=== PATIENT | male | born 1975 | race Caucasian/White ===

== ENCOUNTER 2020-08-23 11:41 | Emergency (ER) | payer OTHER, SELFPAY ==
--- NOTE | ~2020-08-23 | CT_ITS ---
EXAMINATION: CT abdomen pelvis wo con DATE: 08/23/2020 12:47 INDICATION: Lower abdominal pain TECHNIQUE: Computed tomography (CT) of the abdomen and pelvis was performed without intravenous contr ast. The dose-length product (DLP) was 2016.22 mGy-cm. Automated exposure control and iterative recon struction technique were employed. COMPARISON: None FINDINGS: The lung bases are clear. The heart size is normal. The liver, spleen, pancreas, gallbladde r, and adrenal glands are normal. The kidneys are unremarkable. No stones are identified in the kidne ys, ureters, or bladder. There is no hydronephrosis or hydroureter. No pathologically enlarged abdomi nal or pelvic lymph nodes are identified. There is no free intraperitoneal gas or evidence of bowel o bstruction. There is a left inguinal hernia containing fat. There is mild lumbar spondylosis. IMPRESSION: 1. No CT correlate for the patient's symptoms. Reviewed, dictated and finalized at location A.
--- NOTE | 2020-08-23 11:49 | ED.ABDPAIN ---
HPI - Abdominal Pain General Chief Complaint: Abdominal Pain Stated Complaint: possible hernia from work Source: patient and RN notes reviewed Mode of arrival: ambulatory Limitations: no limitations History of Present Illness HPI narrative: patient states he was lifting a 55 gal drum of fluid when he felt a strain in his left lower quadrant and groin. He says it has been getting progressively worse and when he did more activity the last couple of days the pain hurt worse. When he sits up and puts pressure down on his testicles it hurts on the left. MD elicited complaint: abdominal pain Pertinent past history: none Onset (ago): week(s) (5) Pain Consistency: intermittent Location: groin Severity: moderate Quality: aching and dull Radiation: other (Left testicle) Exacerbating factors: movement Relieving factors: nothing Associated symptoms: constipation Related Data Home Medications Medication Instructions Recorded Confirmed No Home Medications 02/21/19 08/23/20 Allergies Allergy/AdvReac Type Severity Reaction Status Date / Time No Known Allergies Allergy Verified 02/21/19 11:06 Review of Systems Review of Systems: All systems reviewed & are unremarkable except as noted in HPI and below Gastrointestinal: Gastrointestinal: Reports constipation PMFSH Past Medical History Medical History (Updated 08/23/20 @ 13:31 by Dex Shabazz MD) Morbid obesity Surgical History Surgical History (Updated 08/23/20 @ 12:33 by Dex Shabazz MD) H/O Achilles tendon repair H/O inguinal hernia repair History of tonsillectomy and adenoidectomy S/p bilateral myringotomy with tube placement Social History Social History Gender identity (if verbalized by the patient): Male Exam Const: General: healthy appearing and no acute distress Nutritional Appearance: well nourished and obese morbidly obese Orientation/consciousness: patient oriented x3 HENMT: Head: normal to inspection Ears: external ears normal Face and sinus: normal facial exam Mouth: Yes moist mucous membranes Eyes: Conjunctivae: conjunctivae normal Pupils: Equal, round and reactive pupils present EOM: EOMs intact bilaterally Neck: Neck: normal visual inspection Resp: Effort & Inspection: normal respiratory effort Auscultation: clear to auscultation bilaterally Cardio: Rate: regular rate Rhythm: regular rhythm GI: Inspection: Pannus present and obesity GI Palp: Yes Soft to palpation, Yes Tenderness to palpation present (GI) (Moderate LLQ), Yes Guarding due to palpation present (GI) (LLQ) and No Rebound tenderness present Auscultation: normal bowel sounds : Male General Exam: Yes normal external exam Scrotum: no inguinal hernias Testes: testicular lie normal, epididymal tenderness on the left and testicular tenderness on the left Back/Spine/Pelvis: Cervical Spine: cervical ROM normal Thoracic/Lumbar Spine: thoraco-lumbar ROM normal Skin: General skin exam: normal color Rashes: no rashes Neuro: General: patient oriented x3, moves all extremities and no focal motor deficits Speech: normal speech Gait exam (Neuro): Normal gait present Extrem: General: normal to inspection Psych: Appearance: grossly normal and well kempt Mental Status: mental status grossly normal Affect: normal affect Attitude: cooperative Thought content: Yes Normal thought content present Course Vital Signs Vital signs: Vital Signs Temperature 36.5 C 08/23/20 12:12 Pulse Rate 92 08/23/20 12:12 Respiratory Rate 18 08/23/20 12:12 Blood Pressure 159/99 H 08/23/20 12:12 Pulse Oximetry 96 08/23/20 12:12 Temperature 36.5 C 08/23/20 12:12 Pulse Rate 84 08/23/20 13:35 Respiratory Rate 16 08/23/20 13:35 Blood Pressure 130/80 08/23/20 13:35 Pulse Oximetry 96 08/23/20 12:12 MDM - Abdominal Pain Imaging Data Radiologist's impression: ITS Impressions Abdomen/Pelvis CT
[2020-08-23 12:12] VITALS: BP 159/99; PULSE 92; RESP 18; TEMP 36.5; O2SAT 96
[2020-08-23 13:35] VITALS: BP 130/80; PULSE 84; RESP 16
== END 2020-08-23 13:41 | disposition home or self-care (01) ==
PROVIDERS: Emergency Provider Emergency Medicine; PCP Family Medicine
DX: R10.32 Left lower quadrant pain (principal); E66.01 Morbid (severe) obesity due to excess calories
CPT/HCPCS: 74176; 99282; 99284

== ENCOUNTER 2022-12-22 08:01 | Outpatient (CLI) | payer OTHER, SELFPAY ==
[2022-12-22 08:15] LABS: Basophils Absolute Auto 0.05 K/mm3 (0.00-0.10); Basophils Percent Auto 0.7 % (0.0-1.0); Eosinophils Absolute Auto 0.18 K/mm3 (0.02-0.50); Eosinophils Percent Auto 2.5 % (1.0-6.0); Hematocrit 46.2 % (40.0-54.0); Hemoglobin 14.9 g/dL (14.0-18.0); Immature Granulocyte Absolute 0.02 K/mm3 (0.00-0.00); Immature Granulocyte Percent A 0.3 % (0.0-0.0); Lymphocytes Absolute Auto 1.63 K/mm3 (1.10-4.50); Lymphocytes Percent Auto 22.2 % (18.0-42.0); Mean Corpuscular HGB Conc 32.3 g/dL (32.0-36.0); Mean Corpuscular Hemoglobin 31.2 pg (27.0-31.0); Mean Corpuscular Volume 96.9 fL (78.0-102.0); Mean Platelet Volume 8.6 fl (8.7-11.0); Monocytes Absolute Auto 0.58 K/mm3 (0.10-0.90); Monocytes Percent Auto 7.9 % (2.0-11.0); Neutrophils Absolute Auto 4.9 K/mm3 (1.7-7.2); Neutrophils Percent Auto 66.4 % (50.0-70.0); Platelet Count Result 207 K/mm3 (150-420); Red Blood Count 4.77 M/mm3 (4.70-6.10); Red Cell Distribution Width 13.2 % (11.6-14.4); White Blood Count 7.3 K/mm3 (4.8-10.8)
[2022-12-22 08:43] LABS: Alanine Aminotransferase 47 U/L (16-63); Albumin Level 3.3 g/dL (3.4-5.0); Alkaline Phosphatase 62 U/L (46-116); Anion Gap 4 mmol/L (8-16); Aspartate Amino Transferase 26 U/L (15-37); Bilirubin,Total 0.5 mg/dL (0.00-1.00); Blood Urea Nitrogen 14 mg/dL (7-18); Calcium 8.8 mg/dL (8.5-10.1); Carbon Dioxide 34 mmol/L (21-32); Chloride 104 mmol/L (98-108); Cholesterol 162 mg/dL (0-200); Estimated Glomerular Filt Rate > 60; Glucose 187 mg/dL (70-99); HDL Direct 42 mg/dL (40-60); LDL Cholesterol Calculated 101 mg/dL (<130); Osmolality Calculated 299 mOsm/kg (285-295); Potassium 4.4 mmol/L (3.5-5.1); Sodium 142 mmol/L (136-145); Total Protein 6.4 g/dL (6.4-8.2); Triglycerides 93 mg/dL (0-150)
[2022-12-22 09:09] LABS: Thyroid Stimulating Hormone Reflex 3.18 u/IU/mL (0.36-3.74)
[2022-12-26 14:06] LABS: Testosterone Free 23.1 pg/mL (35.0-155.0); Testosterone Total 109 ng/dL (250-1100)
[2022-12-26 21:52] LABS: PSA, Free 0.03 ng/mL; PSA, Total 0.3 ng/mL (<=4.0)
== END 2022-12-22 08:02 | disposition home or self-care (01) ==
LOC: CHSLAB 08:02
PROVIDERS: PCP Family Medicine; Visit Provider Family Medicine
DX: Z00.00 Encounter for general adult medical examination without abnormal findings (principal); J45.20 Mild intermittent asthma, uncomplicated; E11.9 Type 2 diabetes mellitus without complications
CPT/HCPCS: 36415; 80053; 80061; 84153; 84154; 84402; 84403; 84443; 85025

== ENCOUNTER 2022-12-28 08:52 | Outpatient (CLI) | payer OTHER, SELFPAY ==
--- NOTE | 2023-01-12 14:30 | WPDPFTINT ---
PFT Procedure Performed PFT Procedure Performed Spirometry with Pre/Post Bronchodilator Flow Vol Loop PFT Interpretation DOS: 12/28/2022 REQUESTING: Shan Loera DO REASON FOR TESTING: mild intermittent asthma PULMONARY FUNCTION TESTS Results are reliable and reproducible. Spirometry: Pre-bronchodilator FEV1 is 2.40 L, 60% predicted, mildly decreased. The pre-bronchodilator FVC is 3.32 L, 66%, mildly reduced. The FEV1/FVC ratio is 72%. , FEV1 increases by 10%, 2.63 L, 66% predicted. After bronchodilator the FVC increases by 10%, 3.65 L, 72% predicted. The FEV1/FVC ratio remains 72%. The UAF63-63% is decreased at 35%, 1.53 L, increases by 21%, 1.86 L, 43% predicted. Lung volumes and DLCO not performed. Flow volume loop: The flow volume loop shows coving of the expiratory limb which improves after bronchodilator. The inspiratory limb shows a sawtooth pattern which is reproducible. A sawtooth pattern can be seen in several conditions including a minority of patients obstructive sleep apnea, snorers, airway tumors, airway stenosis, neuromuscular disorders with bulbar involvement, burn injury of the upper airway, and other conditions. IMPRESSION: This study shows mild obstructive ventilatory impairment which is marked in the small airways, more suggestive of asthma, with mild response to bronchodilator. The flow volume loop oscillations suggest possible obstructive sleep apnea. No prior studies to compare. Lis Hopson MD
== END 2022-12-28 08:53 | disposition home or self-care (01) ==
LOC: CHSCARD 08:54
PROVIDERS: PCP Family Medicine; Visit Provider Family Medicine
DX: J45.20 Mild intermittent asthma, uncomplicated (principal)
CPT/HCPCS: 94060

== ENCOUNTER 2023-01-15 20:10 | Emergency (ER) | payer OTHER, SELFPAY ==
--- NOTE | ~2023-01-15 | CT_ITS ---
EXAMINATION: CT abdomen pelvis w con DATE: 01/15/2023 21:42 INDICATION: LOWER ABDOMINAL PAIN TECHNIQUE: Computed tomography (CT) of the abdomen and pelvis was performed with 100 mL Omnipaque-350 intravenous contrast. Automated exposure control and iterative reconstruction technique were employe d. The dose-length product was 1912.79 mGy-cm. COMPARISON: 08/23/2020. FINDINGS: Exam limited by considerable beam hardening artifact. Lower thorax: Trace pericardial fluid. Liver: Hepatomegaly Biliary/Gallbladder: Gallbladder is normal. No bile duct dilation. Pancreas: No mass or duct dilation. Spleen: Normal. Adrenals:No mass. Kidneys: Bilateral cortical thinning. No suspicious mass, obstructing stone, or hydronephrosis. GI tract: No small or large bowel dilation. Appendix not confidently visualized. Diverticulosis witho ut diverticulitis. Mesentery/Peritoneum: No ascites, mass, or free air. Retroperitoneum: No mass. Pelvis: Pelvic organs are within normal limits. Soft Tissues: Moderate diffuse body wall edema. Uncomplicated appearing fat-containing left inguinal hernia. Bones: No acute osseous finding. IMPRESSION: Trace pericardial effusion. Moderate body wall edema. Reviewed, dictated and finalized at location K.
[2023-01-15 20:22] VITALS: BP 145/111; PULSE 104; RESP 20; TEMP 37.2; O2SAT 91
--- NOTE | 2023-01-15 20:30 | ED.GENADULT ---
HPI - General Adult General Chief complaint: Abdominal Pain Stated complaint: Stomach Pain History of Present Illness HPI narrative: 47-year-old male presenting with abdominal pain. Patient states he is recovering from an upper respiratory tract infection that has resulted in coughing spells. He states he had a coughing spell a few days ago and felt like he had something tear in his abdomen. He presents complaining of abdominal pain in all abdominal quadrants. Related Data Allergies Allergy/AdvReac Type Severity Reaction Status Date / Time Penicillins Allergy Mild unknown Verified 01/15/23 21:31 [facility] Past Medical History Medical History Morbid obesity Surgical History Surgical History H/O Achilles tendon repair H/O inguinal hernia repair History of tonsillectomy and adenoidectomy S/p bilateral myringotomy with tube placement Social History Social History (Updated 12/21/22 @ 08:42 by Mabel Corcoran) Smoking status: Never smoker Alcohol intake: never Substance use: never Gender identity (if verbalized by the patient): Male Exam Narrative: Tenderness to palpation in all abdominal quadrants. Negative Houser's. Negative McBurney's. No palpable masses. All other systems otherwise unremarkable. Course Vital Signs Vital signs: Vital Signs Temperature 37.2 C 01/15/23 20:22 Pulse Rate 104 H 01/15/23 20:22 Respiratory Rate 20 01/15/23 20:22 Blood Pressure 145/111 H 01/15/23 20:22 Pulse Oximetry 91 01/15/23 20:22 Oxygen Delivery Room Air 01/15/23 20:22 Temperature 37.2 C 01/15/23 20:22 Pulse Rate 104 H 01/15/23 20:22 Respiratory Rate 20 01/15/23 20:22 Blood Pressure 145/111 H 01/15/23 20:22 Pulse Oximetry 91 01/15/23 20:22 Oxygen Delivery Room Air 01/15/23 20:22 Medical Decision Making MDM Narrative Medical decision making narrative: My interpretation official read of imaging is with fat containing hernia in the left lower abdomen / pelvis. also with abdominal wall edema. I suspect the patient for ligamentous structures wall coughing which resulted in a known hernia enlarging. There does not appear to be any bowel in the hernia. Labs are reassuring. He appears well. He is nontoxic appearing. He has a previously scheduled appointment with his PCP tomorrow morning. He was encouraged to keep that and follow-up with him concerning today's workup. He was given strict return precautions and follow-up instructions. He is felt safe to proceed outpatient management. Vital Signs Vital Signs: Vital Signs Temperature 37.2 C 01/15/23 20:22 Pulse Rate 104 H 01/15/23 20:22 Respiratory Rate 20 01/15/23 20:22 Blood Pressure 145/111 H 01/15/23 20:22 Pulse Oximetry 91 01/15/23 20:22 Oxygen Delivery Room Air 01/15/23 20:22 Temperature 37.2 C 01/15/23 20:22 Pulse Rate 104 H 01/15/23 20:22 Respiratory Rate 20 01/15/23 20:22 Blood Pressure 145/111 H 01/15/23 20:22 Pulse Oximetry 91 01/15/23 20:22 Oxygen Delivery Room Air 01/15/23 20:22 Lab Data Lab results reviewed: Yes I reviewed the patient's lab results. Imaging Data Attestation: I personally reviewed and interpreted this imaging study as follows: Discharge Plan Discharge Clinical Impression: Abdominal pain Qualifiers: Abdominal location: generalized Qualified Code(s): R10.84 - Generalized abdominal pain Patient Disposition: Home, Self-Care Condition: Stable Instructions: Inguinal Hernia (ED) Additional Instructions: keep your previously scheduled appointment with your PCP tomorrow morning. Return to emergency department with any concerns Prescriptions: No Action albuterol sulfate 1.25 mg/3 mL solution for nebulization 1.25 mg inhalation Q4-6H PRN (Reason: bronchospasm) Qty: 90 0RF albuterol sulfate 90 mcg/actuation HFA aero
[2023-01-15 20:50] LABS: Basophils Absolute Auto 0.06 K/mm3 (0.00-0.10); Basophils Percent Auto 0.7 % (0.0-1.0); Eosinophils Absolute Auto 0.17 K/mm3 (0.02-0.50); Eosinophils Percent Auto 2.1 % (1.0-6.0); Hematocrit 42.6 % (40.0-54.0); Hemoglobin 13.3 g/dL (14.0-18.0); Immature Granulocyte Absolute 0.03 K/mm3 (0.00-0.00); Immature Granulocyte Percent A 0.4 % (0.0-0.0); Lymphocytes Percent Auto 19.9 % (18.0-42.0); Mean Corpuscular HGB Conc 31.2 g/dL (32.0-36.0); Mean Corpuscular Hemoglobin 30.6 pg (27.0-31.0); Mean Corpuscular Volume 98.2 fL (78.0-102.0); Mean Platelet Volume 8.8 fl (8.7-11.0); Monocytes Absolute Auto 0.69 K/mm3 (0.10-0.90); Monocytes Percent Auto 8.6 % (2.0-11.0); Neutrophils Absolute Auto 5.5 K/mm3 (1.7-7.2); Neutrophils Percent Auto 68.3 % (50.0-70.0); Platelet Count Result 209 K/mm3 (150-420); Red Blood Count 4.34 M/mm3 (4.70-6.10); Red Cell Distribution Width 13.5 % (11.6-14.4)
[2023-01-15 21:07] LABS: Alanine Aminotransferase 53 U/L (16-63); Albumin Level 3.1 g/dL (3.4-5.0); Alkaline Phosphatase 66 U/L (46-116); Anion Gap 4 mmol/L (8-16); Aspartate Amino Transferase 34 U/L (15-37); Bilirubin,Total 0.5 mg/dL (0.00-1.00); Blood Urea Nitrogen 15 mg/dL (7-18); Calcium 8.7 mg/dL (8.5-10.1); Carbon Dioxide 32 mmol/L (21-32); Chloride 105 mmol/L (98-108); Estimated CRCL calculation 126 ml/min; Estimated Glomerular Filt Rate > 60; Glucose 139 mg/dL (70-99); Lipase 28 U/L (16-77); Osmolality Calculated 294 mOsm/kg (285-295); Potassium 4.4 mmol/L (3.5-5.1); Sodium 141 mmol/L (136-145); Total Protein 6.5 g/dL (6.4-8.2)
[2023-01-15] MEDS: KETOROLAC 30 MG/ML VIAL (*BKC) IV PUSH (21:59)
[2023-01-15 22:50] VITALS: BP 139/105; PULSE 95; RESP 20; TEMP 36.9; O2SAT 93
== END 2023-01-15 22:53 | disposition home or self-care (01) ==
PROVIDERS: Emergency Provider Emergency Medicine; PCP Family Medicine
DX: R10.84 Generalized abdominal pain (principal); K46.9 Unspecified abdominal hernia without obstruction or gangrene
CPT/HCPCS: 36415; 74177; 80053; 83690; 85025; 96374; 99284; J1885; Q9967

== ENCOUNTER 2023-01-23 11:56 | Outpatient (CLI) | payer OTHER, SELFPAY ==
--- NOTE | ~2023-01-23 | XR_ITS ---
EXAMINATION: XR chest 2V DATE: 01/23/2023 12:15 INDICATION: Unspecified asthma with acute exacerbation. TECHNIQUE: Frontal and lateral views of the chest were obtained. COMPARISON: CT abdomen and pelvis 01/15/2023 FINDINGS: There is no pneumonia, pleural effusion, or pneumothorax. Cardiomegaly is noted. IMPRESSION: 1. Cardiomegaly. Reviewed, dictated and finalized at location E. IMPRESSION: 1. Cardiomegaly.
== END 2023-01-23 11:57 | disposition home or self-care (01) ==
LOC: CHSIMG 11:58
PROVIDERS: PCP Nurse Practitioner Family; Visit Provider Nurse Practitioner Family
DX: I31.39 Other pericardial effusion (noninflammatory) (principal); J45.901 Unspecified asthma with (acute) exacerbation; I51.7 Cardiomegaly
CPT/HCPCS: 71046

== ENCOUNTER 2023-02-08 08:51 | Outpatient (CLI) | payer OTHER, SELFPAY ==
--- NOTE | 2023-02-08 08:52 | ECG_ITS ---
Measurements Intervals [place] Rate: 116 P: [place]: 0 QRS: 107 QRSD: 122 T: 21 QT: 334 QTc: 466 Interpretive Statements ATRIAL FIBRILLATION WITH RAPID VENTRICULAR RESPONSE RIGHT AXIS DEVIATION [QRS AXIS > 100] MODERATE INTRAVENTRICULAR CONDUCTION DELAY [110+ ms QRS DURATION] ABNORMAL ECG NO PREVIOUS ECG AVAILABLE FOR COMPARISON Electronically Signed On 02-08-2023 17:07:24 CDT by Tu Marion M.D.
[2023-02-08 09:05] LABS: Hematocrit 46.1 % (40.0-54.0); Hemoglobin 14.5 g/dL (14.0-18.0); Mean Corpuscular HGB Conc 31.5 g/dL (32.0-36.0); Mean Corpuscular Hemoglobin 30.9 pg (27.0-31.0); Mean Corpuscular Volume 98.1 fL (78.0-102.0); Mean Platelet Volume 8.6 fl (8.7-11.0); Platelet Count Result 218 K/mm3 (150-420); Red Cell Distribution Width 13.7 % (11.6-14.4); White Blood Count 6.9 K/mm3 (4.8-10.8)
[2023-02-08 09:35] LABS: Alanine Aminotransferase 38 U/L (16-63); Albumin Level 3.3 g/dL (3.4-5.0); Alkaline Phosphatase 71 U/L (46-116); Anion Gap 5 mmol/L (8-16); Aspartate Amino Transferase 16 U/L (15-37); Bilirubin,Total 0.5 mg/dL (0.00-1.00); Blood Urea Nitrogen 11 mg/dL (7-18); Carbon Dioxide 36 mmol/L (21-32); Chloride 101 mmol/L (98-108); Estimated Glomerular Filt Rate > 60; Glucose 133 mg/dL (70-99); NT Pro B Type Natriuretic Pept 636 pg/mL (0-125); Osmolality Calculated 295 mOsm/kg (285-295); Potassium 4.3 mmol/L (3.5-5.1); Sodium 142 mmol/L (136-145); Total Protein 6.3 g/dL (6.4-8.2)
== END 2023-02-08 08:52 | disposition home or self-care (01) ==
LOC: CHSLAB 08:52
PROVIDERS: PCP Family Medicine; Visit Provider Nurse Practitioner Family
DX: R60.9 Edema, unspecified (principal); I49.9 Cardiac arrhythmia, unspecified; R06.02 Shortness of breath
CPT/HCPCS: 36415; 80053; 83880; 85027; 93005

== ENCOUNTER 2023-02-08 16:31 | Emergency (ER) | payer OTHER, SELFPAY ==
--- NOTE | ~2023-02-08 | XR_ITS ---
EXAMINATION: XR chest 2V DATE: 02/08/2023 17:30 INDICATION: Abnormal EKG. Oxygen requirement. TECHNIQUE: PA and lateral views of the chest were obtained. COMPARISON: Chest radiograph dated 01/23/2023 FINDINGS: Unchanged mild elevation of the left hemidiaphragm. No focal airspace opacities, pulmonary edema, ple ural effusion or pneumothorax. Mild cardiomegaly. Visualized bones and soft tissues are unremarkable. IMPRESSION: 1. Mild cardiomegaly. Reviewed, dictated and finalized at location A. IMPRESSION: 1. Mild cardiomegaly.
--- NOTE | ~2023-02-08 | CT_ITS ---
EXAMINATION: CTA chest PE protocol DATE: 02/08/2023 20:26 INDICATION: Shortness of breath, new onset atrial fibrillation TECHNIQUE: Computed tomography angiography (CTA) of the chest was performed with 100 mL Omnipaque-350 intravenous contrast timed to evaluate the pulmonary arteries. Coronal maximum intensity projection 3D-reconstructions were created by the technologist. The dose-length product (DLP) was 1210.93 mGy-cm . Automated exposure control and iterative reconstruction technique were employed. COMPARISON: None. FINDINGS: There is fair opacification of the pulmonary arteries. No pulmonary embolus is identified. There is mild dependent atelectasis. No pleural effusion or pneumothorax. A small pericardial effusio n is noted. There is calcified coronary artery atherosclerosis. No pathologically enlarged thoracic l ymph nodes are identified. The heart size is normal. There is mild thoracic spondylosis. IMPRESSION: 1. No pulmonary embolus identified. 2. Small pericardial effusion. Reviewed, dictated and finalized at location F.
--- NOTE | 2023-02-08 16:40 | ECG_ITS ---
Measurements Intervals [place] Rate: 126 P: [place]: 0 QRS: 109 QRSD: 113 T: -7 QT: 321 QTc: 466 Interpretive Statements ATRIAL FIBRILLATION WITH RAPID VENTRICULAR RESPONSE RIGHT AXIS DEVIATION [QRS AXIS > 100] MODERATE INTRAVENTRICULAR CONDUCTION DELAY [110+ ms QRS DURATION] NONSPECIFIC T-WAVE ABNORMALITY ABNORMAL ECG COMPARED TO ECG 02/08/2023 09:11:51 T-WAVE ABNORMALITY NOW PRESENT Electronically Signed On 02-08-2023 17:26:50 CDT by Tu Marion M.D.
[2023-02-08 16:50] VITALS: BP 160/98; PULSE 124; RESP 18; TEMP 37.1; O2SAT 90
[2023-02-08 16:57] VITALS: O2SAT 95
--- NOTE | 2023-02-08 17:19 | PC.NURSE ---
Pt taking off O2 at this time and states i don't need it
[2023-02-08 17:28] LABS: Basophils Percent Auto 0.5 % (0.2-1.2); Eosinophils Absolute Auto 0.2 K/mm3 (0-0.3); Eosinophils Percent Auto 2.2 % (0-4.4); Hematocrit 45.6 % (42.0-52.0); Immature Granulocyte Absolute 0.03 K/mm3 (0.00-0.031); Immature Granulocyte Percent A 0.4 % (0-0.5); Lymphocytes Absolute Auto 1.39 K/mm3 (0.9-3.2); Lymphocytes Percent Auto 18.4 % (18.3-44.2); Mean Corpuscular HGB Conc 30.7 g/dl (32-36); Mean Corpuscular Volume 97.9 fl (80-100); Mean Platelet Volume 8.7 fl (7.4-10.4); Monocytes Absolute Auto 0.7 K/mm3 (0.1-0.6); Monocytes Percent Auto 9.4 % (2.6-8.5); Neutrophils Absolute Auto 5.2 K/mm3 (1.3-6.7); Neutrophils Percent Auto 69.1 % (45.5-73.1); Platelet Count Result 215 k/mm3 (150-375); Red Blood Count 4.66 M/mm3 (4.6-6.20); Red Cell Distribution Width 14.1 % (11.5-14.5); White Blood Count 7.6 K/mm3 (4.5-10.0)
[2023-02-08 17:39] LABS: INR 1.1; Prothrombin Time 14.9 Seconds (11.1-14.7); Troponin I 0.013 ng/mL (0.000-0.034)
[2023-02-08] MEDS: ASPIRIN 81 MG CHEWABLE TABLET 324 MG PO (18:42)
--- NOTE | 2023-02-08 18:57 | ED.GENADULT ---
HPI - General Adult General Chief complaint: Recheck/Abnormal Lab/Rx Stated complaint: abnormal EKG this am at 0800 Time Seen by Provider: 02/08/23 18:30 Source: patient Mode of arrival: ambulatory Limitations: no limitations History of Present Illness HPI narrative: This is a 47-year-old male with PMH of asthma, HIWOT, who presents to the ED for evaluation of abnormal EKG taken at outpatient doctors office this morning. Patient was told that he may have A-fib. On his arrival to our department, triage noticed his oxygen was at the 88-90 range and placed him on 4 L. He states this oxygen requirement is brand-new for him. He reports over the last couple of weeks he has had episodes of shortness of breath with exertion. He states his doctor placed him on Lasix for chest congestion which is really helped with the dyspnea on exertion. Denies any chest pain, palpitations. Reports chronic leg swelling at baseline. Denies headache, LOC, numbness, weakness. Related Data Allergies Allergy/AdvReac Type Severity Reaction Status Date / Time Penicillins Allergy Mild unknown Verified 02/07/23 10:03 Review of Systems Review of Systems: All systems as dictated in [facility] Past Medical History Medical History Asthma Irregular heart rate Morbid obesity Tobacco use Surgical History Surgical History H/O Achilles tendon repair H/O inguinal hernia repair History of appendectomy History of tonsillectomy and adenoidectomy S/p bilateral myringotomy with tube placement Family History Family History Father Mother No problems noted. Sibling Blood clot in leg Diabetes mellitus Other Cancer Hypertension Social History Social History (Updated 02/07/23 @ 14:42 by ALEKSANDR Art) Smoking status: Former smoker Tobacco type: cigarettes Smokeless tobacco user: chewing tobacco Second hand tobacco smoke exposure: Yes Additional smoking assessment comments: Marijuana smoker Alcohol intake: current Alcohol use details: rarely Substance use: current Substance use type: marijuana Other substance usage details: smokes daily Last use: 01/26/2023 Lack of Transportation: No Lack of Food: Never True Current Housing: I Have Housing Concerned About Future Housing: No Difficulty Paying Gas/Electric Bills: No Difficulty Paying for Meds: No Currently Unemployed: No Education: Trade/Vocational Certificate Difficulty w/ Childcare or Family Care: No Living arrangements: with family Occupation/Education: occupation 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 HEAD: Normocephalic, atraumatic. EYES: PERRLA and EOMI. ENT: Nares clear, no rhinorrhea or epistaxis. Mucous membranes moist. Oropharynx without tonsillar hypertrophy exudate or other lesions. NECK: Supple. No adenopathy or masses. CHEST: No respiratory distress. Clear to auscultation. Breath sounds distant. 4 L nasal cannula saturating 95%. HEART: Irregularly irregular rhythm. Tachycardic in the 110s.. No murmur heard. Normal peripheral pulses. ABDOMEN: Soft, nontender, nondistended, normal active bowel sounds. MSK: Normal range of motion. Bilateral lower extremity edema noted. SKIN: Warm, dry, no rash. NEURO: Alert and oriented x3. No focal deficits. PSYCH: Normal mood and affect. Course Vital Signs Vital signs: Vital Signs Temperature 98.7 F 02/08/23 16:50 Pulse Rate 124 H 02/08/23 16:50 Respiratory Rate 18 02/08/23 16:50 Blood Pressure 160/98 H 02/08/23 16:50 Pulse Oximetry 90 02/08/23 16:50 Oxygen Delivery Room Air 02/08/23 16:50 Temperature 98.7 F 02/08/23 16:50 Pulse Rate 110 H 02/08/23 20:49 Respiratory Rate 15 02/08/23 20:49 Blood Pressure 138/72
[2023-02-08 19:50] VITALS: PULSE 116; RESP 15; O2SAT 93
[2023-02-08 20:35] LABS: Troponin I 0.013 ng/mL (0.000-0.034)
[2023-02-08 20:49] VITALS: BP 138/72; PULSE 110; RESP 15; O2SAT 99
--- NOTE | 2023-02-08 21:54 | PC.NURSE ---
Patient verbalizes his frustration to this RN about wanting to leave the hospital. Patient is informed that the provider will speak with him prior to leaving. Provider and charge out clerk notified. Patient is informed that the provider is tied up in another room and will be in as soon as possible. Patient then rips monitor, oxygen, and IV off and states he is leaving. Patient is informed that he should wait for the provider to explain risks of leaving the hospital. Patient persistent about leaving and walks out of the ER. tower truck driver and provider notified.
== END 2023-02-08 22:01 | disposition left against medical advice (07) ==
LOC: ANHED 19:15
PROVIDERS: Emergency Medicine; Emergency Provider Physician Assistant; PCP Family Medicine
DX: I48.91 Unspecified atrial fibrillation (principal); J45.909 Unspecified asthma, uncomplicated; G47.33 Obstructive sleep apnea (adult) (pediatric); E66.01 Morbid (severe) obesity due to excess calories; Z68.43 Body mass index [BMI] 50.0-59.9, adult; I45.9 Conduction disorder, unspecified; R94.31 Abnormal electrocardiogram [ECG] [EKG]; F17.220 Nicotine dependence, chewing tobacco, uncomplicated
CPT/HCPCS: 36415; 71046; 71275; 84484; 85025; 85610; 93005; 99284; A9270; Q9967

== ENCOUNTER 2023-02-09 13:08 | Inpatient (IN) | payer OTHER, SELFPAY ==
[2023-02-09] VITALS (33 sets, daily range): BP systolic 128–165; BP diastolic 81–118; PULSE 92–129; RESP 15–38; TEMP 36.5–36.8; O2SAT 88–100; BMI 55.9
--- NOTE | ~2023-02-09 | XR_ITS ---
XR chest 2V DATE: 02/09/2023 13:43 INDICATION: Shortness of breath TECHNIQUE: 2 views COMPARISON: 02/08/2023 2 view chest and CTA chest FINDINGS: Cardiomegaly. There is pulmonary vascular redistribution which may indicate mild pulmonary venous hypertension. There is mild peribronchial soft tissue thickening. No pulmonary infiltrate or consolidation, pleural effusion or pulmonary vascular congestion or pneumo thorax is detected. IMPRESSION: Cardiomegaly, pulmonary vascular congestion and mild peribronchial soft tissue thickening ; findings may indicate mild congestive change. Reviewed, dictated and finalized at location B. IMPRESSION: Cardiomegaly, pulmonary vascular congestion and mild peribronchial soft tissue thickening; findings may indicate mild congestive change.
--- NOTE | ~2023-02-09 | XR_ITS ---
XR chest 1V portable 02/10/2023 05:35 Indication: Low oxygen saturation Procedure: AP portable chest Comparison: 02/09/2023 Findings: Cardiomegaly. Mild interstitial edema. No significant effusion or pneumothorax. No acute os seous abnormality. Impression: 1: Mild interstitial edema. Reviewed, dictated and finalized at location A. Impression: 1: Mild interstitial edema.
--- NOTE | 2023-02-09 13:14 | ECG_ITS ---
Measurements Intervals [place] Rate: 125 P: [place]: 0 QRS: 111 QRSD: 113 T: -9 QT: 320 QTc: 462 Interpretive Statements ATRIAL FIBRILLATION WITH RAPID VENTRICULAR RESPONSE LOW QRS VOLTAGE RIGHTWARD AXIS ABNORMAL ECG COMPARED TO ECG 02/08/2023 16:58:24 NO SIGNIFICANT CHANGES Electronically Signed On 02-10-2023 8:44:58 CDT by Karl Rae M.D.
[2023-02-09 13:35] LABS: Basophils Absolute Auto 0.1 K/mm3 (0.0-0.1); Basophils Percent Auto 0.8 % (0.2-1.2); Eosinophils Absolute Auto 0.2 K/mm3 (0-0.3); Eosinophils Percent Auto 2.4 % (0-4.4); Hematocrit 45.7 % (42.0-52.0); Hemoglobin 14.3 g/dL (14.0-18.0); Immature Granulocyte Absolute 0.02 K/mm3 (0.00-0.031); Immature Granulocyte Percent A 0.3 % (0-0.5); Lymphocytes Absolute Auto 1.12 K/mm3 (0.9-3.2); Mean Corpuscular HGB Conc 31.3 g/dl (32-36); Mean Corpuscular Hemoglobin 30.6 pg (26-34); Mean Corpuscular Volume 97.6 fl (80-100); Mean Platelet Volume 8.6 fl (7.4-10.4); Monocytes Absolute Auto 0.6 K/mm3 (0.1-0.6); Monocytes Percent Auto 7.4 % (2.6-8.5); Neutrophils Absolute Auto 5.6 K/mm3 (1.3-6.7); Neutrophils Percent Auto 74.1 % (45.5-73.1); Platelet Count Result 212 k/mm3 (150-375); Red Blood Count 4.68 M/mm3 (4.6-6.20); White Blood Count 7.5 K/mm3 (4.5-10.0)
[2023-02-09 13:45] LABS: Alanine Aminotransferase 34 U/L (6-50); Alkaline Phosphatase 66 U/L (38-126); Anion Gap 3 mmol/L (8-16); Aspartate Amino Transferase 38 U/L (17-59); Bilirubin,Total 0.8 mg/dL (0.2-1.3); Blood Urea Nitrogen 13 mg/dL (9-20); Calcium 8.5 mg/dL (8.4-10.2); Carbon Dioxide 37 mmol/L (22-30); Chloride 95 mmol/L (98-107); Estimated CRCL calculation 167 ml/min; Estimated Glomerular Filt Rate > 60; Glucose 205 mg/dL (65-110); Lipase 87 U/L (23-300); Potassium 4.1 mmol/L (3.4-5.0); Sodium 135 mmol/L (137-145)
[2023-02-09 13:46] LABS: INR 1.1; Partial Thromboplastin Time 25.6 SECONDS (22.3-36.8); Prothrombin Time 14.8 Seconds (11.1-14.7)
[2023-02-09 13:56] LABS: Troponin I 0.015 ng/mL (0.000-0.034)
[2023-02-09] MEDS: ASPIRIN 81 MG CHEWABLE TABLET 324 MG PO (14:03)
--- NOTE | 2023-02-09 14:13 | ED.ARRPALP ---
HPI - Arrhythmia/Palpitations General Chief Complaint: Arrhythmia/Palpitations Stated Complaint: abnormal EKG Time Seen by Provider: 02/09/23 13:47 History of Present Illness HPI narrative: Patient is a 47-year-old male Here after leaving hospital yesterday for some shortness of breath and new onset AFib. Patient states that he has been struggling with shortness of breath for several months. He was started on 60 his primary care doctor when was initially started on 20 mg and slowly increased his dose to 80 mg this past week. Approximately 3 days ago he went to an outpatient GI appointment given some chronic abdominal pains. There they performed an EKG and found that he was in atrial fibrillation. He was initially sent to start in emergency department, discharged home and then his primary care doctor advised to come here for evaluation. This occurred yesterday. Patient denies any chest pain, lightheadedness and notes his chronic shortness of breath seems to be improving. When he came to the emergency department yesterday he did have to be placed on a couple liters of oxygen and was found to be in AFib with RVR. It was recommended at that time that he stay in the hospital for further testing however he needed to leave to take care his 13-year-old son as he is the primary caregiver and does not have a support system in the area. Denies cough, congestion, fever, chills. Related Data Allergies Allergy/AdvReac Type Severity Reaction Status Date / Time Penicillins Allergy Mild unknown Verified 02/07/23 10:03 Review of Systems Review of Systems: All systems reviewed & are unremarkable except as noted in HPI and below PMFSH Past Medical History Medical History Asthma Irregular heart rate Morbid obesity Tobacco use Surgical History Surgical History H/O Achilles tendon repair H/O inguinal hernia repair History of appendectomy History of tonsillectomy and adenoidectomy S/p bilateral myringotomy with tube placement Family History Family History Father Mother No problems noted. Sibling Blood clot in leg Diabetes mellitus Other Cancer Hypertension Social History Social History (Updated 02/07/23 @ 14:42 by ALEKSANDR Art) Smoking status: Former smoker Tobacco type: cigarettes Smokeless tobacco user: chewing tobacco Second hand tobacco smoke exposure: Yes Additional smoking assessment comments: Marijuana smoker Alcohol intake: never Alcohol use details: rarely Substance use: current Substance use type: marijuana Other substance usage details: smokes daily Last use: 01/26/2023 Lack of Transportation: No Lack of Food: Never True Current Housing: I Have Housing Concerned About Future Housing: Decline to Answer Difficulty Paying Gas/Electric Bills: Decline to Answer Difficulty Paying for Meds: Decline to Answer Currently Unemployed: Decline to Answer Education: Decline to Answer Difficulty w/ Childcare or Family Care: Decline to Answer Living arrangements: with family Occupation/Education: occupation 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 HEAD: Normocephalic, atraumatic. EYES: PERRLA and EOMI. ENT: Nares clear. Mucous membranes moist. NECK: Supple. CHEST: Clear to auscultation. No respiratory distress. HEART: Tachycardic, irregular. Normal peripheral pulses. ABDOMEN: Soft, distended, diffusely mildly tender, no rebound or guarding. EXTREMITIES: Normal range of motion. Bilateral lower extremity edema. SKIN: Warm, dry, no rash. NEURO: No focal deficits. Alert and oriented x3. PSYCH: Normal mood and affect. Course Course Emergency Cours
[2023-02-09] MEDS: METOPROLOL TARTRATE INJ 5 MG/5 ML VIAL IV PUSH (14:50)
[2023-02-09 15:03] LABS: NT Pro B Type Natriuretic Pept 888 pg/mL (19.9-100)
[2023-02-09 15:55] LABS: Troponin I 0.012 ng/mL (0.000-0.034)
[2023-02-09] MEDS: METOPROLOL SUCCINATE EXT REL 25 MG TABCR PO (16:13)
--- NOTE | 2023-02-09 16:19 | PC.NURSE ---
asked dr. tovar about iv and PO doses of metoprolol. requested that we administer PO medication and to monitor hr before administering IV med. IV med on stand by in case hr remains above 110 again. PO med administered and hr is currently 96bpm.
--- NOTE | 2023-02-09 18:52 | ADMGEN ---
This patient, Jonathan Quiles, was admitted to IMU Room 211-01. Patient/family oriented to hospital policies and general routines including ID bracelet, bed and alarms, visiting hours, pain management, procedures, bathroom and other care routines, personal items, smoking policy, room service/diet, and visiting hours. Information on how to activate the Rapid Response Team has been discussed. Patient/Family are encouraged to report perceived risks to care and to ask questions if they do not understand what they are told or what they should do.
[2023-02-09 19:24] LABS: Troponin I 0.012 ng/mL (0.000-0.034)
--- NOTE | 2023-02-09 19:52 | PM.IMHP ---
H&P: HPI History of Present Illness Date/Time: 02/09/23 19:52 Chief Complaint: Shortness of breath Narrative: THIS IS A 47-YEAR-OLD MALE WITH PAST MEDICAL HISTORY SIGNIFICANT FOR MORBID OBESITY, ASTHMA, HYPERTENSION, OBSTRUCTIVE SLEEP APNEA. PRESENTS TO THE EMERGENCY ROOM DUE TO INCREASED ABDOMINAL GIRTH, BILATERAL LOWER EXTREMITY EDEMA, SHORTNESS OF BREATH AT EXERTION, COUGH, CHEST CONGESTION. PATIENT HAS BEEN USING HIS INHALER MORE FREQUENTLY AT HOME. PATIENT WAS FOUND TO HAVE ATRIAL FIBRILLATION WITH RAPID VENTRICULAR RESPONSE IN THE EMERGENCY ROOM. PATIENT DENIES SHORTNESS OF BREATH BUT HAS HAD CHEST DISCOMFORT WITH FLUTTERING. NO SYNCOPE, NO NEAR SYNCOPE, NO DIZZINESS, NO LIGHTHEADEDNESS. PRELIMINARY WORKUP SHOWED A BNP OF 800 CHEST X-RAY WAS REPORTED : EXAMINATION: XR chest 2V DATE: 02/08/2023 17:30 INDICATION: Abnormal EKG. Oxygen requirement. TECHNIQUE: PA and lateral views of the chest were obtained. COMPARISON: Chest radiograph dated 01/23/2023 FINDINGS: Unchanged mild elevation of the left hemidiaphragm. No focal airspace opacities, pulmonary edema, pleural effusion or pneumothorax. Mild cardiomegaly. Visualized bones and soft tissues are unremarkable. IMPRESSION: 1. Mild cardiomegaly. EXAMINATION: CTA chest PE protocol DATE: 02/08/2023 20:26 INDICATION: Shortness of breath, new onset atrial fibrillation TECHNIQUE: Computed tomography angiography (CTA) of the chest was performed with 100 mL Omnipaque-350 intravenous contrast timed to evaluate the pulmonary arteries. Coronal maximum intensity projection 3D-reconstructions were created by the technologist. The dose-length product (DLP) was 1210.93 mGy-cm. Automated exposure control and iterative reconstruction technique were employed. COMPARISON: None. FINDINGS: There is fair opacification of the pulmonary arteries. No pulmonary embolus is identified. There is mild dependent atelectasis. No pleural effusion or pneumothorax. A small pericardial effusion is noted. There is calcified coronary artery atherosclerosis. No pathologically enlarged thoracic lymph nodes are identified. The heart size is normal. There is mild thoracic spondylosis. IMPRESSION: 1. No pulmonary embolus identified. 2. Small pericardial effusion. XR chest 2V DATE: 02/09/2023 13:43 INDICATION: Shortness of breath? TECHNIQUE: 2 views? COMPARISON: 02/08/2023 2 view chest and CTA chest? FINDINGS: Cardiomegaly. There is pulmonary vascular redistribution which may indicate mild pulmonary venous hypertension. There is mild peribronchial soft tissue thickening. No pulmonary infiltrate or consolidation, pleural effusion or pulmonary vascular congestion or pneumothorax is detected.? IMPRESSION: Cardiomegaly, pulmonary vascular congestion and mild peribronchial soft tissue thickening; findings may indicate mild congestive change.? Rate 125 OR 0 QRSd 113 QT 320 QTc 462 --[place]-- P QRS 111 T -9 ATRIAL FIBRILLATION WITH RAPID VENTRICULAR RESPONSE POSSIBLE RIGHT VENTRICULAR HYPERTROPHY [SOME/ALL OF: PROMINENT R IN V1, LATE TRANSITION, RAD, ZENAIDA, SSS] ABNORMAL QRS-T ANGLE [QRS-T AXIS DIFFERENCE > 60] COMPARED TO ECG 02/08/2023 16:58:24 NO SIGNIFICANT CHANGES PATIENT HAS BEEN ADMITTED FOR FURTHER EVALUATION MANAGEMENT AND TREATMENT Review of Systems Review of Systems: SHORTNESS OF BREATH, DRY COUGH, CHEST CONGESTION, INCREASED ABDOMINAL GIRTH. Constitutional: Constitutional: Denies chills, Denies fatigue, Denies fever(s), Denies malaise, Denies night sweats and Denies weakness Eyes: Eyes: Denies change in vision ENT: Denies dysphagia, Denies vertigo, Denies dizziness and Denies odynophagia Cardiovascular: Cardiovascular: Denies chest pain, Denies syncope, Reports pedal edema, Reports leg edema, Denies lightheadedness, Denies radiating jaw, neck or arm pain, Denies palpitations and Reports dyspnea Respiratory: Respiratory: Reports chest congestion, Reports cough and Reports dyspnea Ga
[2023-02-09] MEDS: APIXABAN 5 MG TABLET PO (20:52)
[2023-02-09] MEDS: methylPREDNISolone SOD SUCC 125 MG VIAL IV PUSH (20:52)
[2023-02-09] MEDS: FUROSEMIDE INJ 100 MG/10 ML VIAL 80 MG IV PUSH (21:12)
[2023-02-09] MEDS: IPRATROPIUM BR 0.02% INH SOLN 0.5 MG/2.5 ML VIAL INHALATION (23:45)
[2023-02-09] MEDS: ALBUTEROL SULFATE NEB 2.5 MG/3 ML INH INHALATION (23:45)
[2023-02-10] VITALS (18 sets, daily range): BP systolic 122–125; BP diastolic 79–97; PULSE 92–114; RESP 18–22; TEMP 36.1–36.6; O2SAT 90–96
[2023-02-10] MEDS: ALBUTEROL SULFATE NEB 2.5 MG/3 ML INH INHALATION ×3 (03:06→12:01)
[2023-02-10] MEDS: IPRATROPIUM BR 0.02% INH SOLN 0.5 MG/2.5 ML VIAL INHALATION ×3 (03:06→12:01)
[2023-02-10] MEDS: ACETAMINOPHEN 500 MG TABLET 1000 MG PO (05:27)
[2023-02-10] MEDS: methylPREDNISolone SOD SUCC 125 MG VIAL 60 MG IV PUSH ×2 (05:27→12:57)
--- NOTE | 2023-02-10 06:00 | ECHO_ITS ---
Patient Info Name: Jonathan Quiles Age: 47 years : 1975 Gender: Male Ht: 73 in Wt: 423 lbs BSA: 3.25 m2 HR: 106 bpm BP: 123 / 87 mmHg Heart Rhythm: Atrial Fibrillation Technical Quality: Fair Exam Date: 02/10/2023 10:00 AM Exam Location: [facility] Exam Room: 211 Patient Status: Inpatient Admit Date: 02/09/2023 Staff Ordering Physician: Veronica Villagomez MD Environmental Program Manager: Dena Cummins RDCS Attending Provider: Jaimee Sanchez DO Exam Type: CA echo dop color flow w con Study Info Indications - new onset afib chf Complete two-dimensional, color flow and Doppler transthoracic echocardiogram is performed with contrast to opacify the left ventricle and to improve the deliniation of the left ventricle endocardial borders. Contrast/Agitated Saline Contrast/Ag. Saline: Definity Amount: 2.00 ml Administered By: Dena Cummins [facility] Existing IV Access: Yes IV Access Condition: patent with no signs of infiltration Summary 1. Technically difficult exam because of obesity/definity contrast utilized. 2. Normal left ventricular size with systolic function that is in the low normal range. 3. At least moderate left atrial dilation. 4. Poorly visualized cardiac valves but no significant valvular dysfunction by Doppler. 5. No pericardial effusion. 6. Atrial fibrillation. Left Ventricle Left ventricular systolic function is normal, estimated at 55-60%. There is mild concentric increased left ventricular wall thickness. The left ventricular diastolic function is indeterminate. Right Ventricle Right ventricular chamber dimension is normal. Left Atria Left atrial chamber dimension is moderately enlarged. Right Atria Right atrial chamber dimension is not well visualized. Aortic Valve The aortic valve is trileaflet. There is mild aortic valve sclerosis. Pulmonic Valve The pulmonic valve is not well visualized. Mitral Valve The mitral valve has normal leaflets. Tricuspid Valve The tricuspid valve leaflets are not well visualized. Pericardium/Pleural The pericardium appears normal. Aorta The aortic root size at the sinus of Valsalva is normal. Left Ventricular Outflow Tract Name Value Normal LVOT 2D LVOT Diameter 2.22 cm LVOT Doppler LVOT Peak Gradient 7 mmHg LVOT Mean Gradient 4 mmHg LVOT VTI 25.11 cm LVOT VTI/AV VTI Ratio 0.83 LVOT Stroke Volume 96.71 ml LVOT CO 21.63 l/min LVOT CI 6.65 L/min/m2 Pulmonic Valve Name Value Normal PV Doppler PV Peak Gradient 3 mmHg Mitral Valve Name Value Normal
[2023-02-10 08:34] LABS: Basophils Percent Auto 0.1 % (0.2-1.2); Hemoglobin 15.3 g/dL (14.0-18.0); Immature Granulocyte Absolute 0.03 K/mm3 (0.00-0.031); Immature Granulocyte Percent A 0.4 % (0-0.5); Lymphocytes Absolute Auto 0.48 K/mm3 (0.9-3.2); Lymphocytes Percent Auto 6.3 % (18.3-44.2); Mean Corpuscular HGB Conc 31.2 g/dl (32-36); Mean Corpuscular Hemoglobin 30.4 pg (26-34); Mean Corpuscular Volume 97.2 fl (80-100); Mean Platelet Volume 8.5 fl (7.4-10.4); Monocytes Absolute Auto 0.1 K/mm3 (0.1-0.6); Neutrophils Absolute Auto 7.1 K/mm3 (1.3-6.7); Neutrophils Percent Auto 92.2 % (45.5-73.1); Platelet Count Result 230 k/mm3 (150-375); Red Blood Count 5.04 M/mm3 (4.6-6.20); Red Cell Distribution Width 13.8 % (11.5-14.5); White Blood Count 7.7 K/mm3 (4.5-10.0)
[2023-02-10 08:46] LABS: Potassium 4.1 mmol/L (3.4-5.0)
[2023-02-10 08:49] LABS: Anion Gap 7 mmol/L (8-16); Blood Urea Nitrogen 17 mg/dL (9-20); Calcium 8.7 mg/dL (8.4-10.2); Carbon Dioxide 37 mmol/L (22-30); Chloride 91 mmol/L (98-107); Estimated CRCL calculation 172 ml/min; Estimated Glomerular Filt Rate > 60; Glucose 247 mg/dL (65-110); Sodium 135 mmol/L (137-145)
[2023-02-10] MEDS: PERFLUTREN LIPID MICROSPHERES 1.5 ML VIAL DILUTED TO 10 ML TOTAL VOLUME IV PUSH (09:55)
[2023-02-10] MEDS: APIXABAN 5 MG TABLET PO (10:02)
[2023-02-10] MEDS: FUROSEMIDE INJ 100 MG/10 ML VIAL 80 MG IV PUSH (10:02)
[2023-02-10] MEDS: DOCUSATE SODIUM 100 MG CAPSULE PO (10:02)
[2023-02-10] MEDS: hydroCHLOROthiazide 12.5 MG CAPSULE PO (10:02)
[2023-02-10] MEDS: METOPROLOL SUCCINATE EXT REL 25 MG TABCR PO ×2 (10:02→12:57)
[2023-02-10] MEDS: lisinopriL 20 MG TABLET PO (10:02)
--- NOTE | 2023-02-10 11:58 | PM.CNCAR ---
Assessment and Plan Assessment and plan (1) A-fib: Qualifiers: Atrial fibrillation type: unspecified Qualified Code(s): I48.91 - Unspecified atrial fibrillation Code(s): I48.91 - Unspecified atrial fibrillation Status: Acute Plan This is a 47-year-old man with a recently recognized atrial fibrillation. His AFib is obviously of unclear/uncertain duration or chronicity. He almost certainly has atrial fib on the basis of sleep apnea/sleep disordered breathing. At this pt time I would recommend continuing apixaban for systemic anticoagulation and increasing the dose of his metoprolol for rate control to 50 mg daily. The patient indicates his desire/need to be discharged from the hospital today to care for his son. The higher dose of metoprolol should provide reasonable rate control and I will see him in the office and consider/discuss attempts at cardioverting him once he has been anticoagulated for an adequate amount of time and his sleep apnea has been appropriately addressed/treated Karl Rae MD [facility] History of Present Illness History of Present Illness Consult date/time: 02/10/23 11:58 Consult reason: atrial fibrillation Reason For Visit: New onset afib Narrative: This is a 47-year-old man I am seeing at the request of the hospitalist for assistance with the evaluation and management of atrial fibrillation. The patient is unknown to me prior to this encounter. He was experiencing symptoms of increasing shortness of breath with activity for something like 2-3 months. 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 That was an office ECG that we do not have a copy of. He was advised to see his primary care physician who apparently saw him in the office and noticed atrial fibrillation couple of days ago and sent him to the emergency room. He was unaware of his atrial fib with respect to palpitations or any other obvious symptoms such as that. In the emergency room admission to the hospital was advised but he left the emergency room against advice because of the need to care for his teenage son. He came back to the emergency room last night and was re-evaluated and admitted to the hospital. Once again he is unaware of his arrhythmia and the sense of tachycardia or palpitations. He has no symptoms of chest pain. This gentleman is chronically morbidly obese and has a history of sleep apnea for which he uses an old CPAP device that he is not sure is functioning well. An updated sleep study has been ordered by his PCP but has yet to take place. He does not have a history of diabetes he reports a history of hypertension for which he has been on lisinopril with hydrochlorothiazide. His heart rate was 130-140 upon arrival. He has been given some metoprolol his heart rate is now between 110 and 115. He otherwise appears to be comfortable watching television when I came in the room to see him. The patient states that he must leave the hospital today because he has to go home and take care of his teenage son. I do not see any notes from the primary team regarding this issue or plans for discharge. Review of Systems Constitutional: Constitutional: Reports lethargy Eyes: Eyes: Reports no additional eye complaints ENT: Reports system reviewed and no additional complaints, except as documented Cardiovascular: Cardiovascular: Reports no additional cardiovascular complaints Respiratory: Respiratory: Reports cough and Reports dyspnea on exertion Gastrointestinal: Gastrointestinal: Reports no additional gastrointestinal complaints Musculoskeletal: Musculoskeletal: Reports no additional musculoskeletal complaints Integumentary/Breasts: Skin/Breast: Reports system reviewed and no additional complaints, except as docu Neurologic: Reports system revie
--- NOTE | 2023-02-10 12:10 | IVDEFINITY ---
Prior to administration of IV Definity the patient was educated on the risks and benefits of the imaging enhancing agent including potential adverse side effects. The patient verbalized understanding. Allergies were verified. No exclusion criteria were identified and at least one of the following inclusion criteria were met: 1) physician request, 2) patient technically difficult to image (per the [place] [employer] guidelines of two or more segments not discernable within the apical view), or 3) questionable left ventricular function. ?
--- NOTE | 2023-02-10 13:28 | PM.IMPN ---
Progress Note: A&P Assessment and Plan (1) A-fib: Qualifiers: Atrial fibrillation type: unspecified Qualified Code(s): I48.91 - Unspecified atrial fibrillation Code(s): I48.91 - Unspecified atrial fibrillation Status: Acute Assessment and Plan: ADMIT TO IMU RATE CONTROLLED STARTED ON APIXABAN ECHOCARDIOGRAM IN A.M. CARDIOLOGY CONSULT (2) New onset of congestive heart failure: Code(s): I50.9 - Heart failure, unspecified Status: Acute Assessment and Plan: AGGRESSIVE DIURESIS DAILY INTAKE AND OUTPUT FLUID RESTRICTION (3) Tobacco use: Code(s): Z72.0 - Tobacco use Status: Acute Assessment and Plan: NICOTINE PATCH NEEDED (4) HTN (hypertension): Code(s): I10 - Essential (primary) hypertension Status: Acute Assessment and Plan: RESTART LISINOPRIL HOLDING HYDROCHLOROTHIAZIDE (5) Left inguinal hernia: Code(s): K40.90 - Unilateral inguinal hernia, without obstruction or gangrene, not specified as recurrent Status: Acute Assessment and Plan: UNCHANGED (6) Asthma exacerbation: Code(s): J45.901 - Unspecified asthma with (acute) exacerbation Status: Acute Assessment and Plan: BREATHING TREATMENT SYSTEMIC STEROIDS (7) HIWOT (obstructive sleep apnea): Code(s): G47.33 - Obstructive sleep apnea (adult) (pediatric) Status: Acute Assessment and Plan: CPAP AT NIGHTTIME (8) Morbid obesity with BMI of 50.0-59.9, adult: Code(s): E66.01 - Morbid (severe) obesity due to excess calories; Z68.43 - Body mass index [BMI] 50.0-59.9, adult Status: Acute Assessment and Plan: LIFESTYLE AND DIET MODIFICATIONS Plan patient is leaving [place] Subjective Date/time seen: 02/10/23 13:28 Interval history: No complaints Exam Narrative: Patient is sitting in bed in no acute distress morbidly obese Const: General: cooperative, comfortable, no acute distress, well developed, alert, awake, ill appearing chronically and obese Nutritional Appearance: obese morbidly obese Orientation/consciousness: patient oriented x3 HENMT: Head: normal to inspection, normocephalic and atraumatic Ears: hearing grossly normal bilaterally Face/Nose/Sinus: normal facial exam Face and sinus: normal facial exam Eyes: General: appearance normal, both eyes and all related structures Pupils: Equal, round and reactive pupils present EOM: EOMs intact bilaterally Neck: Neck: full ROM, no lymphadenopathy and no JVD Thyroid: thyroid normal Lymphatic: no lymphadenopathy noted Resp: Effort & Inspection: normal respiratory effort and able to speak in complete sentences Auscultation: clear to auscultation bilaterally Cardio: Jugular venous distension: no JVD Rate: regular rate Rhythm: regular rhythm Heart sounds: S1 normal heart sound present and S2 normal heart sound present GI: Inspection: Pannus present, obesity and no visible herniation : General: Yes deferred Skin: Rashes: no rashes Wounds: no wounds Neuro: General: patient oriented x3 and CN's II-XI intact bilaterally Cranial nerves: Yes CN's II-XII intact bilaterally and Yes Equal, round and reactive pupils present Cognition (Neuro): normal cognition Speech: normal speech Gait exam (Neuro): Normal gait present Motor exam (neuro): 5/5 motor strength present throughout Sensory Exam: No Sensory deficit (Neuro) Extrem: General: normal to inspection, full ROM, no joint enlargement, no pedal edema and edema bilateral (3+) Objective Data Vital Signs Vital Signs: Vital Signs - 24 hr 02/09/23 13:59 02/09/23 14:00 02/09/23 13:46 Temperature Pulse Rate 114 H 111 H Respiratory Rate 23 H 26 H Blood Pressure 152/100 H Pulse Oximetry Oxygen Delivery Oxygen Flow Rate Fraction of Inspired Oxygen 02/09/23 14:06 02/09/23 14:07 02/09/23 14:18 Temperature Pulse Rate 115 H 114 H 111 H Respiratory Rate 17 38 H
== END 2023-02-10 13:35 | disposition left against medical advice (07) | DRG 201 ==
LOC: ANHED 15:55 → ANHIMU 17:24
PROVIDERS: Emergency Medicine; Internal Medicine; Admitting Provider Student in an Organized Health Care Education/Training Program; Emergency Provider Student in an Organized Health Care Education/Training Program; PCP Family Medicine; Visit Provider Student in an Organized Health Care Education/Training Program
DX: I48.91 Unspecified atrial fibrillation (principal); I11.0 Hypertensive heart disease with heart failure; Z68.43 Body mass index [BMI] 50.0-59.9, adult; I50.9 Heart failure, unspecified; E66.01 Morbid (severe) obesity due to excess calories; F17.290 Nicotine dependence, other tobacco product, uncomplicated; G47.33 Obstructive sleep apnea (adult) (pediatric); J44.9 Chronic obstructive pulmonary disease, unspecified; K40.90 Unilateral inguinal hernia, without obstruction or gangrene, not specified as recurrent; Z90.49 Acquired absence of other specified parts of digestive tract; Z28.21 Immunization not carried out because of patient refusal; Z88.0 Allergy status to penicillin
CPT/HCPCS: 36415; 71045; 71046; 80048; 80053; 83690; 83880; 84484; 85025; 85610; 85730; 93005; 94002; 94640; 96374; 99285; A9270; C8929; J1940; J2930; Q9957

== ENCOUNTER 2023-02-19 09:52 | Outpatient (CLI) | payer OTHER, SELFPAY ==
[2023-02-19 10:00] VITALS: PULSE 93; O2SAT 90
[2023-02-19 10:03] VITALS: PULSE 100; O2SAT 88
[2023-02-19 10:05] VITALS: PULSE 99; O2SAT 93
[2023-02-19 10:10] VITALS: PULSE 93; O2SAT 93
--- NOTE | 2023-02-19 10:18 | HOMEO2EVAL ---
Evaluation was performed at [facility] Home Oxygen Evaluation RC: Home Oxygen (O2) Evaluation Start: 02/19/23 09:58 Freq: Status: Active Protocol: RPE Activity Type Activity Date Activity User E-sign Co-sign Detail Recorded Client Recorded Date Recorded By Document 02/19/23 10:00 [id number] 02/19/23 10:17 CH Document 02/19/23 10:03 CH [id number] 02/19/23 10:17 CH Document 02/19/23 10:05 [id number] 02/19/23 10:17 Document 02/19/23 10:10 [email or web address] 02/19/23 10:17 CH 02/19/23 02/19/23 02/19/23 10:00 10:03 10:05 Home O2 Evaluation [Oxygen] -Test Phase Resting Exercise Resting -Oxygen Delivery Room Air Room Air Nasal Cannula -Oxygen Flow Rate (L/min) 1 [Pulse Oximetry] -Pulse Oximetry (90-100 %) 90 88 L 93 [Pulse Rate] -Pulse Rate (60-100 beats/min) 93 100 99 [Evaluation] -Activity Tolerance Good Good Good -Rating of Perceived Dyspnea (PD) +1 Mild, +1 Mild, +1 Mild, Noticeable to Noticeable to Noticeable to the Participant the Participant the Participant but Not to an but Not to an but Not to an Observer Observer Observer -Rate of Perceived Exertion (PE) 10 8 Query Text:Click the Protocol Button to View the RPE Scale [Exercise] -Ambulation Distance (feet) 100 -Ambulation Distance (meters) 30.47 [Comments] -Home Oxygen Evaluation Comments will begin walk will add 1LPM will continue on room air. walk on 1LNC [Charges] -Treatment Charges O2 Evaluation - Outpatient 02/19/23 10:10 Home O2 Evaluation [Oxygen] -Test Phase Exercise -Oxygen Delivery Nasal Cannula -Oxygen Flow Rate (L/min) 1 [Pulse Oximetry] -Pulse Oximetry (90-100 %) 93 [Pulse Rate] -Pulse Rate (60-100 beats/min) 93 [Evaluation] -Activity Tolerance Good -Rating of Perceived Dyspnea (PD) +1 Mild, Noticeable to the Participant but Not to an Observer -Rate of Perceived Exertion (PE) 8 Query Text:Click the Protocol Button to View the RPE Scale [Exercise] -Ambulation Distance (feet) 225 -Ambulation Distance (meters) 68.57 [Comments] -Home Oxygen Evaluation Comments Patient ended walk on 1LNC. Oxygen saturations 93% heart rate 93. Patient walked at total of 325 feet. [Charges] -Treatment Charges
== END 2023-02-19 09:53 | disposition home or self-care (01) ==
LOC: CHSCARD 09:53
PROVIDERS: PCP Family Medicine; Visit Provider Family Medicine
DX: J45.901 Unspecified asthma with (acute) exacerbation (principal)
CPT/HCPCS: 94618

== ENCOUNTER 2023-02-21 19:55 | Outpatient (CLI) | payer OTHER, SELFPAY ==
--- NOTE | 2023-02-28 09:32 | WPDSLEEPSTUD ---
Sleep Study Date of Study: 02/21/23 Ordering Provider: Shan Loera DO Interpreting Physician: Lis Hopson MD Sleep Study Type: Polysomnogram Height: 1.85 m Weight: 181.437 kg Body Mass Index: 52.7 Neck Circumference (inches): 22 [place]: 8 Reason for Sleep Study Excessive daytime sleepiness, history of obstructive sleep apnea, needs a new device. Recently diagnosed with atrial fibrillation Sleep History Jonathan Quiles is a 47-year-old man with obstructive sleep apnea with problems dating back to 1997. He has been using the same machine since he was initially diagnosed. He was recently found have atrial fibrillation and was told that his sleep apnea may be the cause for his atrial fib. He was also recently found to have hyperetnsion. He needs a new machine and new settings. He frequently awakens from sleep feeling short of breath. He rarely wakes at night with heartburn, belching or coughing.??He frequently snores, frequent snores loudly enough that others complain. He frequently has trouble sleeping when he has a cold. He constantly wakes up gasping for breath during the night. He frequently has breathing problems at night. He occasionally sweats excessively at night. He rarely notices his heart pounding or beating irregularly during the night. He rarely falls asleep during the day. He rarely falls asleep involuntarily, never falls asleep while driving. He never experiences loss of muscle tone with strong emotion. He never has daytime difficulty at work due to excessive sleepiness. He never feels paralyzed on waking or falling asleep. He never experiences vivid dreams upon waking or falling asleep. He never feels afraid of going to sleep. He never has nightmares. He never recalls his dreams. He never has thoughts racing through his mind. He never feels sad or depressed. He never feels anxiety. Herarely notices parts of his body jerk. He rarely kicks during the night. He never feels crawling or aching feelings in his legs. He never feels leg pain at night. He never has morning jaw pain, never grinds his teeth at night. He occasionally feels bothered by pain during the day, occasionally awakened by pain during the night. He occasionally wakes up feeling stiff in the morning, and he occasionally wakes feeling sore or achy. He occasionally awakens with pain in his neck, spine, or joints. He reports losingweight in the last year, about 50 lb. Normal bedtime is 11:00 p.m., falling asleep quickly, wakes once at night to get a drink and go to the bathroom, returns to sleep within 20 minutes. He wakes at 5:30 a.m. and keeps the same shcedule on weekends. He estimates getting 6.5 hours of sleep at night. He takes does not nap in the day. Habits:??Tobacco: quit years ago Caffeine: 1-2 per day. Alcohol:none Recreational substances: none [facility] Past Medical History Medical History A-fib Asthma HTN (hypertension) Morbid obesity New onset of congestive heart failure HIWOT (obstructive sleep apnea) Tobacco use Surgical History Surgical History H/O Achilles tendon repair H/O inguinal hernia repair History of appendectomy History of tonsillectomy and adenoidectomy S/p bilateral myringotomy with tube placement Family History Family History Father Mother No problems noted. Sibling Blood clot in leg Diabetes mellitus Other Cancer Hypertension Social History Social History Smoking status: Former smoker Tobacco type: cigarettes Smokeless tobacco user: chewing tobacco Second hand tobacco smoke exposure: Yes Additional smoking assessment comments: Marijuana smoker Alcohol intake: never Alcohol use details: rarely Substance use: current Substance use type: marijuana Other substance usage details: smokes daily Last use
[2023-02-28 09:41] VITALS: BMI 52.7
== END 2023-02-22 05:55 | disposition home or self-care (01) ==
LOC: CHSCSM 20:03
PROVIDERS: PCP Family Medicine; Visit Provider Family Medicine
DX: G47.33 Obstructive sleep apnea (adult) (pediatric) (principal); Z68.43 Body mass index [BMI] 50.0-59.9, adult
CPT/HCPCS: 95810

== ENCOUNTER 2023-03-20 08:36 | Outpatient (CLI) | payer OTHER, SELFPAY ==
[2023-04-11 10:04] VITALS: BMI 52.7
--- NOTE | 2023-04-11 10:04 | WPDSLEEPSTUD ---
Sleep Study Date of Study: 03/20/23 Ordering Provider: Shan Loera DO Interpreting Physician: Teresa Gardiner DO Sleep Study Type: CPAP Titration Height: 1.85 m Weight: 181.437 kg Body Mass Index: 52.7 Neck Circumference (inches): 22 [place]: 8 Reason for Sleep Study The patient had a PSG on 02/21/2023 that showed an AHI of 52.1 with desaturation down to 78%. Central apnea index of 11.2. Sleep History Jonathan Quiles is a 47-year-old man with?obstructive sleep apnea with problems dating back to 1997.? He has been using the same machine since he was initially diagnosed.? He was recently found have atrial fibrillation and was told that his sleep apnea may be the cause for his atrial fib. He was also recently found to have hyperetnsion. He needs a new machine and new settings. He frequently awakens from sleep feeling short of breath. He? rarely wakes at night with heartburn, belching or coughing.??He? frequently snores,? frequent snores loudly enough that others complain. He frequently has trouble sleeping when he has a cold. He constantly wakes up gasping for breath during the night. He frequently has breathing problems at night. He occasionally sweats excessively at night. He rarely notices his heart pounding or beating irregularly during the night. He rarely falls asleep during the day. He rarely falls asleep involuntarily, never falls asleep while driving. He never experiences loss of muscle tone with strong emotion. He never has daytime difficulty at work due to excessive sleepiness.? He never feels paralyzed on waking or falling asleep. He never experiences vivid dreams upon waking or falling asleep. He never feels afraid of going to sleep. He never has nightmares. He never recalls his dreams. He never has thoughts racing through his mind. He never feels sad or depressed. He never feels anxiety. He rarely notices parts of his body jerk. He rarely kicks during the night. He never feels crawling or aching feelings in his legs. He never feels leg pain at night. He never has morning jaw pain, never grinds his teeth at night.? He occasionally feels bothered by pain during the day, occasionally awakened by pain during the night. He occasionally wakes up feeling stiff in the morning, and he occasionally wakes feeling sore or achy.? He occasionally awakens with pain in his neck, spine, or joints. He reports losingweight in the last year, about 50 lb. Normal bedtime is 11:00 p.m., falling asleep quickly, wakes once at night to get a drink and go to the bathroom, returns to sleep within 20 minutes. He wakes at 5:30 a.m. and keeps the same shcedule on weekends. He estimates getting 6.5 hours of sleep at night.? He takes does not nap in the day. Habits:??Tobacco: quit years ago? ? ? Caffeine: 1-2 per day. ? Alcohol:none ? ? Recreational substances: none REPLACED BY [facility] Past Medical History Medical History A-fib Asthma HTN (hypertension) Morbid obesity New onset of congestive heart failure HIWOT (obstructive sleep apnea) Tobacco use Surgical History Surgical History H/O Achilles tendon repair H/O inguinal hernia repair History of appendectomy History of tonsillectomy and adenoidectomy S/p bilateral myringotomy with tube placement Family History Family History Father Mother No problems noted. Sibling Blood clot in leg Diabetes mellitus Other Cancer Hypertension Social History Social History Smoking status: Former smoker Tobacco type: cigarettes Smokeless tobacco user: chewing tobacco Second hand tobacco smoke exposure: Yes Additional smoking assessment comments: Marijuana smoker Alcohol intake: never Alcohol use details: rarely Substance use: current Substance use type: marijuana Other substance usage details: smokes daily Last
== END 2023-03-21 05:55 | disposition home or self-care (01) ==
LOC: ANHCSM 08:38
PROVIDERS: PCP Family Medicine; Visit Provider Family Medicine
DX: G47.33 Obstructive sleep apnea (adult) (pediatric) (principal); G47.61 Periodic limb movement disorder
CPT/HCPCS: 95811

== ENCOUNTER 2023-05-14 00:36 | Day surgery (SDC) | payer OTHER, SELFPAY ==
[2023-05-11 13:00] VITALS: BMI 52.3
[2023-05-14] VITALS (8 sets, daily range): BP systolic 98–150; BP diastolic 66–88; PULSE 74–102; RESP 18–25; TEMP 36.4; O2SAT 93–97; BMI 52.0
--- NOTE | 2023-05-14 07:15 | ECG_ITS ---
Measurements Intervals [place] Rate: 97 P: OR: 0 QRS: 100 QRSD: 143 T: 64 QT: 426 QTc: 543 Interpretive Statements ATRIAL FLUTTER/TACHYCARDIA VENTRICULAR PREMATURE COMPLEX RIGHT AXIS DEVIATION INTRAVENTRICULAR CONDUCTION DELAY ABNORMAL ECG COMPARED TO ECG 05/14/2023 07:41:34 ATRIAL FLUTTER NOW PRESENT Electronically Signed On 05-14-2023 9:13:24 [employer] by James Obando D.O.
--- NOTE | 2023-05-14 07:51 | WPDANESEPPF ---
Anes - Initial Pre Proc Eval Procedure: Operation Date: 05/14/23 08:45 Proposed Procedures p Electrical Cardioversion - Karl Rae MD Date/Time: 05/14/23 07:51 Surgeon: Karl Rae MD Pre Op Diagnosis: a-fib Patient Data Age: 48 Gender: M Height: 1.85 m Weight: 180 kg Allergies Allergy/AdvReac Type Severity Reaction Status Date / Time Penicillins Allergy Mild unknown Verified 05/11/23 13:31 Home Medications Medication Instructions Recorded Confirmed Type albuterol sulfate 90 mcg/actuation 1 inh inhalation Q4H #8.5 grams 12/21/22 05/11/23 Rx aerosol inhaler albuterol sulfate 2.5 mg/3 mL 2.5 mg (3 mL) inhalation Q4-6H PRN 02/16/23 05/11/23 Rx (0.083 %) solution for nebulization shortness of breath or wheezing #90 mL apixaban 5 mg tablet (Eliquis) 5 mg PO BID #60 tabs 02/23/23 05/11/23 Rx metoprolol succinate 50 mg 50 mg PO DAILY #30 tabs 03/12/23 05/11/23 Rx tablet,extended release 24 hr furosemide 80 mg tablet 80 mg PO BID 90 days #180 tabs 03/19/23 05/11/23 Rx lisinopril 20 1 tablet PO DAILY #30 tabs 04/27/23 05/11/23 Rx mg-hydrochlorothiazide 12.5 mg tablet docusate sodium 100 mg capsule 100 mg PO BID #60 caps 05/03/23 05/11/23 Rx (Colace) Laboratory Tests 05/14/23 07:42 Sodium Pending Potassium Pending Chloride Pending Carbon Dioxide Pending Anion Gap Pending BUN Pending Creatinine Pending Estim Creat Clear Calc Pending Estimated GFR Pending Glucose Pending Calcium Pending Magnesium Pending Patient hx anesthesia problems: none Family hx anesthesia problems: none Results Review: All pre-operative results and documents have been reviewed as part of the pre-operative evaluation. [facility] Past Medical History Medical History A-fib Asthma HTN (hypertension) Morbid obesity New onset of congestive heart failure HIWOT (obstructive sleep apnea) Tobacco use Surgical History Surgical History H/O Achilles tendon repair H/O inguinal hernia repair History of appendectomy History of tonsillectomy and adenoidectomy S/p bilateral myringotomy with tube placement Family History Family History Father Mother No problems noted. Sibling Blood clot in leg Diabetes mellitus Other Cancer Hypertension Social History Social History Smoking status: Former smoker Tobacco type: cigarettes Smokeless tobacco user: chewing tobacco Second hand tobacco smoke exposure: No Smoking end date: 04/23/08 Additional smoking assessment comments: Marijuana smoker Alcohol intake: never Alcohol use details: rarely Substance use: never Substance use type: does not use Other substance usage details: smokes daily Last use: 01/26/2023 Lack of Transportation: No Lack of Food: Never True Current Housing: I Have Housing Concerned About Future Housing: Decline to Answer Difficulty Paying Gas/Electric Bills: Decline to Answer Difficulty Paying for Meds: Decline to Answer Currently Unemployed: Decline to Answer Education: Decline to Answer Difficulty w/ Childcare or Family Care: Decline to Answer Living arrangements: alone Occupation/Education: occupation 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
[2023-05-14 08:01] LABS: Anion Gap 5 mmol/L (8-16); Blood Urea Nitrogen 17 mg/dL (9-20); Calcium 8.8 mg/dL (8.4-10.2); Carbon Dioxide 35 mmol/L (22-30); Chloride 97 mmol/L (98-107); Estimated CRCL calculation 148 ml/min; Estimated Glomerular Filt Rate > 60; Glucose 143 mg/dL (65-110); Magnesium 2.1 mg/dL (1.6-2.3); Potassium 3.9 mmol/L (3.4-5.0); Sodium 137 mmol/L (137-145)
--- NOTE | 2023-05-14 09:11 | WPDCARDPROC ---
Cardiac Cath Procedure Note Date of procedure:: 05/14/23 Performing physician:: Karl Rae MD Indication:: persistent atrial fibrillation Brief clinical history:: this is a 48-year-old man with a history of recently diagnosed atrial fibrillation of unknown chronicity. He is morbidly obese and has treated sleep apnea. An attempt at restoring sinus rhythm electrically has been recommended Procedure Procedure performed:: DC cardioversion Sedation/Medication given:: sedation per the Anesthesia Service, see their separately dictated no Estimated blood loss:: 0 Procedure note:: patient was brought to the cardiac catheterization lab postanesthesia care area where he was in the postabsorptive state. Defibrillator patches were placed in the AP position and peripheral IV access was established. He was sedated per the Anesthesia Service using propofol. When he was adequately sedated he was counter shocked with 200 joules in a synchronized fashion after which he was still in atrial fibrillation. He was then counter shocked a 2nd time at 360 joules in synchronized fashion again was remaining in atrial fibrillation. Findings:: As above Conclusion:: unsuccessful but uncomplicated attempted DC cardioversion of atrial fibrillation using 200 and then 360 joules with no mu-ism of sinus rhythm. Karl Rae MD [facility]
--- NOTE | 2023-05-14 09:15 | ECG_ITS ---
Measurements Intervals [place] Rate: 82 P: [place]: 0 QRS: 97 QRSD: 123 T: 69 QT: 398 QTc: 465 Interpretive Statements ATRIAL FIBRILLATION RIGHT AXIS DEVIATION INTRAVENTRICULAR CONDUCTION DELAY ABNORMAL ECG COMPARED TO ECG 02/09/2023 13:14:19 HEART RATE HAS DECREASED Electronically Signed On 05-14-2023 7:56:52 [employer] by James Obando D.O.
--- NOTE | 2023-06-04 07:09 | PM.IMHP ---
H&P: HPI History of Present Illness Date/Time: 05/14/23: 07:09 Chief Complaint: Elective admission for DC cardioversion Narrative: This is 48-year-old man with a history of morbid obesity diabetes and sleep apnea who was found recently to be in atrial fibrillation by his PCP and sent to the emergency room where he was admitted for evaluation. The patient had given a history at that time be symptomatically in atrial fibrillation for at least 2-3 weeks. For that reason he was not a reasonable candidate for cardioversion. He was rate controlled and anticoagulated and has now been brought into the hospital today as an outpatient for an attempt at electrically restoring sinus rhythm. Review of Systems Constitutional: Constitutional: Reports lethargy Eyes: Eyes: Reports no additional eye complaints ENT: Reports system reviewed and no additional complaints, except as documented Cardiovascular: Cardiovascular: Reports palpitations Respiratory: Respiratory: Reports dyspnea on exertion Gastrointestinal: Gastrointestinal: Reports no additional gastrointestinal complaints Musculoskeletal: Musculoskeletal: Reports back pain Integumentary/Breasts: Skin/Breast: Reports system reviewed and no additional complaints, except as docu Neurologic: Reports system reviewed and no additional complaints, except as documented [facility] Past Medical History Medical History A-fib Asthma HTN (hypertension) Morbid obesity New onset of congestive heart failure HIWOT (obstructive sleep apnea) Tobacco use Surgical History Surgical History H/O Achilles tendon repair H/O inguinal hernia repair History of appendectomy History of tonsillectomy and adenoidectomy S/p bilateral myringotomy with tube placement Family History Family History Father Mother No problems noted. Sibling Blood clot in leg Diabetes mellitus Other Cancer Hypertension Social History Social History Smoking status: Former smoker Tobacco type: cigarettes Smokeless tobacco user: chewing tobacco Second hand tobacco smoke exposure: No Smoking end date: 04/23/08 Additional smoking assessment comments: Marijuana smoker Alcohol intake: never Alcohol use details: rarely Substance use: never Substance use type: does not use Other substance usage details: smokes daily Last use: 01/26/2023 Lack of Transportation: No Lack of Food: Never True Current Housing: I Have Housing Concerned About Future Housing: Decline to Answer Difficulty Paying Gas/Electric Bills: Decline to Answer Difficulty Paying for Meds: Decline to Answer Currently Unemployed: Decline to Answer Education: Decline to Answer Difficulty w/ Childcare or Family Care: Decline to Answer Living arrangements: alone Occupation/Education: occupation 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 Gender identity (if verbalized by the patient): Male Spiritual care concerns: No Meds Home Medications and Allergies Home Medications Medication Instructions Recorded Confirmed Type albuterol sulfate 90 mcg/actuation 1 inh inhalation Q4H #8.5 grams 12/21/22 05/11/23 Rx aerosol inhaler albuterol sulfate 2.5 mg/3 mL 2.5 mg (3 mL) inhalation Q4-6H PRN 02/16/23 05/11/23 Rx (0.083 %) solution for nebulization shortness of breath or wheezing #90 mL apixaban 5 mg tablet (Eliquis) 5 mg PO BID #60 tabs 02/23/23 05/14/23 Rx metoprolol succinate 50 mg 50 mg PO DAILY #30 tabs 03/12/23 05/14/23 Rx tablet,extended release 24 hr furosemide 80 mg tablet 80 mg PO BID 90 days #180 tabs 03/19/23 05/11/23 Rx docusate sodium 100 mg capsule 100 mg PO BID #60 caps 05/03/23 05/11/23 Rx (Colace) lisinopril 20 1 tablet PO DAILY #30 tabs 06/01/23 Rx mg-hydrochlorothiazide 12.5 mg table
== END 2023-05-14 10:17 | disposition home or self-care (01) ==
PROVIDERS: PCP Family Medicine; Visit Provider Specialist
PROC: 5A2204Z Restoration of Cardiac Rhythm, Single (ICD-10-PCS; principal; 2023-05-14 08:45)
DX: I48.19 Other persistent atrial fibrillation (principal); J45.909 Unspecified asthma, uncomplicated; I10 Essential (primary) hypertension; G47.33 Obstructive sleep apnea (adult) (pediatric); F17.220 Nicotine dependence, chewing tobacco, uncomplicated; E66.01 Morbid (severe) obesity due to excess calories; Z68.43 Body mass index [BMI] 50.0-59.9, adult; Z98.890 Other specified postprocedural states; Z79.51 Long term (current) use of inhaled steroids; Z79.01 Long term (current) use of anticoagulants; Z80.9 Family history of malignant neoplasm, unspecified
CPT/HCPCS: 36415; 80048; 83735; 92960; J2704; J7030

== ENCOUNTER 2023-05-24 11:01 | Outpatient (CLI) | payer OTHER, SELFPAY ==
--- NOTE | ~2023-05-24 | XR_ITS ---
XR chest 2V DATE: 05/24/2023 11:16 INDICATION: Shortness of breath TECHNIQUE: PA and lateral views COMPARISON: 02/10/2023 portable AP chest FINDINGS: Normal heart size. There is minimal aortic unfolding. No hilar or mediastinal enlargement. No pulmonary infiltrate or consolidation, pleural effusion or pulmonary vascular congestion or pneumo thorax. Mild thoracic levoscoliosis. IMPRESSION: No active cardiopulmonary disease Reviewed, dictated and finalized at location L. E CATCHER
== END 2023-05-24 11:02 | disposition home or self-care (01) ==
LOC: CHSIMG 11:03
PROVIDERS: PCP Family Medicine; Visit Provider Nurse Practitioner Adult Health
DX: R06.02 Shortness of breath (principal)
CPT/HCPCS: 71046

== ENCOUNTER 2023-07-05 07:39 | Outpatient (CLI) | payer OTHER, SELFPAY ==
[2023-07-05 08:40] LABS: Hematocrit 44.7 % (40.0-54.0); Hemoglobin 15.1 g/dL (14.0-18.0); Mean Corpuscular HGB Conc 33.8 g/dL (32-36); Mean Corpuscular Hemoglobin 32.3 pg (27.0-31.0); Mean Corpuscular Volume 95.5 fL (78.0-102.0); Mean Platelet Volume 8.8 fl (8.7-11.0); Platelet Count Result 253 K/mm3 (150-420); Red Blood Count 4.68 M/mm3 (4.70-6.10); Red Cell Distribution Width 12.6 % (11.6-14.4); White Blood Count 6.9 K/mm3 (4.8-10.8)
[2023-07-05 09:34] LABS: Alanine Aminotransferase 20 U/L (16-63); Albumin Level 3.6 g/dL (3.4-5.0); Alkaline Phosphatase 52 U/L (46-116); Anion Gap 5 mmol/L (8-16); Aspartate Amino Transferase 24 U/L (15-37); Bilirubin,Total 0.7 mg/dL (0.00-1.00); Blood Urea Nitrogen 18 mg/dL (7-18); Calcium 8.7 mg/dL (8.5-10.1); Carbon Dioxide 36 mmol/L (21-32); Chloride 98 mmol/L (98-108); Estimated Glomerular Filt Rate > 60; Free T4 Free Thyroxine 0.81 ng/dL (0.76-1.46); Glucose 155 mg/dL (70-99); Osmolality Calculated 292 mOsm/kg (285-295); Potassium 3.9 mmol/L (3.5-5.1); Sodium 139 mmol/L (136-145); Thyroid Stimulating Hormone 3.11 uIU/mL (0.36-3.74); Total Protein 6.5 g/dL (6.4-8.2)
[2023-07-05 09:57] LABS: Prostate Specific Antigen 0.1 ng/mL (< OR = 4.0)
[2023-07-09 18:05] LABS: FSH 15.4 mIU/mL (1.4-12.8); LH 6.6 mIU/mL (1.5-9.3); Prolactin 11.2 ng/mL (***)
[2023-07-09 18:06] LABS: Sex Hormone Binding Globulin 23 nmol/L (10-50)
[2023-07-09 18:56] LABS: Vitamin D 25 Hydroxy 16 ng/mL (30-100)
[2023-07-11 10:29] LABS: Testosterone Free 20.5 pg/mL (46.0-224.0); Testosterone Total 125 ng/dL (250-1100)
== END 2023-07-05 07:40 | disposition home or self-care (01) ==
LOC: CHSLAB 07:41
PROVIDERS: PCP Family Medicine; Visit Provider Internal Medicine
DX: Z72.0 Tobacco use (principal); R79.89 Other specified abnormal findings of blood chemistry; G47.33 Obstructive sleep apnea (adult) (pediatric); R06.02 Shortness of breath
CPT/HCPCS: 36415; 80053; 82306; 83001; 83002; 84146; 84153; 84270; 84402; 84403; 84439; 84443; 85027; G0103

== ENCOUNTER 2023-09-10 08:20 | Outpatient (CLI) | payer OTHER, SELFPAY ==
[2023-09-10 09:09] LABS: Hematocrit 49.8 % (40.0-54.0); Hemoglobin 16.3 g/dL (14.0-18.0); Mean Corpuscular HGB Conc 32.7 g/dL (32-36); Mean Corpuscular Volume 97.6 fL (78.0-102.0); Mean Platelet Volume 8.8 fl (8.7-11.0); Platelet Count Result 223 K/mm3 (150-420); Red Cell Distribution Width 12.4 % (11.6-14.4)
[2023-09-13 23:33] LABS: Testosterone Free 37.3 pg/mL (46.0-224.0)
[2023-09-13 23:54] LABS: Testosterone Total 218 ng/dL (250-1100)
== END 2023-09-10 08:21 | disposition home or self-care (01) ==
LOC: CHSLAB 08:22
PROVIDERS: PCP Family Medicine; Visit Provider Internal Medicine
DX: E66.01 Morbid (severe) obesity due to excess calories (principal); I10 Essential (primary) hypertension; I48.91 Unspecified atrial fibrillation; R79.89 Other specified abnormal findings of blood chemistry
CPT/HCPCS: 36415; 84402; 84403; 85027

== ENCOUNTER 2023-09-26 12:11 | Emergency (ER) | payer OTHER, SELFPAY ==
--- NOTE | ~2023-09-26 | XR_ITS ---
EXAMINATION: XR ankle RT min 3V DATE: 09/26/2023 12:54 INDICATION: Right ankle pain. Fall. TECHNIQUE: 4 views of right ankle were obtained. COMPARISON: None. FINDINGS: Bone alignment is normal. No fracture. Joint spaces are normal. There is extensive heteroto pic ossification in the area of Achilles tendon. IMPRESSION: 1. No fracture. Reviewed, dictated and finalized at location A. IMPRESSION: 1. No fracture.
[2023-09-26 12:11] VITALS: BP 130/83; PULSE 66; RESP 18; TEMP 35.9; O2SAT 96
--- NOTE | 2023-09-26 13:09 | ED.GENADULT ---
HPI - General Adult General Chief complaint: Extremity Injury, Lower Stated complaint: right ankle injury Time Seen by Provider: 09/26/23 12:34 History of Present Illness HPI narrative: This is a 48-year-old male history of chronic ankle pain presenting for ankle pain. Patient says he has had ankle pain since he was a child but specifically more so over the last 2 months. Today while walking up a flight of stairs he tripped and landed heavily on his ankle. He did not twist or roll his ankle. Since then he has been having increased pain. Patient had took his daily Voltaren but no other medications. Patient has been able to ambulate although he says that makes the pain worse Related Data Allergies Allergy/AdvReac Type Severity Reaction Status Date / Time Penicillins Allergy Mild unknown Verified 09/04/23 10:12 latex AdvReac Severe Swelling Verified 09/04/23 10:12 of the Eye [facility] Past Medical History Medical History A-fib Asthma HTN (hypertension) Morbid obesity New onset of congestive heart failure HIWOT (obstructive sleep apnea) Tobacco use Surgical History Surgical History H/O Achilles tendon repair H/O inguinal hernia repair History of appendectomy History of tonsillectomy and adenoidectomy S/p bilateral myringotomy with tube placement Family History Family History Father Mother No problems noted. Sibling Blood clot in leg Diabetes mellitus Other Cancer Hypertension Social History Social History Smoking status: Former smoker Tobacco type: cigarettes Smokeless tobacco user: chewing tobacco Second hand tobacco smoke exposure: No Smoking end date: 04/23/08 Additional smoking assessment comments: Marijuana smoker Alcohol intake: never Alcohol use details: rarely Substance use: never Substance use type: does not use Other substance usage details: smokes daily Last use: 01/26/2023 Lack of Transportation: No Lack of Food: Never True Current Housing: I Have Housing Concerned About Future Housing: Decline to Answer Difficulty Paying Gas/Electric Bills: Decline to Answer Difficulty Paying for Meds: Decline to Answer Currently Unemployed: Decline to Answer Education: Decline to Answer Difficulty w/ Childcare or Family Care: Decline to Answer Living arrangements: alone Occupation/Education: occupation 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 obese. BMI 50.6 Head: atraumatic. EYES: EOMI, NOSE: Atraumatic NECK: Trachea midline RESPIRATORY: No increased rate of breathing CARDIOVASCULAR: RRR, ABDOMINAL: Non-distended MUSCULOSKELETAl: focal exam of the right extremity showed no erythema edema or deformity. Pulses intact. in sensation motor function intact. NEURO: Alert. Moving 4/4 extremities SKIN:: Warm, dry. Normal color PSYCHIATRIC: Normal affect Course Vital Signs Vital signs: Vital Signs Temperature 96.6 F L 09/26/23 12:11 Pulse Rate 66 09/26/23 12:11 Respiratory Rate 18 09/26/23 12:11 Blood Pressure 130/83 09/26/23 12:11 Pulse Oximetry 96 09/26/23 12:11 Oxygen Delivery Room Air 09/26/23 12:11 Temperature 96.6 F L 09/26/23 12:11 Pulse Rate 66 09/26/23 12:11 Respiratory Rate 18 09/26/23 12:11 Blood Pressure 130/83 09/26/23 12:11 Pulse Oximetry 96 09/26/23 12:11 Oxygen Delivery Room Air 09/26/23 12:11 Medical Decision Making MDM Narrative Medical decision making narrative: -Course: 48-year-old obese male presenting with acute on ankle pain. X-ray negative for fracture. Patient given pain control and discharged with Podiatry follow-up. -DDX include
[2023-09-26] MEDS: ACETAMINOPHEN 500 MG TABLET 1000 MG PO (13:44)
[2023-09-26] MEDS: KETOROLAC 30 MG/ML VIAL (*BKC) IM (13:45)
== END 2023-09-26 13:59 | disposition home or self-care (01) ==
LOC: CHSED 13:21
PROVIDERS: Emergency Provider Emergency Medicine; PCP Family Medicine
DX: M25.571 Pain in right ankle and joints of right foot (principal); I48.91 Unspecified atrial fibrillation; I11.0 Hypertensive heart disease with heart failure; I50.9 Heart failure, unspecified; Z87.891 Personal history of nicotine dependence; W10.9XXA Fall (on) (from) unspecified stairs and steps, initial encounter
CPT/HCPCS: 73610; 96372; 99283; J1885

== ENCOUNTER 2024-01-14 08:08 | Outpatient (CLI) | payer OTHER, SELFPAY ==
[2024-01-14 08:19] LABS: Hematocrit 48.8 % (40.0-54.0); Hemoglobin 16.1 g/dL (14.0-18.0); Mean Corpuscular Hemoglobin 31.4 pg (27.0-31.0); Mean Corpuscular Volume 95.3 fL (78.0-102.0); Mean Platelet Volume 8.4 fl (8.7-11.0); Platelet Count Result 239 K/mm3 (150-420); Red Blood Count 5.12 M/mm3 (4.70-6.10); White Blood Count 8.5 K/mm3 (4.8-10.8)
[2024-01-14 09:11] LABS: Prostate Specific Antigen 0.3 ng/mL (< OR = 4.0)
[2024-01-17 01:26] LABS: Testosterone Total 439 ng/dL (250-1100)
[2024-01-17 07:58] LABS: Testosterone Free 92.5 pg/mL (46.0-224.0)
== END 2024-01-14 08:09 | disposition home or self-care (01) ==
LOC: CHSLAB 08:09
PROVIDERS: PCP Family Medicine; Visit Provider Internal Medicine
DX: R73.03 Prediabetes (principal); Z12.5 Encounter for screening for malignant neoplasm of prostate
CPT/HCPCS: 36415; 84153; 84402; 84403; 85027; G0103

== ENCOUNTER 2024-04-19 12:19 | Emergency (ER) | payer OTHER, SELFPAY ==
[2024-04-19] VITALS (16 sets, daily range): BP systolic 101–133; BP diastolic 76–92; PULSE 106–128; RESP 12–22; TEMP 39.1; O2SAT 90–100
--- NOTE | ~2024-04-19 | CT_ITS ---
EXAMINATION: CT diagnostic chest wo con DATE: 04/19/2024 13:47 INDICATION: SOB/cough/fever x3 days TECHNIQUE: Computed tomography (CT) of the chest was performed without intravenous contrast. Addition al 3D reconstructions utilizing coronal maximum intensity projection (MIP) were performed. Automated exposure control and iterative reconstruction technique were employed. The dose-length product was 10 05.06 mGy-cm. COMPARISON: 02/08/2023 FINDINGS: Diffuse mild bronchial wall thickening which can be seen with bronchitis or asthma. No pneumonia, pul monary edema or pleural effusion. Unchanged 6 mm right lower lobe nodule. Heart size is normal. Ather osclerotic coronary artery calcification. Decreased now very small pericardial effusion. Thoracic aor ta is normal in caliber. No pathologically enlarged thoracic lymphadenopathy. Visualized upper abdome n is unremarkable. Mild upper thoracic levocurvature with moderate spondylosis. IMPRESSION: 1. Diffuse bronchial wall thickening which is bronchitis or asthma. 2. Decrease in size of a now very small pericardial effusion. Reviewed, dictated and finalized at location [facility]. [facility]
--- NOTE | ~2024-04-19 | XR_ITS ---
EXAMINATION: XR chest 1V portable DATE: 04/19/2024 13:13 INDICATION: Shortness of breath and fever TECHNIQUE: frontal view of the chest was obtained. COMPARISON: Chest radiograph dated 05/24/2023 FINDINGS: The lungs remain clear with no focal airspace opacities, pulmonary edema, pleural effusion or pneumot horax. The cardiomediastinal silhouette is normal. Visualized bones and soft tissues are unremarkable . IMPRESSION: 1. No acute cardiopulmonary disease. Reviewed, dictated and finalized at location A. TER HELPER
--- NOTE | 2024-04-19 12:36 | ED_ITS ---
HPI - URI/Sore Throat General Chief Complaint: Upper Respiratory Infection Stated Complaint: sinus infection Source: patient Mode of arrival: ambulatory Limitations: no limitations History of Present Illness HPI Narrative: patient is a 49-year-old male with obesity and history of AFib here with shortness of breath and tachycardia. He had AFib RVR in the past and feels the same however he now has a fever and shortness of breath. He has been sick for the past 3 days. He has cough and congestion of the chest. No chest pain. MD elicited complaint: fever, cough, rhinorrhea, nasal congestion and sinus pain Pertinent past history: other ( AFib with Eliquis use, diabetes, testosterone deficiency, asthma and chronic Lasix use) Onset (ago): day(s) (3) Consistency: constant Severity: moderate Pain scale (0-10): 3 Description of mucous: clear and watery Able to tolerate fluids by mouth: Yes Exacerbating factors: nothing Relieving factors: nothing Context: sick contacts Associated symptoms: fever, chills and shortness of breath Treatments prior to arrival: acetaminophen Related Data Allergies Allergy/AdvReac Type Severity Reaction Status Date / Time Penicillins Allergy Mild unknown Verified 04/19/24 12:57 latex AdvReac Severe Swelling Verified 04/19/24 12:57 of the Eye Review of Systems 2 Review of Systems: All systems reviewed & are unremarkable except as noted in HPI and below Constitutional: Constitutional: Reports no additional constitutional complaints Eyes: Eyes: Reports no additional eye complaints ENT: Reports system reviewed and no additional complaints, except as documented Cardiovascular: Cardiovascular: Reports no additional cardiovascular complaints Respiratory: Respiratory: Reports no additional respiratory complaints Gastrointestinal: Gastrointestinal: Reports no additional gastrointestinal complaints Genitourinary: Genitourinary: Reports no additional male genitourinary complaints Musculoskeletal: Musculoskeletal: Reports no additional musculoskeletal complaints Integumentary/Breasts: Skin/Breast: Reports system reviewed and no additional complaints, except as docu Neurologic: Reports system reviewed and no additional complaints, except as documented Psychiatric: Psychiatric: Reports no additional psychiatric complaints Endocrine: Endocrine: Reports no additional endocrine complaints Hematologic/Lymphatic: Hematologic/Lymphatic: Reports no additional hematologic/lymphatic complaints Allergic/Immunologic: Allergic/Immunologic: Reports no additional allergic/immunologic complaints PMFSH Past Medical History Medical History New onset of congestive heart failure A-fib Tobacco use HTN (hypertension) Asthma HIWOT (obstructive sleep apnea) Morbid obesity Surgical History Surgical History History of appendectomy S/p bilateral myringotomy with tube placement History of tonsillectomy and adenoidectomy H/O Achilles tendon repair H/O inguinal hernia repair Family History Family History Father Mother No problems noted. Sibling Blood clot in leg Diabetes mellitus Other Cancer Hypertension Social History Social History Smoking status: Former smoker Tobacco type: cigarettes Smokeless tobacco user: chewing tobacco Second hand tobacco smoke exposure: No Smoking end date: 04/23/08 Additional smoking assessment comments: Marijuana smoker Alcohol intake: never Alcohol use details: rarely Substance use: never Substance use type: does not use Other substance usage details: smokes daily Last use: 01/26/2023 Lack of Transportation: No Lack of Food: Never True Current Housing: I Have Housing Concerned About Future Housing: Decline to Answer Difficulty Paying Gas/Electric Bills: Decline to Answer Difficulty Paying for Meds: Decline to Answer Currently Unemployed: Decline to Answer Education: Decline to Answer Difficulty w/ Childcare or Family Care: Decline to Answer Living arrangements: alone Occupation/Education: occupation 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[employer] Gender identity (if verbalized by the patient): Male Spiritual care concerns: No Exam 2 Const: General: ill appearing Nutritional Appearance: obese O rientation/consciousness: patient oriented x3 Limitations: no limitations HENMT: Head: normal to inspection Ears: external ears normal F peggy/Nose/Sinus: Normal external nose present Eyes: Conjunctivae: conjunctivae normal Pupils: Equal, round and reactive pupils present EOM: EOMs intact bilaterally Neck: Neck: normal visual inspection Chest: Chest palpation & inspection: normal inspection of the chest Resp: Effort & Inspection: abnormal respiratory effort, labored, no retractions, tachypneic and no use of accessory muscles Auscultation: not clear to auscultation bilaterally, crackles, rales, rhonchi, no wheezes, breath sounds present and diminished lung sounds Cardio: Rate: tachycardic Rhythm: regular rhythm Heart sounds: no murmurs GI: Inspection: non-distended GI Palp: Yes Soft to palpation and No Tenderness to palpation present (GI) Auscultation: normal bowel sounds : General: Yes bladder normal to palpation Back/Spine/Pelvis: Back: no CVA tenderness Skin: General skin exam: normal color Rashes: no rashes Wounds: no wounds Neuro: General: patient oriented x3 Cranial nerves: Yes Nystagmus not present Speech: normal speech Gait exam (Neuro): Normal gait present Extrem: General: normal to inspection Psych: Mental Status: mental status grossly normal Affect: normal affect Attitude: cooperative Course Vital Signs Vital signs: Vital Signs Temperature 39.1 C H 04/19/24 12:18 Pulse Rate 128 H 04/19/24 12:18 Respiratory Rate 22 H 04/19/24 12:18 Blood Pressure 133/92 H 04/19/24 12:18 Pulse Oximetry 94 04/19/24 12:18 Oxygen Delivery Room Air 04/19/24 12:18 Temperature 39.1 C H 04/19/24 12:18 Pulse Rate 108 H 04/19/24 13:55 Respiratory Rate 20 04/19/24 13:55 Blood Pressure 101/86 04/19/24 13:55 Pulse Oximetry 91 04/19/24 13:55 Oxygen Delivery Room Air 04/19/24 13:55 MDM - URI/Sore Throat MDM Narrative Medical decision making narrative: patient is a 49-year-old male with multiple respiratory and upper respiratory complaints at this time with concerns of AFib. He had an ablation done in the past but he is still on Eliquis. We will get a septic workup and a cardiac workup at this time. COVID panel pending. sirs criteria was met however patient is not septic and it is viral stimulated. Patient wishes to be discharged at this time. He does not want to stay at the hospital. Lab Data Attestation: I reviewed the patient's lab results. 04/19/24 13:07 04/19/24 13:07 Labs: Lab Results 04/19/24 04/19/24 04/19/24 Range/Units 12:25 12:54 13:07 WBC 7.1 (4.8-10.8) K/mm3 RBC 5.29 (4.70-6.10) M/mm3 Hgb 16.8 (14.0-18.0) g/dL Hct 48.6 (40.0-54.0) % MCV 91.9 (78.0-102.0) fL MCH 31.8 H (27.0-31.0) pg MCHC 34.6 (32-36) g/dL RDW 12.7 (11.6-14.4) % Plt Count 193 (150-420) K/mm3 MPV 8.5 L (8.7-11.0) fl Immature Gran % (Auto) 0.7 H (0.0-0.0) % Neut % (Auto) 80.3 H (50.0-70.0) % Lymph % (Auto) 7.6 L (18.0-42.0) % Yates % (Auto) 10.7 (2.0-11.0) % Eos % (Auto) 0.1 L (1.0-6.0) % Baso % (Auto) 0.6 (0.0-1.0) % Lymph # (Auto) 0.54 L (1.10-4.50) K/mm3 Yates # (Auto) 0.76 (0.10-0.90) K/mm3 Eos # (Auto) 0.01 L (0.02-0.50) K/mm3 Baso # (Auto) 0.04 (0.00-0.10) K/mm3 Abs Immat Gran (auto) 0.05 H (0.00-0.00) K/mm3 Absolute Neuts (auto) 5.69 (1.70-7.20) K/mm3 Absolute Nucleated RBC 0.00 (0.00-0.00) K/mm3 Nucleated RBC % 0.0 (0-0.0) % PT 12.2 H (9.50-12.1) Seconds INR 1.1 APTT 29.1 (23.9-30.70) Sec Sodium 135 L (136-145) mmol/L Potassium 3.5 (3.5-5.1) mmol/L Chloride 97 L (98-108) mmol/L Carbon Dioxide 30 (21-32) mmol/L Anion Gap 8 (4-12) mmol/L BUN 7 (7-18) mg/dL Creatinine 1.18 (0.70-1.30) mg/dL Estim Creat Clear Calc 107 ml/min Estimated GFR > 60 (59 - ) Glucose 130 H (70-99) mg/dL Calculated Osmolality 280 L (285-295) mOsm/kg Lactic Acid 1.6 (0.4-2.0) mmol/L Calcium 8.7 (8.5-10.1) mg/dL Total Bilirubin 0.6 (0.00-1.00) mg/dL AST 23 (15-37) U/L ALT 33 (16-63) U/L Alkaline Phosphatase 53 (46-116) U/L Troponin I 10.9 (0.00-60.4) ng/L NT-Pro-B Natriuret Pep 206 H (0-125) pg/mL Total Protein 6.7 (6.4-8.2) g/dL Albumin 3.2 L (3.4-5.0) g/dL Influenza A (RT-PCR) Positive A (Negative) Influenza B (RT-PCR) Negative (Negative) RSV (RT-PCR) Negative (Negative) SARS-CoV-2 RNA (RT-PCR) Negative (Negative) Imaging Data Attestation: I personally reviewed and interpreted this imaging study as follows: Radiologist's impression: Chest x-rays negative for acute process CT scan of the chest without contrast shows inflammation of the bronchials ECG Data EKG #1: Attestation: I personally reviewed and interpreted this ECG as follows: ECG completion date: 04/19/24 ECG completion time: 13:07 EKG Interpretation: tachycardia, sinus rhythm, no ectopy, non-specific ST changes, widened QRS ( IVCD), normal QT and right axis Discharge Plan Discharge Clinical Impression: Influenza A, Bronchitis Patient Disposition: Home, Self-Care Condition: Stable Instructions: Antibiotic Form, Influenza (ED), Acute Bronchitis (ED) Additional Instructions: please follow-up with the primary doctor in the next week. Come back to the ER with any worse symptoms such as worsening shortness of breath. Patient Language: Kinyarwanda Prescriptions: New oseltamivir [Tamiflu] 75 mg capsule 75 mg PO BID 5 Days Qty: 10 0RF prednisone 20 mg tablet 40 mg PO DAILY 4 Days Qty: 8 0RF azithromycin 250 mg tablet See Rx Instructions .ROUTE .COMPLEX Qty: 6 0RF Rx Instructions: For 250 mg dose pack: take 500 mg today (day 1), then 250 mg for 4 days (days 2-5) albuterol sulfate 90 mcg/actuation HFA aerosol inhaler 2 inh inhalation QID PRN (Reason: shortness of breath or wheezing) Qty: 6.7 0RF No Action albuterol sulfate 90 mcg/actuation HFA aerosol inhaler 1 inh inhalation Q4H Qty: 8.5 0RF albuterol sulfate 2.5 mg /3 mL (0.083 %) solution for nebulization 2.5 mg inhalation Q4-6H PRN (Reason: shortness of breath or wheezing) Qty: 90 0RF metoprolol succinate 50 mg tablet extended release 24 hr 50 mg PO DAILY Qty: 30 3RF furosemide 80 mg tablet See Rx Instructions .ROUTE .COMPLEX Qty: 180 0RF Dose Instruction: 80 MG ORALLY TWICE A DAY FOR 90 DAYS Rx Instructions: 80 MG ORALLY TWICE A DAY FOR 90 DAYS (DME) syringe with needle 3 mL 22 gauge x 1 syringe See Rx Instructions .ROUTE .MEDSUPPLY Qty: 100 12RF Rx Instructions: every 2 weeks testosterone cypionate 200 mg/mL oil 140 mg IM .every 2 weeks Qty: 6 0RF Rx Instructions: 140 mg once every 2 weeks Trulicity 0.75 mg/0.5 mL pen injector See Rx Instructions .ROUTE .COMPLEX Qty: 2 0RF Dose Instruction: INJECT 0.75MG (0.5ML) SUBCUTANEOUSLY ONCE WEEKLY Rx Instructions: INJECT 0.75MG (0.5ML) SUBCUTANEOUSLY ONCE WEEKLY Eliquis 5 mg tablet 5 mg PO BID Qty: 60 3RF diclofenac potassium 50 mg tablet See Rx Instructions .ROUTE .COMPLEX Qty: 60 0RF Dose Instruction: TAKE 1/2 TABLET BY MOUTH TWICE A DAY Rx Instructions: TAKE 1/2 TABLET BY MOUTH TWICE A DAY Follow-up/Referrals: Shan Loera DO [Primary Care Provider] - Time of Disposition: 14:15
--- NOTE | 2024-04-19 12:48 | ECG_ITS ---
Test Date: 2024-04-19 13:04:14 Measurements Intervals [place] Rate: 101 P: 32 ID: [id number] QRS: 94 QRSD: 120 T: 57 QT: 322 QTc: 418 Interpretive Statements SINUS TACHYCARDIA BORDERLINE RIGHT AXIS DEVIATION [QRS AXIS > 90] MODERATE INTRAVENTRICULAR CONDUCTION DELAY [110+ ms QRS DURATION] ABNORMAL ECG No previous ECG available for comparison Electronically Signed On 04-20-2024 08:43:19 BUSINESS EXCELLENCE LEADER by Quentin Nguyễn M.D.
[2024-04-19 13:07] LABS: SARS-CoV-2 RNA PCR Negative (Negative)
[2024-04-19 13:11] LABS: Basophils Absolute Auto 0.04 K/mm3 (0.00-0.10); Basophils Percent Auto 0.6 % (0.0-1.0); Eosinophils Absolute Auto 0.01 K/mm3 (0.02-0.50); Eosinophils Percent Auto 0.1 % (1.0-6.0); Hematocrit 48.6 % (40.0-54.0); Hemoglobin 16.8 g/dL (14.0-18.0); Immature Granulocyte Absolute 0.05 K/mm3 (0.00-0.00); Immature Granulocyte Percent A 0.7 % (0.0-0.0); Lymphocytes Absolute Auto 0.54 K/mm3 (1.10-4.50); Lymphocytes Percent Auto 7.6 % (18.0-42.0); Mean Corpuscular HGB Conc 34.6 g/dL (32-36); Mean Corpuscular Hemoglobin 31.8 pg (27.0-31.0); Mean Corpuscular Volume 91.9 fL (78.0-102.0); Mean Platelet Volume 8.5 fl (8.7-11.0); Monocytes Absolute Auto 0.76 K/mm3 (0.10-0.90); Monocytes Percent Auto 10.7 % (2.0-11.0); Neutrophils Absolute Auto 5.69 K/mm3 (1.70-7.20); Neutrophils Percent Auto 80.3 % (50.0-70.0); Platelet Count Result 193 K/mm3 (150-420); Red Blood Count 5.29 M/mm3 (4.70-6.10); Red Cell Distribution Width 12.7 % (11.6-14.4); White Blood Count 7.1 K/mm3 (4.8-10.8)
[2024-04-19 13:12] LABS: Influenza A QL RT-PCR Positive (Negative); Influenza B QL RT-PCR Negative (Negative); RSV RNA, RT-PCR Negative (Negative)
[2024-04-19 13:24] LABS: INR 1.1; Partial Thromboplastin Time 29.1 Sec (23.9-30.70); Prothrombin Time 12.2 Seconds (9.50-12.1)
[2024-04-19 13:31] LABS: Lactic Acid Reflex 1.6 mmol/L (0.4-2.0)
[2024-04-19 13:33] LABS: Alanine Aminotransferase 33 U/L (16-63); Albumin Level 3.2 g/dL (3.4-5.0); Alkaline Phosphatase 53 U/L (46-116); Anion Gap 8 mmol/L (4-12); Aspartate Amino Transferase 23 U/L (15-37); Bilirubin,Total 0.6 mg/dL (0.00-1.00); Blood Urea Nitrogen 7 mg/dL (7-18); Calcium 8.7 mg/dL (8.5-10.1); Carbon Dioxide 30 mmol/L (21-32); Chloride 97 mmol/L (98-108); Estimated CRCL calculation 107 ml/min; Estimated Glomerular Filt Rate > 60; Glucose 130 mg/dL (70-99); NT Pro B Type Natriuretic Pept 206 pg/mL (0-125); Osmolality Calculated 280 mOsm/kg (285-295); Potassium 3.5 mmol/L (3.5-5.1); Sodium 135 mmol/L (136-145); Total Protein 6.7 g/dL (6.4-8.2); Troponin I 10.9 ng/L (0.00-60.4)
--- NOTE | 2024-04-19 14:22 | ED_ITS ---
HPI - SOB/Dyspnea General Chief Complaint: Upper Respiratory Infection Stated Complaint: sinus infection Source: patient Mode of arrival: ambulatory Limitations: no limitations History of Present Illness HPI Narrative: error Severity: moderate Related Data Allergies Allergy/AdvReac Type Severity Reaction Status Date / Time Penicillins Allergy Mild unknown Verified 04/19/24 12:57 latex AdvReac Severe Swelling Verified 04/19/24 12:57 of the Eye PMFSH Past Medical History Medical History New onset of congestive heart failure A-fib Tobacco use HTN (hypertension) Asthma HIWOT (obstructive sleep apnea) Morbid obesity Surgical History Surgical History History of appendectomy S/p bilateral myringotomy with tube placement History of tonsillectomy and adenoidectomy H/O Achilles tendon repair H/O inguinal hernia repair Family History Family History Father Mother No problems noted. Sibling Blood clot in leg Diabetes mellitus Other Cancer Hypertension Social History Social History Smoking status: Former smoker Tobacco type: cigarettes Smokeless tobacco user: chewing tobacco Second hand tobacco smoke exposure: No Smoking end date: 04/23/08 Additional smoking assessment comments: Marijuana smoker Alcohol intake: never Alcohol use details: rarely Substance use: never Substance use type: does not use Other substance usage details: smokes daily Last use: 01/26/2023 Lack of Transportation: No Lack of Food: Never True Current Housing: I Have Housing Concerned About Future Housing: Decline to Answer Difficulty Paying Gas/Electric Bills: Decline to Answer Difficulty Paying for Meds: Decline to Answer Currently Unemployed: Decline to Answer Education: Decline to Answer Difficulty w/ Childcare or Family Care: Decline to Answer Living arrangements: alone Occupation/Education: occupation 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[employer] Gender identity (if verbalized by the patient): Male Spiritual care concerns: No Course Vital Signs Vital signs: Vital Signs Temperature 39.1 C H 04/19/24 12:18 Pulse Rate 128 H 04/19/24 12:18 Respiratory Rate 22 H 04/19/24 12:18 Blood Pressure 133/92 H 04/19/24 12:18 Pulse Oximetry 94 04/19/24 12:18 Oxygen Delivery Room Air 04/19/24 12:18 Temperature 39.1 C H 04/19/24 12:18 Pulse Rate 108 H 04/19/24 13:55 Respiratory Rate 20 04/19/24 13:55 Blood Pressure 101/86 04/19/24 13:55 Pulse Oximetry 91 04/19/24 13:55 Oxygen Delivery Room Air 04/19/24 13:55 MDM - SOB/Dyspnea Lab Data 04/19/24 13:07 04/19/24 13:07 Labs: Lab Results 04/19/24 04/19/24 04/19/24 Range/Units 12:25 12:54 13:07 WBC 7.1 (4.8-10.8) K/mm3 RBC 5.29 (4.70-6.10) M/mm3 Hgb 16.8 (14.0-18.0) g/dL Hct 48.6 (40.0-54.0) % MCV 91.9 (78.0-102.0) fL MCH 31.8 H (27.0-31.0) pg MCHC 34.6 (32-36) g/dL RDW 12.7 (11.6-14.4) % Plt Count 193 (150-420) K/mm3 MPV 8.5 L (8.7-11.0) fl Immature Gran % (Auto) 0.7 H (0.0-0.0) % Neut % (Auto) 80.3 H (50.0-70.0) % Lymph % (Auto) 7.6 L (18.0-42.0) % Nolan % (Auto) 10.7 (2.0-11.0) % Eos % (Auto) 0.1 L (1.0-6.0) % Baso % (Auto) 0.6 (0.0-1.0) % Lymph # (Auto) 0.54 L (1.10-4.50) K/mm3 Nolan # (Auto) 0.76 (0.10-0.90) K/mm3 Eos # (Auto) 0.01 L (0.02-0.50) K/mm3 Baso # (Auto) 0.04 (0.00-0.10) K/mm3 Abs Immat Gran (auto) 0.05 H (0.00-0.00) K/mm3 Absolute Neuts (auto) 5.69 (1.70-7.20) K/mm3 Absolute Nucleated RBC 0.00 (0.00-0.00) K/mm3 Nucleated RBC % 0.0 (0-0.0) % PT 12.2 H (9.50-12.1) Seconds INR 1.1 APTT 29.1 (23.9-30.70) Sec Sodium 135 L (136-145) mmol/L Potassium 3.5 (3.5-5.1) mmol/L Chloride 97 L (98-108) mmol/L Carbon Dioxide 30 (21-32) mmol/L Anion Gap 8 (4-12) mmol/L BUN 7 (7-18) mg/dL Creatinine 1.18 (0.70-1.30) mg/dL Estim Creat Clear Calc 107 ml/min Estimated GFR > 60 (59 - ) Glucose 130 H (70-99) mg/dL Calculated Osmolality 280 L (285-295) mOsm/kg Lactic Acid 1.6 (0.4-2.0) mmol/L Calcium 8.7 (8.5-10.1) mg/dL Total Bilirubin 0.6 (0.00-1.00) mg/dL AST 23 (15-37) U/L ALT 33 (16-63) U/L Alkaline Phosphatase 53 (46-116) U/L Troponin I 10.9 (0.00-60.4) ng/L NT-Pro-B Natriuret Pep 206 H (0-125) pg/mL Total Protein 6.7 (6.4-8.2) g/dL Albumin 3.2 L (3.4-5.0) g/dL Influenza A (RT-PCR) Positive A (Negative) Influenza B (RT-PCR) Negative (Negative) RSV (RT-PCR) Negative (Negative) SARS-CoV-2 RNA (RT-PCR) Negative (Negative) Discharge Plan Discharge Clinical Impression: Influenza A, Bronchitis Patient Disposition: Home, Self-Care Condition: Stable Instructions: Antibiotic Form, Influenza (ED), Acute Bronchitis (ED) Additional Instructions: please follow-up with the primary doctor in the next week. Come back to the ER with any worse symptoms such as worsening shortness of breath. Patient Language: Amharic Prescriptions: New oseltamivir [Tamiflu] 75 mg capsule 75 mg PO BID 5 Days Qty: 10 0RF prednisone 20 mg tablet 40 mg PO DAILY 4 Days Qty: 8 0RF azithromycin 250 mg tablet See Rx Instructions .ROUTE .COMPLEX Qty: 6 0RF Rx Instructions: For 250 mg dose pack: take 500 mg today (day 1), then 250 mg for 4 days (days 2-5) albuterol sulfate 90 mcg/actuation HFA aerosol inhaler 2 inh inhalation QID PRN (Reason: shortness of breath or wheezing) Qty: 6.7 0RF No Action albuterol sulfate 90 mcg/actuation HFA aerosol inhaler 1 inh inhalation Q4H Qty: 8.5 0RF albuterol sulfate 2.5 mg /3 mL (0.083 %) solution for nebulization 2.5 mg inhalation Q4-6H PRN (Reason: shortness of breath or wheezing) Qty: 90 0RF metoprolol succinate 50 mg tablet extended release 24 hr 50 mg PO DAILY Qty: 30 3RF furosemide 80 mg tablet See Rx Instructions .ROUTE .COMPLEX Qty: 180 0RF Dose Instruction: 80 MG ORALLY TWICE A DAY FOR 90 DAYS Rx Instructions: 80 MG ORALLY TWICE A DAY FOR 90 DAYS (DME) syringe with needle 3 mL 22 gauge x 1 syringe See Rx Instructions .ROUTE .MEDSUPPLY Qty: 100 12RF Rx Instructions: every 2 weeks testosterone cypionate 200 mg/mL oil 140 mg IM .every 2 weeks Qty: 6 0RF Rx Instructions: 140 mg once every 2 weeks Trulicity 0.75 mg/0.5 mL pen injector See Rx Instructions .ROUTE .COMPLEX Qty: 2 0RF Dose Instruction: INJECT 0.75MG (0.5ML) SUBCUTANEOUSLY ONCE WEEKLY Rx Instructions: INJECT 0.75MG (0.5ML) SUBCUTANEOUSLY ONCE WEEKLY Eliquis 5 mg tablet 5 mg PO BID Qty: 60 3RF diclofenac potassium 50 mg tablet See Rx Instructions .ROUTE .COMPLEX Qty: 60 0RF Dose Instruction: TAKE 1/2 TABLET BY MOUTH TWICE A DAY Rx Instructions: TAKE 1/2 TABLET BY MOUTH TWICE A DAY Follow-up/Referrals: Shan Loera DO [Primary Care Provider] - Time of Disposition: 14:15
--- NOTE | 2024-04-21 13:51 | PC.NURSE ---
preliminary blood cultures x2 reviewed. no growth to date
--- NOTE | 2024-04-26 12:29 | PC.NURSE ---
FINAL BLOOD CULTURE RESULTS; NO GROWTH AFTER 5 DAYS.
--- OUTSIDE RECORDS SUMMARY | 2024-04-26 18:26 | XMS_ITS | Encounter Summary ---
Author Organization [facility] Address [address] [place] [address]. [place], [place] [address] [place] [address] Care Team Providers Care Oxygen System Tester Name Role Phone Romel Saxena MD Primary Care Provider [phone] Reason for Referral * Consultation/Treatment (Routine) - Closed Specialty Diagnoses / Procedures Referred By Contmarco antonio reynoso Referred To Contact SURGERY Diagnoses Left inguinal hernia [facility] Phone: tel: fax: Referral ID Status Reason Start Date Expiration Date V isits Requested Visits Authorized [id number] Closed Second Opinion 11/02/2020 11/02/2020 1 1 Scheduling Instructions Patient is needing a doctor with robotic equipment to repair his hernia. Reason for Visit * Reason Onset Date Comments Question 09/10/2020 Referral to Urol linda. Encounter Details Date Type Department Care Team (Late st Contact Info) Description 09/10/2020 Telephone [facility] General Surgery [address], [address] [place] [address] Mike Rueda MD Question (Referral to Urology.) Social History Tobacco Use Types Packs/Day Years Used Date Smoking Tobacco: Former Cigarettes 1 15 1 3 - 2007 Smokeless Tobacco: Current Chew Alcohol Use Standard Drinks/Week Comments Not Currently 0 (1 standard drink = 0.6 oz pur e alcohol) Quit in 2018 PHQ-2 Answer Date Recorded PHQ-2 Score - If the patient scores above 3, please move on to questions 3-9 0 09/01/2020 Sex and Gender Information Value Date Recorded Sex Assigned at Not on file 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 No / Unsure 09/01/2020 10:41 AM CDT documented as of this encounter Progress Notes * Malena Huang RN - 09/29/2020 1:34 PM CDTAddended by: MALENA BURNHAM on: 09/29/2020 01:34 PM Modules accepted: Orders * Malena Huang RN - 09/29/2020 1:31 PM CDT Patient is agreeable with going to another surgeon that has robotic equipment for his hernia repair. Her verbalized understanding that [place] does not have the equipment for a robotic surgery. Kendal interested in going to the [place] area for another consult. * Malena Huang RN - 09/29/2020 10:05 AM CDT Patient saw Dr. Irvin for urology and plans to have a repeat testicular U/S and follow-up appointment on 10/12/2020. The patient plans to return to Dr. Rueda for re-evaluation after being cleared by urology. He prefers not to return to Dr. Higgins. * Malena Huang RN - 09/28/2020 8:26 AM CDT The patient was contacted by the referral center regarding scheduling. See the referral entry for follow-up and details of appointment. * Malena Huang RN - 09/21/2020 10:16 AM CDT Patient has still not heard about an appointment with urology. He was given the referral center's phone number to contact someone directly at that facility. * Malena Huang RN - 09/17/2020 12:12 PM CDT The patient has not received a phone call from Urology about an appointment. * Malena Huang RN - 09/17/2020 12:11 PM CDT See Referral Order for updates on scheduling. * Malena Huang RN - 09/15/2020 2:13 PM CDT Glenna is calling about the status of this referral. She was informed about the updates that are documented in the patient's chart. Also, she was given the referral center's phone number to inquire for further developments. * Malena Huang RN - 09/10/2020 3:54 PM CDT Patient updated on the situation. Instructed the patient to call the office on 09/14/2020 if he has not heard back from a urologist. * Malena Huang RN - 09/10/2020 3:49 PM CDT Situation explained to Brittney, she stated the referral will be placed back in the workqueue to be re-worked. * Malena Huang RN - 09/10/2020 3:42 PM CDT Attempted to schedule an appointment for the patient with Dr. Ledesma. Was instructed to call [phone]. However, the facility does not take any Worker's Compensation Cases no matter which insurance the patient has. * Malena Huang RN - 09/10/2020 3:39 PM CDT Glenna stated the patient has been approved to see [facility]. * Malena Huang RN - 09/10/2020 3:32 PM CDT Patient stated he attempted to schedule an appointment but was told by [facility] that they do not accept his worker's compensation insurance. * Malena Huang RN - 09/10/2020 3:20 PM CDT Patient verbalized understanding to call [facility] for an appointment. Phone number given. * Malena Huang RN - 09/10/2020 1:58 PM CDT Left message asking him to call and schedule the appointment with Dr. Ledesma per the referral center. Phone numbers to call for an appointment are [phone] and [phone]. * Malena Huang RN - 09/10/2020 1:53 PM CDT Raffi at the referral center will fax the information to Dr. Ledesma office. She is asking if the patient can call Dr. Ledesma' office to schedule his own appointment to expedite the process. * Malena Huang RN - 09/10/2020 1:47 PM CDT Patient stated no one has called him about a urology appointment yet. * Malena Huang RN - 09/10/2020 8:46 AM CDT Left message for patient to call back with an update on the urology appointment scheduling. * Malena Huang RN - 09/10/2020 8:40 AM CDT Glenna stated she called [facility]. They do not have an appointment for the patient, had no calls, and do not have any documentation on the patient yet. She stated Dr. Ballard and possible Dr. Rivera would be possible urologist for the patient. documented in this encounter Plan of Treatment Scheduled Referrals Name Type Priority Associated Diagnoses Orde r Schedule Ambulatory referral to General Surgery (OTHER) Referral Routine Left inguinal hernia Ordered: 09/29/2020 documented as of this encounter Visit Diagnoses Diagnosis Left inguinal hernia- Primary Inguinal hernia without mention of obstruction or gangrene, unilateral or unspecified, (not specified as recurrent) documented in this encounter Care Teams Oxygen System Tester Relationship Specialty Start Date End Date Romel Saxena MD PCP - General FAMILY PRACTICE 08/26/20 documented as of this encounter
--- OUTSIDE RECORDS SUMMARY | 2024-04-26 18:26 | XMS_ITS | Encounter Summary ---
Author Organization [facility] Address [address] [place] [address] Care Team Providers Care High School Chemistry Teacher Name Role Phone Unavailable Primary Care Provider Unavailabl e Encounter Details Date Type Department Care Team (Latest Contact Info) Description 10/12/2020 11:16 AM CDT - 10/12/2020 11:59 PM CDT Hospital Encounter [facility] [address] [place] [phone] Discharge Disposition: Home or Self Care Social History Tobacco Use Types Packs/Day Years Used Date Smoking Tobacco: Former Smokeless Tobacco: Current Alcohol Use Standard Drinks/Week Comments Not Currently 0 (1 standard drink = 0.6 oz pur e alcohol) Sex and Gender Information Value Date Recorded Sex Assigned at Not on file Gender Identity Not on file Sexual Orientation Not on file COVID-19 Exposure Response Date Recorded In the last month, have you been in contact with someone who was confirmed or suspected to have Coronavirus / COVID-19? No / Unsure 10/12/2020 7:43 AM CDT documented as of this encounter Medications at Time of Discharge Medication Sig Dispensed Refills Start Date End Date Magnesium 400 MG Take 1 capsule by mouth once daily documented as of this encounter Plan of Treatment Not on file documented as of this encounter Procedures Procedure Name Priority Date/Time Associated Diagnosis Comments TESTOSTERONE TOTAL MALE Routine 10/12/2020 11:53 AM CDT Unilateral inguinal hernia without obstruction or gangrene, recurrence not specified documented in this encounter Results * (ABNORMAL) TESTOSTERONE TOTAL MALE (10/12/2020 11:53 AM CDT) Testosterone Adult Male 141(L) 300 - 890 ng/dL 10/13/2020 11:25 PM CDT [facility] ([facility]) Comment: Total testosterone values may not reflect optimal concentrations in all individuals. Free or bioavailable testosterone measurements may provide supportive information. REFERENCE INTERVAL: Testosterone, Adult Male Access complete set of age- and/or gender-specific reference intervals for this test in the [facility] Test Directory ([facility]). Performed By: [facility] [address] [place] [address] Crossing Tender: Meagan Lunsford MD Blood BLOOD SPECIMEN / Unknown Lab Venipuncture / Unknown 10/12/2020 11:53 AM CDT 10/12/2020 12:16 PM CDT Jennifer Irvin DO LAB - CHEMISTRY OR DERABLES [facility] ([facility]) [address] [place] [address], [facility] documented in this encounter Visit Diagnoses Diagnosis Unilateral inguinal hernia without obstruction or gangrene, recurrence not specified Atrophic testicle Atrophy of testis documented in this encounter
--- OUTSIDE RECORDS SUMMARY | 2024-04-26 18:26 | XMS_ITS | Encounter Summary ---
Author Organization [facility] Address [address] [place] [address]. 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 No / Unsure 09/01/2020 10:41 AM CDT documented as of this encounter Plan of Treatment Not on file documented as of this encounter Visit Diagnoses Not on filedocumented in this encounter Care Teams Soap Drier Tender Relationship Specialty Start Date End Date Romel Saxena MD PCP - General FAMILY PRACTICE 08/26/20 documented as of this encounter
--- OUTSIDE RECORDS SUMMARY | 2024-04-26 18:26 | XMS_ITS | Encounter Summary ---
Author Organization [facility] Address [address] [place] [address] Care Team Providers Care Buck Presser Name Role Phone Unavailable Primary Care Provider Unavailabl e Encounter Details Date Type Department Care Team (Latest Contact Info) Description 10/12/2020 Travel Social History Tobacco Use Types Packs/Day [...]
--- OUTSIDE RECORDS SUMMARY | 2024-04-26 18:26 | XMS_ITS | Encounter Summary ---
Author Organization [facility] Address [address] [place] [address]. [place], [place] [address] [place] [address] Care Team Providers Care Take Out Waiter Name Role Phone Romel Saxena MD Primary Care Provider [phone] Reason for Visit * Reason Comments Work Comp Pt presents to the c lin today for left inguinal hernia. * Consultation/Treatment (Urgent) - Closed Specialty Diagnoses / Procedures Referred By Mark t Referred To Contact GENERAL SURGERY / SURGERY Diagnoses Left inguinal hernia Mike Rueda MD Maibenco, Douglas C, MD Referral ID Status Reason Start Date Expiration Date Visits Requested Visits Authorized [id number] Closed Patient Preference 09/01/2020 09/01/2020 1 1 Encounter Details Date Type Department Care Team (Late st Contact Info) Description 09/01/2020 10:20 AM CDT Office Visit [facility] [address] [place] [address] Claus Higgins MD Work Comp (Pt presents to the clinic today for left inguinal hernia.) Social History Tobacco Use Types Packs/Day Years Used Date Smoking Tobacco: Former Cigarettes 1 15 1 993 - 2007 Smokeless Tobacco: Current Chew Tobacco Cessation:Ready to Q uit: No; Counseling Given: No Alcohol Use Standard Drinks/Week Comments Not Currently 0 (1 standard drink = 0.6 oz pur e alcohol) Quit in 2018 PHQ-2 Answer Date Recorded PHQ-2 Score - If the patient scores above 3, please move on to questions 3-9 0 09/01/2020 Sex and Gender Information Value Date Recorded Sex Assigned at Not on file 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 No / Unsure 09/01/2020 10:41 AM CDT documented as of this encounter Last Filed Vital Signs Vital Sign Reading Time Taken Comments Blood Pressure 118/76 09/01/2020 11:00 AM CDT Pulse 94 09/01/2020 11:00 AM CDT Temperature 36.8 ??C (98.3 ??F) 09/01/2020 11:00 AM C DT Respiratory Rate 17 09/01/2020 11:00 AM CDT Oxygen Saturation - - Inhaled Oxygen Concentration - - Weight 183.4 kg (404 lb 4 oz) 09/01/2020 11:00 A M CDT Height 185.4 cm (6' 1 ) 09/01/2020 11:00 AM CDT Body Mass Index 53.33 09/01/2020 11:00 AM CDT documented in this encounter Progress Notes * Claus Higgins MD - 09/01/2020 10:20 AM CDT Claus Higgins MD General surgery. Surgical oncology. Endoscopy. Chief Complaint: Work Comp (Pt presents to the clinic today for left inguinal hernia.) HPI: Jonathan Quiles is a 45-year-old male who complains of having left testicular pain and swellingsince 08/18/2020. He complains of having intermittent aching pain which he rates as being up to an 8 out of 10 in severity. He complains of increased pain with pressure to the groin. The patient is noted no inguinal bulge. He has had no prior left inguinal hernia repairs. On CT scan evaluation he has been found to have a fat-containing left inguinal hernia. The patient previously underwent an open right inguinal hernia repair at age 17. At the time of that surgical procedure an undescended testicle was repositioned per his recollection. Consult from Dr. Rueda. Copy to Dr. Efe Saxena. Past Medical History: Diagnosis Date ??? Back pain ??? Former smoker ??? Obesity, morbid, BMI 50 or higher (CMS/HCC) ??? HIWOT (obstructive sleep apnea) Past Surgical History: Procedure Laterality Date ??? APPENDECTOMY Age 30 ??? HERNIA REPAIR Right Right Inguinal, SFL, Age 17 ??? INGUINAL HERNIA REPAIR Right Open inguinal herniorrhaphy with mesh ??? TONSILLECTOMY Age 6 or 7 ??? TYMPANOSTOMY TUBE PLACEMENT Bilateral Child Current Outpatient Medications on File Prior to Visit Medication Sig ??? Magnesium 400 MG Cap Take 1 capsule by mouth daily. No current facility-administered medications on file prior to visit. Allergies Allergen Reactions ??? Penicillins Rash Reaction as a child. Social History Tobacco Use ??? Smoking status: Former Smoker Packs/day: 1.00 Years: 15.00 Pack years: 15.00 Quit date: 2007 Years since quittin.3 ??? Smokeless tobacco: Current User Types: Chew Substance Use Topics ??? Alcohol use: Not Currently Comment: Quit in 2018 ??? Drug use: Yes Frequency: 7.0 times per week Types: Marijuana Comment: Gummies and smoke Family History Problem Relation Name Age of Onset ??? Hypertension Maternal Grandmother ??? Arthritis Maternal Grandmother ??? Diabetes Maternal Grandmother ??? Lung Cancer Maternal Grandmother ??? Hypertension Maternal Grandfather ??? Arthritis Maternal Grandfather ??? Diabetes Maternal Grandfather ??? Other (Bladder Cancer) Maternal Grandfather Review of Systems: Neuro: Denies history of TIA or stroke. Psych: Denies any history of psychiatric problems HEENT: Denies eye, nose, or throat symptoms. Cardiac: Denies any chest pain or history of coronary interventions. Resp: Denies any breathing problems other than HIWOT, or need for oxygen GI: Denies any nausea, emesis, abdominal pain, constipation, diarrhea, melena, or hematochezia : Denies any recent urologic problems Musculoskeletal: Denies any joint pain, muscle aches, recent orthopedic surgery Endocrine: No diabetes, no history of other endocrine disease Skin: Denies any history of skin disorders. Physical Exam: Filed Vitals: 09/01/20 1100 BP: 118/76 Pulse: 94 Resp: 17 Temp: 98.3 ??F (36.8 ??C) TempSrc: Temporal Weight: (!) 183.4 kg (404 lb 4 oz) Height: 6' 1 (1.854 m) General appearance: alert, cooperative, no distress Neurologic: mental status normal; alert and oriented X 3 Psych: Normal Mood and affect. ENT/NECK : No cervical or supraclavicular adenopathy. Heart: regular rhythm, normal S1 and S2, without murmurs, no pedal edema Lungs: breath sounds normal and symmetric; no rales or wheezes Abdomen: Obese. Soft. Non-tender over the upper and lower abdomen. Normal bowel sounds : Left greater than left testicular tenderness. No inguinal hernias palpated. Tender to palpationof the left inguinal floor. Extremities: no clubbing, cyanosis or edema Skin: no rashes or other abnormalities are noted Labs: No results found for: WBC, RBC, HGB, HCT, MCV, MCH, MCHC, PLT, RDW, MPV, PERNEU, PERLYM, PERMON, PEREOS, PERBASO, NEUC, LYMC, MONOC, EOSC, BASOC, DTYPE No results found for: NA, K, CL, CO2, AGAP, BUN, CR, BUNCREATININ, GFRNON, GFR, GLU, CA, TP, ALB, TBIL, ALKP, AST, ALT No results found for: PTT, INR Imaging: No results found. Assessment: Diagnoses and all orders for this visit: Left inguinal hernia Plan: This patient who complains of pain after strenuous physical activity has been found to have a left inguinal hernia on CT scan evaluation. The patient has left testicular pain as his primary complaint, and has a history of repositioning of his left testicle at the time of having a right inguinal hernia in the remote past.. The patient's left inguinal pain may be due to having a left inguinal hernia or may be related to pathology affecting his left testicle. It was recommend to the patient that he have a urology consultation obtained prior to the performance of a left inguinal hernia repair. The above was discussed with Dr. Rueda. He will identify a urologist to evaluate this patient in [facility]. Providing the patient has no urologic pathology a left inguinal hernia repair will be performed. Care options to treat inguinal hernias were discussed. The patient wishes to have minimally invasive surgery performed. The diagnosis and treatment options were explained. Risks including, but not limited to bleeding, infection, bowel injury, nerve injury, chronic discomfort, infertility and recurrence were discussed.All questions were answered. The patient states understanding of the above and desires surgical interventions. Procedure: Robotic, possibly open, left inguinal herniorrhaphy with mesh (after a urology consultation has been obtained.). Thank you for the opportunity to participate in the care of your patient. I spent a total of 46 minutes today reviewing the patient's medical record, obtaining a history, performing an exam, documenting in the medical record, communicating with other healthcare providers, counseling and educating the patient. Thank you for the opportunity to participate in the care of your patient. CLAUS HIGGINS MD documented in this encounter Plan of Treatment Not on file documented as of this encounter Visit Diagnoses Diagnosis Left inguinal hernia- Primary Inguinal hernia without mention of obstruction or gangrene, unilateral or unspecified, (not specified as recurrent) documented in this encounter Care Teams Take Out Waiter Relationship Specialty Start Date End Date Romel Saxena MD PCP - General FAMILY PRACTICE 08/26/20 documented as of this encounter
--- OUTSIDE RECORDS SUMMARY | 2024-04-26 18:26 | XMS_ITS | Encounter Summary ---
Author Organization [facility] Address [address] [place] [address]. 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
--- OUTSIDE RECORDS SUMMARY | 2024-04-26 18:26 | XMS_ITS | Encounter Summary ---
Author Organization [facility] Address [address] [place] [address]. 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
--- OUTSIDE RECORDS SUMMARY | 2024-04-26 18:26 | XMS_ITS | Encounter Summary ---
Author Organization [facility] Address [address] [facility] [place] [address] Care Team Providers Care Cpc Name Role Phone Unavailable Primary Care Provider Unavailabl e Reason for Referral * Radiology Services (Routine) - Closed Specialty Diagnoses / Procedures Referred By Mark t Referred To Contact Ultrasound Diagnoses Unilateral inguinal hernia without obstruction or gangrene, recurrence not specified Atrophic testicle Procedures US SCROTUM AND CONTENTS Jennifer Irvin DO [address] [facility] 2L DIV [place] [address] [facility] [address] [place] [address] Referral ID Status Reason Start Date Expiration Date Visits Re quested Visits Authorized [id number] Closed 09/28/2020 09/28/2021 1 1 Reason for Visit * Reason Comments Establish Care Testicular Pain Encounter Details Date Type Department Care Team (Late st Contact Info) Description 09/28/2020 11:45 AM CDT Office Visit [facility] [address] [facility], [place] [address] Jennifer Irvin DO [address] [facility] 2[address] DIV OF [place]OLOGIC [place] [address] Unilateral inguinal hernia without obstruction or gangrene, recurrence not specified (Primary Dx); Atrophic testicle Social History Tobacco Use Types Packs/Day Years [...] Sign Reading Time Taken Comments Blood Pressure 167/99 09/28/2020 11:51 AM CDT Pulse 94 09/28/2020 11:51 AM CDT Temperature 37.2 ??C (98.9 ??F) 09/28/2020 1 1:51 AM CDT Respiratory Rate - - Oxygen Saturation 93% 09/28/2020 11: 51 AM CDT Inhaled Oxygen Concentration - - Weight 186.2 kg (410 lb 9.6 oz) 021 11:51 AM CDT Height 182.9 cm (6') 09/28/2020 11:51 AM CDT Body Mass Index 55.69 09/28/2020 11:51 AM CDT documented in this encounter Progress Notes * Britany Shin - 09/28/2020 1:05 PM CDT [facility] Division of Urologic Surgery Jennifer Irvin DO Date of Visit: 09/28/2020 Patient Name: Jonathan Quiles : 1975 Medical Record: [id number] (home) [phone] (work) Age: [age] year old Sex: male Dear Provider Unknown No address on file, Thank you very much for the interesting referral. I will briefly summarize the records below for myown documentation and your review as well. Chief Complaint/Reason for Visit: Chief Complaint Patient presents with ??? Establish Care Testicular Pain History of Present Illness: Jonathan Quiles is a 45 year old male being seen today for left inguinal hernia with past medical history significant for anaphylactic reaction to penicillin, morbid obesity, HIWOT, chronic lower back pain, nicotine dependence, tobacco abuse (at least a [id number] history), status post open right inguinal hernia 28 years ago, and status post robotic appendectomy's approximately 8 years ago who presents for evaluation of a possible left inguinal hernia. On August 18, 2020 while transferring a 55 gallon drum from one [facility] to another at work, he developed severe left sided inguinal pain due to an inguinal hernia. He presented to the emergency department at the [facility] where he was evaluated and underwent CT imaging. The patient then followed up with his PCP who then referred him to the [facility] general surgery office for surgical evaluation. Since the patient first developed the left inguinal hernia he has been experiencing signifcant tenderness and swelling over the left testicle and groin. The pain is worsened with movement or when sitting in certain positions. He has been seen by a general surgeon in in [place], [place], who is planning to repair the inguinal hernia, but wanted him to be evaluated by a urologist due to his history of right sided inguinal hernia repair with left sided orchiopexy at age 17. He is unsure if mesh was placed at the time. He states that the left testicle has always been smaller than the right, but it is now approximately the same size as the right testicle since the development of the left inguinal hernia. He believesit is now the same size due to the presence of the hernia. Review of Systems: General: Negative Skin: Negative Eyes: Negative Ears/Nose/Mouth: Negative Lungs: Negative Heart: Negative Gastrointestinal: Negative Genitourinary: Left sided inguinal hernia, testicular pain Musculoskeletal: Negative Nervous System: Negative Hematologic: Negative Lymphatic: Negative Endocrine: Negative Reproductive System: Negative Pertinent positive/negative systems are noted above. A 10-point ROS was reviewed during this clinic visit. Past Medical History: No past medical history on file. Past Surgical History: No past surgical history on file. Current Medications: Current Outpatient Medications Medication Sig Dispense Refill ??? Magnesium 400 MG Take 1 capsule by mouth once daily No current facility-administered medications for this visit. Allergies: Penicillins Family History: No family history on file. Family history is non-contributory unless otherwise indicated. Social History: Social History Socioeconomic History ??? Marital status: Spouse name: Not on file ??? Number of children: Not on file ??? Years of education: Not on file ??? Highest education level: Not on file Occupational History ??? Not on file Tobacco Use ??? Smoking status: Former Smoker ??? Smokeless tobacco: Current User Vaping Use ??? Vaping Use: Never used Substance and Sexual Activity ??? Alcohol use: Not Currently ??? Drug use: Yes Types: Marijuana ??? Sexual activity: Not on file Other Topics Concern ??? Not on file Social History Narrative ??? Not on file Social Determinants of Health Financial Resource Strain: ??? Difficulty of Paying Living Expenses: Food Insecurity: ??? Worried About Running Out of Food in the Last Year: ??? Ran Out of Food in the Last Year: Transportation Needs: ??? Lack of Transportation (Medical): ??? Lack of Transportation (Non-Medical): Physical Activity: ??? Days of Exercise per Week: ??? Minutes of Exercise per Session: Stress: ??? Feeling of Stress : Social Connections: ??? Frequency of Communication with Friends and Family: ??? Frequency of Social Gatherings with Friends and Family: ??? Attends [employer] Services: ??? Active Member of Clubs or Organizations: ??? Attends Club or Organization Meetings: ??? Marital Status: Intimate Partner Violence: ??? Fear of Current or Ex-Partner: ??? Emotionally Abused: ??? Physically Abused: ??? Sexually Abused: Physical Exam: Vital Signs: Vitals: 09/28/20 1151 BP: 167/99 Pulse: 94 Temp: 98.9 ??F (37.2 ??C) SpO2: 93% Weight: (!) 410 lb 9.6 oz (186.2 kg) Height: 6' (1.829 m) General: alert, cooperative and no distress Cardiovascular: regular rate Respiratory: normal respiratory rate and effort, symmetric chest rise Abdominal: Soft , Non-tender, Non-distended Neurologic: Motor and sensation grossly intact Psych: appropriate mood and affect Musculoskeletal: normal ROM of upper and lower extremities. Genitourinary: penis circumcised without lesion, testes descended bilaterally. Right testicle atrophic, left testicle tender to palpation with hernia palpated Laboratory Studies: Lab results smartLinks are not currently available Assessment: 45 year old male with left sided inguinal hernia, planning for repair with general surgery. Recommendations: Recomended obtaining a scrotal ultrasound to evaluate hernia as well as healing of left sided testicle from orchiopexy at age 17. Patient will obtain a testosterone level to establish a baseline before pursuing surgical intervention. He will follow up in clinic regarding the results. We will discuss surgical clearance for inguinal hernia repair following scrotal ultrasound results. Discussed with the patient that obesity may hinder post-operative healing of inguinal repair with mesh, and recommended initiating weight loss strategies. Britany Shin 09/28/2020 1:05 PM Patient seen and examined with medical student. Please see note for further details. I reperformed the history and physical and edited the note above myself. Jennifer Irvin DO documented in this encounter Plan of Treatment Not on file documented as of this encounter Results * US SCROTUM AND CONTENTS (10/12/2020 8:53 AM CDT) Anatomical Region Laterality Modality Pelvis Ultrasound 10/12/2020 8:36 AM CDT Impressions 10/12/2020 1:00 PM CDT IMPRESSION: 1.No sonographic evidence of left-sided inguinal hernia as clinically queried. 2.Right-sided intratesticular varicoceles. 3.Small left hydrocele. Dictated by Efra Clark MD (resident in diagnostic radiology) This report was approved ??by Efra Clark Dr ?? on 10/12/2020 10:29 AM . I, Dr. ROSA MERLOS have personally reviewed and interpreted this examination/study. This report was electronically signed by ROSA MERLOS ??on 10/12/2020 1:00 PM . Narrative 10/12/2020 1:00 PM CDT EXAMINATION: Scrotal sonogram HISTORY: K40.90: Unilateral inguinal hernia without obstruction or gangrene, recurrence not specified N50.0: Atrophic testicle COMPARISON: CT abdomen pelvis with contrast dated 08/23/2020 from [facility] FINDINGS: Right testicle: 3.6 x 1.5 x 2.2 cm Right epididymis: 0.7 x 0.9 x 1.4 cm Left testicle: 3.9 x 1.9 x 2.5 cm Left epididymis: 1.1 x 1.0 x 2.0 cm Testicular size and echotexture are within normal limits. No focal testicular mass is identified. There are dilated intratesticular vessels with internal flow likely representing intratesticular varicoceles. There is testicular arterial flow bilaterally. The epididymides are normal in size. A small volume left hydrocele is present. No varicoceles are seen. No sonographic evidence of left inguinal hernia is identified as clinically queried. Procedure Note Rosa Merlos MD - 10/12/2020 EXAMINATION: Scrotal sonogram HISTORY: K40.90: Unilateral inguinal hernia without obstruction or gangrene, recurrence not specified N50.0: Atrophic testicle COMPARISON: [facility]IND[facility]: Right testicle: 3.6 x 1.5 x 2.2 cm Right epididymis: 0.7 x 0.9 x 1.4 cm Left testicle: 3.9 x 1.9 x 2.5 cm Left epididymis: 1.1 x 1.0 x 2.0 cm Testicular size and echotexture are within normal limits. No focal testicular mass is identified. There are dilated intratesticular vessels with internal flow likely representing intratesticular varicoceles.There is testicular arterial flow bilaterally. The epididymides are normal in size. A small volume left hydrocele is present. No varicoceles are seen. No sonographic evidence of left inguinal hernia is identified as clinically queried. IMPRESSION: 1.No sonographic evidence of left-sided inguinal hernia as clinically queried. 2.Right-sided intratesticular varicoceles. 3.Small left hydrocele. Dictated by Efra Clark MD (resident in diagnostic radiology) This report was approved by Efra Clark Dr on 10/12/2020 10:[address] ROSA Sheriff have personally reviewed and interpreted this examination/study. This report was electronically signed by ROSA MERLOS on 10/12/2020 1:00PM . [facility] documented in this encounter Visit Diagnoses Diagnosis Unilateral inguinal hernia without obstruction or gangrene, recurrence not specified- Primary Atrophic testicle Atrophy of testis Unilateral inguinal hernia without obstruction or gangrene, recurrence not specified Atrophic testicle Atrophy of testis documented in this encounter
--- OUTSIDE RECORDS SUMMARY | 2024-04-26 18:26 | XMS_ITS | Encounter Summary ---
Author Organization [facility] Address [address] [place] [address]. 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
--- OUTSIDE RECORDS SUMMARY | 2024-04-26 18:26 | XMS_ITS | Encounter Summary ---
Author Organization [facility] Address [address] [place] [address]. [place], [place] [address] [place] [address] Care Team Providers Care Licensed Mental Health Professional Name Role Phone Romel Saxena MD Primary Care Provider [phone] Reason for Visit * Reason Onset Date Comments Establish Care 08/26/2020 checking to see if we are in network Encounter Details Date Type Department Care Team (Late st Contact Info) Description 08/26/2020 Telephone [facility] Medical [facility] General Surgery [address], [address] [place] [address] Mike Rueda MD Establish Care (checking to see if we are in network) Social History Tobacco Use Types Packs/Day Years Used Date Smoking Tobacco: Never Assessed Sex and Gender Information Value Date Recorded Sex Assigned at Not on file 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 documented in this encounter Plan of Treatment Not on file documented as of this encounter Visit Diagnoses Not on filedocumented in this encounter Care Teams Licensed Mental Health Professional Relationship Specialty Start Date End Date Romel Saxena MD PCP - General FAMILY PRACTICE 08/26/20 documented as of this encounter
--- OUTSIDE RECORDS SUMMARY | 2024-04-26 18:26 | XMS_ITS | Patient Health Summary ---
Author Organization [facility] Address [address] [facility] [address] [address] [place] [address] Care Team Providers Care Examination Grader Name Role Phone Unavailable Primary Care Provider Unavailabl e Note from [facility] [place],non-owned Affiliates and Associated Physician Practices is amultiple site organization consisting of ambulatory clinics and hospital sitesin [place], [place], [place] and [place]. This disclosure is being madepursuant to the Care Everywhere program and may not contain all information available regarding this patient. Last updated 18.[facility] Allergies * Penicillins(Rash) -Medium Criticality Medications * Be aware that medications may not be up to date on this document. Alwaysverify current medications with the patient. * Magnesium 400 MG Take 1 capsule by mouth once daily Social History Tobacco Use Types Packs/Day Years Used Date Smoking Tobacco: Former Smokeless Tobacco: Current Alcohol Use Standard Drinks/Week Comments Not Currently 0 (1 standard drink = 0.6 oz pur e alcohol) Sex and Gender Information Value Date Recorded Sex Assigned at Not on file Gender Identity Not on file Sexual Orientation Not on file Last Filed Vital Signs Vital Sign Reading Time Taken Comments Blood Pressure 167/92 10/12/2020 10:16 AM CDT Pulse 81 10/12/2020 10:16 AM CDT Temperature 36.6 ??C (97.8 ??F) 10/12/2020 10:16 AM C DT Respiratory Rate - - Oxygen Saturation 93% 09/28/2020 11:51 AM CDT Inhaled Oxygen Concentration - - Weight 186 kg (410 lb) 10/12/2020 10:16 AM CDT Height 182.9 cm (6') 10/12/2020 10:16 AM CDT Body Mass Index 55.61 10/12/2020 10:16 AM CDT Procedures * TESTOSTERONE TOTAL MALE(Performed 10/12/2020) Performed for Unilateral inguinal hernia without obstruction or gangrene, recurrence not specified * US SCROTUM AND CONTENTS(Performed 10/12/2020) Performed for Unilateral inguinal hernia without obstruction or gangrene, recurrence not specified,Atrophic testicle Results * (ABNORMAL) TESTOSTERONE TOTAL MALE (10/12/2020 11:53 AM CDT) Testosterone Adult Male 141(L) 300 - 890 ng/dL 10/13/2020 11:25 PM CDT [employer] ([facility]) Comment: Total testosterone values may not reflect optimal concentrations in all individuals. Free or bioavailable testosterone measurements may provide supportive information. REFERENCE INTERVAL: Testosterone, Adult Male Access complete set of age- and/or gender-specific reference intervals for this test in the [facility] Directory ([facility]). Performed By: [employer] [address] [place] [address] Distresser: Meagan Lunsford MD Blood BLOOD SPECIMEN / Unknown Lab Venipuncture / Unknown 10/12/2020 11:53 AM CDT 10/12/2020 12:16 PM CDT Jennifer Irvin DO LAB - CHEMISTRY OR DERABLES [facility] ([facility]) [address] * US SCROTUM AND CONTENTS (10/12/2020 8:53 AM CDT) Anatomical Region Laterality Modality Pelvis Ultrasound 10/12/2020 8:36 AM CDT Impressions 10/12/2020 1:00 PM CDT IMPRESSION: 1.No sonographic evidence of left-sided inguinal hernia as clinically queried. 2.Right-sided intratesticular varicoceles. 3.Small left hydrocele. Dictated by Efra Clark MD (assistant vice president) This report was approved ??by Efra Clark [...] abdomen pelvis with contrast dated 08/23/2020 from [facility] FINDINGS: Right testicle: 3.6 x 1.5 x [...] CT abdomen pelvis with [facility]: Right testicle: 3.6 x 1.5 x [...] left hydrocele. Dictated by Efra Clark MD (assistant vice president) This report was approved by Efra Clark Dr on 10/12/2020 10:29 AM . I, Dr. ROSA MERLOS have personally reviewed and interpreted this examination/study. This report was electronically signed by ROSA MERLOS on 10/12/2020 1:00PM . Jennifer [facility] ORDERABLES
--- OUTSIDE RECORDS SUMMARY | 2024-04-26 18:26 | XMS_ITS | Clinical Summary ---
Author Organization [facility] Address [address] [place] [address]. [place], [place] [address] [place] [address] Care Team Providers Care Directory Clerk Name Role Phone Romel Saxena MD Primary Care Provider [phone] Allergies Active Allergy Reactions Criticality Noted Date Comments Penicillins Rash Low 08/30/2020 Reaction as a child. Medications Magnesium 400 MG Cap Take 1 capsule by mouth daily. 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 Gender Identity Not on file Sexual Orientation Not on file 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 Not on file Not on file Last Filed Vital Signs Vital Sign Reading Time Taken Comments Blood Pressure 118/76 09/01/2020 11:00 AM CDT Pulse 94 09/01/2020 11:00 AM CDT Temperature 36.8 ??C (98.3 ??F) 09/01/2020 11:00 AM C DT Respiratory Rate 17 09/01/2020 11:00 AM CDT Oxygen Saturation 95% 08/30/2020 1:59 PM CDT Inhaled Oxygen Concentration - - Weight 183.4 kg (404 lb 4 oz) 09/01/2020 11:00 A M CDT Height 185.4 cm (6' 1 ) 09/01/2020 11:00 AM CDT Body Mass Index 53.33 09/01/2020 11:00 AM CDT Plan of Treatment Health Maintenance Due Date Last Done Comments Colorectal Cancer Screening Colonoscopy (10 Years) 1975 Annual Physical 1977 Hepatitis C 1992 DTaP, Tdap and Td Vaccines ( 1 - Tdap) 1993 Hepatitis B Vaccines (1 of 3 - 19+ 3-dose series) 1993 COVID-19 Vaccine (1 - 2023-2 5 season) 2023 Influenza Adult (#1) 2024 Zoster Vaccines (1 of 2) 2024 Meningococcal Vaccine Aged Out No konrad elke eligible based on patient's age to complete this topic Pneumococcal Vaccine: Pediat rics (0 to 5 Years) and At-Risk Patients (6 to 64 Years) Aged Out No longer eligible b ased on patient's age to complete this topic RSV Immunizations Under 20 Months Aged Out No longer eligible based on patient's age to complete this topic Insurance [employer] COMP on file Care Teams Directory Clerk Relationship Specialty Start Date End Date Romel Saxena MD PCP - General FAMILY PRACTICE 08/26/20
--- OUTSIDE RECORDS SUMMARY | 2024-04-26 18:26 | XMS_ITS | Encounter Summary ---
Author Organization [facility] Address [address] [place] [address]. 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
--- OUTSIDE RECORDS SUMMARY | 2024-04-26 18:26 | XMS_ITS | Encounter Summary ---
Author Organization [facility] Address [address] [place] [address]. 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
--- OUTSIDE RECORDS SUMMARY | 2024-04-26 18:26 | XMS_ITS | Encounter Summary ---
Author Organization [facility] Address [address] [place] [address]. 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
--- OUTSIDE RECORDS SUMMARY | 2024-04-26 18:26 | XMS_ITS | Encounter Summary ---
Author Organization [facility] Address [address] [place] [address] Care Team Providers Care Photographs Curator Name Role Phone Unavailable Primary Care Provider Unavailabl e Reason for Visit * Reason Comments General 2wk Testicular pain F/U Encounter Details Date Type Department Care Team (Late st Contact Info) Description 10/12/2020 9:45 AM CDT Office Visit [facility] [address] [place] [address], [place] [address] Jennifer Irvin , [address] [place] [id number] Unilateral inguinal hernia without obstruction or gangrene, recurrence not specified (Primary Dx) Social History Tobacco Use Types Packs/Day Years [...] DT Respiratory Rate - - Oxygen Saturation - - Inhaled Oxygen Concentration - - Weight 186 kg (410 lb) 10/12/2020 10:16 AM CDT Height 182.9 cm (6') 10/12/2020 10:16 AM CDT Body Mass Index 55.61 10/12/2020 10:16 AM CDT documented in this encounter Patient Instructions * Patient Instructions* Jennifer Irvin DO - 10/12/2020 11:04 AM CDT Patient is cleared for left inguinal hernia repair. If previous orchidopexy was done, it shouldn't affect a hernia repair especially if it is to be done laparoscopically. Orchidopexy is usually done through a scrotal incision. I will have patient get testosterone checked today in case of any complications with blood supply to the testicle during the surgery. However, with a normal right testicle, there shouldn't be low T if the left testicle is damaged. documented in this encounter Progress Notes * Jennifer Irvin DO - 10/12/2020 10:22 AM CDT [facility] Jennifer Irvin DO Date of Visit: 10/12/2020 Patient Name: Jonathan Quiles : 1975 Medical Record: [id number] (home) [phone] (work) Age: [age] year old Sex: male Chief Complaint/Reason for Visit: Chief Complaint Patient presents with ??? General 2wk Testicular pain F/U History of Present Illness: Jonathan Quiles is a 45 year old male being seen today for left inguinal hernia with past medical history significant for anaphylactic reaction to penicillin, morbid obesity, HIWOT, chronic lower back pain, nicotine dependence, tobacco abuse (at least a 18-evaq-yulr history), status post open right inguinal hernia 28 years ago, and status post robotic appendectomy's approximately 8 years ago who presents for evaluation of a possible left inguinal hernia. On August 18, 2020 while transferring a [address] [facility] to another at work, he developed severe left sided inguinal pain due to an inguinal hernia. He presented to the emergency department at the [facility] where he was evaluated and underwent CT imaging. The patient then followed up with his PCP who then referred him to the [facility] general surgery office for surgical evaluation. Since the patient first developed the left inguinal hernia he has been experiencing signifcant tenderness and swelling over the left testicle and groin. The pain is worsened with movement or when sitting in certain positions. He has been seen by a general surgeon in in [place], [place], who is planning to repair the inguinal hernia, but wanted him to be evaluated by a urologist due to his history of right sided inguinal hernia repair with left sided orchiopexy at age 17. He is unsure if mesh was placed at the time. ?? He states that the left testicle has always been smaller than the right, but it is now approximately the same size as the right testicle since the development of the left inguinal hernia. He believesit is now the same size due to the presence of the hernia. 09/28/2020: Recommended obtaining a scrotal U/S to evaluate left inguinal hernia as well as hx of right-sided inguinal hernia repair with left-sided orchiopexy at age 17. Obtain testosterone level to establish a baseline prior to surgical intervention. Interval History: Patient says left groin pain 2/2 left inguinal hernia has improved since last visit as he has not performed any heavy lifting. 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 Says he switched general surgeons and is now planning to get hernia repair with Dr. Angel in [place], [place]. Has an appointment set up with Dr. Bearden on October 28. Of note, patient obtained scrotal U/S today but was unable to obtain serum testosterone because he had no time this morning. Review of Systems: General: Negative Skin: Negative Eyes: Negative Ears/Nose/Mouth: Negative Lungs: Negative Heart: Negative Gastrointestinal: Negative Genitourinary: Left-sided inguinal hernia, testicular pain Musculoskeletal: Negative Nervous System: Negative Hematologic: Negative Lymphatic: Negative Endocrine: Negative Reproductive System: Negative ?? Pertinent positive/negative systems are noted above. A 10-point ROS was reviewed during this clinic visit. Past Medical History: - Anaphylactic reaction to penicillin - Morbid obesity - HIWOT - Chronic lower back pain - Tobacco abuse (at least a 37-rurr-yckz history) Past Surgical History: - Right-sided inguinal hernia repair with left orchiopexy ~28 years ago - Robotic appendectomy ~8 years ago Current Medications: Current Outpatient Medications Medication Sig Dispense Refill ??? Magnesium 400 MG Take 1 capsule by mouth once daily No current facility-administered medications for this visit. Allergies; Penicillins Physical Exam: Vital Signs: BP 167/92 (BP SITE: LEFT ARM, BP POSITION: SITTING, BP CUFF SIZE: 12) Pulse 81 Temp 97.8 ??F (36.6 ??C) Ht 6' (1.829 m) Wt 410 lb (186 kg) BMI 55.61 kg/m2 Gen: Alert and oriented x3 Head: normocephalic Lungs: Non-labored respirations Heart: RRR Abd: soft, nontender, nondistended : no CVA tenderness, no suprapubic pain MSK: normal gait and strength Skin: No rashes Labs: No new labs. Patient did not obtain serum testosterone this morning. Imagin10/12/2020 Scrotal U/S EXAMINATION: Scrotal sonogram ?? HISTORY: K40.90: Unilateral inguinal hernia without obstruction or gangrene, recurrence not specified N50.0: Atrophic testicle ?? COMPARISON: CT abdomen pelvis with contrast dated 08/23/2020 from [facility] ?? FINDINGS: ?? Right testicle: 3.6 x 1.5 x 2.2 cm Right epididymis: 0.7 x 0.9 x 1.4 cm ?? Left testicle: 3.9 x 1.9 x 2.5 cm Left epididymis: 1.1 x 1.0 x 2.0 cm ?? Testicular size and echotexture are within normal limits. No focal testicular mass is identified. There are dilated intratesticular vessels with internal flow likely representing intratesticular varicoceles. There is testicular arterial flow bilaterally. The epididymides are normal in size. A small volume left hydrocele is present. No varicoceles are seen. No sonographic evidence of left inguinal hernia is identified as clinically queried. ? IMPRESSION: ?? 1.No sonographic evidence of left-sided inguinal hernia as clinically queried. 2.Right-sided intratesticular varicoceles. 3.Small left hydrocele. ?? Dictated by Efra Clark MD (manager of radiology) ?? This report was approved by Efra Clark Dr on 10/12/2020 10:29 AM . Micro: No new micro. Assessment: 45yo male with history of right inguinal hernia repair and left orchidopexy 1990s, now with left inguinal hernia on CT/symptomatic, normal left testicle on US Recommendations: Patient is cleared for left inguinal hernia repair. If previous orchidopexy was done, it shouldn't affect a hernia repair especially if it is to be done laparoscopically. Orchidopexy is usually done through a scrotal incision. I will have patient get testosterone checked today in case of any complications with blood supply to the testicle during the surgery. However, with a normal right testicle, there shouldn't be low T if the left testicle is damaged. RTC as needed. Jarad Vernon 10/12/2020 10:23 AM Patient seen and examined with medical student. Please see note for further details. I reperformed the history and physical and edited the note above myself. Jennifer Irvin DO 10/12/2020 11:03 AM documented in this encounter Plan of Treatment Not on file documented as of this encounter Visit Diagnoses Diagnosis Unilateral inguinal hernia without obstruction or gangrene, recurrence not specified- Primary documented in this encounter
--- OUTSIDE RECORDS SUMMARY | 2024-04-26 18:26 | XMS_ITS | Encounter Summary ---
Author Organization [facility] Address [address] [place] [address]. 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
--- OUTSIDE RECORDS SUMMARY | 2024-04-26 18:26 | XMS_ITS | Encounter Summary ---
Author Organization [facility] Address [address] [place] [address]. 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 No / Unsure 08/30/2020 1:41 PM CDT documented as of this encounter Plan of Treatment Not on file documented as of this encounter Visit Diagnoses Not on filedocumented in this encounter Care Teams Statistician Relationship Specialty Start Date End Date Romel Saxena MD PCP - General FAMILY PRACTICE 08/26/20 documented as of this encounter
--- OUTSIDE RECORDS SUMMARY | 2024-04-26 18:26 | XMS_ITS | Encounter Summary ---
Author Organization [facility] Address [address] [place] [address]. 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
--- OUTSIDE RECORDS SUMMARY | 2024-04-26 18:26 | XMS_ITS | Clinical Summary ---
Author Organization [facility] Address [address] [place] [address] Care Team Providers Care Roof Fitter Name Role Phone Unavailable Primary Care Provider Unavailabl e Source Comments [facility]non-owned Affiliates and Associated Physician Practices is amultiple site organization consisting of ambulatory clinics and hospital sitesin [place], [place], [place] and [place]. This disclosure is being madepursuant to the Care Everywhere program and may not contain all information available regarding this patient. Last updated 18.[facility] Allergies Active Allergy Reactions Criticality Noted Date Comments Penicillins Rash Medium 08/30/2020 Reaction as a child. Medications * Be aware that medications may not be up to date on this document. Alwaysverify current medications with the patient. Medication Sig Dispensed Refills Start Date End Date Status Magnesium 400 MG Take 1 capsule by mouth once daily Active Social History Tobacco Use Types Packs/Day Years [...] Mass Index 55.61 10/12/2020 10:16 AM CDT Plan of Treatment Health Maintenance Due Date Last Done Comments COLOGUARD (AGES 45-75) - COL ON CA SCREENING 1975 COLON MONITORING 1975 COLONOSCOPY - COLON CA SCREENING 1974 CT COLONOGRAPHY - COLON CA SCREENING 1975 Colorectal Cancer Screening 1975 FIT - COLON CA SCREENING 1975 FLEX SIG - COLON CA SCREENING 1975 LIPID TESTING 1975 HIV SCREENING 1989 HEPATITIS C SCREENING 03/20/1992 DTAP/TDAP/TD VACCINES (1 - Tdap) 1993 HEPATITIS B VACCINE (1 of 3 - 19+ 3-dose series) 1993 SCREENING FOR DIABETES 09/28/2020 DEPRESSION SCREENING 04/23/2023 COVID-19 VACCINE (1 - 2023-2 5 season) 2023 INFLUENZA VACCINE (#1) 2023 ZOSTER VACCINE (1 of 2) 2024 HIB VACCINE Aged Out No longer eligi ble based on patient's age to complete this topic HPV VACCINE Aged Out No longer eligi ble based on patient's age to complete this topic MENINGOCOCCAL VACCINE Aged Out No konrad elke eligible based on patient's age to complete this topic PNEUMOCOCCAL VACCINE Aged Out No long er eligible based on patient's age to complete this topic Jonathan Quiles Personal/Family Self 1975 (Sqxg) [address] [place] [address]
--- OUTSIDE RECORDS SUMMARY | 2024-04-26 18:26 | XMS_ITS | Encounter Summary ---
Author Organization [facility] Address [address] [place] [address]. 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
--- OUTSIDE RECORDS SUMMARY | 2024-04-26 18:26 | XMS_ITS | Encounter Summary ---
Author Organization [facility] Address [address] [place] [address]. [place], [place] [address] [place] [address] Care Team Providers Care Processing Mgr Name Role Phone Romel Saxena MD Primary Care Provider [phone] Claus Higgins MD Unavailable Unavailab le Reason for Visit * Reason Onset Date Comments Advise 08/26/2020 Error, no note s tarted Encounter Details Date Type Department Care Team (Late st Contact Info) Description 08/26/2020 Telephone [facility] General Surgery [address], [address] [place] [address] Mike Rueda MD Advise (Error, no note started) Social History Tobacco Use Types Packs/Day Years Used Date Smoking Tobacco: Never Assessed PHQ-2 Answer Date Recorded PHQ-2 Score - If the patient scores above 3, please move on to questions 3-9 0 09/01/2020 Sex and Gender Information Value Date Recorded Sex Assigned at Not on file Legal Sex Male 8:56 PM PARTS COUNTER SALESPERSON Gender Identity Not on file Sexual Orientation [...] on filedocumented in this encounter Care Teams Processing Mgr Relationship Specialty Start Date End Date Romel Saxena MD PCP - General FAMILY PRACTICE 08/26/20 Claus Higgins MD SURGERY 08/31/20 08/31/20 documented as of this encounter
--- OUTSIDE RECORDS SUMMARY | 2024-04-26 18:26 | XMS_ITS | Encounter Summary ---
Author Organization [facility] Address [address] [place] [address]. [place], [place] [address] [place] [address] Care Team Providers Care Buyer Tobacco Head Name Role Phone Unavailable Primary Care Provider Unavailabl e Encounter Details Date Type Department Care Team (Late st Contact Info) Description 07/05/1999 Abstract [facility] [address] [place] [address] , Generic Conversion, Social History Tobacco Use Types Packs/Day Years Used Date Smoking Tobacco: Never Assessed Sex and Gender Information Value Date Recorded Sex Assigned at Not on file Legal Sex Male 8:56 PM PLATE MAKER ZINC Gender Identity Not on file Sexual Orientation Not on file documented as of this encounter Plan of Treatment Not on file documented as of this encounter Visit Diagnoses Not on filedocumented in this encounter
--- OUTSIDE RECORDS SUMMARY | 2024-04-26 18:26 | XMS_ITS | Encounter Summary ---
Author Organization [facility] Address [address] [place] [address]. 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
--- OUTSIDE RECORDS SUMMARY | 2024-04-26 18:26 | XMS_ITS | Encounter Summary ---
Author Organization [facility] Address [address] [place] [address]. [place] [address] [place] [address] Care Team Providers Care Pickling Grader Name Role Phone Unavailable Primary Care Provider Unavailabl e Encounter Details Date Type Department Care Team (Late st Contact Info) Description 06/19/2011 Abstract [facility] [address] [place] [address] [place] [address] Ken Noonan MD [facility] [place], [place] [id number] Social History Tobacco Use Types Packs/Day Years Used Date Smoking Tobacco: Never Assessed Sex and Gender Information Value Date Recorded Sex Assigned at Not on file Legal Sex Male 8:56 PM TIRE BUSTER Gender Identity Not on file Sexual Orientation Not on file documented as of this encounter Plan of Treatment Not on file documented as of this encounter Visit Diagnoses Diagnosis Acute bronchitis documented in this encounter
--- OUTSIDE RECORDS SUMMARY | 2024-04-26 18:26 | XMS_ITS | Encounter Summary ---
Author Organization [facility] Address [address] [place] [address]. [place], [place] [address] [place] [address] Care Team Providers Care Paint Dipper Name Role Phone Unavailable Primary Care Provider Unavailabl e Encounter Details Date Type Department Care Team (Late st Contact Info) Description 12/03/2006 Abstract [facility] [address] [facility] [place] [address] Social History Tobacco Use Types Packs/Day Years Used Date Smoking Tobacco: Never Assessed Sex and Gender Information Value Date Recorded Sex Assigned at Not on file Legal Sex Male 8:56 PM SOLVENT RECOVERER Gender Identity Not on file Sexual Orientation Not on file documented as of this encounter Plan of Treatment Not on file documented as of this encounter Visit Diagnoses Not on filedocumented in this encounter
--- OUTSIDE RECORDS SUMMARY | 2024-04-26 18:26 | XMS_ITS | Encounter Summary ---
Author Organization [facility] Address [address] [facility] [place] [address] Care Team Providers Care Appliance Worker Name Role Phone Unavailable Primary Care Provider Unavailabl e Reason for Visit * Reason Onset Date Comments Follow-up 11/05/2020 low testosterone Encounter Details Date Type Department Care Team (Late st Contact Info) Description 11/05/2020 Telephone [facility] [address] [place] [address] Cassy Rome RN Follow-up (low testosterone) Social History Tobacco Use Types Packs/Day Years [...] AM CDT documented as of this encounter Miscellaneous Notes * Telephone Encounter - Cassy Rome RN - 11/05/2020 9:00 AM CDT Patient has low T. recommends he come in for discussion regarding testosterone injections if he is interested. Called him to see if he would like to schedule an appointment. No answer. Left voice message with call back number. documented in this encounter Plan of Treatment Not on file documented as of this encounter Visit Diagnoses Not on filedocumented in this encounter
--- OUTSIDE RECORDS SUMMARY | 2024-04-26 18:26 | XMS_ITS | Encounter Summary ---
Author Organization [facility] Address [address] [place] [address] Care Team Providers Care Lifts And Cranes Inspector Name Role Phone Unavailable Primary Care Provider Unavailabl e Encounter Details Date Type Department Care Team (Latest Contact Info) Description 09/28/2020 Travel Social History Tobacco Use Types Packs/Day [...] have Coronavirus / COVID-19? No / Unsure 09/28/2020 1:42 PM CDT documented as of this encounter Plan of Treatment Not on file documented as of this encounter Visit Diagnoses Not on filedocumented in this encounter
--- OUTSIDE RECORDS SUMMARY | 2024-04-26 18:26 | XMS_ITS | Encounter Summary ---
Author Organization [facility] Address [address] [place] [address]. [place], [place] [address] [place] [address] Care Team Providers Care Environmental Projects Advisor Name Role Phone Unavailable Primary Care Provider Unavailabl e Encounter Details Date Type Department Care Team (Late st Contact Info) Description 09/08/2012 Abstract [facility] [address] [facility] 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
--- OUTSIDE RECORDS SUMMARY | 2024-04-26 18:26 | XMS_ITS | Encounter Summary ---
Author Organization [facility] Address [address] [place] [address]. 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
--- OUTSIDE RECORDS SUMMARY | 2024-04-26 18:26 | XMS_ITS | Encounter Summary ---
Author Organization [facility] Address [address] [place] [address]. [place], [place] [address] [place] [address] Care Team Providers Care Delivery Consultant Name Role Phone Romel Haynes MD Primary Care Provider [phone] Claus Higgins MD Unavailable Unavailab le Reason for Referral * Consultation/Treatment (Urgent) - Closed Specialty Diagnoses / Procedures Referred By Mark reynoso Referred To Contact UROLOGY Diagnoses Testicular pain, left Mike Smith MD [address] [place] [address] Phone: tel: fax: Referral ID Status Reason Start Date Expiration Date V isits Requested Visits Authorized [id number] Closed Specialty Services 09/01/2020 10/03/2021 99 99 * Consultation/Treatment (Urgent) - Closed Specialty Diagnoses / Procedures Referred By Mark reynoso Referred To Contact GENERAL SURGERY / SURGERY Diagnoses Left inguinal hernia Mike Smith MD Maibenco, Douglas C, MD Referral ID Status Reason Start Date Expiration Date Visits Requested Visits Authorized [id number] Closed Patient Preference 09/01/2020 09/01/2020 1 1 Scheduling Instructions Patient would like to have a robotic repair of his symptomatic left inguinal hernia. The patient would like to be seen as soon as possible because he cannot return to work-up until it is repaired. Reason for Visit * Reason Comments New Patient Concerns of a left i nguinal hernia. * Consultation/Treatment (Routine) - Closed Specialty Diagnoses / Procedures Referred By Contac t Referred To Contact SURGERY Diagnoses new patient consult for workmans comp for left inguinal hernia Procedures NEW PATIENT Mike Smith MD Hanisch, Jesse J, MD Referral ID Status Reason Start Date Expiration Date Visits Re quested Visits Authorized [id number] Closed 08/30/2020 08/31/2021 100 100 Encounter Details Date Type Department Care Team (Late st Contact Info) Description 08/30/2020 2:00 PM CDT Office Visit [facility] General Surgery - [address], [address] [place] [address] Mike Smith MD New Patient (Concerns of a left inguinal hernia.) Social History Tobacco Use Types Packs/Day Years Used Date Smoking Tobacco: Former Cigarettes 1 15 Smokeless Tobacco: Current Chew Tobacco Cessation:Ready to Q uit: No; Counseling Given: Yes Alcohol Use Standard Drinks/Week Comments Not Currently 0 (1 standard drink = 0.6 oz pur e alcohol) PHQ-2 Answer Date Recorded PHQ-2 Score - If the patient scores above 3, please move on to questions 3-9 0 09/01/2020 Sex and Gender Information Value Date Recorded Sex Assigned at Not on file 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 No / Unsure 09/01/2020 10:41 AM CDT documented as of this encounter Last Filed Vital Signs Vital Sign Reading Time Taken Comments Blood Pressure 134/82 08/30/2020 1:59 PM CDT Pulse 102 08/30/2020 1:59 PM CDT Temperature 36.7 ??C (98.1 ??F) 08/30/2020 1:59 PM CD T Respiratory Rate 20 08/30/2020 1:59 PM CDT Oxygen Saturation 95% 08/30/2020 1:59 PM CDT Inhaled Oxygen Concentration - - Weight 184.6 kg (407 lb) 08/30/2020 1:59 PM CDT Height 185.4 cm (6' 1 ) 08/30/2020 1:59 PM CDT Body Mass Index 53.7 08/30/2020 1:59 PM CDT documented in this encounter Progress Notes * Mike Smith MD - 08/30/2020 2:00 PM CDTAddended by: MIKE SMITH on: 09/01/2020 01:55 PM Modules accepted: Orders * Mike Smith MD - 08/30/2020 2:00 PM CDTSummary: Surgical evaluation for possible symptomatic left inguinal hernia Images from the original note were not included. General Surgery History and Physical Reason for Visit: New Patient (Concerns of a left inguinal hernia.) History of Present Illness: The patient is a friendly 45-year-old gentleman with a past medical history significant for anaphylactic reaction to penicillin, morbid obesity, HIWOT, chronic lower back pain, nicotine dependence, tobacco abuse (at least a 12-eipv-rack history), status post open right inguinal hernia 28 years ago, and status post robotic appendectomy's approximately 8 years ago who presents for evaluation of a possible left inguinal hernia. The patient believes that the problem first began on August 18, 2020 when he was transferring a 55 gallon drum from one palate to another at work. He did not initially experience any tearing or severepain at that time but the next day the patient noted increasing pain and swelling over the left groin. Presented to the emergency department at the [facility] where he was evaluate d and underwent cross-sectional imaging. The patient states that he was told by the provider there he sustained a tear and now has a left inguinal hernia. The patient then followed up with his PCP who then referred him to the [facility] ED general surgery office for surgical evaluation. Since the patient first developed the left inguinal hernia he has been experiencing pain for most part of the day. He denies any changes in flatus or his bowel movements. He also denies any trouble voiding. He notes nausea at time, but denies any emesis. His main complaint is signifcant tenderness and swelling over the left testicle and groin. The pain is worsened with movement or when sitting incertain positions. Patient notes that he underwent a open right inguinal hernia repair at the age of 17. The patient does not recall if mesh was placed at that time. He also notes a history a undescended left testicle that was repositioned during the repair of his right inguinal hernia repair (?). He states that the left testicle has always been smaller than the right, but it is now approximatelythe same size as the right testicle since the development of the left inguinal hernia. Due to the presence of the hernia and his pain, patient was put on leave from work. The patient is eager to havehis hernia repaired so he can promptly return to work and pay his bills. ROS: Review of Systems Constitutional: Negative for chills and fever. HENT: Negative for congestion and sore throat. Eyes: Negative for blurred vision. Respiratory: Negative for cough and shortness of breath. Cardiovascular: Negative for chest pain and leg swelling. Gastrointestinal: Positive for nausea. Negative for abdominal pain, blood in stool, constipation, diarrhea and vomiting. Genitourinary: Negative for dysuria, frequency and urgency. Musculoskeletal: Positive for back pain and joint pain. Skin: Negative for rash. Neurological: Negative for dizziness and headaches. Psychiatric/Behavioral: Positive for substance abuse. All other systems reviewed and are negative. Medications: Current Outpatient Medications: ??? Magnesium 400 MG Cap, Take 1 capsule by mouth daily., Disp: , Rfl: Allergies Allergen Reactions ??? Penicillins Rash Reaction as a child. Past Medical History: Diagnosis Date ??? Back pain ??? Former smoker ??? HIWOT (obstructive sleep apnea) Past Surgical History: Procedure Laterality Date ??? APPENDECTOMY Age 30 ??? HERNIA REPAIR Right Right Inguinal, SFL, Age 17 ??? TONSILLECTOMY Age 6 or 7 ??? TYMPANOSTOMY TUBE PLACEMENT Bilateral Child Social History Tobacco Use ??? Smoking status: Former Smoker Packs/day: 1.00 Years: 15.00 Pack years: 15.00 ??? Smokeless tobacco: Current User Types: Chew Substance Use Topics ??? Alcohol use: Not Currently ??? Drug use: Yes Frequency: 7.0 times per week Types: Marijuana Comment: Gummies and smoke Family History Problem Relation Name Age of Onset ??? Hypertension Maternal Grandmother ??? Arthritis Maternal Grandmother ??? Diabetes Maternal Grandmother ??? Hypertension Maternal Grandfather ??? Arthritis Maternal Grandfather ??? Diabetes Maternal Grandfather ??? Other (Bladder Cancer) Maternal Grandfather Family Status Relation Name Status ??? MGM (Not Specified) ??? MGF (Not Specified) Physical Exam Vitals reviewed. Exam conducted with a bank analyst present. Constitutional: General: He is not in acute distress. Appearance: He is obese. He is not ill-appearing, toxic-appearing or diaphoretic. HENT: Head: Normocephalic and atraumatic. Mouth/Throat: Mouth: Mucous membranes are moist. Pharynx: Oropharynx is clear. Eyes: General: No scleral icterus. Conjunctiva/sclera: Conjunctivae normal. Cardiovascular: Rate and Rhythm: Normal rate and regular rhythm. Pulses: Normal pulses. Heart sounds: Normal heart sounds. Pulmonary: Effort: Pulmonary effort is normal. No respiratory distress. Breath sounds: Normal breath sounds. No wheezing. Abdominal: General: There is no distension. Palpations: Abdomen is soft. There is no mass. Tenderness: There is no abdominal tenderness. There is no guarding or rebound. Hernia: A hernia is present. Hernia is present in the left inguinal area. There is no hernia in theright inguinal area. Genitourinary: Testes: Right: Mass, tenderness or swelling not present. Left: Tenderness and swelling present. Mass not present. Epididymis: Right: Normal. Left: Normal. Comments: Patient is found to have significant tenderness over the left groin and left testicle. Upon palpation left testicle appears to be the same size if not larger than the right testicle. A leftinguinal hernia is palpated upon digital inspection of the left inguinal canal. No hernia is noted on the right. No erythremia or overlying skin changes. Musculoskeletal: General: No swelling, tenderness or signs of injury. Lymphadenopathy: Lower Body: No right inguinal adenopathy. No left inguinal adenopathy. Skin: General: Skin is warm and dry. Coloration: Skin is not jaundiced. Neurological: General: No focal deficit present. Mental Status: He is alert and oriented to person, place, and time. Mental status is at baseline. Gait: Gait normal. Psychiatric: Mood and Affect: Mood normal. Behavior: Behavior normal. Thought Content: Thought content normal. Judgment: Judgment normal. Filed Vitals: 08/30/20 1359 BP: 134/82 Pulse: 102 Resp: 20 Temp: 98.1 ??F (36.7 ??C) TempSrc: Temporal SpO2: 95% Weight: (!) 184.6 kg (407 lb) Height: 6' 1 (1.854 m) Body mass index is 53.7 kg/m??. Lab Findings: No results found for: WBC No results found for: RBC No results found for: HGB No results found for: HCT No results found for: CO2 No results found for: CA No results found for: CL No results found for: CR No results found for: GLU No results found for: NA No results found for: K No results found for: BUN No results found for: HCGUA, COLOR, TURBIDITY, PH, USPGRAV, PROTEIN, UGLU, KETONES, UBILIRUBIN, UROBILI, ULEUKESTER, NITRITES, BLOOD Diagnostic Imaging: CT a/p wo con 08/23/20 [facility] Findings: The lung bases are clear. The heart size is normal. The liver, spleen, pancreas, gallbladder, and adrenal glands are normal. The kidneys are unremarkable. No stones are identified in the kidneys, ureters, or bladder. There is no hydronephrosis or [place] ureter. No pathologically enlarged abdominal or pelvic lymph nodes are identified. There is no free intraperitoneal gas or evidence of bowel obstruction. There is a left inguinal hernia containing fat. There is mild lumbar spondylosis. Assessment and Plan: The patient is a friendly 45-year-old gentleman with a past medical history significant for anaphylactic reaction to penicillin, morbid obesity, HIWOT, chronic lower back pain, nicotine dependence, tobacco abuse (at least a 93-[id number] history), status post open right inguinal hernia 28 years ago, and status post robotic appendectomy's approximately 8 years ago who presents for evaluation of a possible left inguinal hernia. Based upon the patient's history, physical exam, and review of the interpretation of the patient's CT abdomen pelvis (imaging not available for review), the patient is likely is presenting with a symptomatic left inguinal hernia. The patient states that he would like the hernia repaired due to the c onstant discomfort he is experiencing and in his inability to return to work (per employer regulations). The options of nonoperative management versus surgical intervention were discussed with the patient. The various surgical approaches such as open, laparoscopic (TEPP), and robotic (TAP) with mesh placement were discussed with the patient. The risks of surgery which include bleeding, pain, scarring, infection, mesh infection, recurrence of the hernia, injury to other body parts, and need for additional procedures, were discussed with the patient. In light of the patient's morbid obesity and significant central adiposity/pannus the patient wouldbenefit from either a laparoscopic or robotic hernia repair. The patient would be at a higher risk for perioperative complications such as wound infection, mesh infection, seroma/hematoma formation, and poor wound healing with an open repair. The patient also notes that he would like to undergo a robotic repair of the inguinal hernia after his prior experience with a robotic appendectomy. -We will refer the patient to Dr. Claus Higgins for surgical evaluation and possible robotic repair of the left inguinal hernia. -Patient to obtain a CD with cross-sectional imaging from the [facility] before the patient's appointment with Dr. Higgins -Patient to quit smoking tobacco and marijuana -The patient was encouraged to begin monthly self testicle exams to monitor for signs of malignancyin light of his history of a left undescended testicle. -The patient was educated on the signs and symptoms of incarcerated and strangulated hernia, and the need for prompt medical evaluation if these signs or symptoms arise. -Patient was instructed to call the general surgery office with any questions or concerns And plan were discussed in detail with the patient. All questions were answered to his satisfaction. Reviewed and updated this visit by provider: Tobacco Allergies Meds Problems Med Hx Surg Hx Fam Hx Soc Hx I spent 63 minutes today reviewing the patient's medical record, obtaining history, performing an exam, ordering medications, tests, and/or procedures, documenting in the medical record, referring and/or communicating with other health care providers, counseling and educating the patient/family/caregiver, reviewing and communicating test results and coordination of care. MIKE SMITH MD Referring Provider: Romel Haynes MD PCP: ROMEL HAYNES MD ADDENDUM: The patient was referred to Dr. Higgins for evaluation and possible surgical repair of the patient's possible left inguinal hernia. In light of the patient's history of an undescended left testicle and reported repair and his current left testicular tenderness Dr. Higgins felt it would be reasonable to have the patient evaluated by urology before undergoing any surgical repair of his hernia. Will refer the patient to a local urologist for further evaluation. Mike Smith MD 09/01/20 documented in this encounter Plan of Treatment Scheduled Referrals Name Type Priority Associated Diagnoses Orde r Schedule Ambulatory referral to General Surgery ([facility]) Referral Routine Left inguinal hernia Ordered: 08/30/2020 Ambulatory referral to Urology ([facility]) Referral Routine Testicular pain, left Ordered: 09/01/2020 documented as of this encounter Visit Diagnoses Diagnosis Left inguinal hernia- Primary Inguinal hernia without mention of obstruction or gangrene, unilateral or unspecified, (not specified as recurrent) Morbid obesity with BMI of 50.0-59.9, adult (CMS/HCC HHS/HCC) Morbid obesity S/P right inguinal hernia repair Other postprocedural status Testicular pain, left Unspecified disorder of male genital organs documented in this encounter Care Teams Delivery Consultant Relationship Specialty Start Date End Date Romel Haynes MD PCP - General FAMILY PRACTICE 08/26/20 Claus Higgins MD SURGERY 08/31/20 08/31/20 documented as of this encounter
--- OUTSIDE RECORDS SUMMARY | 2024-04-26 18:26 | XMS_ITS | Encounter Summary ---
Author Organization [facility] Address [address] [place] [address]. 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
--- OUTSIDE RECORDS SUMMARY | 2024-04-26 18:26 | XMS_ITS | Encounter Summary ---
Author Organization [facility] Address [address] [place] [address]. 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
--- OUTSIDE RECORDS SUMMARY | 2024-04-26 18:26 | XMS_ITS | Encounter Summary ---
Author Organization [facility] Address [address] [place] [address]. 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
--- OUTSIDE RECORDS SUMMARY | 2024-04-26 18:26 | XMS_ITS | Referral Summary ---
Author Organization [facility] Address [address] [place] [address] Care Team Providers Care Wrapper Stemmer Operator Name Role Phone Unavailable Primary Care Provider Unavailabl e Source Comments [place] [facility],non-owned Affiliates and Associated Physician Practices is amultiple site organization consisting of ambulatory clinics and hospital sitesin [place], [place], [place] and [place]. This disclosure is being madepursuant to the Care Everywhere program and may not contain all information available regarding this patient. Last updated 18.[facility] Allergies Active Allergy Reactions Criticality Noted Date [...] 10/12/2020 10:16 AM CDT Plan of Treatment Not on file
--- OUTSIDE RECORDS SUMMARY | 2024-04-26 18:26 | XMS_ITS | Encounter Summary ---
Author Organization [facility] Address [address] [place] [address]. 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
--- OUTSIDE RECORDS SUMMARY | 2024-04-26 18:26 | XMS_ITS | Encounter Summary ---
Author Organization [facility] Address [address] [place] [address]. 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
--- OUTSIDE RECORDS SUMMARY | 2024-04-26 18:26 | XMS_ITS | Encounter Summary ---
Author Organization [facility] Address [address] [facility] [place] [address] Care Team Providers Care Internal Investigator Name Role Phone Unavailable Primary Care Provider Unavailabl e Reason for Referral * Radiology Services (Routine) - Closed Specialty Diagnoses / Procedures Referred By Mark reynoso Referred To Contact Ultrasound Diagnoses Unilateral inguinal hernia without obstruction or gangrene, recurrence not specified Atrophic testicle Procedures US SCROTUM AND CONTENTS Jennifer Irvin DO [address] [facility] 2L DIV [place] [address] [address] [place] [address] Referral ID Status Reason Start Date Expiration Date Visits Re quested Visits Authorized [id number] Closed 09/28/2020 09/28/2021 1 1 Reason for Visit * Radiology Services (Routine) - Closed Specialty Diagnoses / Procedures Referred By Mark reynoso Referred To Contact Ultrasound Diagnoses Unilateral inguinal hernia without obstruction or gangrene, recurrence not specified Atrophic testicle Procedures US SCROTUM AND CONTENTS Jennifer Irvin DO [address] [facility] 2L DIV [place] [address] [facility] Us [address] [place] [address] Referral ID Status Reason Start Date Expiration Date Visits Re quested Visits Authorized [id number] Closed 09/28/2020 09/28/2021 1 1 Encounter Details Date Type Department Care Team (Latest Contact Info) Description 10/12/2020 7:50 AM CDT - 10/12/2020 11:15 AM CDT Hospital Encounter [facility] US [address] [place] [id number] Jennifer Irvin M, DO [address] DIV [place] [address] Discharge Disposition: Home or Self Care Social [...] Procedure Name Priority Date/Time Associated Diagnosis Comments US SCROTUM AND CONTENTS Routine 10/12/2020 8:53 AM CDT Unilateral inguinal hernia without obstruction or gangrene, recurrence not specified Atrophic testicle documented in this encounter Results * US SCROTUM AND CONTENTS (10/12/2020 8:53 AM CDT) Anatomical Region Laterality Modality Pelvis Ultrasound 10/12/2020 8:36 AM CDT Impressions 10/12/2020 1:00 PM CDT IMPRESSION: 1.No sonographic evidence of left-sided inguinal hernia as clinically queried. 2.Right-sided intratesticular varicoceles. 3.Small left hydrocele. Dictated by Efra Clakr MD (residential treatment staff) This report was approved ??by Efra Clark [...] abdomen pelvis with contrast [place] [facility] [place]: Right testicle: 3.6 x 1.5 x [...] CT abdomen pelvis with [facility] [place] [facility]: Right testicle: 3.6 x 1.5 x [...] left hydrocele. Dictated by Efra Clark MD (residential treatment staff) This report was approved by Efra Clark Dr on 10/12/2020 10:29 AM . IDr. ROSA have personally reviewed and interpreted this examination/study. This report was electronically signed by ROSA MERLOS on 10/12/2020 1:00PM . Jennifer DEGROOT ORDERABLES documented in this encounter Visit Diagnoses Diagnosis Unilateral inguinal hernia without obstruction or gangrene, recurrence not specified Atrophic testicle Atrophy of testis documented in this encounter
--- OUTSIDE RECORDS SUMMARY | 2024-04-26 18:27 | XMS_ITS | Encounter Summary ---
Author Organization [facility] Address [address] [place] [address]. [place], [place] [address] [place] [address] Care Team Providers Care Low Altitude Air Defense Officer Name Role Phone Unavailable Primary Care Provider Unavailabl e Encounter Details Date Type Department Care Team (Late st Contact Info) Description 10/04/1995 Abstract SFL CONVERSION [address] [place] [address] , Generic Conversion, Social History Tobacco Use Types Packs/Day Years Used Date Smoking Tobacco: Never Assessed Sex and Gender Information Value Date Recorded Sex Assigned at Not on file Legal Sex Male 8:56 PM PEDIATRIC CLINICAL DIETICIAN Gender Identity Not on file Sexual Orientation Not on file documented as of this encounter Plan of Treatment Not on file documented as of this encounter Visit Diagnoses Not on filedocumented in this encounter
--- OUTSIDE RECORDS SUMMARY | 2024-04-26 18:27 | XMS_ITS | Encounter Summary ---
Author Organization [facility] Address [address] [place] [address]. [place], [place] [address] [place] [address] Care Team Providers Care Radio Repair Teacher Name Role Phone Unavailable Primary Care Provider Unavailabl e Encounter Details Date Type Department Care Team (Late st Contact Info) Description 05/07/1994 Abstract SFL CONVERSION [address] [place] [address] , Generic Conversion, Social History Tobacco Use Types Packs/Day Years Used Date Smoking Tobacco: Never Assessed Sex and Gender Information Value Date Recorded Sex Assigned at Not on file Legal Sex Male 8:56 PM ASH HANDLER Gender Identity Not on file Sexual Orientation Not on file documented as of this encounter Plan of Treatment Not on file documented as of this encounter Visit Diagnoses Not on filedocumented in this encounter
--- OUTSIDE RECORDS SUMMARY | 2024-04-26 18:27 | XMS_ITS | Encounter Summary ---
Author Organization [facility] Address [address] [place] [address] Care Team Providers Care Cyber Intel Planner Name Role Phone Shan Loera DO Primary Care Provider Aiden Case MD Unavailable [phone] Reason for Visit * Reason Comments Follow-up 4 mo follow up on a- fib, HIWOT Encounter Details Date Type Department Care Team (Late st Contact Info) Description 02/18/2024 8:00 AM CDT Office Visit [facility] Cardiology at [address] [place] [address] Karl Rae MD [address] [address] Persistent atrial fibrillation (HCC) (Primary Dx) Social History Tobacco Use Types Packs/Day Years Used Date Smoking Tobacco: Former Cigarettes Q uit: 02/01/2009 Smokeless Tobacco: Current AUDIT-C Answer Date Recorded Q1: How often do you have a drink containing alcohol? Never 08/08/2023 Q2: How many drinks containi ng alcohol do you have on a typical day when you are drinking? Patient does not drink Frequency of Binge Drinking Not on file 07/22 Personal Safety Answer Date Recorded Have you ever been in or are you currently in a harmful physical or emotional relationship or is someone making you feel afraid or unsafe? Denies 08/08/2023 Sex and Gender Information Value Date Recorded Sex Assigned at Not on file Legal Sex Male 8:29 AM CDT Gender Identity Male 06/20/2023 11:48 PM CARDIOVASCULAR LAB DIRECTOR Sexual Orientation Straight 06/20/2023 11 :48 PM CARDIOVASCULAR LAB DIRECTOR documented as of this encounter Last Filed Vital Signs Vital Sign Reading Time Taken Comments Blood Pressure 118/72 02/18/2024 8:00 AM CDT Pulse 72 02/18/2024 8:00 AM CDT Temperature - - Respiratory Rate 18 02/18/2024 8:00 AM CDT Oxygen Saturation - - Inhaled Oxygen Concentration - - Weight 170.6 kg (376 lb) 02/18/2024 8:00 AM CDT Height 185.4 cm (6' 1 ) 02/18/2024 8:00 AM CDT Body Mass Index 49.61 02/18/2024 8:00 AM CDT documented in this encounter Progress Notes * Karl Rae MD - 02/18/2024 8:00 AM CDT [facility] FOLLOW [facility] 02/18/2024 Jonathan Quiles is a 48 y.o. male who presents for follow up of atrial fibrillation. This is a very pleasant 48-year-old man who has hypertension, morbid obesity and sleep apnea who was seen in 2022 with symptomatic AF with RVR. At the time of consultation the symptoms have been going on for a while and so rate control and anticoagulation were pursued. He was placed on metoprolol and apixaban and did well. His echocardiogram showed some enlargement of the left atrium but no other structural abnormalities. He was seen by our nurse practitioner in the office couple of times after that hospital discharge and was doing well but was complaining of symptoms of ongoing fatigue and some exertional shortness of breath which of course is almost certainly multifactorial given the above described picture but certainly some of this is likely to be attributable to his atrial fibrillation. Elkinhas been referred to electrophysiology at [facility] and underwent ablation/pulmonary vein iso lation with Dr. Case at [facility] in July of 2023. He returns to the office today for scheduled follow-up. His ablation was done 6 months ago at this time. Following ablation he still has some evidence of asymptomatic AF on a event monitor that was done. Because of this appropriately systemic anticoagulation has been continued. Twelve lead electrocardiogram was done in the office today demonstrates that he still is in sinus rhythm. Overall he is doing remarkably well. The patient has lost about 35 lb since I 1st saw him he is making a serious effort with dietary modification. I congratulated him regarding this. He does have a follow-up appointment to see the medic technician next month as well. REVIEW OF SYSTEMS General ROS: negative for - chills, fatigue, fever, malaise, night sweats, weight gain or weight loss Psychological ROS: negative for - anxiety, depression, memory difficulties or sleep disturbances Ophthalmic ROS: negative for - blurry vision, decreased vision, loss of vision or scotomata ENT ROS: negative for - epistaxis, headaches, hearing change, nasal congestion, nasal discharge, sore throat, vertigo or visual changes Hematological and Lymphatic ROS: negative for - bleeding problems, blood clots, bruising, fatigue or weight loss Endocrine ROS: negative for - hot flashes, palpitations, polydipsia/polyuria or unexpected weight changes Respiratory ROS: negative for - cough, hemoptysis, orthopnea, shortness of breath, tachypnea or wheezing Cardiovascular ROS: negative for - chest pain, dyspnea on exertion, edema, irregular heartbeat, loss of consciousness, murmur, orthopnea, palpitations, paroxysmal nocturnal dyspnea, rapid heart rate or shortness of breath Gastrointestinal ROS: negative for - abdominal pain, appetite loss, blood in stools, constipation, diarrhea, gas/bloating, heartburn, hematemesis, melena or nausea/vomiting Genito-Urinary ROS: negative for - dysuria, erectile dysfunction or hematuria Musculoskeletal ROS: negative for - joint pain, muscle pain or muscular weakness Dermatological ROS: negative for dry skin, eczema, pruritus and rash HOME MEDICATIONS Current Outpatient Medications: albuterol 1.25 mg/3 mL nebulizer solution, , Disp: , Rfl: albuterol HFA (PROVENTIL HFA,VENTOLIN HFA,PROAIR HFA) 90 mcg/actuation inhaler, , Disp: , Rfl: diclofenac (CATAFLAM) 50 mg tablet, Take 1 tablet (50 mg total) by mouth daily, Disp: , Rfl: Eliquis 5 mg tablet, TAKE 1 TABLET (5 MG TOTAL) BY MOUTH 2 (TWO) TIMES A DAY, Disp: 180 tablet, Rfl: 3 furosemide (LASIX) 80 mg tablet, Take 1 tablet (80 mg total) by mouth 2 (two) times a day, Disp: , Rfl: lisinopril-hydroCHLOROthiazide (ZESTORETIC) 20-12.5 mg per tablet, Take 1 tablet by mouth daily, Disp: , Rfl: metoprolol XL (TOPROL-XL) 100 mg 24 hr tablet, TAKE 1 TABLET (100 MG TOTAL) BY MOUTH DAILY, Disp: 90 tablet, Rfl: 3 testosterone cypionate (DEPO-TESTOTERONE) 200 mg/mL injection, Inject 1 mL (200 mg total) into the muscle as instructed every 14 (fourteen) days, Disp: , Rfl: Stool Softener 100 mg capsule, 2 (two) times a day as needed (Patient not taking: Reported on 02/18/2024), Disp: , Rfl: LABS AND OTHER DIAGNOSTIC TESTS No results found for: CHOL No results found for: HDL No results found for: LDLCALC No results found for: TRIG No results found for: CHOLHDL Lab Results Component Value Date WBC 7.3 08/08/2023 HGB 15.1 08/08/2023 HCT 44.7 08/08/2023 MCV 97.2 (H) 08/08/2023 No lab exists for component: LABALBU PHYSICAL EXAM Vitals BP 118/72 (BP Location: Right arm, Patient Position: Sitting) Pulse 72 Resp 18 Ht 185.4 cm (6' 1 ) Wt (!) 170.6 kg (376 lb) BMI 49.61 kg/m?? Physical Examination: General appearance - alert, well appearing, and in no distress, oriented to person, place, and time and acyanotic, in no respiratory distress Mental status - affect appropriate to mood Eyes - extraocular eye movements intact, sclera anicteric, no pallor Ears - external earsappear normal, hearing grossly normal bilaterally Nose - normal and patent, no erythema or discharge Mouth - mucous membranes moist, pharynx appears normal, dental hygiene good and tongue normal Neck - supple, no significant neck masses, carotids upstroke normal bilaterally, no bruits, no JVD Chest - clear to auscultation, no wheezes, rales or rhonchi, symmetric air entry, no tachypnea, retractions or cyanosis Heart - normal rate, regular rhythm, normal S1, S2, no murmurs, rubs, clicks or gallops, no JVD Abdomen - soft, nontender, nondistended, no masses or organomegaly bowel sounds normal Neurological - alert, oriented, normal speech, no focal findings or movement disorder noted Musculoskeletal - no joint tenderness, deformity or swelling, no muscular tenderness noted Extremities - peripheral pulses normal, no pedal edema, no clubbing or cyanosis Skin - normal coloration and turgor, no rashes, no suspicious skin lesions noted ASSESSMENT Persistent atrial fibrillation Morbid obesity Obstructive sleep apnea PLAN/RECOMMENDATIONS Continue metoprolol and apixaban. Congratulated the patient regarding his weight loss. Six-month follow-up Karl Rae MD documented in this encounter Miscellaneous Notes * Addendum Note - Hiral Villarreal MA - 02/18/2024 8:00 AM CDTAddended by: HIRAL VILLARREAL on: 02/18/2024 09:05 AM Modules accepted: Orders documented in this encounter Plan of Treatment Not on file documented as of this encounter Procedures Procedure Name Priority Date/Time Associated Diagnosis Comments ECG 12-LEAD Routine 02/18/2024 9:05 AM CDT Persistent atrial fibrillation (HCC) documented in this encounter Results * ECG 12 lead (02/18/2024 9:05 AM CDT) Karl Rae MD ECG ORDERABLES Final Re sult documented in this encounter Visit Diagnoses Diagnosis Persistent atrial fibrillation (HCC)- Primary Atrial fibrillation documented in this encounter Care Teams Cyber Intel Planner Relationship Specialty Start Date End Date Shan Loera DO [address] [place] [address] PCP - General Family Medicine 02/09/23 Aiden Case MD [address] [address] Consulting Physician Cardiology 11/16/23 documented as of this encounter
--- OUTSIDE RECORDS SUMMARY | 2024-04-26 18:27 | XMS_ITS | Encounter Summary ---
Author Organization [facility] Address [address] [place] [address]. [place] [address] [place] [address] Care Team Providers Care Longwall Headgate Operator Name Role Phone Unavailable Primary Care Provider Unavailabl e Encounter Details Date Type Department Care Team (Late st Contact Info) Description 08/20/1985 Abstract SJS CONVERSION [address] [place] [address] , Generic Conversion, Social History Tobacco Use Types Packs/Day Years Used Date Smoking Tobacco: Never Assessed Sex and Gender Information Value Date Recorded Sex Assigned at Not on file Legal Sex Male 8:56 PM SHIP HARBOR PILOT Gender Identity Not on file Sexual Orientation Not on file documented as of this encounter Plan of Treatment Not on file documented as of this encounter Visit Diagnoses Not on filedocumented in this encounter
--- OUTSIDE RECORDS SUMMARY | 2024-04-26 18:27 | XMS_ITS | Encounter Summary ---
Author Organization [facility] Address [address] [place] [address]. [place], [place] [address] [place] [address] Care Team Providers Care Golf Coach Name Role Phone Unavailable Primary Care Provider Unavailabl e Encounter Details Date Type Department Care Team (Late st Contact Info) Description 01/13/1994 Abstract SFL CONVERSION [address] [place] [address] , Generic Conversion, Social History Tobacco Use Types Packs/Day Years Used Date Smoking Tobacco: Never Assessed Sex and Gender Information Value Date Recorded Sex Assigned at Not on file Legal Sex Male 8:56 PM DIRECTOR OF BRAND MARKETING Gender Identity Not on file Sexual Orientation Not on file documented as of this encounter Plan of Treatment Not on file documented as of this encounter Visit Diagnoses Not on filedocumented in this encounter
--- OUTSIDE RECORDS SUMMARY | 2024-04-26 18:27 | XMS_ITS | Encounter Summary ---
Author Organization [facility] Address [address] [place] [address]. [place], [place] [address] [place] [address] Care Team Providers Care Shot Blaster Name Role Phone Unavailable Primary Care Provider Unavailabl e Encounter Details Date Type Department Care Team (Late st Contact Info) Description 04/30/1998 Abstract SFL CONVERSION [address] [place] [address] , Generic Conversion, Social History Tobacco Use Types Packs/Day Years Used Date Smoking Tobacco: Never Assessed Sex and Gender Information Value Date Recorded Sex Assigned at Not on file Legal Sex Male 8:56 PM SLUBBER TENDER Gender Identity Not on file Sexual Orientation Not on file documented as of this encounter Plan of Treatment Not on file documented as of this encounter Visit Diagnoses Not on filedocumented in this encounter
--- OUTSIDE RECORDS SUMMARY | 2024-04-26 18:27 | XMS_ITS | Encounter Summary ---
Author Organization [facility] Address [address] [place] [address]. [place] [address] [place] [address] Care Team Providers Care Leaf Fat Scraper Name Role Phone Unavailable Primary Care Provider Unavailabl e Encounter Details Date Type Department Care Team (Late st Contact Info) Description 07/26/1988 Abstract SJS CONVERSION [address] [place] [address] , Generic Conversion, Social History Tobacco Use Types Packs/Day Years Used Date Smoking Tobacco: Never Assessed Sex and Gender Information Value Date Recorded Sex Assigned at Not on file Legal Sex Male 8:56 PM TOOL LATHE OPERATOR Gender Identity Not on file Sexual Orientation Not on file documented as of this encounter Plan of Treatment Not on file documented as of this encounter Visit Diagnoses Not on filedocumented in this encounter
--- OUTSIDE RECORDS SUMMARY | 2024-04-26 18:27 | XMS_ITS | Encounter Summary ---
Author Organization [facility] Address [address] [place] [address]. [place] [address] [place] [address] Care Team Providers Care Dyed Yarn Operator Name Role Phone Unavailable Primary Care Provider Unavailabl e Encounter Details Date Type Department Care Team (Late st Contact Info) Description 06/05/1990 Abstract SJS CONVERSION [address] [place] [address] , Generic Conversion, Social History Tobacco Use Types Packs/Day Years Used Date Smoking Tobacco: Never Assessed Sex and Gender Information Value Date Recorded Sex Assigned at Not on file Legal Sex Male 8:56 PM PHOTOGRAPHY EDITOR Gender Identity Not on file Sexual Orientation Not on file documented as of this encounter Plan of Treatment Not on file documented as of this encounter Visit Diagnoses Not on filedocumented in this encounter
--- OUTSIDE RECORDS SUMMARY | 2024-04-26 18:27 | XMS_ITS | Encounter Summary ---
Author Organization [facility] Address [address] [place] [address]. [place] [address] [place] [address] Care Team Providers Care City Superintendent Name Role Phone Unavailable Primary Care Provider Unavailabl e Encounter Details Date Type Department Care Team (Late st Contact Info) Description 03/19/1989 Abstract SJS CONVERSION [address] [place] [address] , Generic Conversion, Social History Tobacco Use Types Packs/Day Years Used Date Smoking Tobacco: Never Assessed Sex and Gender Information Value Date Recorded Sex Assigned at Not on file Legal Sex Male 8:56 PM ASSEMBLER SKYLIGHTS Gender Identity Not on file Sexual Orientation Not on file documented as of this encounter Plan of Treatment Not on file documented as of this encounter Visit Diagnoses Not on filedocumented in this encounter
--- OUTSIDE RECORDS SUMMARY | 2024-04-26 18:27 | XMS_ITS | Encounter Summary ---
Author Organization [facility] Address [address] [place] [address]. [place], [place] [address] [place] [address] Care Team Providers Care Checker Cashier Name Role Phone Unavailable Primary Care Provider Unavailabl e Encounter Details Date Type Department Care Team (Late st Contact Info) Description 07/02/1995 Abstract SFL CONVERSION [address] [place] [address] , Generic Conversion, Social History Tobacco Use Types Packs/Day Years Used Date Smoking Tobacco: Never Assessed Sex and Gender Information Value Date Recorded Sex Assigned at Not on file Legal Sex Male 8:56 PM BRAKE COUPLER DINKEY Gender Identity Not on file Sexual Orientation Not on file documented as of this encounter Plan of Treatment Not on file documented as of this encounter Visit Diagnoses Not on filedocumented in this encounter
--- OUTSIDE RECORDS SUMMARY | 2024-04-26 18:27 | XMS_ITS | Encounter Summary ---
Author Organization [facility] Address [address] [place] [address]. [place] [address] [place] [address] Care Team Providers Care Sample Maker Original Name Role Phone Unavailable Primary Care Provider Unavailabl e Encounter Details Date Type Department Care Team (Late st Contact Info) Description 07/02/1991 Abstract SJS CONVERSION [address] [place] [address] , Generic Conversion, Social History Tobacco Use Types Packs/Day Years Used Date Smoking Tobacco: Never Assessed Sex and Gender Information Value Date Recorded Sex Assigned at Not on file Legal Sex Male 8:56 PM MASTER CONTROL TECHNICIAN Gender Identity Not on file Sexual Orientation Not on file documented as of this encounter Plan of Treatment Not on file documented as of this encounter Visit Diagnoses Not on filedocumented in this encounter
--- OUTSIDE RECORDS SUMMARY | 2024-04-26 18:27 | XMS_ITS | Encounter Summary ---
Author Organization [facility] Address [address] [place] [address]. [place], [place] [address] [place] [address] Care Team Providers Care Front Clerk Name Role Phone Unavailable Primary Care Provider Unavailabl e Encounter Details Date Type Department Care Team (Late st Contact Info) Description 05/05/1996 Abstract SFL CONVERSION [address] [place] [address] , Generic Conversion, Social History Tobacco Use Types Packs/Day Years Used Date Smoking Tobacco: Never Assessed Sex and Gender Information Value Date Recorded Sex Assigned at Not on file Legal Sex Male 8:56 PM BACK TENDER CYLINDER Gender Identity Not on file Sexual Orientation Not on file documented as of this encounter Plan of Treatment Not on file documented as of this encounter Visit Diagnoses Not on filedocumented in this encounter
--- OUTSIDE RECORDS SUMMARY | 2024-04-26 18:27 | XMS_ITS | Encounter Summary ---
Author Organization [facility] Address [address] [place] [address]. [place], [place] [address] [place] [address] Care Team Providers Care Floor Winder Name Role Phone Unavailable Primary Care Provider Unavailabl e Encounter Details Date Type Department Care Team (Late st Contact Info) Description 05/05/1998 Abstract SFL CONVERSION [address] [place] [address] , Generic Conversion, Social History Tobacco Use Types Packs/Day Years Used Date Smoking Tobacco: Never Assessed Sex and Gender Information Value Date Recorded Sex Assigned at Not on file Legal Sex Male 8:56 PM CURRICULUM COORDINATOR Gender Identity Not on file Sexual Orientation Not on file documented as of this encounter Plan of Treatment Not on file documented as of this encounter Visit Diagnoses Not on filedocumented in this encounter
--- OUTSIDE RECORDS SUMMARY | 2024-04-26 18:27 | XMS_ITS | Encounter Summary ---
Author Organization [facility] Address [address] [place] [address]. [place] [address] [place] [address] Care Team Providers Care Balance Wheel Hand Filer Name Role Phone Unavailable Primary Care Provider Unavailabl e Encounter Details Date Type Department Care Team (Late st Contact Info) Description 08/12/1985 Abstract [facility]JS CONVERSION [address] [place] [address] , Generic Conversion, Social History Tobacco Use Types Packs/Day Years Used Date Smoking Tobacco: Never Assessed Sex and Gender Information Value Date Recorded Sex Assigned at Not on file Legal Sex Male 8:56 PM CLINICAL LAB TECHNOLOGIST Gender Identity Not on file Sexual Orientation Not on file documented as of this encounter Plan of Treatment Not on file documented as of this encounter Visit Diagnoses Not on filedocumented in this encounter
--- OUTSIDE RECORDS SUMMARY | 2024-04-26 18:27 | XMS_ITS | Encounter Summary ---
Author Organization [facility] Address [address] [place] [address]. [place], [place] [address] [place] [address] Care Team Providers Care Sound Person Name Role Phone Unavailable Primary Care Provider Unavailabl e Encounter Details Date Type Department Care Team (Late st Contact Info) Description 03/10/1998 Abstract SFL CONVERSION [address] [place] [address] , Generic Conversion, Social History Tobacco Use Types Packs/Day Years Used Date Smoking Tobacco: Never Assessed Sex and Gender Information Value Date Recorded Sex Assigned at Not on file Legal Sex Male 8:56 PM COMPETENCY EVALUATED NURSE AIDE Gender Identity Not on file Sexual Orientation Not on file documented as of this encounter Plan of Treatment Not on file documented as of this encounter Visit Diagnoses Not on filedocumented in this encounter
--- OUTSIDE RECORDS SUMMARY | 2024-04-26 18:27 | XMS_ITS | Clinical Summary ---
Author Organization [facility] [address] Address [address] [place] [address] Care Team Providers Care Belting Cutter Name Role Phone Luz Maria Shan Johnsonh Primary Care Provider Aiden Case MD Unavailable [phone] Allergies Active Allergy Reactions Criticality Noted Date Comments Latex Swelling,Rash Medium 02/25/2024 Penicillins Rash Medium 08/30/2020 Reaction as a child. Medications lisinopril-hydroC HLOROthiazide (ZESTORETIC) 20-12.5 mg per tablet Take 1 tablet by mouth daily 3 Active albuterol HFA (PROVENTIL HFA,VENTOLIN HFA,PROAIR HFA) 90 mcg/actuation inhaler 3 Active albuterol 1.25 mg/3 mL nebulizer solution 3 Active Stool Softener 100 mg capsule 2 (two) times a day as needed 4 Active furosemide (LASIX) 80 mg tablet Take 1 tablet (80 mg total) by mouth 2 (two) times a day 4 Active diclofenac (CATAFLAM) 50 mg tablet Take 1 tablet (50 mg total) by mouth daily 4 Active testosterone cypionate (DEPO-TESTOTERONE ) 200 mg/mL injection Inject 1 mL (200 mg total) into the muscle as instructed every 14 (fourteen) days 4 Active Eliquis 5 mg tabletIndications :Persistent atrial fibrillation (HCC) TAKE 1 TABLET (5 MG TOTAL) BY MOUTH 2 (TWO) TIMES A DAY 180 tablet 3 4 Active metoprolol XL (TOPROL-XL) 50 mg extended release tabletIndications :Persistent atrial fibrillation (HCC) Take 2.5 tablets (125 mg total) by mouth daily 90 tablet 3 4 02/29/20 25 Active Active Problems Problem Noted Date Diagnosed Date Anticoagulation management encounter 09/13/2023 Assessment & Plan (02/29/2024 8:43 AM QUALITY CONTROL INDUSTRIAL ENGINEER): - remains compliant on apixaban - denies any issues with bruising bleeding - recommend continued therapy for thromboprophylaxis Assessment & Plan (11/16/2023 3:08 PM CDT): -remains compliant on apixaban -denies any issues with bruising or bleeding -patient was wishing to discontinue anticoagulation today -we will obtain a 7 day event monitor, since patient reports he was unable to feel his atrial fibrillation in the past to make sure he is not having atrial fibrillation unknowingly -if no more atrial fibrillation noted on 7 day event monitor, may discontinue Assessment & Plan (09/13/2023 1:02 PM CDT): -remains compliant on apixaban -denies any issues with bruising or bleeding -recommend continued therapy for thromboprophylaxis up to 2 months post ablation if no reoccurrence of his atrial arrhythmia Persistent atrial fibrillation 06/21/2023 Assessment & Plan (02/29/2024 8:43 AM QUALITY CONTROL INDUSTRIAL ENGINEER): -status post radiofrequency catheter ablation with Dr. Case -remains compliant on metoprolol and apixaban - increase metoprolol to 125 mg daily -EKG today demonstrates sinus rhythm with a first-degree AV block -follow up in 6 months for 12 lead EKG and clinic visit Assessment & Plan (11/16/2023 3:08 PM CDT): -status post radiofrequency catheter ablation with Dr. Case -remains compliant on metoprolol and apixaban -no changes to medications were made today -EKG today demonstrates sinus rhythm with a first-degree AV block -follow up in 3 months for 12 lead EKG and clinic visit Assessment & Plan (09/13/2023 1:01 PM CDT): -status post radiofrequency catheter ablation with Dr. Case -remains compliant on metoprolol and apixaban -no changes to medications were made today -EKG today demonstrates sinus rhythm with a first-degree AV block -denies any reoccurrence of his atrial arrhythmia -follow up in 2 months for 12 lead EKG and clinic visit Assessment & Plan (06/21/2023 12:35 PM QUALITY CONTROL INDUSTRIAL ENGINEER): The patient has symptomatic paroxysmal (recently persistent) atrial fibrillation. After considering possible options for management, the patient is not in favor of antiarrhythmic pharmacologic therapy. As an alternative, we discussed catheter ablation. We discussed the rationale for atrial fibrillation ablation, including the steps involved in ablation. I detailed the risks of the procedure, including vascular injury/hematoma, myocardial injury/perforation, stroke, myocardial infarction, pulmonary vein stenosis, thermal esophageal injury, phrenic nerve injury and . I estimated a 70% chance of freedom from long-term atrial arrhythmia, and the patient understands that occasionally a second procedure is necessary. The patient has a ZFM5PC3-HBDc score of 1. I have therefore recommended continued anticoagulation through at least 2 months post ablation. Because of the patient's persistent atrial fibrillation, I recommended that they undergo transesophageal echocardiography (to exclude the presence of left atrial thrombus) immediately prior to EP study and ablation. My office will make the appropriate arrangements. From: April, Joselito LS, Mamta JS, Marianne H, Jaren THIERNO, Paola JE, Berny GENNARO, Norm PT, Liz HENDRICKS, ME, Edmund KT, Jamie RL, Robert WG, Zahida PJ, Meagan CM, Meghan CW. 2014 AHA/ACC/HRS guideline for the management of patients with atrial fibrillation: a report of the [place] [employer]/[place] Heart Association Task Force on Practice Guidelines and the Heart Rhythm Society. J Am Seth Cardiol 2014. 6.3. AF Catheter Ablation to Maintain Sinus Rhythm: Recommendations Class IIA. In patients with recurrent symptomatic paroxysmal AF, catheter ablation is a reasonable initial rhythm control strategy prior to therapeutic trials of antiarrhythmic drug therapy, after weighing risks and outcomes of drug and ablation therapy ([phone]). (Level of Evidence: B) Encounters Date Type Department Care Team Description 03/28/2024 Telephone [facility] Cardiology [address] [place] [phone] Karl Rae MD 02/25/2024 9:30 AM QUALITY CONTROL INDUSTRIAL ENGINEER Office Visit [facility] [address] [facility] [address], [place] [address] Mary Jo Yang NP Persistent atrial fibrillation (HCC) (Primary Dx); Anticoagulation management encounter 02/18/2024 8:00 AM CDT Office Visit [facility] Cardiology at [address] [place] [phone] Karl Rae MD Persistent atrial fibrillation (HCC) (Primary Dx) from Last 3 Months Surgical History Surgery Date Site/Laterality Comments APPENDECTOMY HERNIA REPAIR Medical History Medical History Date Comments Hypertension Cardiac rhythm disturbance Sleep apnea Asthma Hard to intubate Family History Medical History Relation Name Comments Diabetes Brother Karl Dial Relation Name Status Comments Brother Karl Dial Alive Father Mother Alive Social History Tobacco Use Types Packs/Day Years Used Date Smoking Tobacco: Former Cigarettes Q uit: 02/01/2009 Smokeless Tobacco: Current Tobacco Cessation:Ready to Q uit: Not Asked; Counseling Given: Not Answered AUDIT-C Answer Date Recorded Q1: How often [...] CDT Gender Identity Male 06/20/2023 11:48 PM QUALITY CONTROL INDUSTRIAL ENGINEER Sexual Orientation Straight 06/20/2023 11 :48 PM QUALITY CONTROL INDUSTRIAL ENGINEER Obstetrics History Last Filed Vital Signs Vital Sign Reading Time Taken Comments Blood Pressure 138/86 02/25/2024 9:29 AM QUALITY CONTROL INDUSTRIAL ENGINEER Pulse 73 02/25/2024 9:29 AM QUALITY CONTROL INDUSTRIAL ENGINEER Temperature 36.2 ??C (97.1 ??F) 08/08/2023 10:23 AM C DT Respiratory Rate 18 02/18/2024 8:00 AM CDT Oxygen Saturation 93% 11/16/2023 9:29 AM CDT Inhaled Oxygen Concentration - - Weight 170.1 kg (375 lb) 02/25/2024 9:29 AM QUALITY CONTROL INDUSTRIAL ENGINEER Height 185.4 cm (6' 1 ) 02/25/2024 9:29 AM QUALITY CONTROL INDUSTRIAL ENGINEER Body Mass Index 49.48 02/25/2024 9:29 AM QUALITY CONTROL INDUSTRIAL ENGINEER Plan of Treatment Health Maintenance Due Date Last Done Comments Colon Cancer Screening-Colonoscopy 1975 Depression Screening 1975 Hepatitis C Screening 1975 Prostate Cancer Screening-PSA 1974 Hepatitis B Screening 1992 Regular Well Visit/Exam 18-64 1992 Influenza Vaccine (#1) 2023 Zoster Vaccine (1 of 2) 2024 DTaP/Tdap/Td Vaccine (3 - Td or Tdap) 02/21/2029 02/21/2019, 06/17/2012 Pneumococcal vaccine <65 Aged Out No longer eligible based on patient's age to complete this topic Medical Devices Implanted Type Area Economist Research Assistant Device Identifier Shelf Expiration Date Model / Serial / Lot [employer] Vascade Mvp 6-12fr Venous Closure [id number] - [id number] - [id number] Implanted:Qty: 1 on 08/08/2023 by Aiden Case MD at [facility] [employer] 05/01/2025 800-612C-[id number] [id number] / [id number] / [id number] [employer] Vascade Mvp 6-12fr Venous Closure [id number] - [id number] - [id number] Implanted:Qty: 1 on 08/08/2023 by Aiden Case MD at [facility] [employer] 05/01/2025 800-612C-1 [id number] / [id number] / [id number] [employer] Device Vascular Closure Femoral Artery Bioabsorbable Dual Method Vascade 6-7fr Collagen [id number] - [id number] - [id number] Implanted:Qty: 1 on 08/08/2023 by Aiden Case MD at [facility] [employer] 01/15/2025 [id number] / [id number] / [id number] [employer] Vascade Mvp 6-12fr Venous Closure [id number] - [id number] - [id number] Implanted:Qty: 1 on 08/08/2023 by Aiden Case MD at [facility] [employer] 03/23/2025 800-612C-1 [id number] / [id number] / [id number] Procedures Procedure Name Priority Date/Time Associated Diagnosis Comments ECG 12-LEAD Routine 02/25/2024 9:48 AM QUALITY CONTROL INDUSTRIAL ENGINEER Persistent atrial fibrillation (HCC) ECG 12-LEAD Routine 02/18/2024 9:05 AM CDT Persistent atrial fibrillation (HCC) from Last 3 Months Results * ECG 12 lead (02/25/2024 9:48 AM QUALITY CONTROL INDUSTRIAL ENGINEER) Mary Jo Yang NP ECG ORDERABLES Final Result * ECG 12 lead (02/18/2024 9:05 AM CDT) us Karl Rae MD ECG ORDERABLES Final Re sult from Last 3 [place] [address] [facility] Care Teams Belting Cutter Relationship Specialty Start Date End Date Shan Loera DO [address] [place] [address] PCP - General Family Medicine 02/09/23 Aiden Case MD [address] [address] Consulting Physician Cardiology 11/16/23
--- OUTSIDE RECORDS SUMMARY | 2024-04-26 18:27 | XMS_ITS | Encounter Summary ---
Author Organization [facility] Address [address] [place] [address] Care Team Providers Care Pressure Supervisor Name Role Phone Lonlucius Shan Johnsonh Primary Care Provider Aiden Case MD Unavailable Encounter Details Date Type Department Care Team (Late st Contact Info) Description 02/25/2024 9:30 AM SALES SERVICE TECHNICIAN Office Visit [facility] [address] [facility] [address] [place] [phone] Mary Jo Yang NP [address] [address] Persistent atrial fibrillation (HCC) (Primary Dx); Anticoagulation management encounter Social History Tobacco Use Types Packs/Day Years [...] CDT Gender Identity Male 06/20/2023 11:48 PM SALES SERVICE TECHNICIAN Sexual Orientation Straight 06/20/2023 11 :48 PM SALES SERVICE TECHNICIAN documented as of this encounter Last Filed Vital Signs Vital Sign Reading Time Taken Comments Blood Pressure 138/86 02/25/2024 9:29 AM SALES SERVICE TECHNICIAN Pulse 73 02/25/2024 9:29 AM SALES SERVICE TECHNICIAN Temperature - - Respiratory Rate - - Oxygen Saturation - - Inhaled Oxygen Concentration - - Weight 170.1 kg (375 lb) 02/25/2024 9:29 AM SALES SERVICE TECHNICIAN Height 185.4 cm (6' 1 ) 02/25/2024 9:29 AM SALES SERVICE TECHNICIAN Body Mass Index 49.48 02/25/2024 9:29 AM SALES SERVICE TECHNICIAN documented in this encounter Ordered Prescriptions Prescription Sig Dispense Quantity Refills Last Filled Start Date End Date metoprolol XL (TOPROL-XL) 50 mg extended release tabletIndications: Persistent atrial fibrillation (HCC) Take 2.5 tablets (125 mg total) by mouth daily 90 tablet 3 02/29/2024 documented in this encounter Progress Notes * Mary Jo Yang NP - 02/25/2024 9:30 AM CST Images from the original note were not included. [facility] [address] [place] [address], [facility] [place] [address] [address] Office Visit Note Patient Name: Jonathan Quiles Date of : 1975 Primary Physician: Shan Loera DO Chief Complaint Atrial fibrillation S/p catheter ablation HPI Jonathan Quiles is a 48 y.o. male seen in the [facility]hythmia Center for follow up of his atrial fibrillation and recent ablation. He has a significant history for hypertension, diabetes, sleep apnea, and obesity. Dr. Case was asked to consult by Dr. Rae. The patient has a history of persistent atrial fibrillation of overall indeterminate duration. He was symptomatic, with complaints of dyspnea with minimal exertion, palpitations, and fatigue. He has not experienced chest discomfort or syncope. He underwent cardioversion, but experienced recurrence shortly thereafter. He has been anticoagulated, and managed with metoprolol. His LV function is known to be normal, and there was no evidence of ischemia. The patient underwent radiofrequency ablation with Dr. Case on 08/08/2023. This included successful ablation for atrial fibrillation with electrical isolation of all 4 pulmonary veins, linear/vocal left atrial ablation, successful ablation of CTI, and EP study that was negative for sustained mehreen cible arrhythmia. At his last visit, he wanted to discontinue his anticoagulation. He was placed on an event monitor.It showed several episodes of atrial tachycardia/possibly AFL. Anticoagulation was continued. Presents today in routine follow up. He denies any chest pain, palpitations, near-syncope, or jackelin syncope. He does reports that A couple weeks ago he felt like he was retaining water and had elevated heart rates for a day. He has not had any episodes since. He does report that he had some wheezing lately. Expiratory wheezing noted on exam today. Remains compliant on Eliquis and metoprolol. Remains active without difficulty EKG today demonstrates sinus rhythm with a first-degree AV block (73) slight IVCD, and normal QT interval Past Medical History Past Medical History: Diagnosis Date Asthma Cardiac rhythm disturbance Hard to intubate Hypertension Sleep apnea Past Surgical History Past Surgical History: Procedure Laterality Date APPENDECTOMY HERNIA REPAIR Medications Current Outpatient Medications Medication Instructions albuterol 1.25 mg/3 mL nebulizer solution albuterol HFA (PROVENTIL HFA,VENTOLIN HFA,PROAIR HFA) 90 mcg/actuation inhaler diclofenac (CATAFLAM) 50 mg, Daily Eliquis 5 mg, oral, 2 times daily furosemide (LASIX) 80 mg, 2 times daily lisinopril-hydroCHLOROthiazide (ZESTORETIC) 20-12.5 mg per tablet Take 1 tablet by mouth daily metoprolol XL (TOPROL-XL) 125 mg, oral, Daily Stool Softener 100 mg capsule 2 (two) times a day as needed testosterone cypionate (DEPO-TESTOTERONE) 200 mg, Every 14 days Allergies Allergies Allergen Reactions Latex Swelling and Rash Penicillins Rash Reaction as a child. Family History Family History Problem Relation Age of Onset Diabetes Brother Social History Social History Tobacco Use Smoking status: Former Current packs/day: 0.00 Types: Cigarettes Quit date: 02/01/2009 Years since quittin.0 Smokeless tobacco: Current Substance and Sexual Activity Drug use: Yes Types: Marijuana Sexual activity: Not Currently Partners: Female control/protection: Abstinence Alcohol Use: Not At Risk (08/08/2023) AUDIT-C Frequency of Alcohol Consumption: Never Average Number of Drinks: Patient does not drink Frequency of Binge Drinking: Not on file Objective Review of Systems Constitutional: Negative. Respiratory: Negative. Cardiovascular: Negative. Neurological: Negative. Psychiatric/Behavioral: Negative. Physical Exam Constitutional: Appearance: Normal appearance. HENT: Head: Normocephalic and atraumatic. Cardiovascular: Rate and Rhythm: Normal rate and regular rhythm. Heart sounds: Normal heart sounds. Pulmonary: Effort: Pulmonary effort is normal. Breath sounds: Wheezing present. Musculoskeletal: General: Normal range of motion. Cervical back: Normal range of motion. Skin: General: Skin is warm and dry. Neurological: Mental Status: He is alert and oriented to person, place, and time. Psychiatric: Behavior: Behavior normal. Thought Content: Thought content normal. Judgment: Judgment normal. BP 138/86 Pulse 73 Ht 185.4 cm (6' 1 ) Wt (!) 170.1 kg (375 lb) BMI 49.48 kg/m?? Assessment/Plan Diagnoses and all orders for this visit: Persistent atrial fibrillation (HCC) (Primary) Assessment & Plan: -status post radiofrequency catheter ablation with Dr. Case -remains compliant on metoprolol and apixaban - increase metoprolol to 125 mg daily -EKG today demonstrates sinus rhythm with a first-degree AV block -follow up in 6 months for 12 lead EKG and clinic visit Orders: - ECG 12 lead - metoprolol XL (TOPROL-XL) 50 mg extended release tablet; Take 2.5 tablets (125 mg total) by mouthdaily Anticoagulation management encounter Assessment & Plan: - remains compliant on apixaban - denies any issues with bruising bleeding - recommend continued therapy for thromboprophylaxis Mary Jo Yang NP [facility] S SERVICE TECHNICIAN documented in this encounter Miscellaneous Notes * Assessment & Plan Note - Mary Jo Yang NP - 02/29/2024 8:43 AM SALES SERVICE TECHNICIAN Associated Problem(s): Anticoagulation management encounter - remains compliant on apixaban - denies any issues with bruising bleeding - recommend continued therapy for thromboprophylaxis S SERVICE TECHNICIAN * Assessment & Plan Note - Mary Jo Yang NP - 02/29/2024 8:43 AM SALES SERVICE TECHNICIAN Associated Problem(s): Persistent atrial fibrillation (HCC) -status post radiofrequency catheter ablation with Dr. Case -remains compliant on metoprolol and apixaban - increase metoprolol to 125 mg daily -EKG today demonstrates sinus rhythm with a first-degree AV block -follow up in 6 months for 12 lead EKG and clinic visit S SERVICE TECHNICIAN documented in this encounter Plan of Treatment Not on file documented as of this encounter Procedures Procedure Name Priority Date/Time Associated Diagnosis Comments ECG 12-LEAD Routine 02/25/2024 9:48 AM SALES SERVICE TECHNICIAN Persistent atrial fibrillation (HCC) documented in this encounter Results * ECG 12 lead (02/25/2024 9:48 AM SALES SERVICE TECHNICIAN) Mary Jo Yang NP ECG ORDERABLES Final Result documented in this encounter Visit Diagnoses Diagnosis Persistent atrial fibrillation (HCC)- Primary Atrial fibrillation Anticoagulation management encounter Encounter for therapeutic drug monitoring documented in this encounter Discontinued Medications Medication Sig Discontinue Reason Start Date End Da te metoprolol XL (TOPROL-XL) 100 mg 24 hr tabletIndications:Persist ent atrial fibrillation (HCC) TAKE 1 TABLET (100 MG TOTAL) BY MOUTH DAILY 01/17/2024 02/29/2024 documented as of this encounter Care Teams Pressure Supervisor Relationship Specialty Start Date End Date Shan Loera DO [address] [place] [id number] PCP - General Family Medicine 02/09/23 Aiden Case MD [address] [address] Consulting Physician Cardiology 11/16/23 documented as of this encounter
--- OUTSIDE RECORDS SUMMARY | 2024-04-26 18:27 | XMS_ITS | Encounter Summary ---
Author Organization [facility] Address [address] [place] [address]. [place], [place] [address] [place] [address] Care Team Providers Care Vegetable Farmworker Name Role Phone Unavailable Primary Care Provider Unavailabl e Encounter Details Date Type Department Care Team (Late st Contact Info) Description 11/26/1995 Abstract [facility]FL CONVERSION [address] [place] [address] , Generic Conversion, Social History Tobacco Use Types Packs/Day Years Used Date Smoking Tobacco: Never Assessed Sex and Gender Information Value Date Recorded Sex Assigned at Not on file Legal Sex Male 8:56 PM COMPOSITION MOLDER Gender Identity Not on file Sexual Orientation Not on file documented as of this encounter Plan of Treatment Not on file documented as of this encounter Visit Diagnoses Not on filedocumented in this encounter
--- OUTSIDE RECORDS SUMMARY | 2024-04-26 18:27 | XMS_ITS | Encounter Summary ---
Author Organization [facility] Address [address] [place] [address]. [place] [address] [place] [address] Care Team Providers Care Space Sciences Director Name Role Phone Unavailable Primary Care Provider Unavailabl e Encounter Details Date Type Department Care Team (Late st Contact Info) Description 09/12/1985 Abstract SJS CONVERSION [address] [place] [address] , Generic Conversion, Social History Tobacco Use Types Packs/Day Years Used Date Smoking Tobacco: Never Assessed Sex and Gender Information Value Date Recorded Sex Assigned at Not on file Legal Sex Male 8:56 PM SENIOR PATIENT ACCOUNT REPRESENTATIVE Gender Identity Not on file Sexual Orientation Not on file documented as of this encounter Plan of Treatment Not on file documented as of this encounter Visit Diagnoses Not on filedocumented in this encounter
--- OUTSIDE RECORDS SUMMARY | 2024-04-26 18:27 | XMS_ITS | Referral Summary ---
Author Organization [facility] [address] [place] [address] [address] [place] [address] Care Team Providers Care Lead Cashier Name Role Phone Luz MariaKayleyjustin Johnsonh Primary Care Provider Aiden Case MD Unavailable [phone] Encounters Date Type Department Care Team Description 03/28/2024 Telephone [facility] Cardiology [address] [place] [address] Karl Rae MD 02/25/2024 9:30 AM STATISTICIAN MATHEMATICAL Office Visit Arrhythmia Center [address] [facility] [address], [place] [address] Mary Jo Yang NP Persistent atrial fibrillation (HCC) (Primary Dx); Anticoagulation management encounter 02/18/2024 8:00 AM CDT Office Visit [facility] Cardiology at [address] [place] [address] Karl Rae MD Persistent atrial fibrillation (HCC) (Primary Dx) from Last 3 Months Allergies Active Allergy Reactions Criticality Noted Date [...] 09/13/2023 Assessment & Plan (02/29/2024 8:43 AM STATISTICIAN MATHEMATICAL): - remains compliant on apixaban - denies [...] 06/21/2023 Assessment & Plan (02/29/2024 8:43 AM STATISTICIAN MATHEMATICAL): -status post radiofrequency catheter ablation with Dr. Case -thalia compliant on metoprolol and apixaban - increase [...] visit Assessment & Plan (06/21/2023 12:35 PM STATISTICIAN MATHEMATICAL): The patient has symptomatic paroxysmal (recently persistent) [...] procedure is necessary. The patient has a [id number] score of 1. I have therefore recommended [...] with atrial fibrillation: a report of the [place] College of Cardiology/Canadian Heart Association Task Force on Practice Guidelines [...] ablation therapy ([id number]). (Level of Evidence: B) Social History Tobacco Use Types Packs/Day Years [...] CDT Gender Identity Male 06/20/2023 11:48 PM STATISTICIAN MATHEMATICAL Sexual Orientation Straight 06/20/2023 11 :48 PM STATISTICIAN MATHEMATICAL Last Filed Vital Signs Vital Sign Reading Time Taken Comments Blood Pressure 138/86 02/25/2024 9:29 AM STATISTICIAN MATHEMATICAL Pulse 73 02/25/2024 9:29 AM STATISTICIAN MATHEMATICAL Temperature 36.2 ??C (97.1 ??F) 08/08/2023 10:23 AM C DT Respiratory Rate 18 02/18/2024 8:00 AM CDT Oxygen Saturation 93% 11/16/2023 9:29 AM CDT Inhaled Oxygen Concentration - - Weight 170.1 kg (375 lb) 02/25/2024 9:29 AM STATISTICIAN MATHEMATICAL Height 185.4 cm (6' 1 ) 02/25/2024 9:29 AM STATISTICIAN MATHEMATICAL Body Mass Index 49.48 02/25/2024 9:29 AM STATISTICIAN MATHEMATICAL Plan of Treatment Not on file Medical Devices Implanted Type Area Otologist Device Identifier Shelf Expiration Date Model / Serial / Lot [employer] Vascade Mvp 6-12fr Venous Closure [id number] - [id number] - [id number] Implanted:Qty: 1 on 08/08/2023 by Aiden Case MD at [facility] [employer] 05/01/2025 [id number]-[id number] [id number] / [id number] / [id number] [employer] Vascade Mvp 6-12fr Venous Closure [id number] - [id number] - [id number] Implanted:Qty: 1 on 08/08/2023 by Aiden Case MD at [facility] [employer] 05/01/2025 800-612C-1 [id number] / [id number] / [id number] [employer] Device Vascular Closure Femoral Artery Bioabsorbable Dual Method Vascade 6-7fr Collagen [id number] - [id number] - [id number] Implanted:Qty: 1 on 08/08/2023 by Aiden Case MD at [facility] [employer] 01/15/2025 [id number] / [id number] / [id number] [employer] Vascade Mvp 6-12fr Venous Closure [id number] - [id number] - [id number] Implanted:Qty: 1 on 08/08/2023 by Aiden Case MD at [facility] [employer] 03/23/2025 800-612C-1 [id number] / [id number] / [id number] Procedures Procedure Name Priority Date/Time Associated Diagnosis Comments ECG 12-LEAD Routine 02/25/2024 9:48 AM STATISTICIAN MATHEMATICAL Persistent atrial fibrillation (HCC) ECG 12-LEAD Routine 02/18/2024 9:05 AM CDT Persistent atrial fibrillation (HCC) from Last 3 Months Results * ECG 12 lead (02/25/2024 9:48 AM STATISTICIAN MATHEMATICAL) Mary Jo Yang NP ECG ORDERABLES Final Result * ECG 12 lead (02/18/2024 9:05 AM CDT) Karl Rae MD ECG ORDERABLES Final Re sult from Last 3 Months Insurance [facility] Care Teams Lead Cashier Relationship Specialty Start Date End Date Shan Loera DO [address] [place] [address] PCP - General Family Medicine 02/09/23 Aiden Case MD [address] [address] Consulting Physician Cardiology 11/16/23
--- OUTSIDE RECORDS SUMMARY | 2024-04-26 18:27 | XMS_ITS | Encounter Summary ---
Author Organization [facility] Address [address] [place] [address]. 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
--- OUTSIDE RECORDS SUMMARY | 2024-04-26 18:27 | XMS_ITS | Encounter Summary ---
Author Organization [facility] Address [address] [place] [address] Care Team Providers Care Molder Vacuum Name Role Phone LonluciusShanh Primary Care Provider Aiden Case MD Unavailable [phone] Reason for Visit * Cardiology (Routine) - Closed Specialty Diagnoses / Procedures Referred By Contac t Referred To Contact Diagnoses Persistent atrial fibrillation (HCC) Procedures Extended/Group Home Holter Patch (>48 hours up to 7 days) Mary Jo Yang NP [address] [address] Phone: tel: fax: [facility] Referral ID Status Reason Start Date Expiration Date Visits Re quested Visits Authorized [id number] Closed 11/16/2023 12/15/2024 1 1 Encounter Details Date Type Department Care Team (Latest Contact Info) Description 11/16/2023 10:30 AM CDT Ancillary Procedure Arrhythmia Center [address] [id number] Persistent atrial fibrillation (HCC) Social History Tobacco Use Types Packs/Day Years [...] CDT Gender Identity Male 06/20/2023 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 Sexual Orientation Straight 06/20/2023 11 :48 PM DIESEL DINKEY OPERATOR documented as of this encounter Plan of Treatment Not on file documented as of this encounter Procedures Procedure Name Priority Date/Time Associated Diagnosis Comments EXTENDED/PENITENTIARY HOLTER PATCH (>48 HOURS UP TO 7 DAYS) Routine 11/16/2023 10:45 AM CDT Persistent atrial fibrillation (HCC) documented in this encounter Results * Extended/Group Home Holter Patch (>48 hours up to 7 days) (11/16/2023 10:45 AM CDT) Anatomical Region Laterality Modality Electrocardiogra phy Narrative 01/26/2024 3:14 PM CDT [facility] Report Summary ?? Patient ID; Jonathan Quiles is a 48 y.o. male Date of ; 1975 MRN; [id number] Recording Period; 11/16/2023 at 10:45 a.m. to 11/23/2023 at 11:19 a.m. Recording length; 7 days Indication; unspecified atrial fibrillation Button pressed; Count; 0 Correlates to; -- Critical status notes; None Predominant Rhythm: ??NSR Sinus heart rates; Average: ??83 bpm Min: ??51 bpm, on November 21 at 6:02 a.m. Max: ??121 bpm, on November 18 at 2:55 p.m. ECG intervals SD: ??0.25 s 1?? AV block QRS: ??0.25 s BBB QT: ??0.39 s QTc: ??0.46 s Supraventricular arrhythmias, AT; Episodes 15, Longest 7 beats at an average of 122 bpm (up to 135 bpm), Fastest 4 beats at an average of 135 bpm (up to 148 bpm) PAC; [place] < 0.1%, AVG 8 /day, Isolated 46, Pairs 3 Ventricular arrhythmias, PVC; [place] < 0.1% ??AVG 28 /day, Isolated 189, Pairs 0 Other -- A total of 18 events captured. Findings summary; Predominant rhythm: NSR Bundle branch block (BBB) 1?? AV block Atrial tachycardia (AT) 15 episodes, longest 7 beats at an average of 122 bpm up to 135 bpm, fastest 4 beats at an average of 135 bpm up to 148 bpm. PAC < 0.1% PVC < 0.1% Mary Jo Yang MOTION GRAPHICS ARTIST CV CARDIAC SERVICES PROCEDURE S Final Result documented in this encounter Visit Diagnoses Diagnosis Persistent atrial fibrillation (HCC) Atrial fibrillation documented in this encounter Care Teams Molder Vacuum Relationship Specialty Start Date End Date Shan Loera DO [address] [place] [address] PCP - General Family Medicine 02/09/23 Aiden Case MD [address] [address] Consulting Physician Cardiology 11/16/23 documented as of this encounter
--- OUTSIDE RECORDS SUMMARY | 2024-04-26 18:27 | XMS_ITS | Encounter Summary ---
Author Organization [facility] Address [address] [facility] [place] [address] Care Team Providers Care Global Account Manager Name Role Phone LonluciusShanh Primary Care Provider Aiden Case MD Unavailable [phone] Reason for Referral * Cardiology (Routine) - Closed Specialty Diagnoses / Procedures Referred By Contac t Referred To Contact Diagnoses Persistent atrial fibrillation (HCC) Procedures Extended/Correction Holter Patch (>48 hours up to 7 days) Mary Jo Yang NP [address] [address] Phone: tel: fax: [facility] Referral ID Status Reason Start Date Expiration Date Visits Re quested Visits Authorized [id number] Closed 11/16/2023 12/15/2024 1 1 Reason for Visit * Reason Comments Atrial Fibrillation Encounter Details Date Type Department Care Team (Late st Contact Info) Description 11/16/2023 9:30 AM CDT Office Visit Arrhythmia Center [address] [facility] [address] [place] [phone] Mary Jo Yang NP [address] [address] Persistent atrial fibrillation (HCC); Anticoagulation management encounter Social History Tobacco Use [...] CDT Gender Identity Male 06/20/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 Sexual Orientation Straight 06/20/2023 11 :48 PM SEAL EXTRUSION OPERATOR documented as of this encounter Last Filed Vital Signs Vital Sign Reading Time Taken Comments Blood Pressure 148/80 11/16/2023 9:29 AM CDT Pulse 77 11/16/2023 9:29 AM CDT Temperature - - Respiratory Rate - - Oxygen Saturation 93% 11/16/2023 9:29 AM CDT Inhaled Oxygen Concentration - - Weight 174 kg (383 lb 9.6 oz) 11/16/2023 9:29 AM CDT Height 185.4 cm (6' 1 ) 11/16/2023 9:29 AM CDT Body Mass Index 50.61 11/16/2023 9:29 AM CDT documented in this encounter Progress Notes * Mary Jo Yang NP - 11/16/2023 9:30 AM CDT Images from the original note were not included. [facility] Medical [facility] Ar[facility]hythmia Center [address], [place] [address] Office Visit Note Patient Name: Jonathan Quiles Date of : 1975 Primary Physician: Shan Loera DO Chief Complaint Atrial Fibrillation Status post radiofrequency catheter ablation HPI Jonathan Quiles is a [...] was negative for sustained mehreen cible arrhythmia. Presents today in routine follow up post ablation. Bilateral incision sites have healed well without complications He denies any chest pain, palpitations, near-syncope, or jackelin syncope. He does report some shortness of breath with exertion but reports that it was due to deconditioning and is working on being more active. He denies any reoccurrence of his atrial arrhythmia. Remains compliant on Eliquis and metoprolol. Remains active without difficulty EKG today demonstrates sinus rhythm with a first-degree AV block (76) with a normal UT, slight IVCD, and normal QT interval Past Medical History Past Medical History: Diagnosis Date Asthma Cardiac rhythm disturbance Hard to intubate Hypertension Sleep apnea Past Surgical History Past Surgical History: Procedure Laterality Date APPENDECTOMY HERNIA REPAIR Medications Current Outpatient Medications Medication Instructions albuterol 1.25 mg/3 mL nebulizer solution albuterol HFA (PROVENTIL HFA,VENTOLIN HFA,PROAIR HFA) 90 mcg/actuation inhaler diclofenac (CATAFLAM) 50 mg, oral, 2 times daily Eliquis 5 mg, oral, 2 times daily furosemide (LASIX) 80 mg, oral, 2 times daily lisinopril-hydroCHLOROthiazide (ZESTORETIC) 20-12.5 mg per tablet daily metoprolol XL (TOPROL-XL) 100 mg, oral, Daily Stool Softener 100 mg capsule 2 (two) times a day as needed testosterone cypionate (DEPO-TESTOTERONE) 200 mg, intramuscular, Every 14 days Allergies Allergies Allergen Reactions Penicillins Rash Reaction as a child. Family History Family History Problem Relation Age of Onset Diabetes Brother Social History Social History Tobacco Use Smoking status: Former Current packs/day: 0.00 Types: Cigarettes Quit date: 02/01/2009 Years since quittin.7 Smokeless tobacco: Current Substance and Sexual Activity [...] sounds. Pulmonary: Effort: Pulmonary effort is normal. Musculoskeletal: General: Normal range of motion. Cervical back: Normal range of motion. Skin: General: Skin is warm and dry. Neurological: Mental Status: He is alert and oriented to person, place, and time. Psychiatric: Behavior: Behavior normal. Thought Content: Thought content normal. Judgment: Judgment normal. BP 148/80 Pulse 77 Ht 185.4 cm (6' 1 ) Wt (!) 174 kg (383 lb 9.6 oz) SpO2 93% BMI 50.61 kg/m?? Assessment/Plan Diagnoses and all orders for this visit: Persistent atrial fibrillation (HCC) Assessment & Plan: -status post radiofrequency catheter ablation with Dr. Case -remains compliant on metoprolol and apixaban -no changes to medications were made today -EKG today demonstrates sinus rhythm with a first-degree AV block -follow up in 3 months for 12 lead EKG and clinic visit Orders: - ECG 12 lead - Extended/Correction Holter Patch (>48 hours up to 7 days); Future Anticoagulation management encounter Assessment & Plan: -remains compliant on apixaban -denies any issues with bruising or bleeding -patient was wishing to discontinue anticoagulation today -we will obtain a 7 day event monitor, since patient reports he was unable to feel his atrial fibrillation in the past to make sure he is not having atrial fibrillation unknowingly -if no more atrial fibrillation noted on 7 day event monitor, may discontinue Mary Jo Yang NP [facility] Arrhythmia Center documented in this encounter Miscellaneous Notes * Assessment & Plan Note - Mary Jo Yang NP - 11/16/2023 3:08 PM CDT Associated Problem(s): Persistent atrial fibrillation (HCC) -status post radiofrequency catheter ablation with Dr. Case -remains compliant on metoprolol and apixaban -no changes to medications were made today -EKG today demonstrates sinus rhythm with a first-degree AV block -follow up in 3 months for 12 lead EKG and clinic visit * Assessment & Plan Note - Mary Jo Yang NP - 11/16/2023 3:08 PM CDT Associated Problem(s): Anticoagulation management encounter -remains compliant on apixaban -denies any issues with bruising or bleeding -patient was wishing to discontinue anticoagulation today -we will obtain a 7 day event monitor, since patient reports he was unable to feel his atrial fibrillation in the past to make sure he is not having atrial fibrillation unknowingly -if no more atrial fibrillation noted on 7 day event monitor, may discontinue documented in this encounter Plan of Treatment Not on file documented as of this encounter Procedures Procedure Name Priority Date/Time Associated Diagnosis Comments ECG 12-LEAD Routine 11/16/2023 9:36 AM CDT Persistent atrial fibrillation (HCC) documented in this encounter Results * Extended/Correction Holter Patch (>48 hours up to 7 days) (11/16/2023 10:45 AM CDT) Anatomical Region Laterality Modality Electrocardiogra phy Narrative 01/26/2024 3:14 PM CDT [facility] Report Summary ?? Patient ID; Jonathan Quiles is a 48 y.o. male Date of ; 1975 MRN; [id number] Recording Period; 11/16/2023 at 10:45 a.m. to 11/23/2023 at 11:19 a.m. Recording length; 7 days Indication; unspecified atrial fibrillation Button pressed; Count; 0 Correlates to; -- Critical status notes; None Predominant Rhythm: ??NSR Sinus heart rates; Average: ??83 bpm Min: ??51 bpm, on November 21 at 6:02 a.m. Max: ??121 bpm, on November 18 at 2:55 p.m. ECG intervals UT: ??0.25 s 1?? AV block QRS: ??0.25 s BBB QT: ??0.39 s QTc: ??0.46 s Supraventricular arrhythmias, AT; Episodes 15, Longest 7 beats at an average of 122 bpm (up to 135 bpm), Fastest 4 beats at an average of 135 bpm (up to 148 bpm) PAC; [place] < 0.1%, AVG 8 /day, Isolated 46, Pairs 3 Ventricular arrhythmias, PVC; [place] < 0.1% ??AVG 28 /day, Isolated 189, [...] bpm. PAC < 0.1% PVC < 0.1% us Mary Jo Yang NP CV CARDIAC SERVICES PROCEDURE S Final Result * ECG 12 lead (11/16/2023 9:36 AM CDT) us Mary Jo Yang NP ECG ORDERABLES Final Result documented in this encounter Visit Diagnoses Diagnosis Persistent atrial fibrillation (HCC) Atrial fibrillation Anticoagulation management encounter Encounter for therapeutic drug monitoring Persistent atrial fibrillation (HCC) Atrial fibrillation documented in this encounter Care Teams Global Account Manager Relationship Specialty Start Date End Date Shan Loera DO [address] [place] [address] PCP - General Family Medicine 02/09/23 Aiden Case MD [address] [address] Consulting Physician Cardiology 11/16/23 documented as of this encounter
--- OUTSIDE RECORDS SUMMARY | 2024-04-26 18:27 | XMS_ITS | Encounter Summary ---
Author Organization [facility] Address [address] [place] [address]. 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
--- OUTSIDE RECORDS SUMMARY | 2024-04-26 18:27 | XMS_ITS | Encounter Summary ---
Author Organization [facility] Address [address] [place] [address]. 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
--- OUTSIDE RECORDS SUMMARY | 2024-04-26 18:27 | XMS_ITS | Encounter Summary ---
Author Organization [facility] Address [address] [place] [address]. 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
--- OUTSIDE RECORDS SUMMARY | 2024-04-26 18:27 | XMS_ITS | Encounter Summary ---
Author Organization [facility] Address [address] [place] [address]. 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
--- OUTSIDE RECORDS SUMMARY | 2024-04-26 18:27 | XMS_ITS | Encounter Summary ---
Author Organization [facility] Address [address] [place] [address]. 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
--- OUTSIDE RECORDS SUMMARY | 2024-04-26 18:27 | XMS_ITS | Encounter Summary ---
Author Organization [facility] Address [address] [place] [address] Care Team Providers Care Hand Riveter Name Role Phone Lonlucius Shan Johnsonh Primary Care Provider Aiden Case MD Unavailable [phone] Encounter Details Date Type Department Care Team (Late st Contact Info) Description 03/28/2024 Telephone [facility] Medical Group Cardiology [address] [address] Karl Rae MD [address] [facility] [address] [place] [address] Social History Tobacco Use Types Packs/Day Years [...] CDT Gender Identity Male 06/20/2023 11:48 PM FASHION 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 Pharmacy notified. ION STYLIST * Telephone Encounter - Jessenia Donaldson MA - 03/28/2024 5:27 PM CST Received PA request for Eliquis 5 mg. Submitted PA request via Cover My Meds. Awaiting response. ION STYLIST documented in this encounter Plan of Treatment Not on file documented as of this encounter Visit Diagnoses Not on filedocumented in this encounter Care Teams Hand Riveter Relationship Specialty Start Date End Date Shan Loera DO [address] [place] [address] PCP - General Family Medicine 02/09/23 Aiden Case MD [address] [address] Consulting Physician Cardiology 11/16/23 documented as of this encounter
--- OUTSIDE RECORDS SUMMARY | 2024-04-26 18:28 | XMS_ITS | Encounter Summary ---
Author Organization [facility] Healthcare Address [address] [place] [address] Care Team Providers Care Slot Tag Inserter Name Role Phone ThomasShan tineo Primary Care Provider Encounter Details Date Type Department Care Team (Late st Contact Info) Description 02/15/2023 Orders Only [facility] Medical Group Cardiology [address] [place] [address] Karl Rae MD [address] [facility] [address] [place] [address] Social History Tobacco Use Types Packs/Day Years Used Date Smoking Tobacco: Never Assessed Sex and Gender Information Value Date Recorded Sex Assigned at Not on file Legal Sex Male 8:29 AM CDT Gender Identity Male 06/20/2023 11:48 PM HOSPITAL PERSONNEL DIRECTOR Sexual Orientation Straight 06/20/2023 11 :48 PM HOSPITAL PERSONNEL DIRECTOR documented as of this encounter Plan of Treatment Not on file documented as of this encounter Procedures Procedure Name Priority Date/Time Associated Diagnosis Comments CARDIOLOGY DOCUMENT SCAN Routine 023 10:41 AM CDT documented in this encounter Results * Cardiology Document Scan (02/10/2023 10:41 AM CDT) Anatomical Region Laterality Modality Other Karl Rae MD CV CARDIAC SERVICES PROC EDURES Final Result documented in this encounter Visit Diagnoses Not on filedocumented in this encounter Care Teams Slot Tag Inserter Relationship Specialty Start Date End Date Shan Loera DO [address] [place] [address] PCP - General Family Medicine 02/09/23 documented as of this encounter
--- OUTSIDE RECORDS SUMMARY | 2024-04-26 18:28 | XMS_ITS | Encounter Summary ---
Author Organization [facility] Healthcare Address [address] [place] [address] Care Team Providers Care Body Presser Name Role Phone Shan Loera DO Primary Care Provider Reason for Referral * Consultation (Urgent) - Closed Specialty Diagnoses / Procedures Referred By Contac t Referred To Contact Cardiology Diagnoses Persistent atrial fibrillation (HCC) Chelsey Cisneros NP [address] [facility] [address] [place] [address] Phone: tel: fax: Vania Lehman MD [address] [facility] [address] [place] [address] Phone: tel: fax: Referral ID Status Reason Start Date Expiration Date V isits Requested Visits Authorized [id number] Closed Specialty Services Required 05/22/2023 06/20/2024 1 1 Question Answer Please select the performing region: [facility] Medical Group [[id number]] Please select the performing department: [facility] [[id number]] To provider: VANIA LEHMAN [[id number]] # of visits: 1 Comments New pt referral for failed cardioversion and symptomatic Afib. This is an urgent referral because he is symptomatic and unable to return to work. Please call pt for an appt please. Any physician in practice is fine. NDER MACHINE OPERATOR HELPER * Consultation (Urgent) - Closed Specialty Diagnoses / Procedures Referred By Contac t Referred To Contact Cardiology Diagnoses Persistent atrial fibrillation (HCC) Chelsey Cisneros NP [address] [place] [address] Phone: tel: fax: Musa Tenorio MD [address] [address] Phone: tel: fax: Referral ID Status Reason Start Date Expiration Date V isits Requested Visits Authorized [id number] Closed Specialty Services Required 05/22/2023 06/20/2024 1 1 Question Answer Please select the performing region: [facility] (All Locations) [[id number]] To provider: MUSA TENORIO [[id number]] # of visits: 1 Comments Urgent new pt referral for failed cardioversion and symptomatic Afib. This is an urgent referral because he is symptomatic and unable to return to work. Please call pt for an appt. Thank you! NDER MACHINE OPERATOR HELPER Encounter Details Date Type Department Care Team (Late st Contact Info) Description 05/22/2023 Telephone [facility] Medical Group Cardiology [address] [place] [phone] Chelsey Cisneros NP [address] [id number] Social History Tobacco Use Types Packs/Day Years Used Date Smoking Tobacco: Former Cigarettes Q uit: 02/01/2009 Personal Safety Answer Date Recorded Getting School Help Needed Not on file 04/30 Sex and Gender Information Value Date Recorded Sex Assigned at Not on file Legal Sex Male 8:29 AM CDT Gender Identity Male 06/20/2023 11:48 PM CALENDER MACHINE OPERATOR HELPER Sexual Orientation Straight 06/20/2023 11 :48 PM CALENDER MACHINE OPERATOR HELPER documented as of this encounter Miscellaneous Notes * Addendum Note - Rebecca Mirza, RN - 05/22/2023 11:55 AM CSTAddended by: REBECCA MIRZA on: 05/22/2023 11:55 AM Modules accepted: Orders NDER MACHINE OPERATOR HELPER * Telephone Encounter - Rebecca Mirza RN - 05/22/2023 11:51 AM CALENDER MACHINE OPERATOR HELPER Placed a referral to Dr. Steel's office instead and called their office making them aware I was sending over an urgent referral. They will call pt for an appt. Spoke with pt and made him aware of the change and pt was ok with change and appreciated the assistance. NDER MACHINE OPERATOR HELPER * Telephone Encounter - Ariana Cantu - 05/22/2023 11:38 AM CST Pema called from [facility] cardiology - Dr. Tenorio office states pt insurance is not contracted with [facility]. States she did call and inform pt already. Contact: NDER MACHINE OPERATOR HELPER * Telephone Encounter - Rebecca Mirza RN - 05/22/2023 10:05 AM CALENDER MACHINE OPERATOR HELPER Discussed with CT that urgent referral with [facility] isnt possible as he will be on leave starting soon.She was fine with a referral being sent to a different EP- sent to Dr. Tenorio's office-any physicianis fine in group. Spoke with his office and they said they would contact pt for urgent appt request. Called and LM on reviewing information and letting pt know to be expecting a phone call from them. NDER MACHINE OPERATOR HELPER * Addendum Note - Rebecca Mirza RN - 05/22/2023 10:02 AM CSTAddended by: REBECCA MIRZA on: 05/22/2023 10:02 AM Modules accepted: Orders NDER MACHINE OPERATOR HELPER * Telephone Encounter - Chelsey Cisneros NP - 05/22/2023 8:42 AM CALENDER MACHINE OPERATOR HELPER I saw Mr. Quiles yesterday for failed cardioversion and symptomatic Afib. Please call him to let him know I talked to Dr. Rae this morning. Dr. Rae wants him to see Jt Lynne. This is an urgent referral because he is symptomatic and unable to return to work. Can we get him on a cancellation list for Dr. Batista? Or reach out to Leta Symone to see if she could help? Her number is [phone]. Also, Mr. Quiles is going to be dropping off some STD papers. Please let me know if you need help completing them. Thanks. NDER MACHINE OPERATOR HELPER documented in this encounter Plan of Treatment Scheduled Referrals Name Type Priority Associated Diagnoses Order Schedule Ambulatory referral to Cardiac Electrophysiology Outpatient Referral Urgent Persistent atrial fibrillation (HCC) Expected: 05/22/2023 (Approximate), Expires: 05/22/2024 Ambulatory referral to Cardiac Electrophysiology Outpatient Referral Urgent Persistent atrial fibrillation (HCC) Expected: 05/22/2023 (Approximate), Expires: 05/22/2024 documented as of this encounter Visit Diagnoses Diagnosis Persistent atrial fibrillation (HCC)- Primary Atrial fibrillation documented in this encounter Care Teams Body Presser Relationship Specialty Start Date End Date Shan Loera DO [address] [place] [address] PCP - General Family Medicine 02/09/23 documented as of this encounter
--- OUTSIDE RECORDS SUMMARY | 2024-04-26 18:28 | XMS_ITS | Encounter Summary ---
Author Organization [facility] Healthcare Address [address] [place] [address] Care Team Providers Care Nautical Instrument Mechanic Name Role Phone Shan Loerah Primary Care Provider Encounter Details Date Type Department Care Team (Late st Contact Info) Description 03/22/2023 Telephone [facility] Medical Group Cardiology [address] [place] [phone] Chelsey Cisneros NP [address] [facility] [address] [place] [address] Social History Tobacco Use Types Packs/Day Years Used Date Smoking Tobacco: Former Cigarettes Q uit: 02/01/2009 Personal Safety Answer Date Recorded Getting School Help Needed Not on file 04/30 Sex and Gender Information Value Date Recorded Sex Assigned at Not on file Legal Sex Male 8:29 AM CDT Gender Identity Male 06/20/2023 11:48 PM FOUNTAIN JERK Sexual Orientation Straight 06/20/2023 11 :48 PM FOUNTAIN JERK documented as of this encounter Miscellaneous Notes * Telephone Encounter - Jaimie Mirza RN - 05/10/2023 8:25 AM FOUNTAIN JERK Spoke with pt, informed him he will only need to be off work for the day of the procedure. Pt started talking about needing a letter stating he hasn't been able to work since September. Advised pt to talkto his employer and ask them to provide [facility] paperwork for us to complete. Pt was going to talk to his employer/unemployment today. TAIN JERK * Telephone Encounter - Kiah Bradford - 05/10/2023 8:04 AM CST Pt requesting a call back in regard to further discussing how long he will be out of work. As well as having a letter made for work. Contact:[phone] TAIN JERK * Telephone Encounter - Jaimie Mirza RN - 05/01/2023 10:37 AM FOUNTAIN JERK Spoke with pt, reviewed instructions for procedure and mailed pt copy, he confirmed date and time were ok for him, answered all of his questions. TAIN JERK * Telephone Encounter - Jaimie Mirza RN - 05/01/2023 9:59 AM FOUNTAIN JERK LM on reviewing date and time of procedure 05/14 at 0845 CV with anesthesia. Requested callback to confirm pt received my message and to make sure he didn't have any further questions. TAIN JERK * Telephone Encounter - Jaimie Mirza RN - 04/30/2023 12:02 PM FOUNTAIN JERK LM on reviewing date and time of procedure 05/14 at 0845 CV with anesthesia. Requested callback to confirm pt received my message and to make sure he didn't have any further questions. TAIN JERK * Telephone Encounter - Jaimie Mirza RN - 03/22/2023 2:[address] scheduling pt for CV with anesthesia at with [facility] on 05/14 so pt has time to obtain his newcpap machine. Called CCL to request a time on 05/14. Anesthesia asked for us to callback closer to date of procedure for time-will callback in a few weeks. Discussed with pt and reviewed instructions-he verbalized understanding. TAIN JERK documented in this encounter Plan of Treatment Not on file documented as of this encounter Visit Diagnoses Diagnosis Persistent atrial fibrillation (HCC)- Primary Atrial fibrillation documented in this encounter Care Teams Nautical Instrument Mechanic Relationship Specialty Start Date End Date Shan Loera DO [address] [place] [address] PCP - General Family Medicine 02/09/23 documented as of this encounter
--- OUTSIDE RECORDS SUMMARY | 2024-04-26 18:28 | XMS_ITS | Encounter Summary ---
Author Organization [facility] Healthcare Address [address] [place] [address] Care Team Providers Care Diabetes Territory Manager Name Role Phone LonluciusShanh Primary Care Provider Reason for Visit * Auth/Cert (Routine) Specialty Diagnoses / Procedures Referred By Mark t Referred To Contact Diagnoses Persistent atrial fibrillation (HCC) Persistent atrial fibrillation (HCC) [I48.19] Procedures ABLATION ATRIAL FIBRILLATION (A-FIB) VIA PULMONARY VEIN ISOLATION [id number] Referral ID Status Reason Start Date Expiration Date Visits Re quested Visits Authorized [id number] 1 1 Encounter Details Date Type Department Care Team (Latest Contact Info) Description 08/08/2023 6:35 AM CDT - 08/08/2023 3:48 PM CDT Hospital Encounter [facility] [address] [place] [id number] Aiden Case MD [address] [facility] [address], [place] [address] Persistent atrial fibrillation (HCC) Discharge Disposition: Discharge to home or self care Social History Tobacco Use Types Packs/Day Years [...] CDT Gender Identity Male 06/20/2023 11:48 PM BUYER Sexual Orientation Straight 06/20/2023 11 :48 PM BUYER documented as of this encounter Last Filed Vital Signs Vital Sign Reading Time Taken Comments Blood Pressure 77/54 08/08/2023 12:20 PM CDT Pulse 71 08/08/2023 12:20 PM CDT Temperature 36.2 ??C (97.1 ??F) 08/08/2023 1 0:23 AM CDT Respiratory Rate 24 08/08/2023 12:2 0 PM CDT Oxygen Saturation 87% 08/08/2023 12: 20 PM CDT Inhaled Oxygen Concentration - - Weight 183.4 kg (404 lb 6.4 oz) 08/08/2023 7:08 AM CDT Height 185.4 cm (6' 1 ) 08/08/2023 7:08 AM CDT Body Mass Index 53.35 08/08/2023 7:08 AM CDT documented in this encounter Discharge Instructions * Discharge Instructions* Meagan Cortez, RN - 08/08/2023 1:33 PM CDT Cardiac Laboratory [address], [place] [address] [facility] Discharge Instructions---Angiogram MEDICATIONS [] Do not take Metformin or medications containing Metformin (for example: Glucophage, Glyburide orGlucovance) for the next 48 hours. Resume taking your medication on [] Home Medications Returned [x] Discharge Medication Reconciliation Reviewed [] Prescriptions sent home with patient and instructions given for usage [] ANTIBIOTICS What you Should Know Information provided and reviewed. [] Your physician has prescribed Aspirin and an anti-platelet therapy medication such as Plavix, Brilinta, Effient. - These medications act as a blood thinner. Take the medications as your physician has prescribed; this will help prevent a blood clot from forming in your artery. - Do not stop taking these medications for any reason without discussing with your school photographer first. - These medications may make you bruise or bleed easier than normal. PROCEDURE SITE CARE [x] You may shower in 24 hours. Remove the bandage prior to showering. [x] DO NOT submerge your incision site in water. This includes pools, tub baths, lakes, domínguez, ponds and hot tubs. You may shower only for the next 5 days (no baths). [x] Gently clean the procedure site using only soap and water. [x] DO NOT apply any kind of powder or lotion to the site [x] Make sure to dry the site thoroughly as wetness can lead to infection. DIET [x] Increase your intake of fluids (non-alcoholic). Drink 1/2 liter of fluids over the next 12 hours. [x] Resume home diet [] Special diet Instructed by Audit Practice Intern ACTIVITY You have been given medications which helped make you comfortable during your procedure. The relaxing effects of these medications may continue for the rest of the day. For your safety: [x] Do not drive or operate hazardous machinery for the next 24 hours [x] Do not make important personal or business decision or sign legal documentation for the next 24hours. [x] Resume normal activity in 5 days. [x] No heavy pushing, pulling, or lifting more than 10 pounds for the next five days or until the procedure site has been healed. [x] Refrain from vigorous stair climbing or walking more than two blocks for the next five days. [x] No sexual activity for the next five days. SPECIAL INSTRUCTIONS After your procedure, it is normal to have mild soreness/tenderness at the procedure site. Some discoloration and /or bruising may occur at the puncture site region over the next 2-3 days Please notify your physician immediately if you develop any of the following: [x] Significant bleeding at the procedure site. If bleeding occurs, lie down, apply firm pressure to the site and call 911. [x] The leg on which your procedure was performed begins to swell, feel numb, weak or cold [x] Signs of infection which may include: - fever or chills - drainage from the procedure site - redness/warm to the touch at the procedure site [x] You start having signs of a heart attack which may include: - pain in your chest, arms, jaw or back -trouble catching your breath -feeling sick to your stomach -feeling sweaty FOLLOW UP CARE [] Call physician's office for appointment [] Appointment scheduled for with Additional Instructions: I understand and have received a copy of my discharge instructions Patient/Family Signature: Staff Signature/Title: Date and Time: documented in this encounter Medications at Time of Discharge albuterol 1.25 mg/3 mL nebulizer solution 12/21/2022 albuterol HFA (PROVENTIL HFA,VENTOLIN HFA,PROAIR HFA) 90 mcg/actuation inhaler 12/21/2022 furosemide (LASIX) 80 mg tablet Take 1 tablet (80 mg total) by mouth 2 (two) times a day 06/26/2023 lisinopril-hydroCH LOROthiazide (ZESTORETIC) 20-12.5 mg per tablet Take 1 tablet by mouth daily 03/01/2023 Stool Softener 100 mg capsule 2 (two) times a day as needed 05/03/2023 testosterone cypionate (DEPO-TESTOTERONE) 200 mg/mL injection Inject 1 mL (200 mg total) into the muscle as instructed every 14 (fourteen) days 07/18/2023 Eliquis 5 mg tabletIndications: Persistent atrial fibrillation (HCC) Take 1 tablet (5 mg total) by mouth 2 (two) times a day 180 tablet 3 03/22/2023 metoprolol XL (TOPROL-XL) 100 mg 24 hr tabletIndications: Persistent atrial fibrillation (HCC) Take 1 tablet (100 mg total) by mouth daily 90 tablet 3 03/22/2023 4 documented as of this encounter Discharge Disposition Disposition Code Departure Means Destination Comment s Discharge to home or self care Car documented in this encounter H&P Notes * Aiedn Case MD - 08/08/2023 3:48 PM CDT [facility] [address] [place] [address], [address] [place], [place] [address] Patient Name: Jonathan Quiles Date of : 1975 Primary Physician: Shan Loera DO Admission Date: 08/08/2023 This note was dictated with voice-recognition software, and didactic instructor errors may be present. . . . Clinical Cardiac Electrophysiology Consultation Chief Complaint / Reason for Consultation: AF, pers History of Present Illness: Mr. Quiles is a 48 y.o. male with a history of htn, DM, HIWOT. The patient presents today to undergo AFRFA. In AF, normal rates today. Allergies Allergen Reactions Penicillins Rash Reaction as a child. Current Facility-Administered Medications: sodium chloride 0.9% infusion, 50 mL/hr, intravenous, Continuous, Aiden Case MD, Last Rate: 50 mL/hr at 08/08/23714, 50 mL/hr at 08/08/23714 Past Medical History: Past Medical History: Diagnosis Date Asthma Cardiac rhythm disturbance Hypertension Sleep apnea Family History: Family History Problem Relation Age of Onset Diabetes Brother Social History: Social History Tobacco Use Smoking status: Former Current packs/day: 0.00 Types: Cigarettes Quit date: 02/01/2009 Years since quittin.5 Smokeless tobacco: Current Substance and Sexual Activity Drug use: Yes Types: Marijuana Sexual activity: Not Currently Partners: Female control/protection: Abstinence Alcohol Use: Not At Risk (08/08/2023) AUDIT-C Frequency of Alcohol Consumption: Never Average Number of Drinks: Patient does not drink Frequency of Binge Drinking: Not on file Review of Systems: Constitutional: Negative. HENT: Negative. Eyes: Negative. Respiratory: Negative. Cardiovascular: As per HPI. Gastrointestinal: Negative. Endocrine: Negative. Genitourinary: Negative. Musculoskeletal: Negative. Skin: Negative. Allergic/Immunologic: Negative. Neurological: Negative. Hematological: Negative. Psychiatric/Behavioral: Negative. Physical Examination: BP 118/71 Pulse 76 Resp 18 Ht 185.4 cm (6' 1 ) Wt (!) 183.4 kg (404 lb 6.4 oz) SpO2 92% BMI 53.35 kg/m?? GENERAL: No distress. Pleasant and cooperative with the examination and interview HEENT: Pupils are equal and round. Oropharynx clear and moist. NECK: No JVD. Carotids are normal in volume, contour, and upstroke CARDIOVASCULAR: LV apical impulse nondisplaced. Rhythm is irregular. No S3 or murmur. PULMONARY: Clear to auscultation bilaterally, without wheeze. ABDOMEN: Soft, nontender, nondistended, normal bowel sounds. No rebound or guarding. EXTREMITIES: No edema. Pulses are 2+ and symmetric. NEURO: Alert and oriented x3. Cranial nerves II-XII intact and symmetric. No focal findings. PSYCHIATRIC: Normal mood and affect. Labs: Recent Labs Lab Units 08/08/23 0702 WBC K/cumm 7.3 HEMOGLOBIN g/dL 15.1 HEMATOCRIT % 44.7 Impression: AF, pers Plan: 1. NELL, r/o LA thrombus 2. AF RFA to follow; risks / benefits discussed Aiden Case M.D., M.P.H., [facility] 08/08/2023 7:39 AM documented in this encounter Nursing Notes * Tara Pedroza, NICKI - 08/08/2023 11:29 AM CDT Unable to wean patient from supernova. Laying flat and falling asleep is causing him to desat to 80s. Call to respiratory for CPAP, patient wears CPAP with O2 at night. documented in this encounter Miscellaneous Notes * Op Note - Aiden Case MD - 08/08/2023 7:30 AM CDT Images from the original note were not included. Patient Name: Jonathan Quiles Date of : 1975 Primary Physician: Shan Loera DO Procedure Date: 08/08/2023 Procedure Radiofrequency Catheter Ablation of [Persistent] Atrial Fibrillation / Pulmonary Vein Isolation (83925) Linear/focal Left Atrial Ablation - Roof line (71926) - Posterior line (33634) Radiofrequency Catheter Ablation of Cavotricuspid Isthmus-dependent flutter (50645) Three-dimensional Electroanatomic Mapping and Navigation Transseptal left heart catheterization Intracardiac Echocardiography Electrophysiology Study, with RA, LA, CS, and LV Pacing[, negative for inducible arrhythmia] (42611) Study / pacing and recording after drug infusion (21116) Ultrasound-guided venous access Direct current cardioversion (54510) Patient History Mr. Quiles is a 48-year-old male with highly symptomatic persistent atrial fibrillation. He presents today to undergo catheter ablation including pulmonary vein isolation. We discussed the risks and benefits, and the patient would like to proceed. As the patient presented in atrial fibrillation/flutter, transesophageal echocardiography was performed immediately prior to the procedure. This did not demonstrate the presence of a left atrial thrombus. Method After informed consent was obtained, the patient was brought to the EP lab in a post-absorptive, non-sedated state. The patient was found to be in atrial fibrillation with normal rates at the study???s outset. The patient was found to be in sinus rhythm at the study's outset. Peripheral IV access was established. Continuous electrocardiography, blood pressure, and pulse oximetry monitoring was initiated and cardioversion patch electrodes were positioned on the chest and back. Anesthesia services initiated sedation and general endotracheal anesthesia. An esophageal temperature probe was placed. The patient???s bilateral inguinal areas were prepared and draped in sterile fashion. Venous access was achieved with modified Seldinger technique and ultrasound guidance. Four venous sheaths were placed. A multipolar catheter was advanced to the coronary sinus. Heparin was administered and a strict ACT timer was maintained to achieve ACT greater than or equal to 350 seconds. An 8 [place] deflectable phased-array ultrasound catheter was advanced to the center right atrium, and intracardiac echocardiography (ICE) was used to visualize the intraatrial septum and fossa ovalis in preparation for transseptal left heart catheterization. A single transseptal puncture was performed using the [employer] RF needle inside a Vizigo deflectable long sheath. After entrance into the left atriumwas confirmed, the sheath was advanced into the center left atrium. A Smart Touch SF irrigated contact force-sensitive ablation catheter was advanced to the right atrium via an SL1 long sheath, and subsequently was manipulated across the transseptal puncture and positioned in the left atrium. A splined multipolar mapping catheter ([facility]) was positioned in the left atrium via the SL1 and the ablation catheter was positioned in the left atrium via the Vizigo sheath. Both transseptal sheaths were flushed with a constant infusion of heparinized saline throughout the case. Electroanatomic 3D mapping (of the LA and PVs) and catheter ablation were performed as described below. The CARTO3 mapping system and fast-anatomical contact mapping (FAM) were used to define the anatomy of the pulmonary veins, their ostia, and the left atrial appendage. Radiofrequency ablation was performed, and two wide-area circumferential lesions were created around the left and right pulmonary veins. In order to assess for durable entrance block, the patient was challenged with adenosine. With the mapping catheter positioned in each successive pulmonary vein, IV adenosine was administered via central venous access. Recurrence of conduction was not found. Additional linear ablation was performed as described below. [Cardioversion was performed in order to facilitate testing of the ablation lesions.] The ablation catheter was navigated into the LV, andan electrophysiology study to exclude additional arrhythmia was performed. [Right atrial flutter was induced.] Additional ablation in the RA / cavotricuspid isthmus was performed. Catheters and sheaths were pulled back from the left atrium and a duodecapolar catheter (Elastra) was advanced to the lateral and high right atrium. FAM was used to define the relevant right atrial anatomy. Radiofrequency ablation was performed in the cavotricuspid isthmus and continued until bidirectional block was confirmed. Prior to the procedure???s conclusion, the ultrasound catheter was used to confirm that significantpericardial effusion was not present. Catheters were withdrawn, the sheaths were repositioned to the IVC, and a test dose of protamine sulfate was given. A total dose of [50] mg was administered. All sheaths were removed, Vascade closure devices were deployed, hemostasis was assured with manual compression, and the patient was taken to the recovery area in stable condition. Access Sites: Right femoral vein: 3 sheaths (11.5 Fr Vizigo deflectable, 8.5 Fr SL1 long, 6.5 Fr) Left femoral vein: 1 sheaths (8.5 Fr) Conduction Intervals Post-ablation A-A A-H H-V P-R QRS dur QT V-V 973 - - 238 125 454 973 AV Conduction Post-ablation VA Block at all paced cycle lengths AVWB at 400 msec Refractory Periods Post-ablation AERP 400/200/200 No arrhythmia was inducible post-ablation. Electroanatomic Mapping / Voltage mapping After transseptal access was obtained, a manually-deflected 3.5mm Smart Touch Thermocool irrigated ablation catheter was placed in the left atrium. A three- dimensional map of the left atrium, appendage, and pulmonary veins was constructed (using both the mapping catheter and ablation catheter) withfast anatomical mapping. Continuous voltage mapping of the left atrium was performed using the CONFIDENSE module of CARTO3. Healthy tissue was defined by areas of greater than 0.4 mV; dense scar was defined by areas of less than 0.1 mV. The patient was found to have severe/extensive scarring involving the posterior left atrium. Following ablation, voltage mapping was repeated, demonstrating electr ical silence of the areas ablated. PA views of the electroanatomic map prior to ablation. Voltage data is depicted, with areas in purple having normal electrical activity (greater than 0.4 mV). Areas in red have voltage less than 0.1 mV. Following ablation, electrical silence of the pulmonary veins was confirmed. Radiofrequency Ablation [Pulmonary Vein Isolation] Radiofrequency energy was applied to create two wide-area circumferential lesions encircling the right and left pulmonary ostia. RF was applied in power control mode (temperature limit = 43 deg C, irrigation = 8-15 mL/min) with a target power 50W, with current limited to less than or equal to 750 mA. All lesions were limited to </= 5 sec posteriorly , </= 10 sec elsewhere. Special attentionwas given to identifying the location of the PV ostia (using impedance mapping and electroanatomic mapping) to ensure ablation in the antral region. Ablation continued until the splined mapping catheter, positioned sequentially in each targeted pulmonary vein antrum, demonstrated electrical silence. During ablation along the posterior left atrium, an esophageal temperature probe was advanced to closest proximity to the ablation catheter. Temperature was monitored in order to prevent thermal esophageal injury. When temperature increases were noted, ablation was discontinued immediately and did not resume until the temperature regressed to normal. Prior to ablation at the anterior aspect of the RSPV, high output pacing was performed along the intended path of ablation. Areas of phrenic nerve stimulation were identified, marked on the electroanatomic map, and avoided during ablation. Post ablation, the ablation catheter was navigated into the pulmonary vein ostia on the distal sideof the circumferential lesions. Exit block was demonstrated with high output pacing, showing dissociation of the atria. Voltage mapping was repeated. The splined mapping catheter catheter demonstrated that all pulmonary veins were electrically silent. Adenosine challenge was performed to confirm durable entrance block. With the splined mapping catheter placed inside each successive pulmonary vein, adenosine was administered via central venous access. For each vein pair, 12 mg of adenosine was infused. This did not demonstrate recurrence of conduction across the WACA. [PA views of the left atrium following ablation.] [Left Atrial Roof line / Posterior line] Given the patient???s persistent atrial fibrillation, additional substrate modification / left atrial ablation was deemed necessary and was performed. Linear ablation was performed, with a roof line constructed connecting the superior excursions of the bilateral pulmonary vein isolation lesions. Linear ablation was also performed in the posterior left atrium, with a line connecting the inferior aspects of the bilateral WACA lesions (roughly parallel to the roof line). Following linear ablation, electrical silence was observed and documented throughout the area of the posterior left atrium bounded by these lesions. [Isthmus-dependent Right Atrial Flutter / Cavotricuspid Isthmus Ablation] As right atrial flutter was present intermittently, we proceeded to map and ablate in the RA. A duodecapolar catheter was positioned in the high and lateral RA. FAM was used to define the right atrial anatomy, including the tricuspid valve annulus, SVC, IVC, and coronary sinus. Using the ablation catheter via the long sheath, a line was constructed from the tricuspid annulus to the IVC in the 6:00 position (TAJIK clock). The line was constructed during CS pacing, and bidirectional block was achieved. The ablation line was mapped to ensure widely spaced double potentials. [MURRY and TAJIK views of the electroanatomic maps of the RA and LA following ablation.] Ablation Summary Total ablation time: 1283 seconds (21.4 minutes) Estimated Blood Loss <50 mL Complications None Conclusions 1. Successful ablation for AF with electrical isolation of all four pulmonary veins 2. Linear/focal left atrial ablation 3. Successful ablation of cavotricuspid isthmus 4. Electrophysiology study (with CS, RA, LA and LV pacing)[, negative for sustained inducible arrhythmia] Recommendations Bedrest / straight leg precautions for 4 hours Resume anticoagulation Possible discharge this afternoon; Will follow-up in the Arrhythmia Center in 4- 6 weeks Aiden Case MD [facility] [id number] documented in this encounter Plan of Treatment Scheduled Orders Name Type Priority Associated Diagnoses Orde r Schedule ECG 12 lead ECG Routine Daily until d iscontinued starting 08/08/2023, 1 completed documented as of this encounter Procedures Procedure Name Priority Date/Time Associated Diagnosis Comments ECG 12-LEAD Routine 08/08/2023 12:51 PM CDT ABLATE ADDTL ARRHYTHMIA ATRIA OR VENT Routine 08/08/2023 9:51 AM CDT Persistent atrial fibrillation (HCC) LEFT VENTRICLE PACING AND RECORDING Routine 08/08/2023 9:51 AM CDT Persistent atrial fibrillation (HCC) ATRIAL FIBRILLATION ABLATION ADDITIONAL LINE OR FOCI Routine 08/08/2023 9:51 AM CDT Persistent atrial fibrillation (HCC) ELECTROPHYSIOLOGIC EVALUATION (EPS) / ATRIAL FIBRILLATION ABLATION VIA PULMONARY VEIN ISOLATION Routine 08/08/2023 9:51 AM CDT Persistent atrial fibrillation (HCC) POCT ACTIVATED CLOTTING TIME, HIGH RANGE Routine 08/08/2023 9:22 AM CDT POCT ACTIVATED CLOTTING TIME, HIGH RANGE Routine 08/08/2023 9:07 AM CDT POCT ACTIVATED CLOTTING TIME, HIGH RANGE Routine 08/08/2023 8:55 AM CDT EGFR STAT 08/08/2023 7:02 AM CDT DIFFERENTIAL AUTO Routine 08/08/2023 7:0 2 AM CDT CBC WITH AUTO DIFFERENTIAL Routine 08/08/2023 7:02 AM CDT COMPREHENSIVE METABOLIC PANEL STAT 08/08/2023 7:02 AM CDT ECG 12-LEAD STAT 08/08/2023 6:54 AM CDT documented in this encounter Results * ECG 12 lead (08/08/2023 12:51 PM CDT) 08/08/2023 12:5 1 PM CDT Narrative [facility] - 08/08/2023 9:01 PM CDT Vent Rate: 74 bpm RR Interval: 809 msec AK Interval: 224 msec QRS Duration: 128 msec QT Interval: 435 msec QTC Interval: 462 msec P-R-T Harper: 61 - 101 - 78 degrees IMPRESSION: SINUS RHYTHM WITH FIRST DEGREE AV BLOCK WITH OCCASIONAL VENTRICULAR PREMATURE COMPLEXES RIGHT AXIS DEVIATION MODERATE INTRAVENTRICULAR CONDUCTION DELAY PROLONGED QT INTERVAL ABNORMAL ECG Electronically Signed By: Chao Mcgee MD [facility] us Aiden Case MD ECG ORDERABLES Final R esult [facility] * ELECTROPHYSIOLOGIC EVALUATION (EPS) / ATRIAL FIBRILLATION ABLATION VIA PULMONARY VEIN ISOLATION, ATRIAL FIBRILLATION ABLATION ADDITIONAL LINE OR FOCI, LEFT VENTRICLE PACING AND RECORDING, ABLATE ADDTL ARRHYTHMIA ATRIA OR VENT (08/08/2023 9:51 AM CDT) Anatomical Region Laterality Modality X-Ray Angiograph y Aiden Case MD CV ELECTROPHYSIOLOGY AK OCS Final Result * (ABNORMAL) POC Activated Clotting Time, High Range (08/08/2023 9:22 AM CDT) ACT 220(H) 87 - 138 sec Blood 08/08/2023 9:22 AM CDT 08/08/2023 9:22 AM CDT Aiden Case MD LAB BLOOD ORDERABLES Fi nal Result Performing Organization Address City/[facility] Co de Phone Number [facility] [address] [facility] [place] [address] * (ABNORMAL) POC Activated Clotting Time, High Range (08/08/2023 9:07 AM CDT) ACT 192(H) 87 - 138 sec Blood 08/08/2023 9:07 AM CDT 08/08/2023 9:07 AM CDT Aiden Case MD LAB BLOOD ORDERABLES Fi nal Result Performing Organization Address [facility] Co de Phone Number [facility] [address] [facility] [place] [place] [id number] * (ABNORMAL) POC Activated Clotting Time, High Range (08/08/2023 8:55 AM CDT) ACT 181(H) 87 - 138 sec Blood 08/08/2023 8:55 AM CDT 08/08/2023 8:55 AM CDT Aiden Case MD LAB BLOOD ORDERABLES Fi nal Result [facility] [address] [facility] [place] [address] * eGFR (08/08/2023 7:02 AM CDT) eGFR 73 >=60 mL/min/1. 73 m2 Comment: Interpretive Data Reference Interval Normal ?>/= 90 mL/min/1.73m2 Mildly decreased* ? 60 - 89 mL/min/1.73m2 Mildly to moderately decreased ?45 - 59 mL/min/1.73m2 Moderately to severely decreased ??30 - 44 mL/min/1.73m2 Severely decreased ?15 - 29 mL/min/1.73m2 Kidney Failure ?< 15 ??mL/min/1.73m2 *Relative to young adult level Estimated glomerular filtration rate is determined by the 2020 CKD-EPI equation recommended by the National Kid[employer] (A Unifying Approach to GFR Estimation: Recommendations of the NKF-ASK Task Force on Reassessing the Inclusion of Race in Diagnosing Kidney Disease, JASN 2020). The CKD-EPI equation should not be used for patients with unstable renal function and has not been validated in children and those over 70. Current interpretive data was last reviewed 2021. Blood 08/08/2023 7:02 AM CDT 08/08/2023 7:22 AM CDT us Aiden Case MD LAB BLOOD ORDERABLES Fi nal Result [facility] [address] Department [place] [address] * Differential, auto (08/08/2023 7:02 AM CDT) Pathologist [facility] Neutrophil abs 4.2 1.5 - 6.5 K/cumm Imm gran abs 0.0 0.0 - 0.1 K/cumm [facility] Lymphocyte abs 2.1 0.8 - 3.3 K/cumm [facility] Monocyte abs 0.8 0.2 - 0.8 K/cumm [facility] Eosinophil abs 0.2 0.0 - 0.5 K/cumm [facility] Basophil abs 0.1 0.0 - 0.1 K/cumm [facility] Neutrophil pct 57.1 % [facility] Comment: Interpretive Data Percent cell count reference ranges are not reported, since discordance with absolute values may lead to misinterpretation of CBC data. Current Interpretive Data was last revised on 2017. Imm gran pct 0.5 % [facility] Comment: Interpretive Data Percent cell count reference ranges are not reported, since discordance with absolute values may lead to misinterpretation of CBC data. Current Interpretive Data was last revised on 2017. Lymphocyte pct 28.7 % [facility] Comment: Interpretive Data Percent cell count reference ranges are not reported, since discordance with absolute values may lead to misinterpretation of CBC data. Current Interpretive Data was last revised on 2017. Monocyte pct 10.3 % [facility] Comment: Interpretive Data Percent cell count reference ranges are not reported, since discordance with absolute values may lead to misinterpretation of CBC data. Current Interpretive Data was last revised on 2017. Eosinophil pct 2.6 % [facility] Comment: Interpretive Data Percent cell count reference ranges are not reported, since discordance with absolute values may lead to misinterpretation of CBC data. Current Interpretive Data was last revised on 2017. Basophil pct 0.8 % [facility] Comment: Interpretive Data Percent cell count reference ranges are not reported, since discordance with absolute values may lead to misinterpretation of CBC data. Current Interpretive Data was last revised on 2017. Blood 08/08/2023 7:02 AM CDT 08/08/2023 7:22 AM CDT us Aiden Case MD LAB BLOOD ORDERABLES Fi nal Result [facility] [address] Department [place] [address] * Comprehensive metabolic panel (08/08/2023 7:02 AM CDT) Sodium 139 135 - 145 mmol/L Potassium, pl 4.0 3.3 - 4.9 mmol/L [facility] Chloride 98 97 - 110 mmol/L [facility] CO2 32 22 - 32 mmol/L [facility] Anion gap 9 2 - 15 mmol/L [facility] BUN 15 6 - 25 mg/dL [facility] Creatinine 1.22 0.80 - 1.30 mg/dL [facility] Glucose 146 70 - 199 mg/dL [facility] Comment: Interpretive Data Fasting glucose >/= 126 mg/dl is diagnostic for diabetes. ?? Fasting is defined as no caloric intake for at least 8 hours. Fasting glucose between 100 mg/dl to 125 mg/dl is diagnostic of prediabetes. In a patient with classic symptoms of hyperglycemia or hyperglycemic crisis, a random glucose >/= 200 mg/dl is diagnostic for diabetes. In the absence of unequivocal hyperglycemia, results should be confirmed by repeat testing. The classification and Diagnosis of Diabetes Diabetes Care 2021; 46: S19-S40. Current interpretive data was last revised 2022. Calcium 8.9 8.5 - 10.3 mg/dL [facility] Bilirubin, total 0.8 0.1 - 1.2 mg/dL [facility] Protein, pl 6.9 6.5 - 8.5 g/dL [facility] Albumin 4.0 3.5 - 5.0 g/dL [facility] Alk phos 53 40 - 130 Units/L [facility] ALT 32 7 - 55 Units/L [facility] AST 35 10 - 50 Units/L [facility] Comment:Slightly Hemolyzed S pecimen Blood 08/08/2023 7:02 AM CDT 08/08/2023 7:22 AM CDT us Aiden Case MD LAB BLOOD ORDERABLES Fi nal Result [facility] [address] Department of Laboratories [place], [place] [id number] * (ABNORMAL) CBC with auto differential (08/08/2023 7:02 AM CDT) WBC 7.3 3.8 - 9.9 K/cumm Hgb 15.1 13.0 - 17.5 g/dL [facility] Hct 44.7 38.9 - 50.3 % [facility] Plt 233 150 - 400 K/cumm [facility] MPV 9.0(L) 9.1 - 12.3 fL [facility] RBC 4.60 4.30 - 5.80 M/cumm [facility] MCV 97.2(H) 81.3 - 96.4 fL [facility] MCH 32.8 27.1 - 33.3 pg [facility] MCHC 33.8 32.3 - 35.7 g/dL [facility] RDW CV 12.4 11.1 - 14.9 % [facility] RDW SD 44.3 35.7 - 48.1 fL [facility] NRBC abs 0.00 0.00 - 0.01 K/cumm [facility] Blood 08/08/2023 7:02 AM CDT 08/08/2023 7:22 AM CDT us Aiden Case MD LAB BLOOD ORDERABLES Fi nal Result Performing Organization Address City/State/[facility] Co de Phone Number [facility] [address] Department [place] [address] * ECG 12 lead (08/08/2023 6:54 AM CDT) 08/08/2023 6:54 AM CDT Narrative [facility] - 08/08/2023 10:26 AM CDT Vent Rate: 79 bpm RR Interval: 754 msec AK Interval: 0 msec QRS Duration: 120 msec QT Interval: 395 msec QTC Interval: 430 msec P-R-T Harper: 0 - 89 - 69 degrees IMPRESSION: ATRIAL FIBRILLATION MODERATE INTRAVENTRICULAR CONDUCTION DELAY ??[110+ ms QRS DURATION] ABNORMAL ECG Electronically Signed By: Musa Espinoza MD [facility] us Aiden Case MD ECG ORDERABLES Final R esult [facility] documented in this encounter Visit Diagnoses Diagnosis Persistent atrial fibrillation (HCC)- Primary Atrial fibrillation documented in this encounter Admitting Diagnoses Diagnosis Persistent atrial fibrillation (HCC) Atrial fibrillation documented in this encounter Administered Medications Inactive Administered Medications - up to 3 most recent administrations Medication Order MAR Action Action Date Dose Rate Site apixaban (ELIQUIS) tablet 5 mg 5 mg, oral, Once, On Sun08/08/23 at 1300, For 1 dose, Nurse to discontinue heparin infusion order and associated bolus at first administration of apixaban using ? order condition met? order source, Indications: atrial fibrillationIndications:atrial fibrillation Given 08/08/2023 1:15 PM CDT 5 mg fentaNYL (SUBLIMAZE) preservative free injection 50 mcg 50 mcg, intravenous, Once as needed, breakthrough pain, Starting on Sun08/08/23 at 1027, For 1 dose, Phase I, Administer for uncontrolled or increasing pain while in PACU only. Given 08/08/2023 10:47 AM CDT 50 mcg sodium chloride 0.9% infusion 50 mL/hr, intravenous, Continuous, Starting on Sun08/08/23 at 0715, Pre-Procedure (CV) New Bag 08/08/2023 8:44 AM CDT Rate/Dose Verify 08/08/2023 7:43 AM CDT 50 mL/h r New Bag 08/08/2023 7:15 AM CDT 50 mL/hr 50 mL/hr documented in this encounter Active and Recently Administered Medications Times are shown in CDT. Scheduled Medication Order 08/06/2023 08/07/2023 08/08/2023 apixaban (ELIQUIS) tablet 5 mg (COMPLETED) 5 mg, oral, Once, On Sun08/08/23 at 1300, For 1 dose, Nurse to discontinue heparin infusion order and associated bolus at first administration of apixaban using ? order condition met? order source, Indications: atrial fibrillation 1315 (Given - Provid er: Meagan Cortez, RN) sodium chloride 0.9% flush 0.5-20 mL 0.5-20 mL, intra-catheter, Every 8 hours scheduled, First dose on Sun08/08/23 at 1400, Recovery (CV), Flush volume based on line type and size. , Indications: Flushing 1400 (Due) Continuous Medication Order 08/06/2023 08/07/2023 08/08/2023 sodium chloride 0.9% infusion 50 mL/hr, intravenous, Continuous, Starting on Sun08/08/23 at 0715, Pre-Procedure (CV) 0715 (New Bag - Prov ider: Natalia Johnson RN)0743 (Rate/Dose Verify - Provider: Pippa Montes CRNA)0843 (Paused - Provider: Pippa Montes CRNA - Comment: Switch to gravity)0844 (New Bag - Provider: Pippa Montes CRNA)1005 (Anesthesia Volume Adjustment - Provider: Pippa Montes CRNA)1948 (Due: Stopped) PRN Medication Order 08/06/2023 08/07/2023 08/08/2023 acetaminophen (TYLENOL) tablet 650 mg 650 mg, oral, Every 4 hours PRN, 1st line for pain, Starting on Sun08/08/23 at 0958, Recovery (CV), Indications: Pain adenosine (ADENOCARD) 3 mg/mL injection (CANCELED) Code/trauma/sedation medication, Starting on Sun08/08/23 at 0931, Intra-Procedure (CV) 0931 (Given - Provid er: Aiden Case MD - Comment: right pulmonary veins) adenosine (ADENOCARD) 3 mg/mL injection (CANCELED) Code/trauma/sedation medication, Starting on Sun08/08/23 at 0932, Intra-Procedure (CV) 0932 (Given - Provid er: Aiden Case MD - Comment: left pulmonary veins) Carrier Fluids for Secondary Infusion - 0.9% Sodium Chloride 30 mL, intravenous, As needed, For priming tubing and/or flushing, Starting on Sun08/08/23 at 0958, Recovery (CV), 0-250 ml/hr to flush line after IV infusions when no maintenance IV ordered. Infuse 30mL at the same rate as the secondary infusion. Run as primary IV, not intended for KVO. fentaNYL (SUBLIMAZE) preservative free injection 50 mcg (COMPLETED) 50 mcg, intravenous, Once as needed, breakthrough pain, Starting on Sun08/08/23 at 1027, For 1 dose, Phase I, Administer for uncontrolled or increasing pain while in PACU only. 1047 (Given - Provid er: Irlanda Dorsey RN) heparin in 0.9% sodium chloride 1,000 units/500 mL (2 unit/mL) infusion (premix) (CANCELED) Code/trauma/sedation medication, Starting on Sun08/08/23 at 0840, Intra-Procedure (CV) 0840 (Given - Provid er: Aiden Case MD - Comment: ablation catheter flush) heparin in 0.9% sodium chloride 1,000 units/500 mL (2 unit/mL) infusion (premix) (CANCELED) Code/trauma/sedation medication, Starting on Sun08/08/23 at 0854, Intra-Procedure (CV) 0854 (Given - Provid er: Aiden Case MD - Comment: octaray catheter flush) heparin in 0.9% sodium chloride 2,000 unit/1,000 mL (2 unit/mL) infusion (premix) (CANCELED) Code/trauma/sedation medication, Starting on Sun08/08/23 at 0830, Intra-Procedure (CV) 0830 (Given - Provid er: Aiden Case MD - Comment: back table flush) lidocaine-EPINEPHrine (XYLOCAINE with EPI) 2 %-1:100,000 injection (CANCELED) Code/trauma/sedation medication, Starting on Sun08/08/23 at 0950, Intra-Procedure (CV), Indications: Administration of Local Anesthesia 0950 (Given - Provid er: Aiden Case MD) lidocaine-EPINEPHrine (XYLOCAINE with EPI) 2 %-1:100,000 injection (CANCELED) Code/trauma/sedation medication, Starting on Sun08/08/23 at 0950, Intra-Procedure (CV), Indications: Administration of Local Anesthesia 0950 (Given - Provid er: Aiden Case MD) ondansetron (ZOFRAN) injection 4 mg 4 mg, intravenous, Administer over 2 Minutes, Every 4 hours PRN, nausea, vomiting, Starting on Sun08/08/23 at 0958, Recovery (CV), Indications: Nausea and Vomiting oxyCODONE (ROXICODONE) tablet 5 mg 5 mg, oral, Every 4 hours PRN, 2nd line for pain, Starting on Sun08/08/23 at 0958, Recovery (CV), May administer 1 hour after 1st line agent for uncontrolled or increasing pain., Indications: Pain sodium chloride 0.9% flush 0.5-20 mL 0.5-20 mL, intra-catheter, As needed, line care, Starting on Sun08/08/23 at 0958, Recovery (CV), Flush volume based on line type and size. Flush before and after each use. , Indications: Flushing documented in this encounter Orders Medications Ordered That Angel ht Not Have Been Administered Count Last Ordered Date First Ordered Date acetaminophen (TYLENOL) tablet 650 mg 1 adenosine (ADENOCARD) 3 mg/mL injection 2 0 08/08/2023 albuterol 2.5 mg /3 mL (0.08 3 %) nebulizer solution 2.5 mg 1 08/08/2023 Carrier Fluids for Secondary Infusion - 0.9% Sodium Chloride 1 08/08/2023 diphenhydrAMINE (BENADRYL) 5 0 mg/mL injection 12.5 mg 1 08/08/2023 fentaNYL (SUBLIMAZE) preserv ative free injection 25 mcg 1 08/08/2023 haloperidol (HALDOL) injection 1 mg 1 08/07 heparin in 0.9% sodium chlor zachary 1,000 units/500 mL (2 unit/mL) infusion (premix) 2 08/08/2023 heparin in 0.9% sodium chlor zachary 2,000 unit/1,000 mL (2 unit/mL) infusion (premix) 1 08/08/2023 labetaloL (NORMODYNE,TRANDAT E) injection 5 mg 1 08/08/2023 lidocaine-EPINEPHrine (XYLOC YFN with EPI) 2 %-1:100,000 injection 2 08/08/2023 meperidine (DEMEROL) preserv ative free injection 12.5 mg 1 08/08/2023 naloxone (NARCAN) 0.4 mg/mL injection 0.04-0.4 mg 1 08/08/2023 ondansetron (ZOFRAN) injection 4 mg 2 08/07 oxyCODONE (ROXICODONE) tablet 5 mg 1 2023 racepinephrine (ASTHMANEFRIN ) 2.25 % nebulizer solution 0.5 mL 1 08/08/2023 sodium chloride 0.9% flush 0.5-20 mL 2 07/22 Nursing Count Last Ordered Date First Orde red Date TELEMETRY MONITORING 1 08/08/2023 Discharge Count Last Ordered Date First Orde red Date DISCHARGE PATIENT 1 08/08/2023 CORE MEASURES Count Last Ordered Date First Ord ered Date REASON FOR NO VTE PROPHYLAXIS AT ADMISSION 1 08/08/2023 documented in this encounter Care Teams Diabetes Territory Manager Relationship Specialty Start Date End Date Shan Loera DO [address] [place] [address] PCP - General Family Medicine 02/09/23 documented as of this encounter
--- OUTSIDE RECORDS SUMMARY | 2024-04-26 18:28 | XMS_ITS | Encounter Summary ---
Author Organization [facility] Address [address] [place] [address] Care Team Providers Care Mechanism Inspector Name Role Phone Shan Loera DO Primary Care Provider Reason for Referral * Cardiology (Routine) - Closed Specialty Diagnoses / Procedures Referred By Mark t Referred To Contact Diagnoses Longstanding persistent atrial fibrillation Procedures Transesophageal Echo (NELL) W Doppler/CF TRANSESOPHAGEAL ECHO (NELL) W DOPPLER/CF TRANSESOPHAGEAL ECHO (NELL) W DOPPLER/CF WO CONTRAST TRANSESOPHAGEAL ECHOCARDIOGRAM (NELL) COMPLETE W/ CONTRAST TRANSESOPHAGEAL ECHO (NELL) W DOPPLER/CF W CONTRAST TRANSESOPHAGEAL ECHO (NELL) W LTD DOPPLER/CF WO CONTRAST TRANSESOPHAGEAL ECHOCARDIOGRAM (NELL) COMPLETE W/ COLOR TRANSESOPHAGEAL ECHO (NELL) WO DOPPLER/CF W CONTRAST [facility] [address] [place] [phone] Phone: tel: fax: [address] [phone] Referral ID Status Reason Start Date Expiration Date Visits Re quested Visits Authorized [id number] Closed 07/04/2023 08/02/2024 1 1 * Cardiology (Routine) - Closed Specialty Diagnoses / Procedures Referred By Mark t Referred To Contact Diagnoses Longstanding persistent atrial fibrillation Procedures Transesophageal Echo (NELL) W Doppler/CF TRANSESOPHAGEAL ECHO (NELL) W DOPPLER/CF TRANSESOPHAGEAL ECHO (NELL) W DOPPLER/CF WO CONTRAST TRANSESOPHAGEAL ECHOCARDIOGRAM (NELL) COMPLETE W/ CONTRAST TRANSESOPHAGEAL ECHO (NELL) W DOPPLER/CF W CONTRAST TRANSESOPHAGEAL ECHO (NELL) W LTD DOPPLER/CF WO CONTRAST TRANSESOPHAGEAL ECHOCARDIOGRAM (NELL) COMPLETE W/ COLOR TRANSESOPHAGEAL ECHO (NELL) WO DOPPLER/CF W CONTRAST [facility] [address] [place] [phone] Phone: tel: fax: [address] [phone] Referral ID Status Reason Start Date Expiration Date Visits Re quested Visits Authorized [id number] Closed 07/04/2023 08/02/2024 1 1 Reason for Visit * Auth/Cert (Routine) Specialty Diagnoses / Procedures Referred By Mark reynoso Referred To Contact Diagnoses Persistent atrial fibrillation (HCC) Persistent atrial fibrillation (HCC) [I48.19] Procedures ABLATION ATRIAL FIBRILLATION (A-FIB) VIA PULMONARY VEIN ISOLATION [id number] Referral ID Status Reason Start Date Expiration Date Visits Re quested Visits Authorized [id number] 1 1 Encounter Details Date Type Department Care Team (Latest Contact Info) Description 08/08/2023 6:36 AM CDT - 08/08/2023 11:59 PM CDT Hospital Encounter [facility] [address] [place] [phone] Janna EdgeAssociate Software Application EngineerMD [address] [place], [place] [phone] Discharge Disposition: Discharge to home or self [...] CDT Gender Identity Male 06/20/2023 11:48 PM [employer] Sexual Orientation Straight 06/20/2023 11 :48 PM [employer] documented as of this encounter Medications at [...] times a day 180 tablet 3 03/22/2023 4 metoprolol XL (TOPROL-XL) 100 mg 24 hr tabletIndications: Persistent atrial fibrillation (HCC) Take 1 tablet (100 mg total) by mouth daily 90 tablet 3 03/22/2023 4 documented as of this encounter Discharge Disposition Disposition Code Departure Means Destination Discharge to home or self care documented in this encounter Plan of Treatment Not on file documented as of this encounter Procedures Procedure Name Priority Date/Time Associated Diagnosis Comments TRANSESOPHAGEAL ECHO (NELL) W DOPPLER/CF WO CONTRAST Routine 08/08/2023 8:32 AM CDT documented in this encounter Results * TRANSESOPHAGEAL ECHO (NELL) W DOPPLER/CF WO CONTRAST (08/08/2023 8:32 AM CDT) Anatomical Region Laterality Modality Echocardiography 08/08/2023 7:21 AM CDT Narrative 08/08/2023 7:11 PM CDT [facility] [address] [place] [address] TRANSESOPHAGEAL ECHOCARDIOGRAM Patient Name: JONATHAN QUILES W : 1975 Study Date: 08/08/2023 7:21:26 AM Gender: M Tech: Location: 6143 Ref Provider: ? Height(Cm): 185 BSA: 2.9 Weight(Kg): 182.8 BP: 126/70 PROCEDURES: Transesophageal Echo Report: Transesophageal echocardiogram including 2D imaging, spectral doppler and color doppler was performed in the cardiac catheterization laboratory. The procedure was monitored with automatic blood pressure monitoring, ECG tracings, and pulse oximetry. Sedation was achieved by anesthesia using Propofol IV. The transesophageal probe was placed in the esophagus posterior to the heart without any complications. The patient tolerated the procedure well. INDICATIONS: Atrial fibrillation. Measurements: FINDINGS: BP: Blood pressure: 126/70 mmHg. Left Ventricle: Normal global and regional left ventricular systolic function. Ejection Fraction is estimated at 55-60 %. Right Ventricle: Normal right ventricular size. Normal right ventricular systolic function. Left Atrium: There is mild enlargement of the left atrium. Saline contrast study negative for R to L shunt. LA Appendage: No TRINH thrombus seen. Right Atrium: There is moderate enlargement of the right atrium. Atrial Septum: Normal atrial septum. Mitral Valve: Normal appearance of the mitral valve. Mild mitral valve regurgitation. Aortic Valve: Normal appearance and function of the aortic valve. Trileaflet aortic valve. Tricuspid Valve: Normal appearance and function with trace (physiologic) regurgitation of the tricuspid valve. Pulmonic Valve: Normal pulmonic valve appearance and function with trace (physiologic) regurgitation. Pericardium: Normal pericardium with no significant pericardial effusion. Aorta: Normal caliber aortic root. Ascending aorta is normal in size. CONCLUSIONS: 1. Normal global and regional left ventricular systolic function. Ejection Fraction is estimated at 55-60 %. 2. Normal right ventricular size. Normal right ventricular systolic function. 3. There is mild enlargement of the left atrium. Saline contrast study negative for R to L shunt. 4. No TRINH thrombus seen. Electronically Signed By: Breezy Segundo [facility] Card 2023-08-08 19:10:55 CDT Procedure Note Breezy Segundo MD - 08/08/2023 [facility] [address] [place] [address] TRANSESOPHAGEAL ECHOCARDIOGRAM Patient Name: JONATHAN QUILES W : 1975 Study Date: 08/08/2023 7:21:26 AM Gender: M Tech: Location: 6143 Ref Provider: Height(Cm): 185 BSA: 2.9 Weight(Kg): 182.8 BP: 126/70 PROCEDURES: Transesophageal Echo Report: Transesophageal echocardiogram including 2D imaging, spectral doppler andcolor doppler was performed in the cardiac catheterization laboratory. The procedure wasmonitored with automatic blood pressure monitoring, ECG tracings, and pulse oximetry.Sedation was achieved by anesthesia using Propofol IV. The transesophageal probe wasplaced in the esophagus posterior to the heart without any complications. The patienttolerated the procedure well. INDICATIONS: Atrial fibrillation. Measurements: FINDINGS: BP: Blood pressure: 126/70 mmHg. Left Ventricle: Normal global and regional left ventricular systolic function. EjectionFraction is estimated at 55-60 %. Right Ventricle: Normal right ventricular size. Normal right ventricular systolicfunction. Left Atrium: There is mild enlargement of the left atrium. Saline contrast studynegative for R to L shunt. LA Appendage: No TRINH thrombus seen. Right Atrium: There is moderate enlargement of the right atrium. Atrial Septum: Normal atrial septum. Mitral Valve: Normal appearance of the mitral valve. Mild mitral valve regurgitation. Aortic Valve: Normal appearance and function of the aortic valve. Trileaflet aorticvalve. Tricuspid Valve: Normal appearance and function with trace (physiologic) regurgitation ofthe tricuspid valve. Pulmonic Valve: Normal pulmonic valve appearance and function with trace (physiologic)regurgitation. Pericardium: Normal pericardium with no significant pericardial effusion. Aorta: Normal caliber aortic root. Ascending aorta is normal in size. CONCLUSIONS: 1. Normal global and regional left ventricular systolic function. EjectionFraction is estimated at 55-60 %. 2. Normal right ventricular size. Normal right ventricular systolicfunction. 3. There is mild enlargement of the left atrium. Saline contrast studynegative for R to L shunt. 4. No TRINH thrombus seen. Electronically Signed By: Breezy Segundo [facility] Card 2023-08-08 19:10:55 CDT us Associate Software Application Engineer Kely HENDRICKS CV ECHO PROCEDURE S Final Result documented in this encounter Visit Diagnoses Not on filedocumented in this encounter Care Teams Mechanism Inspector Relationship Specialty Start Date End Date Shan Loera DO [address] [place] [address] PCP - General Family Medicine 02/09/23 documented as of this encounter
--- OUTSIDE RECORDS SUMMARY | 2024-04-26 18:28 | XMS_ITS | Encounter Summary ---
Author Organization [facility] Healthcare Address [address] [place] [address] Care Team Providers Care Triage Specialist Name Role Phone Lonlucius Shanjustin Johnsonh Primary Care Provider Encounter Details Date Type Department Care Team (Late st Contact Info) Description 05/24/[address] [facility] Medical Group Cardiology [address] [place] [phone] Karl Rae MD [address] [place] [address] Social History Tobacco Use Types Packs/Day Years Used Date Smoking Tobacco: Former Cigarettes Q uit: 02/01/2009 Personal Safety Answer Date Recorded Getting School Help Needed Not on file 04/30 Sex and Gender Information Value Date Recorded Sex Assigned at Not on file Legal Sex Male 8:29 AM CDT Gender Identity Male 06/20/2023 11:48 PM PUMPER HEAD Sexual Orientation Straight 06/20/2023 11 :48 PM PUMPER HEAD documented as of this encounter Miscellaneous Notes * Telephone Encounter - Zeina Yin RN - 05/24/2023 3:02 PM PUMPER HEAD Spoke with pt, reviewed result note below from CT. Please let him know his chest xray was normal, good news. ER HEAD * Telephone Encounter - Brandy iHcks RN - 05/24/2023 1:18 PM CST Forms faxed and pt notified ER HEAD * Telephone Encounter - Brandy Hicks RN - 05/24/2023 9:29 AM CST Spoke with pt. Updated that we will work on forms. 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 Requesting an update on it. Contact: ER HEAD documented in this encounter Plan of Treatment Not on file documented as of this encounter Visit Diagnoses Not on filedocumented in this encounter Care Teams Triage Specialist Relationship Specialty Start Date End Date Shan Loera DO [address] [place] [address] PCP - General Family Medicine 02/09/23 documented as of this encounter
--- OUTSIDE RECORDS SUMMARY | 2024-04-26 18:28 | XMS_ITS | Encounter Summary ---
Author Organization [facility] Healthcare Address [address] [place] [address] Care Team Providers Care Structured Cabling Technician Name Role Phone Shan Loerah Primary Care Provider Encounter Details Date Type Department Care Team (Late st Contact Info) Description 07/04/2023 Telephone [facility] [address] [facility] [address] [place] [id number] Aiden Case MD [address] [address] Social History Tobacco Use Types Packs/Day Years Used Date Smoking Tobacco: Former Cigarettes Q uit: 02/01/2009 Personal Safety Answer Date Recorded Getting School Help Needed Not on file 04/30 Sex and Gender Information Value Date Recorded Sex Assigned at Not on file Legal Sex Male 8:29 AM CDT Gender Identity Male 06/20/2023 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 Sexual Orientation Straight 06/20/2023 11 :48 PM ASSOCIATE PROFESSOR OF THEOLOGY documented as of this encounter Miscellaneous Notes * Telephone Encounter - Teresa Barrientos RMA - 07/04/2023 4:14 PM CDT Pt is scheduled on 08/07 and needs NELL same day documented in this encounter Plan of Treatment Not on file documented as of this encounter Visit Diagnoses Not on filedocumented in this encounter Care Teams Structured Cabling Technician Relationship Specialty Start Date End Date Shan Loera DO [address] [place] [address] PCP - General Family Medicine 02/09/23 documented as of this encounter
--- OUTSIDE RECORDS SUMMARY | 2024-04-26 18:28 | XMS_ITS | Encounter Summary ---
Author Organization [facility] Healthcare Address [address] [place] [address] Care Team Providers Care Through Operator Name Role Phone LonKayley kanjustin Johnsonh Primary Care Provider Encounter Details Date Type Department Care Team (Late st Contact Info) Description 05/16/2023 Orders Only [facility] Medical Group Cardiology [address] [facility] [address] [place] [address] Karl Rae MD [address] 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 Sexual Orientation Straight 06/20/2023 11 :48 PM TRUCK TRAILER MECHANIC documented as of this encounter Plan of Treatment Not on file documented as of this encounter Procedures Procedure Name Priority Date/Time Associated Diagnosis Comments CARDIOLOGY DOCUMENT SCAN Routine 05/14/2023 1:51 PM TRUCK TRAILER MECHANIC CARDIOLOGY DOCUMENT SCAN Routine 05/14/2023 1:49 PM TRUCK TRAILER MECHANIC documented in this encounter Results * Cardiology Document Scan (05/14/2023 1:51 PM TRUCK TRAILER MECHANIC) Anatomical Region Laterality Modality Other us Karl Rae MD [facility] C[facility]IAC SERVICES PROC EDURES Final Result * Cardiology Document Scan (05/14/2023 1:49 PM TRUCK TRAILER MECHANIC) Anatomical Region Laterality Modality Other us Karl Rae MD [facility] CARDIAC SERVICES PROC EDURES Final Result documented in this encounter Visit Diagnoses Not on filedocumented in this encounter Care Teams Through Operator Relationship Specialty Start Date End Date Shan Loera DO [address] [place] [address] PCP - General Family Medicine 02/09/23 documented as of this encounter
--- OUTSIDE RECORDS SUMMARY | 2024-04-26 18:28 | XMS_ITS | Encounter Summary ---
Author Organization [facility] Healthcare Address [address] [place] [address] Care Team Providers Care Marine Oil Terminal Superintendent Name Role Phone LonluciusShanh Primary Care Provider Reason for Visit * Auth/Cert (Routine) Specialty Diagnoses / Procedures Referred By Mark t Referred To Contact Diagnoses Persistent atrial fibrillation (HCC) Persistent atrial fibrillation (HCC) [I48.19] Procedures ABLATION ATRIAL FIBRILLATION (A-FIB) VIA PULMONARY VEIN ISOLATION [id number] Referral ID Status Reason Start Date Expiration Date Visits Re quested Visits Authorized [id number] 1 1 Encounter Details Date Type Department Care Team (Late st Contact Info) Description 08/08/2023 7:30 AM CDT - 08/08/2023 9:40 AM CDT Surgery [facility] [address] [place] [phone] Aiden Case MD [address] [facility] [address], [place] [address] ABLATION ATRIAL FIBRILLATION (A-FIB) VIA PULMONARY VEIN ISOLATION 94361 Surgery Details Date/Time Status Location OR Service Patient Class Case Class Case Type Trauma Case? 08/08/2023 7:30 AM Posted [facility] CARDIAC BRIDGE CREW MEMBER CCL/ EP C Cardiovascular Outpatient Elective Panel 1 Procedure LRB Anes Op Region Wound Class Comments ABLATION ATRIAL FIBRILLATION (A-FIB) VIA PULMONARY VEIN ISOLATION 83110 N/A General ABLATION ATRIAL FIBRILLATION ADDITIONAL LINE OR FOCI (+) 72158 N/A LEFT VENTRICLE PACING AND RECORDING 60051 N/A ABLATE ADDTN'L ARRHYTHMIA, A TRIAL OR VENTRICULAR (+) 05315 N/A Surgeon Surgeon Role Service Panel Aiden Case MD Primary Cardiovascular 1 Case Notes A-fib ablation/carto/NELL prior documented in this encounter Social History Tobacco Use Types Packs/Day [...] CDT Gender Identity Male 06/20/2023 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 PM 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 Sexual Orientation Straight 06/20/2023 11 :48 PM 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 documented as of this encounter Last Filed Vital Signs Vital Sign Reading Time Taken Comments Blood Pressure 118/71 08/08/2023 7:08 AM CDT Pulse 76 08/08/2023 7:08 AM CDT Temperature - - Respiratory Rate 18 08/08/2023 7:0 8 AM CDT Oxygen Saturation 92% 08/08/2023 7:08 AM CDT Inhaled Oxygen Concentration - - Weight 183.4 kg (404 lb 6.4 oz) 08/08/2023 7:08 AM CDT Height 185.4 cm (6' 1 ) 08/08/2023 7:08 AM CDT Body Mass Index 53.35 08/08/2023 7:08 AM CDT documented in this encounter Discharge Instructions * Discharge Instructions* Meagan Cortez, RN - 08/08/2023 1:33 PM CDT Cardiac Laboratory [facility] [place], [place] [address] [facility] Discharge Instructions---Angiogram MEDICATIONS [] Do not take [...] for any reason without discussing with your soa architect first. - These medications may make you [...] home diet [] Special diet Instructed by Engineering Test Specialist ACTIVITY You have been given medications which [...] documented in this encounter H&P Notes * Aiden Case MD - 08/08/2023 3:48 PM CDT [facility] [address] [place] [address], [address] [address] Patient Name: Jonathan Quiles Date of : 1975 Primary Physician: Shan Loera DO Admission Date: 08/08/2023 This note was dictated with voice-recognition software, and production ski repairer errors may be present. . . . 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 Quiles is a 48-year-old [...] or equal to 350 seconds. An 8 Yi deflectable phased-array ultrasound catheter was advanced to the center right atrium, and intracardiac echocardiography (ICE) was used to visualize the intraatrial septum and fossa ovalis in preparation for transseptal left heart catheterization. A single transseptal puncture was performed using the [employer] RF needle inside a Vizigo deflectable long sheath. After entrance into the left atriumwas confirmed, the sheath was advanced into the center left atrium. A Smart Touch SF irrigated contact force-sensitive ablation catheter was advanced to the right atrium via an SL1 long sheath, and subsequently was manipulated across the transseptal puncture and positioned in the left atrium. A splined multipolar mapping catheter ([employer]) was positioned in the left atrium via [...] the left atrium and a duodecapolar catheter ([employer]) was advanced to the lateral and high [...] to the IVC in the 6:00 position (KINYARWANDA clock). The line was constructed during CS pacing, and bidirectional block was achieved. The ablation line was mapped to ensure widely spaced double potentials. [MURRY and KINYARWANDA views of the electroanatomic maps of the [...] in 4- 6 weeks Aiden Case MD [facility] [id number] documented in this encounter Plan of Treatment [...] CDT) 08/08/2023 12:5 1 PM CDT Narrative [facility] - 08/08/2023 9:01 PM CDT Vent Rate: 74 bpm RR Interval: 809 msec MT Interval: 224 msec QRS Duration: 128 msec QT Interval: 435 msec QTC Interval: 462 msec P-R-T Magalia: 61 - 101 - 78 degrees IMPRESSION: SINUS RHYTHM WITH FIRST DEGREE AV BLOCK WITH OCCASIONAL VENTRICULAR PREMATURE COMPLEXES RIGHT AXIS DEVIATION MODERATE INTRAVENTRICULAR CONDUCTION DELAY PROLONGED QT INTERVAL ABNORMAL ECG Electronically Signed By: Chao Mcgee MD [facility] us Aiden Case MD ECG ORDERABLES Final R esult Performing Organization Address City/[facility]/ZIP Co de Phone Number [facility] * ELECTROPHYSIOLOGIC EVALUATION (EPS) / ATRIAL FIBRILLATION ABLATION VIA PULMONARY VEIN ISOLATION, ATRIAL FIBRILLATION ABLATION ADDITIONAL LINE OR FOCI, LEFT VENTRICLE PACING AND RECORDING, ABLATE ADDTL ARRHYTHMIA ATRIA OR VENT (08/08/2023 9:51 AM CDT) Anatomical Region Laterality Modality X-Ray Angiograph y us Aiden Case MD CV ELECTROPHYSIOLOGY MT OCS Final Result * (ABNORMAL) POC Activated Clotting Time, High Range (08/08/2023 9:22 AM CDT) ACT 220(H) 87 - 138 sec Blood 08/08/2023 9:22 AM CDT 08/08/2023 9:22 AM CDT us Aiden Case MD LAB BLOOD ORDERABLES Fi nal Result Performing Organization Address [facility] Co de Phone Number [facility] [address] [place] [address] * (ABNORMAL) POC Activated Clotting Time, High Range (08/08/2023 9:07 AM CDT) ACT 192(H) 87 - 138 sec Blood 08/08/2023 9:07 AM CDT 08/08/2023 9:07 AM CDT us Aiden Case MD LAB BLOOD ORDERABLES Fi nal Result Performing Organization Address City/[facility] Co de Phone Number [facility] [address] Department [place] [address] * (ABNORMAL) POC Activated Clotting Time, High Range (08/08/2023 8:55 AM CDT) ACT 181(H) 87 - 138 sec Blood 08/08/2023 8:55 AM CDT 08/08/2023 8:55 AM CDT us Aiden Case MD LAB BLOOD ORDERABLES Fi nal Result Performing Organization Address [facility]/State/ZIP Co de Phone Number [facility] [address] Department of Laboratories [place], [place] [id number] * eGFR (08/08/2023 7:02 AM CDT) [facility] eGFR 73 >=60 mL/min/1. 73 m2 Comment: [...] 7:02 AM CDT 08/08/2023 7:22 AM CDT Aiden Case MD LAB BLOOD ORDERABLES Fi nal Result [facility] [address] Department [place] [address] * Differential, auto (08/08/2023 7:02 AM CDT) Neutrophil abs 4.2 1.5 - 6.5 K/cumm Imm gran abs 0.0 0.0 - 0.1 K/cumm [facility] Lymphocyte abs 2.1 0.8 - 3.3 K/cumm [facility] Monocyte abs 0.8 0.2 - 0.8 K/cumm [facility] Eosinophil abs 0.2 0.0 - 0.5 K/cumm [facility] Basophil abs 0.1 0.0 - 0.1 K/cumm [facility] Neutrophil pct 57.1 % [facility] Comment: Interpretive Data Percent cell count reference ranges are not reported, since discordance with absolute values may lead to misinterpretation of CBC data. Current Interpretive Data was last revised on 2017. Imm gran pct 0.5 % [facility] Comment: Interpretive Data Percent cell count reference ranges are not reported, since discordance with absolute values may lead to misinterpretation of CBC data. Current Interpretive Data was last revised on 2017. Lymphocyte pct 28.7 % [facility] Comment: Interpretive Data Percent cell count reference ranges are not reported, since discordance with absolute values may lead to misinterpretation of CBC data. Current Interpretive Data was last revised on 2017. Monocyte pct 10.3 % [facility] Comment: Interpretive Data Percent cell count reference ranges are not reported, since discordance with absolute values may lead to misinterpretation of CBC data. Current Interpretive Data was last revised on 2017. Eosinophil pct 2.6 % [facility] Comment: Interpretive Data Percent cell count reference ranges are not reported, since discordance with absolute values may lead to misinterpretation of CBC data. Current Interpretive Data was last revised on 2017. Basophil pct 0.8 % [facility] Comment: Interpretive Data Percent cell count reference ranges are not reported, since discordance with absolute values may lead to misinterpretation of CBC data. Current Interpretive Data was last revised on 2017. Blood 08/08/2023 7:02 AM CDT 08/08/2023 7:22 AM CDT us Aiden Case MD LAB BLOOD ORDERABLES Fi nal Result [facility] [address] Department [place] [address] * Comprehensive metabolic panel (08/08/2023 7:02 AM CDT) Sodium 139 135 - 145 mmol/L Potassium, pl 4.0 3.3 - 4.9 mmol/L [facility] Chloride 98 97 - 110 mmol/L [facility] CO2 32 22 - 32 mmol/L [facility] Anion gap 9 2 - 15 mmol/L [facility] BUN 15 6 - 25 mg/dL [facility] Creatinine 1.22 0.80 - 1.30 mg/dL [facility] Glucose 146 70 - 199 mg/dL [facility] Comment: Interpretive Data Fasting glucose >/= 126 [...] classification and Diagnosis of Diabetes Diabetes Care 202; 46: S19-S40. Current interpretive data was last revised 2022. Calcium 8.9 8.5 - 10.3 mg/dL [facility] Bilirubin, total 0.8 0.1 - 1.2 mg/dL [facility] Protein, pl 6.9 6.5 - 8.5 g/dL [facility] Albumin 4.0 3.5 - 5.0 g/dL [facility] Alk phos 53 40 - 130 Units/L [facility] ALT 32 7 - 55 Units/L [facility] AST 35 10 - 50 Units/L [facility] Comment:Slightly Hemolyzed S pecimen Blood 08/08/2023 7:02 AM CDT 08/08/2023 7:22 AM CDT Aiden Case MD LAB BLOOD ORDERABLES Fi nal Result Performing Organization Address [facility] Co de Phone Number [facility] [address] [employer] [place], [place] [phone] * (ABNORMAL) CBC with auto differential (08/08/2023 7:02 AM CDT) [facility] WBC 7.3 3.8 - 9.9 K/cumm Hgb 15.1 13.0 - 17.5 g/dL [facility] Hct 44.7 38.9 - 50.3 % [facility] Plt 233 150 - 400 K/cumm [facility] MPV 9.0(L) 9.1 - 12.3 fL [facility] RBC 4.60 4.30 - 5.80 M/cumm [facility] MCV 97.2(H) 81.3 - 96.4 fL [facility] MCH 32.8 27.1 - 33.3 pg [facility] MCHC 33.8 32.3 - 35.7 g/dL [facility] RDW CV 12.4 11.1 - 14.9 % [facility] RDW SD 44.3 35.7 - 48.1 fL [facility] NRBC abs 0.00 0.00 - 0.01 K/cumm [facility] Blood 08/08/2023 7:02 AM CDT 08/08/2023 7:22 AM CDT us Aiden Case MD LAB BLOOD ORDERABLES Fi nal Result Performing Organization Address City/[facility]/ZIP Co de Phone Number [facility] [address] Department [facility] [place] [address] * ECG 12 lead (08/08/2023 6:54 AM CDT) 08/08/2023 6:54 AM CDT Narrative [facility] - 08/08/2023 10:26 AM CDT Vent Rate: 79 bpm RR Interval: 754 msec MT Interval: 0 msec QRS Duration: 120 msec QT Interval: 395 msec QTC Interval: 430 msec P-R-T Magalia: 0 - 89 - 69 degrees IMPRESSION: ATRIAL FIBRILLATION MODERATE INTRAVENTRICULAR CONDUCTION DELAY ??[110+ ms QRS DURATION] ABNORMAL ECG Electronically Signed By: Musa Espinoza MD [facility] us Aiden Case MD ECG ORDERABLES Final R esult [facility] documented in this encounter Visit Diagnoses Diagnosis Persistent atrial fibrillation (HCC)- Primary Atrial fibrillation Persistent atrial fibrillation (HCC) Atrial fibrillation documented in this encounter Admitting Diagnoses Diagnosis Persistent atrial fibrillation (HCC) Atrial fibrillation documented in this encounter Administered Medications Inactive Administered Medications - up to 3 most recent administrations Medication Order MAR Action Action Date Dose Rate Site adenosine (ADENOCARD) 3 mg/mL injection Code/trauma/sedation medication, Starting on Sun08/08/23 at 0931, Intra-Procedure (CV) Given 08/08/2023 9:31 AM CDT 12 mg adenosine (ADENOCARD) 3 mg/mL injection Code/trauma/sedation medication, Starting on Sun08/08/23 at 0932, Intra-Procedure (CV) Given 08/08/2023 9:32 AM CDT 12 mg apixaban (ELIQUIS) tablet 5 mg 5 mg, oral, Once, On Sun08/08/23 at 1300, For 1 dose, Nurse to discontinue heparin infusion order and associated bolus at first administration of apixaban using ? order condition met? order source, Indications: atrial fibrillationIndications:atri al fibrillation Given 08/08/2023 1:15 PM CDT 5 mg fentaNYL (SUBLIMAZE) preservative free injection 50 mcg 50 mcg, intravenous, Once as needed, breakthrough pain, Starting on Sun08/08/23 at 1027, For 1 dose, Phase I, Administer for uncontrolled or increasing pain while in PACU only. Given 08/08/2023 10:47 AM CDT 50 mcg heparin in 0.9% sodium chloride 1,000 units/500 mL (2 unit/mL) infusion (premix) Code/trauma/sedation medication, Starting on Sun08/08/23 at 0840, Intra-Procedure (CV) Given 08/08/2023 8:40 AM CDT 500 mL heparin in 0.9% sodium chloride 1,000 units/500 mL (2 unit/mL) infusion (premix) Code/trauma/sedation medication, Starting on Sun08/08/23 at 0854, Intra-Procedure (CV) Given 08/08/2023 8:54 AM CDT 500 mL heparin in 0.9% sodium chloride 2,000 unit/1,000 mL (2 unit/mL) infusion (premix) Code/trauma/sedation medication, Starting on Sun08/08/23 at 0830, Intra-Procedure (CV) Given 08/08/2023 8:30 AM CDT 1,000 mL lidocaine-EPINEPHrine (XYLOCAINE with EPI) 2 %-1:100,000 injection Code/trauma/sedation medication, Starting on Sun08/08/23 at 0950, Intra-Procedure (CV), Indications: Administration of Local AnesthesiaIndications:Admini stration of Local Anesthesia Given 08/08/2023 9:50 AM CDT 5 mL Left Groin lidocaine-EPINEPHrine (XYLOCAINE with EPI) 2 %-1:100,000 injection Code/trauma/sedation medication, Starting on Sun08/08/23 at 0950, Intra-Procedure (CV), Indications: Administration of Local AnesthesiaIndications:Admini stration of Local Anesthesia Given 08/08/2023 9:50 AM CDT 5 mL Right Groin sodium chloride 0.9% infusion 50 mL/hr, intravenous, [...] fibrillation 1315 (Given - Provid er: Meagan Cortez RN) sodium chloride 0.9% flush 0.5-20 mL [...] Date acetaminophen (TYLENOL) tablet 650 mg 1 albuterol 2.5 mg /3 mL (0.08 3 %) nebulizer solution 2.5 mg 1 08/08/2023 Carrier Fluids for Secondary Infusion - 0.9% Sodium Chloride 08/08/2023 diphenhydrAMINE (BENADRYL) 5 0 mg/mL injection 12.5 mg 08/08/2023 fentaNYL (SUBLIMAZE) preserv ative free injection 25 mcg 08/08/2023 haloperidol (HALDOL) injection 1 mg 08/07 labetaloL (NORMODYNE,TRANDAT E) injection 5 mg 08/08/2023 meperidine (DEMEROL) preserv ative free injection 12.5 mg 08/08/2023 naloxone (NARCAN) 0.4 mg/mL injection 0.04-0.4 mg 08/08/2023 ondansetron (ZOFRAN) injection 4 mg 2 08/07 oxyCODONE (ROXICODONE) tablet 5 mg 2023 racepinephrine (ASTHMANEFRIN ) 2.25 % nebulizer solution 0.5 mL 08/08/2023 sodium chloride 0.9% flush 0.5-20 mL 2 07/22 Nursing Count Last Ordered Date First Orde red Date TELEMETRY MONITORING 1 08/08/2023 Discharge Count Last Ordered Date First Orde red Date DISCHARGE PATIENT 1 08/08/2023 CORE MEASURES Count Last Ordered Date First Ord ered Date REASON FOR NO VTE PROPHYLAXIS AT ADMISSION 1 08/08/2023 documented in this encounter Care Teams [employer] Superintendent Relationship Specialty Start Date End Date Shan Loera DO [address] [place] [address] PCP - General Family Medicine 02/09/23 documented as of this encounter
--- OUTSIDE RECORDS SUMMARY | 2024-04-26 18:28 | XMS_ITS | Encounter Summary ---
Author Organization [facility] Healthcare Address [address] [place] [address] Care Team Providers Care Artillery Meteorological Man Name Role Phone Shan Loera DO Primary Care Provider Encounter Details Date Type Department Care Team (Late st Contact Info) Description 05/21/2023 11:30 AM [employer]OD LAYUP LINE CORE FEEDER Office Visit [facility] Medical Group Cardiology [address] [place] [id number] Chelsey Cisneros NP [address] [place] [address] Shortness of breath (Primary Dx); Persistent atrial fibrillation (HCC); Chronic anticoagulation; HIWOT on CPAP; Elevated glucose Social History Tobacco Use Types Packs/Day Years Used Date Smoking Tobacco: Former Cigarettes Q uit: 02/01/2009 Tobacco Cessation:Counseling Given: Not Answered Personal Safety Answer Date Recorded Getting School Help Needed Not on file 04/30 Sex and Gender Information Value Date Recorded Sex Assigned at Not on file Legal Sex Male 8:29 AM CDT Gender Identity Male 06/20/2023 11:48 PM [employer] CORE FEEDER Sexual Orientation Straight 06/20/2023 11 :48 PM [employer] L[employer] CORE FEEDER documented as of this encounter Last Filed Vital Signs Vital Sign Reading Time Taken Comments Blood Pressure 104/64 05/21/2023 11:44 AM [employer] L[employer] CORE FEEDER Pulse 81 05/21/2023 11:44 AM [employer] CORE FEEDER Temperature - - Respiratory Rate - - Oxygen Saturation 95% 05/21/2023 11:44 AM [employer] L[employer] CORE FEEDER Inhaled Oxygen Concentration - - Weight 183.7 kg (405 lb) 05/21/2023 11:44 AM [employer] L[employer] CORE FEEDER Height 185.4 cm (6' 1 ) 05/21/2023 11:44 AM [employer] L[employer] CORE FEEDER Body Mass Index 53.43 05/21/2023 11:44 AM [employer] LAY[employer] CORE FEEDER documented in this encounter Ordered Prescriptions Prescription Sig Dispense Quantity Refills Last Filled Start Date End Date torsemide (DEMADEX) 20 mg tabletIndications: Shortness of breath Take 1 tablet (20 mg total) by mouth 2 (two) times a day 60 tablet 1 05/21/2023 07/11/2023 documented in this encounter Progress Notes * Chelsey Cisneros, DIOR - 05/21/2023 11:30 AM CST Images from the original note were not included. [facility] Medical Group Cardiology [address] [place] [address] Date of Visit: 05/21/2023 Patient ID: Jonathan Quiles [id number] No chief complaint on file. Jonathan Quiles is a 48 y.o. male with atrial fibrillation who comes to the office for office follow-up after a failed cardioversion. History of Present Illness: Jonathan Quiles is a 48 y.o. male with a past medical history of hypertension, diabetes, sleep apnea and morbid obesity. He uses a CPAP machine but had not had the machine adjusted recently and had suspicion the settings were not correct. He was experiencing dyspnea on exertion for a few months. Whenhe presented to GI appt it was noted his heart rhythm was irregular. He was advised to follow-up with PCP. PCP instructed him to go to the ER on 02/09/2023 and he was found to be in atrial fibrillation with RVR, heart rate 130-[address] Rae met him in consultation. He was given metoprolol and heart rate improved. CHADS2 Vasc score 2 (hypertension and presumed undiagnosed diabetes) and he was started on Eliquis. Echocardiogram showed normal LV size and systolic function in the low end of normal, at least moderate LAE, no significant valvular dysfunction although overall study was technically difficulty due to body habitus. Metoprolol succinate was up titrated to 50 mg daily prior to discharge. Consider outpatient cardioversion after at least 30 days on anticoagulation. 03/22/2023 Hospital follow-up with SENIOR SVP - Jonathan Talita Quiles comes to the office today for a hospital follow up visit. His dyspnea on exertion has been better since he was hospitalized. He has no sense of palpitations. He does feel some sense of fluid retention that comes and goes. He is currently taking furosemide. He just had a new sleep study and is waiting for the results. He has begun making some dietary changes to try to lose weight. He asked about how long he will need to take the medication. 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 05/21/2023 office follow-up with SENIOR SVP -cardioversion was attempted on 05/14/2023 but was unsuccessful. He returns today for follow-up and states that he still has shortness of breath and no energy. He feels like he is retaining fluid due to weight gain and feeling some congestion in the chest. He hada new sleep study and now adjusted the settings on his CPAP machine but is waiting for a new machine. 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 Records that I personally reviewed on the day of this visit include: (the interpretation is outlined in the HPI above) 03/22/2023 office note from myself, 05/14/[address] Rae. I have also reviewed: allergies, current medications, past family history, past medical history, past social history, past surgical history and problem list. Medical History: Past Medical History: Diagnosis Date Asthma Cardiac rhythm disturbance Hypertension Sleep apnea History reviewed. No pertinent surgical history. Social History Tobacco Use Smoking Status Former Types: Cigarettes Quit date: 02/01/2009 Years since quittin.3 Smokeless Tobacco Not on file Social History Tobacco Use Smoking status: Former Types: Cigarettes Quit date: 02/01/2009 Years since quittin.3 Smokeless tobacco: None Substance and Sexual Activity Drug use: None Sexual activity: None Alcohol Use: Not on file History reviewed. No pertinent family history. Review of Systems Constitutional: Negative for malaise/fatigue, weight gain and weight loss. Cardiovascular: Positive for dyspnea on exertion. Negative for chest pain, claudication, leg swelling, near-syncope, orthopnea, palpitations, paroxysmal nocturnal dyspnea and syncope. Respiratory: Positive for cough, sleep disturbances due to breathing and sputum production (clear to white, sinus drainage). Hematologic/Lymphatic: Negative for bleeding problem. Bruises/bleeds easily. Neurological: Negative for dizziness and light-headedness. Vital Signs: BP 104/64 (BP Location: Right arm, Patient Position: Sitting) Pulse 81 Ht 185.4 cm (6' 1 ) Wt(!) 183.7 kg (405 lb) SpO2 95% BMI 53.43 kg/m?? Physical Exam Constitutional: General: He is not in acute distress. Appearance: He is well-developed. He is morbidly obese. HENT: Head: Normocephalic and atraumatic. Eyes: General: No scleral icterus. Conjunctiva/sclera: Conjunctivae normal. Neck: Vascular: No JVD. Trachea: No tracheal deviation. Cardiovascular: Rate and Rhythm: Normal rate. Rhythm irregular. Heart sounds: Normal heart sounds. No murmur heard. Comments: Apical heart rate approximately 86-88 beats per minute Pulmonary: Effort: Pulmonary effort is normal. No respiratory distress. Breath sounds: Rales present. Skin: General: Skin is warm and dry. Neurological: Mental Status: He is alert and oriented to person, place, and time. Psychiatric: Mood and Affect: Mood normal. Behavior: Behavior normal. Allergies Allergen Reactions Penicillins Rash Reaction as a child. Current Outpatient Medications: albuterol 1.25 mg/3 mL nebulizer solution, , Disp: , Rfl: albuterol HFA (PROVENTIL HFA,VENTOLIN HFA,PROAIR HFA) 90 mcg/actuation inhaler, , Disp: , Rfl: Eliquis 5 mg tablet, Take 1 tablet (5 mg total) by mouth 2 (two) times a day, Disp: 180 tablet, Rfl: 3 lisinopril-hydroCHLOROthiazide (ZESTORETIC) 20-12.5 mg per tablet, , Disp: , Rfl: metoprolol XL (TOPROL-XL) 100 mg 24 hr tablet, Take 1 tablet (100 mg total) by mouth daily, Disp: 90 tablet, Rfl: 3 torsemide (DEMADEX) 20 mg tablet, Take 1 tablet (20 mg total) by mouth 2 (two) times a day, Disp: 60 tablet, Rfl: 1 No results found for: POTASSIUM , BUNSER , CREATININE , CHOL , TRIG , LDL , LDLCALC , HDL No results found for: WBC , HGB , HCT , MCV , PLT No results found for this or any previous visit (from the past 4 hour(s)). Lab Results Component Value Date POCCHOL 176 03/22/2023 POCHDL 29 03/22/2023 POCTRIG 190 03/22/2023 POCLDL 109 03/22/2023 POCNONHDL 147 03/22/2023 POCCHLPL 176 03/22/2023 02/10/2023 BMP: Na 135, K 4.1, BUN 17, creatinine 0.8, EGFR greater than 60, glucose 247 02/10/2023 CBC: Hemoglobin 15.3, hematocrit 49.0, platelet 230 [id number]. of care lipid test: TC 176, HDL 29, TG 190, LDL 109, glucose 222 Assessment: Diagnoses and all orders for this visit: Shortness of breath (Primary) - torsemide (DEMADEX) 20 mg tablet; Take 1 tablet (20 mg total) by mouth 2 (two) times a day - XR Chest Pa Lateral 2 Views; Future - Basic metabolic panel; Future Persistent atrial fibrillation (HCC) Chronic anticoagulation HIWOT on CPAP Elevated glucose Plan/Recommendations: He was hospitalized last January for atrial fibrillation. He had probably been in atrial fibrillation for a few months prior to his hospitalization. He had no sense palpitations but had dyspnea on exertion. Unfortunately he failed a cardioversion. He now has better heart rate control on metoprolol succinate 100 mg daily. However he remains symptomatic while in atrial fibrillation with shortness of breath and fatigue. I will discuss his situation with Dr. Rae regarding next step of whetherto add an antiarrhythmic and or refer to EP. I will follow up patient over the phone later this week after that discussion. For now continue metoprolol and Eliquis the same. Despite furosemide 80 mg daily he still has weight gain, worsening shortness of breath with sputum production, and wet lung sounds. I will send him for a chest x-ray which we will have done at [facility] today. Transition him from furosemide to torsemide 20 mg b.i.d. and check a BMP in 1 week. Torsemide may be reduced down to 20 mg once a day if patient feels well diuresed. I cautioned the patient on the possibility of hypokalemia, adding more potassium to the diet, and getting the BMP early if suspecting hypokalemia. The patient is aware of the importance of treating his sleep apnea in order to more effectively treat his atrial fibrillation as well. He and his PCP or working on getting a new CPAP machine. I also reminded the patient to follow-up with his PCP regarding his elevated blood glucose observedin the hospital andIn follow-up in our office, to rule out development of diabetes. At this point in time, his cardiac status is not improved enough to the point of him returning to work. He should remain out of work until we have diuresed him and found a more effective treatment for his atrial fibrillation. Future follow-up appointment with Dr. Rae in 7 weeks will be kept the same but we will adjustthis office follow-up as indicated based on his clinical course. 05/21/2023 EUGENIA Sotelo- Nurse Practitioner with [facility] Cardiology This note is dictated and transcribed using [employer] Direct Software. Family Service Assistant variancesmay occur. Despite proofreading, typographical errors may occur. [employer] LAYUP LINE CORE FEEDER documented in this encounter Plan of Treatment Scheduled Orders Name Type Priority Associated Diagnoses Orde r Schedule XR Chest Pa Lateral 2 Views Imaging Routine Shortness of breath Expected: 05/21/2023, Expires: 06/21/2023 Basic metabolic panel Lab Routine Shortness of breath Expected: 05/28/2023, Expires: 05/21/2024 documented as of this encounter Visit Diagnoses Diagnosis Shortness of breath- Primary Persistent atrial fibrillation (HCC) Atrial fibrillation Chronic anticoagulation Encounter for long-term (current) use of anticoagulants HIWOT on CPAP Elevated glucose Other abnormal glucose documented in this encounter Discontinued Medications Medication Sig Discontinue Reason Start Date End Da te furosemide (LASIX) 80 mg tablet Alternate therapy 03/19/2023 05/21/2023 documented as of this encounter Care Teams Artillery Meteorological Man Relationship Specialty Start Date End Date Shan Loera DO [address] [place] [address] PCP - General Family Medicine 02/09/23 documented as of this encounter
--- OUTSIDE RECORDS SUMMARY | 2024-04-26 18:28 | XMS_ITS | Encounter Summary ---
Author Organization [facility] Healthcare Address [address] [place] [address] Care Team Providers Care Graphic Engineer Name Role Phone Shan Loera DO Primary Care Provider Aiden Case MD Unavailable [phone] Encounter Details Date Type Department Care Team (Late st Contact Info) Description 07/05/2023 Orders Only [facility] Health Information Management [address] [place] [id number] Scanning, Provider Social History Tobacco Use Types Packs/Day Years Used Date Smoking Tobacco: Former Cigarettes Q uit: 02/01/2009 Personal Safety Answer Date Recorded Getting School Help Needed Not on file 04/30 Sex and Gender Information Value Date Recorded Sex Assigned at Not on file Legal Sex Male 8:29 AM CDT Gender Identity Male 06/20/2023 11:48 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 Sexual Orientation Straight 06/20/2023 11 :48 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 documented as of this encounter Plan of Treatment Not on file documented as of this encounter Procedures Procedure Name Priority Date/Time Associated Diagnosis Comments SCAN - LABS 07/05/2023 documented in this encounter Results * SCAN - LABS (07/05/2023) us Provider Scanning Edited Result - Final documented in this encounter Visit Diagnoses Not on filedocumented in this encounter Care Teams Graphic Engineer Relationship Specialty Start Date End Date Shan Loera DO [address] [place] [address] PCP - General Family Medicine 02/09/23 Aiden Case MD [address] [address] Consulting Physician Cardiology 11/16/23 documented as of this encounter
--- OUTSIDE RECORDS SUMMARY | 2024-04-26 18:28 | XMS_ITS | Encounter Summary ---
Author Organization [facility] Healthcare Address [address] [place] [address] Care Team Providers Care Crm Developer Name Role Phone Kayley Loerajustin SandovalMuniz Primary Care Provider Reason for Visit * Reason Comments Follow-up 2 mo follow up on a- fib, HIWOT, HTN Encounter Details Date Type Department Care Team (Late st Contact Info) Description 07/11/2023 11:00 AM CDT Office Visit [facility] Medical Group Cardiology at [address] [place] [address] Karl Rae MD [address] 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 Sexual Orientation Straight 06/20/2023 11 :48 PM EXCEPTIONAL CHILDREN TEACHER ASSISTANT documented as of this encounter Last Filed Vital Signs Vital Sign Reading Time Taken Comments Blood Pressure 126/70 07/11/2023 11:17 AM CDT Pulse 82 07/11/2023 11:17 AM CDT Temperature - - Respiratory Rate - - Oxygen Saturation 91% 07/11/2023 11:17 AM CDT Inhaled Oxygen Concentration - - Weight 182.8 kg (403 lb) 07/11/2023 11:17 AM CDT Height 185.4 cm (6' 1 ) 07/11/2023 11:17 AM CDT Body Mass Index 53.17 07/11/2023 11:17 AM CDT documented in this encounter Progress Notes * Karl Rae MD - 07/11/2023 11:00 AM CDT [facility] FOLLOW UP 07/11/2023 Jonathan Quiles is a 48 y.o. male [...] to be attributable to his atrial fibrillation. Hewas referred to see Dr. [facility] at [facility] and saw him in consultation a short time ago and he is scheduled for an attempt at catheter ablation of this in July. He is otherwise feeling relatively well today and does not describe any new symptomatology. REVIEW OF SYSTEMS General ROS: negative for [...] a day, Disp: 180 tablet, Rfl: 3 furosemide (LASIX) 80 mg tablet, Take 1 tablet (80 mg total) by mouth 2 (two) times a day, Disp: , Rfl: lisinopril-hydroCHLOROthiazide (ZESTORETIC) 20-12.5 mg per tablet, , Disp: , Rfl: metoprolol XL (TOPROL-XL) 100 mg 24 hr tablet, Take 1 tablet (100 mg total) by mouth daily, Disp: 90 tablet, Rfl: 3 Stool Softener 100 mg capsule, , Disp: , Rfl: torsemide (DEMADEX) 20 mg tablet, Take 1 tablet (20 mg total) by mouth 2 (two) times a day (Patientnot taking: Reported on 07/11/2023), Disp: 60 tablet, Rfl: 1 LABS AND OTHER DIAGNOSTIC TESTS No results found for: CHOL No results found for: HDL No results found for: LDLCALC No results found for: TRIG No results found for: CHOLHDL No results found for: WBC , HGB , HCT , MCV , PLT No lab exists for component: LABALBU PHYSICAL EXAM Vitals BP 126/70 (BP Location: Left arm, Patient Position: Sitting) Pulse 82 Ht 185.4 cm (6' 1 ) Wt (!) 182.8 kg (403 lb) SpO2 91% BMI 53.17 kg/m?? Physical Examination: General appearance - alert, [...] Morbid obesity Obstructive sleep apnea PLAN/RECOMMENDATIONS Continue rate control and anticoagulation regimen for the time being Will see him in October for follow-up that will be a couple of months after his ablation Karl Rae MD documented in this encounter Plan of Treatment Not on file documented as of this encounter Visit Diagnoses Diagnosis Persistent atrial fibrillation (HCC)- Primary Atrial fibrillation documented in this encounter Discontinued Medications Medication Sig Discontinue Reason Start Date End Da te torsemide (DEMADEX) 20 mg tabletIndications:Shortn ess of breath Take 1 tablet (20 mg total) by mouth 2 (two) times a day 05/21/2023 07/11/2023 documented as of this encounter Historical Medications * This list may reflect changes made after this encounter. furosemide (LASIX) 80 mg tablet Take 1 tablet (80 mg total) by mouth 2 (two) times a day 06/26/2023 added in this encounter Care Teams Crm Developer Relationship Specialty Start Date End Date Shan Loera DO [address] [place] [address] PCP - General Family Medicine 02/09/23 documented as of this encounter
--- OUTSIDE RECORDS SUMMARY | 2024-04-26 18:28 | XMS_ITS | Encounter Summary ---
Author Organization [facility] Healthcare Address [address] [place] [address] Care Team Providers Care Electrical Engineering Technician Name Role Phone Shan Loera DO Primary Care Provider Reason for Visit * Consultation (Urgent) - Closed Specialty Diagnoses / Procedures Referred By Contac t Referred To Contact Cardiology Diagnoses Persistent atrial fibrillation (HCC) Chelsey Cisneros NP [address] [facility] [address] [address] Phone: tel: fax: Aiden Case MD [address] [address] Phone: tel: fax: Referral ID Status Reason Start Date Expiration Date V isits Requested Visits Authorized [id number] Closed Specialty Services Required 05/22/2023 06/20/2024 1 1 Encounter Details Date Type Department Care Team (Late st Contact Info) Description 06/21/2023 10:00 AM DIETITIAN ASSISTANT Office Visit [facility] [address] [facility] [address] [place] [phone] Aiden Case MD [address] [address] Persistent atrial fibrillation (HCC) (Primary Dx) Social History Tobacco Use Types Packs/Day Years Used Date Smoking Tobacco: Former Cigarettes Q uit: 02/01/2009 Personal Safety Answer Date Recorded Getting School Help Needed Not on file 04/30 Sex and Gender Information Value Date Recorded Sex Assigned at Not on file Legal Sex Male 8:29 AM CDT Gender Identity Male 06/20/2023 11:48 PM DIETITIAN ASSISTANT Sexual Orientation Straight 06/20/2023 11 :48 PM DIETITIAN ASSISTANT documented as of this encounter Last Filed Vital Signs Vital Sign Reading Time Taken Comments Blood Pressure 132/76 06/21/2023 10:23 AM DIETITIAN ASSISTANT Pulse 89 06/21/2023 10:23 AM DIETITIAN ASSISTANT Temperature - - Respiratory Rate - - Oxygen Saturation 98% 06/21/2023 10:23 AM DIETITIAN ASSISTANT Inhaled Oxygen Concentration - - Weight 182.3 kg (402 lb) 06/21/2023 10:23 AM DIETITIAN ASSISTANT Height 185.4 cm (6' 0.99 ) 06/21/2023 10:[address] Body Mass Index 53.05 06/21/2023 10:23 AM DIETITIAN ASSISTANT documented in this encounter Progress Notes * Aiden Case MD - 06/21/2023 10:00 AM CST Images from the original note were not included. [facility] [address] [place] [address], [place] [address] Patient Name: Jonathan Quiles Date of : 1975 Primary Physician: Shan Loera, This note was dictated with voice-recognition software, and geothermal heat pump machinist errors may be present. Subjective/Objective Patient ID: Jonathan Quiles is a 48 y.o. male Chief Complaint No chief complaint on file. HPI Mr. Quiles presented to the [facility] on 06/21/2023 for consultation regarding his atrial fibrillation. He has a 48-year-old male with a history of hypertension, diabetes, sleep apnea, and obesity. I was asked to consult by Dr. Rae. The patient has a history of persistent atrial fibrillation of overall indeterminate duration. He is symptomatic, with complaints of dyspnea with minimal exertion, palpitations, and fatigue. He has not experienced chest discomfort or syncope. He recently underwent cardioversion, but experienced recurrence shortly thereafter. He has been anticoagulated, and managed with metoprolol. His LV function is known to be normal, and there was no evidence of ischemia. ... 12-lead ECG & Rhythm Strip: 06/21/2023: Atrial fibrillation (88). Normal QRS duration and QT interval Allergies Allergen Reactions Penicillins Rash Reaction as a child. Current Outpatient Medications Medication Instructions albuterol 1.25 mg/3 mL nebulizer solution albuterol HFA (PROVENTIL HFA,VENTOLIN HFA,PROAIR HFA) 90 mcg/actuation inhaler Eliquis 5 mg, oral, 2 times daily lisinopril-hydroCHLOROthiazide (ZESTORETIC) 20-12.5 mg per tablet metoprolol XL (TOPROL-XL) 100 mg, oral, Daily Stool Softener 100 mg capsule torsemide (DEMADEX) 20 mg, oral, 2 times daily Past Medical History: Past Medical History: Diagnosis Date Asthma Cardiac rhythm disturbance Hypertension Sleep apnea Family History: No family history on file. Social History: Social History Tobacco Use Smoking status: Former Current packs/day: 0.00 Types: Cigarettes Quit date: 02/01/2009 Years since quittin.4 Smokeless tobacco: Not on file Substance and Sexual Activity Drug use: Not on file Sexual activity: Not on file Alcohol Use: Not on file Review of Systems Constitutional: Negative. HENT: Negative. Eyes: Negative. Respiratory: Negative. Cardiovascular: As per HPI. Gastrointestinal: Negative. Endocrine: Negative. Genitourinary: Negative. Musculoskeletal: Negative. Skin: Negative. Allergic/Immunologic: Negative. Neurological: Negative. Hematological: Negative. Psychiatric/Behavioral: Negative. Physical Exam BP 132/76 Pulse 89 Ht 185.4 cm (6' 0.99 ) Wt (!) 182.3 kg (402 lb) SpO2 98% BMI 53.05 kg/m?? GENERAL: No distress. Pleasant and cooperative [...] focal findings. PSYCHIATRIC: Normal mood and affect. Assessment/Plan Last Labs: No results found for: GLUCOSE , CALCIUM , SODIUM , POTASSIUM , CO2 , CHLORIDE , BUNSER , CREATININE No results found for: TSH No results found for: GFRNAA , GFRAA Diagnoses and all orders for this visit: Persistent atrial fibrillation (HCC) (Primary) Assessment & Plan: The patient has symptomatic paroxysmal (recently persistent) atrial fibrillation. After consideringpossible options for management, the patient is not [...] injury and . I estimated a 70% chanceof freedom from long-term atrial arrhythmia, and the patient understands that occasionally a secondprocedure is necessary. The patient has a [id number] score of 1. I have therefore recommended [...] with atrial fibrillation: a report of the [place] [employer]/[place] [employer] Task Force on Practice Guidelines [...] ablation therapy ([id number]). (Level of Evidence: B) Orders: - ECG 12 lead - Ambulatory referral to Cardiac Electrophysiology Aiden Case MD 06/21/2023 ITIAN ASSISTANT documented in this encounter Miscellaneous Notes * Assessment & Plan Note - Aiden Case MD - 06/21/2023 12:34 PM DIETITIAN ASSISTANT Associated Problem(s): Persistent atrial fibrillation (HCC) The patient has symptomatic paroxysmal (recently persistent) atrial fibrillation. After consideringpossible options for management, the patient is not [...] injury and . I estimated a 70% chanceof freedom from long-term atrial arrhythmia, and the patient understands that occasionally a secondprocedure is necessary. The patient has a [id number] score of 1. I have therefore recommended [...] with atrial fibrillation: a report of the [place] [employer]/[place] [employer] Task Force on Practice Guidelines [...] ablation therapy ([id number]). (Level of Evidence: B) ITIAN ASSISTANT ITIAN ASSISTANT documented in this encounter Plan of Treatment Not on file documented as of this encounter Procedures Procedure Name Priority Date/Time Associated Diagnosis Comments ECG 12-LEAD Routine 06/21/2023 Persistent atrial fibrillation (HCC) documented in this encounter Results * ECG 12 lead (06/21/2023) us Aiden Case MD ECG ORDERABLES Final R esult documented in this encounter Visit Diagnoses Diagnosis Persistent atrial fibrillation (HCC)- Primary Atrial fibrillation documented in this encounter Historical Medications * This list may reflect changes made after this encounter. Stool Softener 100 mg capsule 2 (two) times a day as needed 05/03/2023 added in this encounter Orders Outpatient Referral Count Last Ordered Date Fir st Ordered Date AMB REFERRAL TO CARDIAC ELECTROPHYSIOLOGY 1 06/21/2023 documented in this encounter Care Teams Electrical Engineering Technician Relationship Specialty Start Date End Date Shan Loera DO [address] [place] [address] PCP - General Family Medicine 02/09/23 documented as of this encounter
--- OUTSIDE RECORDS SUMMARY | 2024-04-26 18:28 | XMS_ITS | Encounter Summary ---
Author Organization [facility] Healthcare Address [address] [place] [address] Care Team Providers Care Registered Dental Assistant Rda Name Role Phone Shan Loera DO Primary Care Provider Reason for Visit * Reason Comments Hospital Follow Up Encounter Details Date Type Department Care Team (Late st Contact Info) Description 03/22/2023 10:00 AM SPLICING MACHINE OPERATOR Office Visit [facility] Cardiology [address] [place] [address] Chelsey Cisneros NP [address] [place] [address] Persistent atrial fibrillation (HCC); HIWOT on CPAP; Essential hypertension; Morbid obesity with BMI of 50.0-59.9, adult (HCC); Lipid screening; Elevated glucose Social History Tobacco Use Types Packs/Day Years Used Date Smoking Tobacco: Former Cigarettes Q uit: 02/01/2009 Sex and Gender Information Value Date Recorded Sex Assigned at Not on file Legal Sex Male 8:29 AM CDT Gender Identity Male 06/20/2023 11:48 PM SPLICING MACHINE OPERATOR Sexual Orientation Straight 06/20/2023 11 :48 PM SPLICING MACHINE OPERATOR documented as of this encounter Last Filed Vital Signs Vital Sign Reading Time Taken Comments Blood Pressure 112/74 03/22/2023 10:02 AM SPLICING MACHINE OPERATOR Pulse 99 03/22/2023 10:02 AM SPLICING MACHINE OPERATOR Temperature - - Respiratory Rate - - Oxygen Saturation 88% 03/22/2023 10:02 AM SPLICING MACHINE OPERATOR Inhaled Oxygen Concentration - - Weight 179.6 kg (396 lb) 03/22/2023 10:02 AM SPLICING MACHINE OPERATOR Height 185.4 cm (6' 1 ) 03/22/2023 10:02 AM SPLICING MACHINE OPERATOR Body Mass Index 52.25 03/22/2023 10:02 AM SPLICING MACHINE OPERATOR documented in this encounter Ordered Prescriptions Prescription Sig Dispense Quantity Refills Last Filled Start Date End Date Eliquis 5 mg tabletIndications: Persistent atrial fibrillation (HCC) Take 1 tablet (5 mg total) by mouth 2 (two) times a day 180 tablet 3 03/22/2023 11/12/2023 metoprolol XL (TOPROL-XL) 100 mg 24 hr tabletIndications: Persistent atrial fibrillation (HCC) Take 1 tablet (100 mg total) by mouth daily 90 tablet 3 03/22/2023 01/17/2024 documented in this encounter Progress Notes * Chelsey Cisneros NP - 03/22/2023 10:00 AM CST Images from the original note were not included. [facility] Medical Group Cardiology [address] [place] [address] Date of Visit: 03/22/2023 Patient ID: Jonathan Quiles 1975 Chief Complaint Patient presents with Hospital Follow Up Jonathan Quiles is a 47 y.o. male who comes to the office for a hospital follow up after being treated for atrial fibrillation. History of Present Illness: Jonathan Quiles is a 47 y.o. male with a past medical history [...] instructed him to go to the ER and he was found to be in atrial fibrillation with RVR, heart rate 130-[address] Rae met him in consultation. He was given metoprolol and heart rate improved. CHADS2 Vasc score 2 (hypertension and presumed undiagnosed diabetes) and he was started on Eliquis. Echocardiogram showed normal LV size and systolic function in the low end ofnormal, at least moderate LAE, no significant valvular dysfunction although overall study was technically difficulty due to body habitus. Metoprolol succinate was up titrated to 50 mg daily prior to discharge. Consider outpatient cardioversion after at least 30 days on anticoagulation. 03/22/2023 Hospital follow-up with DIOR Quiles comes to the office today for [...] hands and tends to bump himself frequently. Records that I personally reviewed on the day of this visit include: (the interpretation is outlined in the HPI above) Records from the above mentioned hospital admission. I have also reviewed: allergies, current medications, past family history, past medical history, past social history, past surgical history and problem list. Medical History: Past Medical History: Diagnosis Date Asthma Cardiac rhythm disturbance Hypertension Sleep apnea History reviewed. No pertinent surgical history. Social History Tobacco Use Smoking Status Former Types: Cigarettes Quit date: 02/01/2009 Years since quittin.1 Smokeless Tobacco Not on file Social History Tobacco Use Smoking status: Former Types: Cigarettes Quit date: 02/01/2009 Years since quittin.1 Smokeless tobacco: None Substance and Sexual Activity Drug use: None Sexual activity: None Alcohol Use: Not on file History reviewed. No pertinent family history. Review of Systems Constitutional: Negative for malaise/fatigue, weight gain and weight loss. Cardiovascular: Positive for dyspnea on exertion. Negative for chest pain, claudication, leg swelling, near-syncope, orthopnea, palpitations, paroxysmal nocturnal dyspnea and syncope. Respiratory: Positive for sleep disturbances due to breathing. Negative for cough. Hematologic/Lymphatic: Negative for bleeding problem. Bruises/bleeds easily. Neurological: Negative for dizziness and light-headedness. Vital Signs: BP 112/74 (BP Location: Left arm, Patient Position: Sitting) Pulse 99 Ht 185.4 cm (6' 1 ) Wt (!) 179.6 kg (396 lb) SpO2 (!) 88% BMI 52.25 kg/m?? Physical Exam Constitutional: General: He is not in acute distress. Appearance: He is well-developed. He is morbidly obese. HENT: Head: Normocephalic and atraumatic. Eyes: General: No scleral icterus. Conjunctiva/sclera: Conjunctivae normal. Neck: Vascular: No JVD. Trachea: No tracheal deviation. Cardiovascular: Rate and Rhythm: Normal rate. Rhythm irregular. Heart sounds: Normal heart sounds. No murmur heard. Comments: Apical heart rate approximately 100 beats per minute Pulmonary: Effort: Pulmonary effort is normal. No respiratory distress. Breath sounds: Normal breath sounds. Comments: Diminished but clear Skin: General: Skin is warm and dry. [...] 90 mcg/actuation inhaler, , Disp: , Rfl: furosemide (LASIX) 80 mg tablet, , Disp: , Rfl: lisinopril-hydroCHLOROthiazide (ZESTORETIC) 20-12.5 mg per tablet, , Disp: , Rfl: Eliquis 5 mg tablet, Take 1 tablet (5 mg total) by mouth 2 (two) times a day, Disp: 180 tablet, Rfl: 3 metoprolol XL (TOPROL-XL) 100 mg 24 hr tablet, Take 1 tablet (100 mg total) by mouth daily, Disp: 90 tablet, Rfl: 3 No results found for: POTASSIUM , BUNSER , CREATININE , CHOL , TRIG , LDL , LDLCALC , HDL No results found for: WBC , HGB , HCT , MCV , PLT Recent Results (from the past 4 hour(s)) POCT lipid panel Collection Time: 03/22/23 10:08 AM Result Value Ref Range Cholesterol, POC 176 mg/dL HDL, POC 29 mg/dL Triglycerides, POC 190 mg/dL LDL, Direct, POC 109 mg/dL Chol/HDL Ratio, POC 3.7 Non-HDL Cholesterol, POC 147 mg/dL Cholesterol Total, POC 176 mg/dL Lab Results Component Value Date POCCHOL 176 03/22/2023 POCHDL 29 03/22/2023 POCTRIG 190 03/22/2023 POCLDL 109 03/22/2023 POCNONHDL 147 03/22/2023 POCCHLPL 176 03/22/2023 02/10/2023 BMP: Na 135, K 4.1, BUN 17, creatinine 0.8, EGFR greater than 60, glucose 247 02/10/2023 CBC: Hemoglobin 15.3, hematocrit 49.0, platelet 230 [id number]. of care lipid test: TC 176, HDL 29, TG 190, LDL 109, glucose 222 Assessment: Diagnoses and all orders for this visit: Persistent atrial fibrillation (HCC) - metoprolol XL (TOPROL-XL) 100 mg 24 hr tablet; Take 1 tablet (100 mg total) by mouth daily - Eliquis 5 mg tablet; Take 1 tablet (5 mg total) by mouth 2 (two) times a day HIWOT on CPAP Essential hypertension Morbid obesity with BMI of 50.0-59.9, adult (HCC) Lipid screening - POCT lipid panel Elevated glucose Plan/Recommendations: He was recently hospitalized for atrial fibrillation. He had probably been in atrial fibrillation for a few months prior to his hospitalization. He had no sense palpitations but had dyspnea on exertion. Now that his heart rate is under better control his dyspnea on exertion has improved. Heart rateis still borderline elevated however. Increase metoprolol succinate to 100 mg daily. Check blood pressure at home once daily and if systolic BP goes down to 100-105 mmHg, notify the office for adviceon reducing his dose of lisinopril/HCT. Plan for a cardioversion in about 7 weeks. This will allow time for him to get the results of his new sleep study, get a new CPAP machine, and begin using it. This will increase the likelihood the cardioversion will be successful. Teaching was done with the patient regarding the chronic nature of atrial fibrillation and our strategy for medical management. I reinforced the importance of stroke risk reduction, I reviewed bleeding precautions he needs to be aware of while on Eliquis. I gave some suggestions on how to minimize b leeding that will occur to injuries on his hands with the work that he does. I also reinforced the importance of compliance with his CPAP machine to minimize AFib recurrence and he is motivated to becompliant with his CPAP. I also advised him to make efforts to lose weight with a goal of 20-30 lb weight loss over the next 1-2 years. Weight loss will also increase the success of treating his AFib. Point of care lipid testing was done in the office today. Blood glucose was elevated on this testing. I do not see a diagnosis of diabetes in his medical history but blood glucose level was also elevated on metabolic panel done when he was hospitalized last month. Follow-up with PCP. I will arrange follow-up in the office with Dr. Rae on 2-3 months after the cardioversion. Further discussion can occur about long-term use of anticoagulation. 03/22/2023 EUGENIA Sotelo- Nurse Practitioner with [facility] This note is dictated and transcribed using [employer] Direct Software. Svp variancesmay occur. Despite proofreading, typographical errors may occur. CING MACHINE OPERATOR documented in this encounter Plan of Treatment Not on file documented as of this encounter Procedures Procedure Name Priority Date/Time Associated Diagnosis Comments POCT LIPID PANEL Routine 03/22/2023 10:0 8 AM SPLICING MACHINE OPERATOR Lipid screening documented in this encounter Results * POCT lipid panel (03/22/2023 10:08 AM SPLICING MACHINE OPERATOR) Cholesterol, POC 176 mg/dL HDL, POC 29 mg/dL Triglycerides, POC 190 mg/dL LDL Cholesterol POC 109 mg/dL Chol/HDL Ratio, POC 3.7 Non-HDL Cholesterol, POC 147 mg/dL Cholesterol Total, POC 176 mg/dL Capillary blood 03/22/2023 1 0:08 AM SPLICING MACHINE OPERATOR Chelsey Cisneros NP POINT OF CARE TEST ORDERA BLES Final Result documented in this encounter Visit Diagnoses Diagnosis Persistent atrial fibrillation (HCC) Atrial fibrillation HIWOT on CPAP Essential hypertension Unspecified essential hypertension Morbid obesity with BMI of 50.0-59.9, adult (HCC) Lipid screening Screening for lipoid disorders Elevated glucose Other abnormal glucose documented in this encounter Discontinued Medications Medication Sig Discontinue Reason Start Date End Da te metoprolol XL (TOPROL-XL) 50 mg extended release tablet Take 1 tablet (50 mg total) by mouth daily Dose adjustment 03/12/2023 03/22/2023 Eliquis 5 mg tablet Take 1 tablet (5 mg total) by mouth 2 (two) times a day Reorder 02/25/2023 03/22/2023 documented as of this encounter Historical Medications * This list may reflect changes made after this encounter. albuterol 1.25 mg/3 mL nebulizer solution 12/21/2022 albuterol HFA (PROVENTIL HFA,VENTOLIN HFA,PROAIR HFA) 90 mcg/actuation inhaler 12/21/2022 lisinopril-hydroC HLOROthiazide (ZESTORETIC) 20-12.5 mg per tablet Take 1 tablet by mouth daily 03/01/2023 furosemide (LASIX) 80 mg tablet 03/19/2023 05/21/2023 metoprolol XL (TOPROL-XL) 50 mg extended release tablet Take 1 tablet (50 mg total) by mouth daily 03/12/2023 03/22/2023 Eliquis 5 mg tablet Take 1 tablet (5 mg total) by mouth 2 (two) times a day 02/25/2023 03/22/2023 added in this encounter Care Teams Registered Dental Assistant Rda Relationship Specialty Start Date End Date Shan Loera DO [address] [place] [address] PCP - General Family Medicine 02/09/23 documented as of this encounter
--- OUTSIDE RECORDS SUMMARY | 2024-04-26 18:28 | XMS_ITS | Encounter Summary ---
Author Organization [facility] Healthcare Address [address] [place] [address] Care Team Providers Care Shorer Name Role Phone Lonlucius Shan Johnsonh Primary Care Provider Reason for Visit * Auth/Cert (Routine) Specialty Diagnoses / Procedures Referred By Contmarco antonio t Referred To Contact Diagnoses Persistent atrial fibrillation (HCC) Persistent atrial fibrillation (HCC) [I48.19] Procedures ABLATION ATRIAL FIBRILLATION (A-FIB) VIA PULMONARY VEIN ISOLATION 76539 Referral ID Status Reason Start Date Expiration Date Visits Re quested Visits Authorized [id number] 1 1 Encounter Details Date Type Department Care Team (Late st Contact Info) Description 08/08/2023 7:43 AM CDT Anesthesia Event [facility] [address] [place] [phone] Donte Jean-Baptiste MD [address] [facility] [place] [address] Pippa Montes CRNA [address] [facility] [place] [address] Anesthesia Record Procedure Summary Procedure Name Responsible Anesthesiologist Anesthesia Start Time Anesthesia Stop Time ABLATION ATRIAL FIBRILLATION (A-FIB) VIA PULMONARY VEIN ISOLATION 39589 Donte Jean-Baptiste MD 08/08/23 0743 08/08/23 1031 Events Date Time Event Comment 08/08/2023 0714 0743 An Start 0745 An Start Data 0753 An Induction The patient was reevaluated immediately before moderate or deep sedation use and before anesthesia induction. 0803 An Intubation 0814 Anesthesia Ready 0900 Quick Note Suctioned ETT, bloody tinged 0901 Quick Note Ablation vent s ettings 0924 Cardioversion 0934 Quick Note Switched to reg ular vent setting ad gave some recruitment breaths 1015 An Extubation 1017 an stop data 1031 Handoff to RN I completed my handoff to the receiving nurse during which we: 1. Patient identified 2. Responsible provider identified 3. Pertinent medical history reviewed 4. Procedure type and surgical course discussed 5. Intraoperative anesthetic management and any significant issues discussed 6. Expectations and concerns for postop period discussed 7. Questions solicited from receiving nurse 8. Patient disposition at the time of handoff: No value filed. 1031 An Stop 1254 Release from care Meds Name Total midazolam 2 mg fentaNYL 50 mcg propofol 300 mg succinylcholine 200 mg rocuronium 75 mg phenylephrine 100 mcg/mL 400 mcg ePHEDrine 50 mg sugammadex 400 mg ondansetron 4 mg dexamethasone 4 mg/ml 10 mg heparin 1,000 unit/ml 30,000 Units phenylephrine (RUFINO-SYNEPHRIN E) 10 mg in sodium chloride 0.9% 100 mL solution 7.84 mg protamine 50 mg sodium chloride 0.9% infusion 1,200 mL * Agents Name O2 N2O Air Sevoflurane Inspired Sevoflurane * Blood No blood administrations on file. Lines, Drains, and Airways Type Details Placement Removal Peripheral IV Placement Date: 07/22 11/13; Placement Time: 07; Catheter Size: 20 G; Orientation: Left; Location: Hand; Site Prep: Alcohol; Removal Date: 08/08/23; Removal Time: 154; Removal Reason: Discharge 08/08/23 0703 by Natalia Johnson RN 08/08/23 154 by Meagan Cortez RN Venous Sheath Placement Date: 07/22 11/13; Placement Time: 0836; Removal Date: 08/08/23; Removal Time: 0947 08/08/23 0836 by Fatimah Parra RN 08/08/23 0947 by Fatimah Parra RN Venous Sheath Placement Date: 07/22 11/13; Placement Time: 0836; Removal Date: 08/08/23; Removal Time: 0950 08/08/23 0836 by Fatimah Parra RN 08/08/23 0950 by Fatimah Parra RN Venous Sheath Placement Date: 07/22 11/13; Placement Time: 0836; Removal Date: 08/08/23; Removal Time: 0950 08/08/23 0836 by Fatimah Parra RN 08/08/23 0950 by Fatimah Parra RN Venous Sheath Placement Date: 07/22 11/13; Placement Time: 0836; Removal Date: 08/08/23; Removal Time: 0947 08/08/23 0836 by Fatimah Parra RN 08/08/23 0947 by Fatimah Parra RN ETT Placement Date: 07/22 11/13; Placement Time: 0844 (created via procedure documentation); Mask Ventilation: 2; Technique: Video laryngoscopy; Type: ETT - single; Single Lumen Tube Size: 8 mm; Cuffed: Yes; Blade Size: 3; Location: Oral; Insertion Attempts: 3 or more; Placement Verification: Auscultation, Capnometry; Airway Comment: Multiple attempts with the glidescopre 3 blade, could see the vocal cords but could not get the tube to the cords. I tried once, Dr Jean-Baptiste attempted a couple times with glidscope 3 and bougie as well.. Successful with the 4th attempt glidescope 3 and cricoid pressure. We had to exchange the ETT due to a cuff leak. Suctioned ETT bloody tinged. 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 documented as of this encounter OR Notes * Anesthesia Postprocedure Evaluation - Donte Jean-Baptiste MD - 08/08/2023 12:54 PM CDT Patient: Jonathan Quiles Procedure Summary Date: 08/08/23 Room / Location: [facility] CATH/EP LAB C / [facility] CARDIAC EFFICIENCY CLERK; [facility] Anesthesia Start: 0743 Anesthesia Stop: 1031 Procedures: ABLATION ATRIAL FIBRILLATION (A-FIB) VIA PULMONARY VEIN ISOLATION 05706 ABLATION ATRIAL FIBRILLATION ADDITIONAL LINE OR FOCI (+) 39380 LEFT VENTRICLE PACING AND RECORDING 02587 ABLATE ADDTN'L ARRHYTHMIA, ATRIAL OR VENTRICULAR (+) 25777 TRANSESOPHAGEAL ECHO (NELL) W DOPPLER/CF Diagnosis: Persistent atrial fibrillation (HCC) (Persistent atrial fibrillation (HCC) [I48.19]) Scheduled Providers: Aiden Case MD Responsible Provider: Donte Jean-Baptiste MD Anesthesia Type: general ASA Status: 4 Anesthesia Type: general Last vitals BP (!) 77/54 Pulse 71 Temp 36.2 ??C (97.1 ??F) (Temporal) Resp 24 SpO2 (!) 87% Anesthesia Post Evaluation Patient location during evaluation: PACU Patient participation: complete - patient participated Level of consciousness: follows simple commands and fully awake Pain management: adequate Airway patency: adequate Cardiovascular status: acceptable and hemodynamically stable Respiratory status: acceptable Hydration status: acceptable Pt is: normothermic Nausea/Vomiting status: none No notable events documented. * Anesthesia Procedure Notes - Pippa Montes CRNA - 08/08/2023 8:39 AM CDT Associated Order(s): Airway Airway Patient location: OR Urgency: elective Indications for airway management: anesthesia Difficult airway: no Staff: Supervising provider: Donte Jean-Baptiste MD Placed by: Anesthesiologist: Donte Jean-Baptiste MD PET WALKER: Pippa Montes CRNA Emergent airway documentation: Risks and benefits discussed: yes Consent obtained: yes Consent given by: patient Airway prep: Preoxygenated: yes Patient position: sniffing Mask difficulty assessment: 2 - vent by mask + OA or adjuvant Sedation level during airway: GA Final airway details: Final airway type: endotracheal airway Tube type: ETT ETT size: 8.0 mm Cuffed: yes Technique used for successful ETT placement: video laryngoscopy Devices/Methods used in placement: stylet, flexible tip bougie and exchange catheter Insertion site: oral Video blade type: Glidescope Blade size: 3 Cormack-Lehane (video): grade IIa - partial view of glottis Cuff volume: 9 mL Cuff inflated with: air ETT to teeth: 25 cm Placement verified by: auscultation and CO2 detection Airway secured with: silk tape Number of attempts: 3 or more Ventilation between attempts: 2 hand mask Planned trial extubation: yes Additional comments: Multiple attempts with the glidescopre 3 blade, could see the vocal cords but could not get the tube to the cords. I tried once, Dr Jean-Baptiste attempted a couple times with glidscope 3 and bougie as well.. Successful with the 4th attempt glidescope 3 and cricoid pressure. We had to exchange the ETT due to a cuff leak. Suctioned ETT bloody tinged. EASY 2 hand mask * Anesthesia Preprocedure Evaluation - Donte Jean-Baptiste MD - 08/08/2023 6:52 AM CDT Images from the original note were not included. Anesthesia Evaluation Jonathan Quiles is a 48 y.o. male ABLATION ATRIAL FIBRILLATION (A-FIB) VIA PULMONARY VEIN ISOLATION 25575 Pre-Op Diagnosis Codes: * Persistent atrial fibrillation (HCC) [I48.19] HISTORY Past Medical History Information obtained from: patient and chart. Cardiovascular + Hypertension + Atrial fibrillation/flutter - Prior electrical cardioversion. Current Rhythm: atrial fibrillation. Respiratory + Asthma (childhood) + Sleep apnea (HIWOT) Prescribed device: CPAP. + O2 use outside the hospital (with cpap) - Endocrine / Other + Obesity (BMI >30)- morbid obesity (BMI>40). Functional Capacity Functional capacity: <4 METs Review of Systems + SOB Patient Active Problem List Diagnosis Date Noted Persistent atrial fibrillation (HCC) 06/21/2023 Past Medical History: Diagnosis Date Asthma Cardiac rhythm disturbance Hypertension Sleep apnea Past Surgical History: Procedure Laterality Date APPENDECTOMY HERNIA REPAIR Allergies Allergen Reactions Penicillins Rash Reaction as a child. Taking? Last Dose Start Date End Date Provider albuterol 1.25 mg/3 mL nebulizer solution Unknown 12/21/22 -- ProviderAlexys MD albuterol HFA (PROVENTIL HFA,VENTOLIN HFA,PROAIR HFA) 90 mcg/actuation inhaler Unknown 12/21/22 -- ProviderAlexys MD Eliquis 5 mg tablet 08/06/2023 03/22/23 -- Chelsey Cisneros NP Take 1 tablet (5 mg total) by mouth 2 (two) times a day furosemide (LASIX) 80 mg tablet Unknown 06/26/23 -- Alexys Wolf MD lisinopril-hydroCHLOROthiazide (ZESTORETIC) 20-12.5 mg per tablet Unknown 03/01/23 -- Alexys Wolf MD metoprolol XL (TOPROL-XL) 100 mg 24 hr tablet Unknown 03/22/23 03/21/24 Chelsey Cisneros NP Take 1 tablet (100 mg total) by mouth daily Stool Softener 100 mg capsule Unknown 05/03/23 -- Provider, MD Alexys Current Facility-Administered Medications: sodium chloride 0.9% infusion, 50 mL/hr, intravenous, Continuous Social History Tobacco Use Smoking Status Former Current packs/day: 0.00 Types: Cigarettes Quit date: 02/01/2009 Years since quittin.5 Smokeless Tobacco Current Alcohol Use: Not on file Substance and Sexual Activity Drug Use Yes Types: Marijuana Family History Problem Relation Age of Onset Diabetes Brother There were no vitals filed for this visit. PT: No results found for requested labs within last 30 days. INR: No results found for requested labs within last 30 days. APTT: No results found for requested labs within last 30 days. Hgb A1C: No results found for requested labs within last 30 days. CBC RBC: No results found for requested labs within last 30 days. RDW: No results found for requested labs within last 30 days. MCHC: No results found for requested labs within last 30 days. MCH: No results found for requested labs within last 30 days. MCV: No results found for requested labs within last 30 days. Hct: No results found for requested labs within last 30 days. Hgb: No results found for requested labs within last 30 days. WBC: No results found for requested labs within last 30 days. MPV: No results found for requested labs within last 30 days. Platelets: No results found for requested labs within last 30 days. RDW CV: No results found for requested labs within last 30 days. RDW Sd: No results found for requested labs within last 30 days. BMP Glucose: No results found for requested labs within last 30 days. Calcium: No results found for requested labs within last 30 days. Sodium: No results found for requested labs within last 30 days. Potassium: No results found for requested labs within last 30 days. CO2: No results found for requested labs within last 30 days. Chloride: No results found for requested labs within last 30 days. BUN: No results found for requested labs within last 30 days. Creatinine: No results found for requested labs within last 30 days. DOS Physical Exam Medical history, medications, and allergies reviewed. Attestation: This PAT evaluation 08/08/2023. Airway Exam: Mallampati: IV Cervical ROM: FROM TM distance: >4 Cardiovascular Exam: Rate: regular Rhythm: regular Pulmonary Exam: LCTA, bilat Dental Exam: Otherwise appears intact Anesthesia Plan ASA 4 My patient is approved for the Anesthesia Controlled Medication protocol when under care of a PET WALKER Planned anesthesia: General Team communication plan: oral ET tube Induction: Induction: intravenous. Postoperative Plan: Postoperative administration opioids intended. No postoperative mechanical ventilation intended. Patient's planned disposition post procedure is Floor. Informed Consent: Discussed plan with PET WALKER. Anesthesia plan and risks discussed with patient. Consent and Attending signature: I and/or my designee have discussed the anesthesia plan, benefits, possible alternatives, parental presence at time of induction (if indicated), and clinically relevant risks that may include dental injury, unintentional awareness, and/or other complications. The patient and/or parent/legal guardian understand, and agree to proceed. All questions answered. documented in this encounter Plan of Treatment Not on file documented as of this encounter Procedures Procedure Name Priority Date/Time Associated Diagnosis Comments WV AN PROCEDURE PLACEHOLDER Routine 08/08/2023 8:39 AM CDT WV AN ELECTIVE ENDOTRACHEAL AIRWAY Routine 08/08/2023 8:39 AM CDT documented in this encounter Results * WV AN ELECTIVE ENDOTRACHEAL AIRWAY, W[place] AN PROCEDURE PLACEHOLDER (08/08/2023 8:39 AM CDT) Narrative Pippa Montes CRNA - 08/08/2023 8:39 AM CDT Pippa Montes CRNA ? 08/08/2023 ??9:40 AM Airway Patient location: OR Urgency: elective Indications for airway management: anesthesia Difficult airway: no Staff: Supervising provider: Donte Jean-Baptiste MD Placed by: Anesthesiologist: Donte Jean-Baptiste MD PET WALKER: Pippa Montes CRNA Emergent airway documentation: Risks and benefits discussed: yes Consent obtained: yes Consent given by: patient Airway prep: Preoxygenated: yes Patient position: sniffing Mask difficulty assessment: 2 - vent by mask + OA or adjuvant Sedation level during airway: GA Final airway details: Final airway type: endotracheal airway Tube type: ETT ETT size: 8.0 mm Cuffed: yes Technique used for successful ETT placement: video laryngoscopy Devices/Methods used in placement: stylet, flexible tip bougie and exchange catheter Insertion site: oral Video blade type: Glidescope Blade size: 3 Cormack-Lehane (video): grade IIa - partial view of glottis Cuff volume: 9 mL Cuff inflated with: air ETT to teeth: 25 cm Placement verified by: auscultation and CO2 detection Airway secured with: silk tape Number of attempts: 3 or more Ventilation between attempts: 2 hand mask Planned trial extubation: yes Additional comments: Multiple attempts with the glidescopre 3 blade, could see the vocal cords but could not get the tube to the cords. I tried once, Dr Jean-Baptiste attempted ??a couple times with glidscope 3 and bougie as well.. Successful with the 4th attempt glidescope 3 and cricoid pressure. We had to exchange the ETT due to a cuff leak. Suctioned ETT bloody tinged. EASY 2 hand mask us Donte Jean-Baptiste MD ANESTHESIA ORDERAB LES Edited Result - Final documented in this encounter Visit Diagnoses Not on filedocumented in this encounter Administered Medications Inactive Administered Medications - up to 3 most recent administrations Medication Order MAR Action Action Date Dose Rate Site dexAMETHasone (DECADRON) 4 mg/mL injection intravenous, Administer over 2 Minutes, As needed, Starting on Sun08/08/23 at 0828, Anesthesia Intra-op Given 08/08/2023 8:28 AM CDT 10 mg ePHEDrine injection intravenous, Administer over 5 Minutes, As needed, Starting on Sun08/08/23 at 0843, Anesthesia Intra-op Given 08/08/2023 9:46 AM CDT 10 mg Given 08/08/2023 9:36 AM CDT 20 mg Given 08/08/2023 8:43 AM CDT 20 mg fentaNYL (SUBLIMAZE) preservative free injection intravenous, As needed, Starting on Sun08/08/23 at 0751, Anesthesia Intra-op Given 08/08/2023 7:51 AM CDT 50 mcg heparin 1,000 unit/mL injection intravenous, As needed, Starting on Sun08/08/23 at 0830, Anesthesia Intra-op Bolus 08/08/2023 9:25 AM CDT 5,000 U nits Bolus 08/08/2023 9:12 AM CDT 5,000 Units Bolus 08/08/2023 8:59 AM CDT 5,000 Units midazolam (VERSED) 1 mg/mL preservative free injection intravenous, Administer over 2 Minutes, As needed, Starting on Sun08/08/23 at 0747, Anesthesia Intra-op Given 08/08/2023 7:47 AM CDT 2 mg ondansetron (ZOFRAN) injection intravenous, Administer over 2 Minutes, As needed, Starting on Sun08/08/23 at 0939, Anesthesia Intra-op Given 08/08/2023 9:39 AM CDT 4 mg phenylephrine (RUFINO-SYNEPHRINE) 1 mg/10 mL (100 mcg/mL) in sodium chloride 0.9% (premix) intravenous, As needed, Starting on Sun08/08/23 at 0823, Anesthesia Intra-op Given 08/08/2023 8:26 AM CDT 100 mcg Given 08/08/2023 8:23 AM CDT 100 mcg Given 08/08/2023 8:20 AM CDT 100 mcg phenylephrine (RUFINO-SYNEPHRINE) 10 mg in sodium chloride 0.9% 100 mL solution intravenous, Continuous PRN, Starting on Sun08/08/23 at 0823, Anesthesia Intra-op Rate/Dose Change 08/08/2023 9:14 AM CDT 0.8 mcg/kg/min 58.224 mL/hr Rate/Dose Change 08/08/2023 8:42 AM CDT 1 mcg/kg/min 72.78 mL/hr Rate/Dose Change 08/08/2023 8:34 AM CDT 0.6 mcg/kg/min 43. 668 mL/hr propofoL (DIPRIVAN) 10 mg/mL IV intravenous, As needed, Starting on Sun08/08/23 at 0753, Anesthesia Intra-op Bolus 08/08/2023 9:57 AM CDT 100 mg Bolus 08/08/2023 7:57 AM CDT 50 mg New Bag 08/08/2023 7:53 AM CDT 150 mg protamine injection intravenous, As needed, Starting on Sun08/08/23 at 0947, Anesthesia Intra-op, Indications: Heparin ToxicityIndications:Heparin Toxicity Given 08/08/2023 9:47 AM CDT 50 mg rocuronium (ZEMURON) injection intravenous, As needed, Starting on Sun08/08/23 at 0807, Anesthesia Intra-op Given 08/08/2023 9:00 AM CDT 50 mg Given 08/08/2023 8:07 AM CDT 25 mg sodium chloride 0.9% infusion 50 mL/hr, intravenous, Continuous, Starting on Sun08/08/23 at 0715, Pre-Procedure (CV) New Bag 08/08/2023 8:44 AM CDT Rate/Dose Verify 08/08/2023 7:43 AM CDT 50 mL/h r New Bag 08/08/2023 7:15 AM CDT 50 mL/hr 50 mL/hr succinylcholine (ANECTINE) injection intravenous, As needed, Starting on Sun08/08/23 at 0753, Anesthesia Intra-op Given 08/08/2023 7:58 AM CDT 50 mg Given 08/08/2023 7:53 AM CDT 150 mg sugammadex (BRIDION) 100 mg/mL intravenous solution intravenous, As needed, Starting on Sun08/08/23 at 0955, Anesthesia Intra-op Given 08/08/2023 9:55 AM CDT 400 mg documented in this encounter Care Teams Shorer Relationship Specialty Start Date End Date Shan Loera DO [address] [place] [address] PCP - General Family Medicine 02/09/23 documented as of this encounter
--- OUTSIDE RECORDS SUMMARY | 2024-04-26 18:28 | XMS_ITS | Encounter Summary ---
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 Identity 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 Sexual Orientation Straight 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 [facility] [address] [place] [address], [facility] [address] [address] Office Visit Note Patient Name: Jonathan Quiles Date of : 1975 Primary Physician: Shan Loera DO Chief Complaint Atrial Fibrillation Status post radiofrequency catheter ablation HPI Jonathan Quiles is a 48 y.o. male seen in the Arrhythmia Center for follow up of his atrial fibrillation and recent ablation. He has a significant medical history for hypertension, diabetes, sleep apnea, and [...] and there was no evidence of ischemia. On 08/08/23 he underwent radiofrequency catheter ablation with Dr. Case. This included successfulablation for atrial fibrillation with electrical isolation of all 4 pulmonary veins, linear/focal left atrial ablation, successful ablation of CTI, and EP study that was negative for sustained inducible arrhythmia. He presents today for routine follow-up post ablation Bilateral incision sites have healed well without complications. Remains compliant on metoprolol and apixaban. Denies any issues with bruising or bleeding. He denies any chest pain, palpitations, near-syncope, jackelin syncope. He does report some shortness of breath with exertion but, that has gotten better since his ablation. Denies any recurrence of hisatrial arrhythmia. EKG today demonstrates sinus rhythm (73) with a first-degree AV block, normal QRS duration and QT interval. Past Medical History Past Medical History: Diagnosis [...] Types: Cigarettes Quit date: 02/01/2009 Years since quittin.6 Smokeless tobacco: Current Substance and Sexual Activity [...] Thought content normal. Judgment: Judgment normal. BP 110/58 Pulse 71 Ht 185.4 cm (6' 1 ) Wt (!) 176.5 kg (389 lb 1.6 oz) SpO2 96% BMI 51.34kg/m?? Assessment/Plan Diagnoses and all orders for this [...] clinic visit Orders: - ECG 12 lead Anticoagulation management encounter Assessment & Plan: -remains compliant on apixaban -denies any issues with bruising or bleeding -recommend continued therapy for thromboprophylaxis up to 2 months post ablation if no reoccurrenceof his atrial arrhythmia Mary Jo Yang NP [facility] documented in this encounter Miscellaneous Notes * Assessment & Plan Note - Mary Jo Yang NP - 09/13/2023 1:02 PM CDT Associated Problem(s): Anticoagulation management encounter -remains compliant on apixaban -denies any issues with bruising or bleeding -recommend continued therapy for thromboprophylaxis up to 2 months post ablation if no reoccurrenceof his atrial arrhythmia * Assessment & Plan Note - Mary Jo Yang NP - 09/13/2023 1:01 PM CDT Associated Problem(s): Persistent atrial fibrillation (HCC) -status post radiofrequency catheter ablation with Dr. Case -remains compliant on metoprolol and apixaban -no changes to medications were made today -EKG today demonstrates sinus rhythm with a first-degree AV block -denies any reoccurrence of his atrial arrhythmia -follow up in 2 months for 12 lead EKG and clinic visit documented in this encounter Plan of Treatment Not on file documented as of this encounter Procedures Procedure Name Priority Date/Time Associated Diagnosis Comments ECG 12-LEAD Routine 09/13/2023 Persistent atrial fibrillation (HCC) documented in this encounter Results * ECG 12 lead (09/13/2023) Mary Jo Yang NP ECG ORDERABLES Final Result documented in this encounter Visit Diagnoses Diagnosis Persistent atrial fibrillation (HCC)- Primary Atrial fibrillation Anticoagulation management encounter Encounter for therapeutic drug monitoring documented in this encounter Historical Medications * This list may reflect changes made after this encounter. testosterone cypionate (DEPO-TESTOTERON E) 200 mg/mL injection Inject 1 mL (200 mg total) into the muscle as instructed every 14 (fourteen) days 07/18/2023 diclofenac (CATAFLAM) 50 mg tablet Take 1 tablet (50 mg total) by mouth daily 08/28/2023 added in this encounter Care Teams Yield Improvement Engineer Relationship Specialty Start Date End Date Shan Loera DO [address] [place] [address] PCP - General Family Medicine 02/09/23 documented as of this encounter
--- OUTSIDE RECORDS SUMMARY | 2024-04-26 19:53 | XMS_ITS | Encounter Summary ---
Author Organization [facility] Address [address] [place] [address]. 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
--- OUTSIDE RECORDS SUMMARY | 2024-04-26 19:53 | XMS_ITS | Encounter Summary ---
Author Organization [facility] Address [address] [place] [address]. 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
--- OUTSIDE RECORDS SUMMARY | 2024-04-26 19:53 | XMS_ITS | Encounter Summary ---
Author Organization [facility] Address [address] [place] [address]. 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
--- OUTSIDE RECORDS SUMMARY | 2024-04-26 19:53 | XMS_ITS | Encounter Summary ---
Author Organization [facility] Address [address] [place] [address]. 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
--- OUTSIDE RECORDS SUMMARY | 2024-04-26 19:53 | XMS_ITS | Encounter Summary ---
Author Organization [facility] Address [address] [place] [address] Care Team Providers Care Process Control Tech Name Role Phone Unavailable Primary Care Provider Unavailabl e Encounter Details Date Type Department Care Team (Latest Contact Info) Description 10/12/2020 11:16 AM CDT - 10/12/2020 11:59 PM CDT Hospital Encounter [facility] D[facility] ST[facility] [address] [place] [phone] Discharge Disposition: Home or Self Care Social [...] - 890 ng/dL 10/13/2020 11:25 PM CDT [facility] ([facility]) Comment: Total testosterone values may not reflect optimal concentrations in all individuals. Free or bioavailable testosterone measurements may provide supportive information. REFERENCE INTERVAL: Testosterone, Adult Male Access complete set of age- and/or gender-specific reference intervals for this test in the [facility] Test Directory ([facility]). Performed By: [facility] [employer] [address] [place] [address] News Photographer: Meagan Lunsford MD Blood BLOOD SPECIMEN / Unknown Lab Venipuncture / Unknown 10/12/2020 11:53 AM CDT 10/12/2020 12:16 PM CDT Jennifer Irvin DO LAB - CHEMISTRY OR DERABLES [facility] ([facility]) [address] [place] [address], [facility] documented in this encounter Visit Diagnoses Diagnosis Unilateral inguinal hernia without obstruction or gangrene, recurrence not specified Atrophic testicle Atrophy of testis documented in this encounter
--- OUTSIDE RECORDS SUMMARY | 2024-04-26 19:53 | XMS_ITS | Encounter Summary ---
Author Organization [facility] Address [address] [place] [address]. [place], [place] [address] [place] [address] Care Team Providers Care Clinical Project Assistant Name Role Phone Romel Saxena MD Primary Care Provider [phone] Reason for Visit * Reason Comments Work Comp Pt presents to the c lin today for left inguinal hernia. * Consultation/Treatment (Urgent) - Closed Specialty Diagnoses / Procedures Referred By Mark t Referred To Contact GENERAL SURGERY / SURGERY Diagnoses Left inguinal hernia Mike Rueda MD Maibenco, Douglas C, MD Referral ID Status Reason Start Date Expiration Date Visits Requested Visits Authorized [id number] Closed Patient Preference 09/01/2020 09/01/2020 1 1 Encounter Details Date Type Department Care Team (Late st Contact Info) Description 09/01/2020 10:20 AM CDT Office Visit [facility] [address] [place] [address] Claus Higgins MD Work Comp [...] file 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 Providing the patient has no urologic pathology [...] recurrent) documented in this encounter Care Teams Clinical Project Assistant Relationship Specialty Start Date End Date Romel Saxena MD PCP - General FAMILY PRACTICE 08/26/20 documented as of this encounter
--- OUTSIDE RECORDS SUMMARY | 2024-04-26 19:53 | XMS_ITS | Patient Health Summary ---
Author Organization [facility] Address [address] [place] [address] Care Team Providers Care Mysql Database Administrator Name Role Phone Unavailable Primary Care Provider Unavailabl e Note from [facility],non-owned Affiliates and Associated Physician Practices is amultiple site organization consisting of ambulatory clinics and hospital sitesin [place], [place], [place] and [place]. This disclosure is being madepursuant to the Care Everywhere program and may not contain all information available regarding this patient. Last updated 18.[facility] Allergies * Penicillins(Rash) -Medium Criticality Medications * [...] - 890 ng/dL 10/13/2020 11:25 PM CDT [facility] ([facility]) Comment: Total testosterone values may not reflect optimal concentrations in all individuals. Free or bioavailable testosterone measurements may provide supportive information. REFERENCE INTERVAL: Testosterone, Adult Male Access complete set of age- and/or gender-specific reference intervals for this test in the [facility] Test Directory ([facility]). Performed By: [facility] [address] [place] [address] Education Program Specialist: Meagan Lunsford MD Blood BLOOD SPECIMEN / Unknown Lab Venipuncture / Unknown 10/12/2020 11:53 AM CDT 10/12/2020 12:16 PM CDT Jennifer Irvin DO LAB - CHEMISTRY OR DERABLES [facility] ([facility]) [address] * US SCROTUM AND CONTENTS (10/12/2020 8:53 AM CDT) Anatomical Region Laterality Modality Pelvis Ultrasound 10/12/2020 8:36 AM CDT Impressions 10/12/2020 1:00 PM CDT IMPRESSION: 1.No sonographic evidence of left-sided inguinal hernia as clinically queried. 2.Right-sided intratesticular varicoceles. 3.Small left hydrocele. Dictated by Efra Clark MD (energy operations vice president) This report was approved ??by [...] left hydrocele. Dictated by Efra Clark MD (energy operations vice president) This report was approved by Efra Clark Dr on 10/12/2020 10:29 AM . I, Dr. ROSA MERLOS have personally reviewed and interpreted this examination/study. This report was electronically signed by RSOA MERLOS on 10/12/2020 1:00PM . Jennifer DEGROOT ORDERABLES
--- OUTSIDE RECORDS SUMMARY | 2024-04-26 19:53 | XMS_ITS | Encounter Summary ---
Author Organization [facility] Address [address] [place] [address]. 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
--- OUTSIDE RECORDS SUMMARY | 2024-04-26 19:53 | XMS_ITS | Encounter Summary ---
Author Organization [facility] Address [address] [place] [address]. 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
--- OUTSIDE RECORDS SUMMARY | 2024-04-26 19:53 | XMS_ITS | Encounter Summary ---
Author Organization [facility] Address [address] [place] [address]. 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
--- OUTSIDE RECORDS SUMMARY | 2024-04-26 19:53 | XMS_ITS | Encounter Summary ---
Author Organization [facility] Address [address] [place] [address]. 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
--- OUTSIDE RECORDS SUMMARY | 2024-04-26 19:53 | XMS_ITS | Encounter Summary ---
Author Organization [facility] Address [address] [place] [address]. [place], [place] [address] [place] [address] Care Team Providers Care Gang Vibrator Operator Name Role Phone Romel Saxena MD Primary Care Provider [phone]- [phone] Reason for Visit * Reason Onset Date Comments Establish Care 08/26/2020 checking to see if we are in network Encounter Details Date Type Department Care Team (Late st Contact Info) Description 08/26/2020 Telephone [facility] Medical [facility] General Surgery [address], [address] [place] [address] Mike Rueda MD Establish Care (checking to see if we are in network) Social History Tobacco Use Types Packs/Day Years Used Date Smoking Tobacco: Never Assessed Sex and Gender Information Value Date Recorded Sex Assigned at Not on file 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 documented in this encounter Plan of Treatment Not on file documented as of this encounter Visit Diagnoses Not on filedocumented in this encounter Care Teams Gang Vibrator Operator Relationship Specialty Start Date End Date Romel Saxena MD PCP - General FAMILY PRACTICE 08/26/20 documented as of this encounter
--- OUTSIDE RECORDS SUMMARY | 2024-04-26 19:53 | XMS_ITS | Encounter Summary ---
Author Organization [facility] Address [address] [place] [address]. 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
--- OUTSIDE RECORDS SUMMARY | 2024-04-26 19:53 | XMS_ITS | Encounter Summary ---
Author Organization [facility] Address [address] [place] [address] Care Team Providers Care Convertible Power Shovel Operator Name Role Phone Unavailable Primary Care [...]
--- OUTSIDE RECORDS SUMMARY | 2024-04-26 19:53 | XMS_ITS | Encounter Summary ---
Author Organization [facility] Address [address] [place] [address]. 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
--- OUTSIDE RECORDS SUMMARY | 2024-04-26 19:53 | XMS_ITS | Encounter Summary ---
Author Organization [facility] Address [address] [place] [address] Care Team Providers Care Skill Training Program Coordinator Name Role Phone Unavailable Primary Care Provider Unavailabl e Reason for Visit * Reason Comments General 2wk Testicular pain F/U Encounter Details Date Type Department Care Team (Late st Contact Info) Description 10/12/2020 9:45 AM CDT Office Visit [facility] [address] [place] [address], [place] [address] Jennifer Irvin , [address] [place] [id number] Unilateral inguinal hernia without obstruction or gangrene, [...] Irvin DO - 10/12/2020 10:22 AM CDT [facility] Division of Urologic Surgery Jennifer Irvin DO Date of Visit: 10/12/2020 Patient Name: Jonathan Quiles : 1975 Medical Record: [id number] (home) [phone] (work) Age: [age] year old Sex: male [...] nicotine dependence, tobacco abuse (at least a 74-wpde-ghhm history), status post open right inguinal hernia 28 years ago, and status post robotic appendectomy's approximately 8 years ago who presents for evaluation of a possible left inguinal hernia. On August 18, 2020 while transferring a 55 gallon drum from one [facility] to another at work, he developed severe left sided inguinal pain due to an inguinal hernia. He presented to the emergency department at the [facility] where he was evaluated and underwent CT imaging. The patient then followed up with his PCP who then referred him to the [facility] general surgery office for surgical evaluation. Since the patient first developed the left inguinal hernia he has been experiencing signifcant tenderness and swelling over the left testicle and groin. The pain is worsened with movement or when sitting in certain positions. He has been seen by a general surgeon in in [place], [place], who is planning to repair the [...] get hernia repair with Dr. Angel in [place], [place]. Has an appointment set up with [...] pain - Tobacco abuse (at least a 73-cngk-ppzo history) Past Surgical History: - Right-sided inguinal [...] abdomen pelvis with contrast dated 08/23/2020 from [facility] ?? FINDINGS: ?? Right testicle: 3.6 x [...] hydrocele. ?? Dictated by Efra Clark MD (resident care manager) ?? This report was approved by Efra [...]
--- OUTSIDE RECORDS SUMMARY | 2024-04-26 19:53 | XMS_ITS | Encounter Summary ---
Author Organization [facility] Address [address] [place] [address]. 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
--- OUTSIDE RECORDS SUMMARY | 2024-04-26 19:53 | XMS_ITS | Encounter Summary ---
Author Organization [facility] Address [address] [place] [address]. 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
--- OUTSIDE RECORDS SUMMARY | 2024-04-26 19:53 | XMS_ITS | Clinical Summary ---
Author Organization [facility] Address [address] [place] [address]. 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
--- OUTSIDE RECORDS SUMMARY | 2024-04-26 19:53 | XMS_ITS | Encounter Summary ---
Author Organization [facility] Address [address] [place] [address] Care Team Providers Care Straw Hat Plunger Operator Name Role Phone Unavailable Primary Care Provider Unavailabl e Reason for Visit * Reason Onset Date Comments Follow-up 11/05/2020 low testosterone Encounter Details Date Type Department Care Team (Late st Contact Info) Description 11/05/2020 Telephone [facility] [address] [place] [address] Cassy Rome RN Follow-up (low testosterone) Social [...]
--- OUTSIDE RECORDS SUMMARY | 2024-04-26 19:53 | XMS_ITS | Encounter Summary ---
Author Organization [facility] Address [address] [place] [address]. [place], [place] [address] [place] [address] Care Team Providers Care Financial Analysis Consultant Name Role Phone Unavailable Primary Care Provider Unavailabl e Encounter Details Date Type Department Care Team (Late st Contact Info) Description 03/18/2000 Abstract [facility] [address] [place] [address] , Generic Conversion, Social History Tobacco Use Types Packs/Day Years Used Date Smoking Tobacco: Never Assessed Sex and Gender Information Value Date Recorded Sex Assigned at Not on file Legal Sex Male 8:56 PM CAFETERIA ATTENDANT Gender Identity Not on file Sexual Orientation Not on file documented as of this encounter Plan of Treatment Not on file documented as of this encounter Visit Diagnoses Not on filedocumented in this encounter
--- OUTSIDE RECORDS SUMMARY | 2024-04-26 19:53 | XMS_ITS | Encounter Summary ---
Author Organization [facility] Address [address] [place] [address]. 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
--- OUTSIDE RECORDS SUMMARY | 2024-04-26 19:53 | XMS_ITS | Encounter Summary ---
Author Organization [facility] Address [address] [facility] [place] [address] Care Team Providers Care Tag Stringer Name Role Phone Unavailable Primary Care Provider Unavailabl e Reason for Referral * Radiology Services (Routine) - Closed Specialty Diagnoses / Procedures Referred By Mark t Referred To Contact Ultrasound Diagnoses Unilateral inguinal hernia without obstruction or gangrene, recurrence not specified Atrophic testicle Procedures US SCROTUM AND CONTENTS Jennifer Irvin DO [address] [facility] 2L DIV [place] [address] [facility] [address] [place] [address] Referral ID Status Reason Start Date Expiration Date Visits Re quested Visits Authorized [id number] Closed 09/28/2020 09/28/2021 1 1 Reason for Visit * Reason Comments Establish Care Testicular Pain Encounter Details Date Type Department Care Team (Late st Contact Info) Description 09/28/2020 11:45 AM CDT Office Visit [facility] [address] [facility], [place] [address] Jennifer Irvin DO [address] [facility] 2L DIV [place] [address] Unilateral inguinal hernia without obstruction [...] Britany Shin - 09/28/2020 1:05 PM CDT [facility] Division of Urologic Surgery Jennifer Irvin DO Date of Visit: 09/28/2020 Patient Name: Jonathan Quiles : 1975 Medical Record: [id number] (home) [phone] (work) Age: [age] year old Sex: male Dear Provider Unknown No address on file, Thank you very much for the interesting referral. I will briefly summarize the records below for myown documentation and your review as well. Chief Complaint/Reason for Visit: Chief Complaint Patient presents with ??? Establish Care Testicular Pain History of Present Illness: Jonathan Quilse is a 45 year old male being seen today for left inguinal hernia with past medical history significant for anaphylactic reaction to penicillin, morbid obesity, HIWOT, chronic lower back pain, nicotine dependence, tobacco abuse (at least a 37-nfjo-ddha history), status post open right inguinal hernia 28 years ago, and status post robotic appendectomy's approximately 8 years ago who presents for evaluation of a possible left inguinal hernia. On August 18, 2020 while transferring a 55 gallon drum from one [facility] to another at work, he developed severe left sided inguinal pain due to an inguinal hernia. He presented to the emergency department at the [facility] where he was evaluated and underwent CT imaging. The patient then followed up with his PCP who then referred him to the [facility] general surgery office for surgical evaluation. Since the patient first developed the left inguinal hernia he has been experiencing signifcant tenderness and swelling over the left testicle and groin. The pain is worsened with movement or when sitting in certain positions. He has been seen by a general surgeon in in [place], [place], who is planning to repair the [...] Gatherings with Friends and Family: ??? Attends Zoroastrian Services: ??? Active Member of Clubs or [...] left hydrocele. Dictated by Efra Clark MD (vice president of academic affairs) This report was approved ??by Efra Clark [...] abdomen pelvis with contrast dated 08/23/2020 from [facility] FINDINGS: Right testicle: 3.6 x 1.5 x [...] CT abdomen pelvis with [facility]: Right testicle: 3.6 x 1.5 x [...] left hydrocele. Dictated by Efra Clark MD (vice president of academic affairs) This report was approved by Efra Clark [...]
--- OUTSIDE RECORDS SUMMARY | 2024-04-26 19:53 | XMS_ITS | Encounter Summary ---
Author Organization [facility] Address [address] [place] [address]. 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
--- OUTSIDE RECORDS SUMMARY | 2024-04-26 19:53 | XMS_ITS | Encounter Summary ---
Author Organization [facility] Address [address] [place] [address]. [place], [place] [address] [place] [address] Care Team Providers Care Granite Cutter Name Role Phone Romel Haynes MD Primary Care Provider [phone] Claus Higgins MD Unavailable Unavailab le Reason for Referral * Consultation/Treatment (Urgent) - Closed Specialty Diagnoses / Procedures Referred By Mark reynoso Referred To Contact UROLOGY Diagnoses Testicular pain, left Mike Smith MD [address] [place] [address] Phone: tel: fax: Referral ID Status Reason Start Date Expiration Date V isits Requested Visits Authorized [id number] Closed Specialty Services 09/01/2020 10/03/2021 99 99 * Consultation/Treatment (Urgent) - Closed Specialty Diagnoses / Procedures Referred By Mark reynoso Referred To Contact GENERAL SURGERY / SURGERY Diagnoses Left inguinal hernia Mike Smith MD Maibenco, Douglas C, MD Referral ID Status Reason Start Date Expiration Date Visits Requested Visits Authorized [id number] Closed Patient Preference 09/01/2020 09/01/2020 1 1 [...] Expiration Date Visits Re quested Visits Authorized [id number] Closed 08/30/2020 08/31/2021 100 100 Encounter Details Date Type Department Care Team (Late st Contact Info) Description 08/30/2020 2:00 PM CDT Office Visit [facility] General Surgery - [address], [address] [address] Mike Smith MD New Patient (Concerns [...] on file 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 The patient states that he was told by the provider there he sustained a tear and now has a left inguinal hernia. The patient then followed up with his PCP who then referred him to the [facility] general surgery office for surgical evaluation. Since [...] Exam Vitals reviewed. Exam conducted with a security guard present. Constitutional: General: He is not in [...] Diagnostic Imaging: CT a/p wo con 08/23/20 [facility] Findings: The lung bases are clear. The heart size is normal. The liver, spleen, pancreas, gallbladder, and adrenal glands are normal. The kidneys are unremarkable. No stones are identified in the kidneys, ureters, or bladder. There is no hydronephrosis or Irving ureter. No pathologically enlarged abdominal or pelvic [...] nicotine dependence, tobacco abuse (at least a 67-bjie-nspc history), status post open right inguinal hernia [...] a CD with cross-sectional imaging from the [facility] before the patient's appointment with Dr. Higgins [...] organs documented in this encounter Care Teams Granite Cutter Relationship Specialty Start Date End Date Romel Haynes MD PCP - General FAMILY PRACTICE 08/26/20 Claus Higgins MD SURGERY 08/31/20 08/31/20 documented as of this encounter
--- OUTSIDE RECORDS SUMMARY | 2024-04-26 19:53 | XMS_ITS | Encounter Summary ---
Author Organization [facility] Address [address] [place] [address]. 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
--- OUTSIDE RECORDS SUMMARY | 2024-04-26 19:53 | XMS_ITS | Clinical Summary ---
Author Organization [facility] Address [address] [place] [address] Care Team Providers Care Healthcare Administrator Name Role Phone Unavailable Primary Care Provider Unavailabl e Source Comments [facility],non-owned Affiliates and Associated Physician Practices is amultiple site organization consisting of ambulatory clinics and hospital sitesin [place], [place], [place] and [place]. This disclosure is being madepursuant to the Care Everywhere program and may not contain all information available regarding this patient. Last updated 18.[facility] Allergies Active Allergy Reactions Criticality Noted Date [...] this topic Jonathan Quiles Personal/Family Self 1975 ([employer]) [address] [place] [address]
--- OUTSIDE RECORDS SUMMARY | 2024-04-26 19:53 | XMS_ITS | Encounter Summary ---
Author Organization [facility] Address [address] [place] [address] Care Team Providers Care Microstrategy Architect Developer Name Role Phone Unavailable Primary Care Provider [...]
--- OUTSIDE RECORDS SUMMARY | 2024-04-26 19:53 | XMS_ITS | Encounter Summary ---
Author Organization [facility] Address [address] [place] [address]. 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
--- OUTSIDE RECORDS SUMMARY | 2024-04-26 19:53 | XMS_ITS | Referral Summary ---
Author Organization [facility] Address [address] [facility] [place] [address] Care Team Providers Care Blow Up Operator Name Role Phone Unavailable Primary Care Provider Unavailabl e Source Comments [facility],non-owned Affiliates and Associated Physician Practices is amultiple site organization consisting of ambulatory clinics and hospital sitesin [place], [place], [place]. This disclosure is being madepursuant to the Care Everywhere program and may not contain all information available regarding this patient. Last updated 18.[facility] Allergies Active Allergy Reactions Criticality Noted Date [...]
--- OUTSIDE RECORDS SUMMARY | 2024-04-26 19:53 | XMS_ITS | Encounter Summary ---
Author Organization [facility] Address [address] [place] [address]. [place], [place] [address] [place] [address] Care Team Providers Care Station Installer And Repairer Name Role Phone Romel Saxena MD Primary Care Provider [phone] Reason for Referral * Consultation/Treatment (Routine) - Closed Specialty Diagnoses / Procedures Referred By Contmarco antonio reynoso Referred To Contact SURGERY Diagnoses Left inguinal hernia [facility] Phone: tel: fax: Referral ID Status Reason Start Date Expiration Date V isits Requested Visits Authorized [id number] Closed Second Opinion 11/02/2020 11/02/2020 1 1 Scheduling Instructions Patient is needing a doctor with robotic equipment to repair his hernia. Reason for Visit * Reason Onset Date Comments Question 09/10/2020 Referral to [facility]. 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 Her verbalized understanding that [facility] does not have the equipment for a robotic surgery. Kendal interested in going to the [place] area for another consult. * Malena Huang [...] the workqueue to be re-worked. * Malena uHang RN - 09/10/2020 3:42 PM CDT Attempted to schedule an appointment for the patient with Dr. Ledesma. Was instructed to call [phone]. However, the facility does not take any Worker's Compensation Cases no matter which insurance the patient has. * Malena Huang RN - 09/10/2020 3:39 PM CDT Glenna stated the patient has been approved to see [facility]. * Malena Huang RN - 09/10/2020 3:32 PM CDT Patient stated he attempted to schedule an appointment but was told by [facility] that they do not accept his worker's compensation insurance. * Malena Huang RN - 09/10/2020 3:20 PM CDT Patient verbalized understanding to call [facility] for an appointment. Phone number given. * Malena Huang RN - 09/10/2020 1:58 PM CDT Left message asking him to call and schedule the appointment with Dr. Ledesma per the referral center. Phone numbers to call for an appointment are [phone] and [phone]. * Malena Huang RN - 09/10/2020 1:53 [...] CDT Glenna stated she called [facility]. They do not have an appointment for [...] recurrent) documented in this encounter Care Teams Station Installer And Repairer Relationship Specialty Start Date End Date Romel Saxena MD PCP - General FAMILY PRACTICE 08/26/20 documented as of this encounter
--- OUTSIDE RECORDS SUMMARY | 2024-04-26 19:53 | XMS_ITS | Encounter Summary ---
Author Organization [facility] Address [address] [facility] [place] [address] Care Team Providers Care Cryptography Teacher Name Role Phone Unavailable Primary Care Provider Unavailabl e Reason for Referral * Radiology Services (Routine) - Closed Specialty Diagnoses / Procedures Referred By Mrak reynoso Referred To Contact Ultrasound Diagnoses Unilateral inguinal hernia without obstruction or gangrene, recurrence not specified Atrophic testicle Procedures US SCROTUM AND CONTENTS Jennifer Irvin DO [address] [facility] 2L [place] [address] [id number] [place] [address] Referral ID Status Reason Start Date Expiration Date Visits Re quested Visits Authorized [id number] Closed 09/28/2020 09/28/2021 1 1 Reason for Visit * Radiology Services (Routine) - Closed Specialty Diagnoses / Procedures Referred By Mark reynoso Referred To Contact Ultrasound Diagnoses Unilateral inguinal hernia without obstruction or gangrene, recurrence not specified Atrophic testicle Procedures US SCROTUM AND CONTENTS Jennifer Irvin DO [address] [facility] 2L [place] [address] [facility] Us [address] [place] [address] Referral ID Status Reason Start Date Expiration Date Visits Re quested Visits Authorized [id number] Closed 09/28/2020 09/28/2021 1 1 Encounter Details Date Type Department Care Team (Latest Contact Info) Description 10/12/2020 7:50 AM CDT - 10/12/2020 11:15 AM CDT Hospital Encounter [facility] US [address] [place] [phone] Jennifer Irvin M, DO [address] [place] [address] Discharge Disposition: Home or Self [...] hydrocele. Dictated by Efra Clark MD (residential program coordinator) This report was approved ??by Efra Clark [...] abdomen pelvis with contrast dated 08/23/[address] [facility] FINDINGS: Right testicle: 3.6 x 1.5 x [...] CT abdomen pelvis with contrast [facility] FINDINGS: Right testicle: 3.6 x 1.5 x [...] hydrocele. Dictated by Efra Clark MD (residential program coordinator) This report was approved by Efra Clark [...]
--- OUTSIDE RECORDS SUMMARY | 2024-04-26 19:53 | XMS_ITS | Encounter Summary ---
Author Organization [facility] Address [address] [place] [address]. [place], [place] [address] [place] [address] Care Team Providers Care Manager Baby Name Role Phone Romel Saxena MD Primary Care Provider [phone] Claus Higgins MD Unavailable Unavailab le Reason for Visit * Reason Onset Date Comments Advise 08/26/2020 Error, no note s tarted Encounter Details Date Type Department Care Team (Late st Contact Info) Description 08/26/2020 Telephone [facility] Medical Group General Surgery [address], [address] [place] [address] Mike Rueda MD Advise (Error, no note started) Social History Tobacco Use Types Packs/Day Years Used Date Smoking Tobacco: Never Assessed PHQ-2 Answer Date Recorded PHQ-2 Score - If the patient scores above 3, please move on to questions 3-9 0 09/01/2020 Sex and Gender Information Value Date Recorded Sex Assigned at Not on file 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
--- OUTSIDE RECORDS SUMMARY | 2024-04-26 19:53 | XMS_ITS | Encounter Summary ---
Author Organization [facility] Address [address] [place] [address]. 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
--- OUTSIDE RECORDS SUMMARY | 2024-04-26 19:53 | XMS_ITS | Encounter Summary ---
Author Organization [facility] Address [address] [place] [address]. 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
--- OUTSIDE RECORDS SUMMARY | 2024-04-26 19:53 | XMS_ITS | Encounter Summary ---
Author Organization [facility] Address [address] [place] [address]. 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
--- OUTSIDE RECORDS SUMMARY | 2024-04-26 19:53 | XMS_ITS | Encounter Summary ---
Author Organization [facility] Address [address] [place] [address]. 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
--- OUTSIDE RECORDS SUMMARY | 2024-04-26 19:54 | XMS_ITS | Encounter Summary ---
Author Organization [facility] Address [address] [place] [address]. 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
--- OUTSIDE RECORDS SUMMARY | 2024-04-26 19:54 | XMS_ITS | Encounter Summary ---
Author Organization [facility] Address [address] [place] [address]. 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
--- OUTSIDE RECORDS SUMMARY | 2024-04-26 19:54 | XMS_ITS | Encounter Summary ---
Author Organization [facility] Address [address] [place] [address]. 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
--- OUTSIDE RECORDS SUMMARY | 2024-04-26 19:54 | XMS_ITS | Encounter Summary ---
Author Organization [facility] Address [address] [place] [address]. 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
--- OUTSIDE RECORDS SUMMARY | 2024-04-26 19:54 | XMS_ITS | Encounter Summary ---
Author Organization [facility] Address [address] [place] [address]. [place], [place] [address] [place] [address] Care Team Providers Care Forensic Dna Analyst Name Role Phone Unavailable Primary Care Provider Unavailabl e Encounter Details Date Type Department Care Team (Late st Contact Info) Description 10/10/1995 Abstract [facility] [address] [place] [address] , Generic Conversion, Social History Tobacco Use Types Packs/Day Years Used Date Smoking Tobacco: Never Assessed Sex and Gender Information Value Date Recorded Sex Assigned at Not on file Legal Sex Male 8:56 PM CLINICAL RESEARCH MONITOR Gender Identity Not on file Sexual Orientation Not on file documented as of this encounter Plan of Treatment Not on file documented as of this encounter Visit Diagnoses Not on filedocumented in this encounter
--- OUTSIDE RECORDS SUMMARY | 2024-04-26 19:54 | XMS_ITS | Encounter Summary ---
Author Organization [facility] Address [address] [place] [address]. [place], [place] [address] [place] [address] Care Team Providers Care Boat Cleaning Supervisor Name Role Phone Unavailable Primary Care Provider Unavailabl e Encounter Details Date Type Department Care Team (Late st Contact Info) Description 03/10/1998 Abstract [facility] [address] [place] [address] , Generic Conversion, Social History Tobacco Use Types Packs/Day Years Used Date Smoking Tobacco: Never Assessed Sex and Gender Information Value Date Recorded Sex Assigned at Not on file Legal Sex Male 8:56 PM RESCUE BOAT OPERATOR Gender Identity Not on file Sexual Orientation Not on file documented as of this encounter Plan of Treatment Not on file documented as of this encounter Visit Diagnoses Not on filedocumented in this encounter
--- OUTSIDE RECORDS SUMMARY | 2024-04-26 19:54 | XMS_ITS | Encounter Summary ---
Author Organization [facility] Address [address] [place] [address]. 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
--- OUTSIDE RECORDS SUMMARY | 2024-04-26 19:54 | XMS_ITS | Encounter Summary ---
Author Organization [facility] Address [address] [place] [address]. [place], [place] [address] [place] [address] Care Team Providers Care Steam Box Operator Name Role Phone Unavailable Primary Care Provider Unavailabl e Encounter Details Date Type Department Care Team (Late st Contact Info) Description 05/07/1994 Abstract [facility] [address] [place] [address] , Generic Conversion, Social History Tobacco Use Types Packs/Day Years Used Date Smoking Tobacco: Never Assessed Sex and Gender Information Value Date Recorded Sex Assigned at Not on file Legal Sex Male 8:56 PM FLANGE TURNER Gender Identity Not on file Sexual Orientation Not on file documented as of this encounter Plan of Treatment Not on file documented as of this encounter Visit Diagnoses Not on filedocumented in this encounter
--- OUTSIDE RECORDS SUMMARY | 2024-04-26 19:54 | XMS_ITS | Encounter Summary ---
Author Organization [facility] Address [address] [place] [address]. [place] [address] [place] [address] Care Team Providers Care Home Energy Consultant Supervisor Name Role Phone Unavailable Primary Care Provider Unavailabl e Encounter Details Date Type Department Care Team (Late st Contact Info) Description 08/20/1985 Abstract [facility] [address] [place] [address] , Generic Conversion, Social History Tobacco Use Types Packs/Day Years Used Date Smoking Tobacco: Never Assessed Sex and Gender Information Value Date Recorded Sex Assigned at Not on file Legal Sex Male 8:56 PM REAL ESTATE APPRAISER Gender Identity Not on file Sexual Orientation Not on file documented as of this encounter Plan of Treatment Not on file documented as of this encounter Visit Diagnoses Not on filedocumented in this encounter
--- OUTSIDE RECORDS SUMMARY | 2024-04-26 19:54 | XMS_ITS | Encounter Summary ---
Author Organization [facility] Address [address] [place] [address]. [place], [place] [address] [place] [address] Care Team Providers Care Installation Drafter Name Role Phone Unavailable Primary Care Provider Unavailabl e Encounter Details Date Type Department Care Team (Late st Contact Info) Description 10/04/1995 Abstract [facility] [address] [place] [address] , Generic Conversion, Social History Tobacco Use Types Packs/Day Years Used Date Smoking Tobacco: Never Assessed Sex and Gender Information Value Date Recorded Sex Assigned at Not on file Legal Sex Male 8:56 PM FOREST SCIENCE PROFESSOR Gender Identity Not on file Sexual Orientation Not on file documented as of this encounter Plan of Treatment Not on file documented as of this encounter Visit Diagnoses Not on filedocumented in this encounter
--- OUTSIDE RECORDS SUMMARY | 2024-04-26 19:54 | XMS_ITS | Encounter Summary ---
Author Organization [facility] Address [address] [place] [address]. [place] [address] [place] [address] Care Team Providers Care Nail Welter Name Role Phone Unavailable Primary Care Provider Unavailabl e Encounter Details Date Type Department Care Team (Late st Contact Info) Description 09/12/1985 Abstract [facility] [address] [place] [address] , Generic Conversion, Social History Tobacco Use Types Packs/Day Years Used Date Smoking Tobacco: Never Assessed Sex and Gender Information Value Date Recorded Sex Assigned at Not on file Legal Sex Male 8:56 PM PRECAST CONCRETE PRODUCTS INSTALLER Gender Identity Not on file Sexual Orientation Not on file documented as of this encounter Plan of Treatment Not on file documented as of this encounter Visit Diagnoses Not on filedocumented in this encounter
--- OUTSIDE RECORDS SUMMARY | 2024-04-26 19:54 | XMS_ITS | Encounter Summary ---
Author Organization [facility] Address [address] [place] [address] Care Team Providers Care Delicatessen Store Manager Name Role Phone Shan Loera DO Primary Care Provider Aiden Case MD Unavailable [phone] Reason for Visit * Reason Comments Follow-up 4 mo follow up on a- fib, HIWOT Encounter Details Date Type Department Care Team (Late st Contact Info) Description 02/18/2024 8:00 AM CDT Office Visit [facility] Medical Group Cardiology at [address] [place] [address] Karl Rae MD [address] [address] Persistent atrial fibrillation (HCC) (Primary [...] CDT Gender Identity Male 06/20/2023 11:48 PM HEATER PLANER OPERATOR Sexual Orientation Straight 06/20/2023 11 :48 PM HEATER PLANER OPERATOR documented as of this encounter Last [...] fibrillation. Elkinhas been referred to electrophysiology at [facility] and underwent ablation/pulmonary vein iso lation with Dr. Case at [facility] in July of 2023. He returns to [...] have a follow-up appointment to see the bullet assembly press setter operator next month as well. REVIEW OF SYSTEMS [...] fibrillation documented in this encounter Care Teams Delicatessen Store Manager Relationship Specialty Start Date End Date Shan Loera DO [address] [place] [address] PCP - General Family Medicine 02/09/23 Aiden Case MD [address] [address] Consulting Physician Cardiology 11/16/23 documented as of this encounter
--- OUTSIDE RECORDS SUMMARY | 2024-04-26 19:54 | XMS_ITS | Encounter Summary ---
Author Organization [facility] Address [address] [place] [address]. [place] [address] [place] [address] Care Team Providers Care Candy Vendor Name Role Phone Unavailable Primary Care Provider Unavailabl e Encounter Details Date Type Department Care Team (Late st Contact Info) Description 07/26/1992 Abstract [facility] [address] [place] [address] , Generic Conversion, Social History Tobacco Use Types Packs/Day Years Used Date Smoking Tobacco: Never Assessed Sex and Gender Information Value Date Recorded Sex Assigned at Not on file Legal Sex Male 8:56 PM OILER AND GREASER Gender Identity Not on file Sexual Orientation Not on file documented as of this encounter Plan of Treatment Not on file documented as of this encounter Visit Diagnoses Not on filedocumented in this encounter
--- OUTSIDE RECORDS SUMMARY | 2024-04-26 19:54 | XMS_ITS | Encounter Summary ---
Author Organization [facility] Address [address] [place] [address]. [place], [place] [address] [place] [address] Care Team Providers Care Public Relations Manager Name Role Phone Unavailable Primary Care Provider Unavailabl e Encounter Details Date Type Department Care Team (Late st Contact Info) Description 01/16/1995 Abstract [facility] [address] [place] [address] , Generic Conversion, Social History Tobacco Use Types Packs/Day Years Used Date Smoking Tobacco: Never Assessed Sex and Gender Information Value Date Recorded Sex Assigned at Not on file Legal Sex Male 8:56 PM SCHOOL HEALTH ASSISTANT Gender Identity Not on file Sexual Orientation Not on file documented as of this encounter Plan of Treatment Not on file documented as of this encounter Visit Diagnoses Not on filedocumented in this encounter
--- OUTSIDE RECORDS SUMMARY | 2024-04-26 19:54 | XMS_ITS | Encounter Summary ---
Author Organization [facility] Address [address] [place] [address] Care Team Providers Care Ski Edge Painter Name Role Phone Lonlucius Shan Johnsonh Primary Care Provider Aiden Case MD Unavailable [phone] Encounter Details Date Type Department Care Team (Late st Contact Info) Description 03/28/[address] [facility] Medical Group Cardiology [address] [address] Karl Rae MD [address] [facility] [address] [place] [address] Social History Tobacco Use Types [...] CDT Gender Identity Male 06/20/2023 11:48 PM BI APPLICATION DEVELOPER Sexual Orientation Straight 06/20/2023 11 :48 PM BI APPLICATION DEVELOPER documented as of this encounter Miscellaneous Notes * Telephone Encounter - Jessenia Donaldson MA - 03/31/2024 11:05 AM CST Abhi AMADOR approved from 03/14/24 to 03/28/25. Pharmacy notified. APPLICATION DEVELOPER * Telephone Encounter - Jessenia Donaldson MA - 03/28/2024 5:27 PM CST Received PA request for Eliquis 5 mg. Submitted PA request via Cover My Meds. Awaiting response. APPLICATION DEVELOPER documented in this encounter Plan of Treatment Not on file documented as of this encounter Visit Diagnoses Not on filedocumented in this encounter Care Teams Ski Edge Painter Relationship Specialty Start Date End Date Shan Loera DO [address] [place] [address] PCP - General Family Medicine 02/09/23 Aiden Case MD [address] [address] Consulting Physician Cardiology 11/16/23 documented as of this encounter
--- OUTSIDE RECORDS SUMMARY | 2024-04-26 19:54 | XMS_ITS | Encounter Summary ---
Author Organization [facility] Address [address] [place] [address]. [place] [address] [place] [address] Care Team Providers Care Hybrid Technologist Name Role Phone Unavailable Primary Care Provider Unavailabl e Encounter Details Date Type Department Care Team (Late st Contact Info) Description 07/26/1988 Abstract [facility] [address] [place] [address] , Generic Conversion, Social History Tobacco Use Types Packs/Day Years Used Date Smoking Tobacco: Never Assessed Sex and Gender Information Value Date Recorded Sex Assigned at Not on file Legal Sex Male 8:56 PM DYE MACHINE TENDER Gender Identity Not on file Sexual Orientation Not on file documented as of this encounter Plan of Treatment Not on file documented as of this encounter Visit Diagnoses Not on filedocumented in this encounter
--- OUTSIDE RECORDS SUMMARY | 2024-04-26 19:54 | XMS_ITS | Encounter Summary ---
Author Organization [facility] Healthcare Address [address] [place] [address] Care Team Providers Care Supervisor Soldering Name Role Phone Lonlucius Shan Johnsonh Primary Care Provider Aiden Case MD Unavailable [phone] Encounter Details Date Type Department Care Team (Late st Contact Info) Description 02/25/2024 9:30 AM SUPERVISOR STERILE PROCESSING Office Visit Ar[facility]ia Center [address] [facility] [address] [place] [phone] Mary Jo Yang NP [address] [address] Persistent atrial fibrillation (HCC) (Primary [...] CDT Gender Identity Male 06/20/2023 11:48 PM SUPERVISOR STERILE PROCESSING Sexual Orientation Straight 06/20/2023 11 :48 PM SUPERVISOR STERILE PROCESSING documented as of this encounter Last Filed Vital Signs Vital Sign Reading Time Taken Comments Blood Pressure 138/86 02/25/2024 9:29 AM SUPERVISOR STERILE PROCESSING Pulse 73 02/25/2024 9:29 AM SUPERVISOR STERILE PROCESSING Temperature - - Respiratory Rate - - Oxygen Saturation - - Inhaled Oxygen Concentration - - Weight 170.1 kg (375 lb) 02/25/2024 9:29 AM SUPERVISOR STERILE PROCESSING Height 185.4 cm (6' 1 ) 02/25/2024 9:29 AM SUPERVISOR STERILE PROCESSING Body Mass Index 49.48 02/25/2024 9:29 AM SUPERVISOR STERILE PROCESSING documented in this encounter Ordered Prescriptions Prescription [...] from the original note were not included. [facility] Ar[facility]hythmia Center [address] [place] [address], [facility] [address] [address] Office Visit Note Patient Name: Jonathan Quiles [...] therapy for thromboprophylaxis Mary Jo Yang NP [facility] Ar[facility] RVISOR STERILE PROCESSING documented in this encounter Miscellaneous Notes * Assessment & Plan Note - Mary Jo Yang NP - 02/29/2024 8:43 AM SUPERVISOR STERILE PROCESSING Associated Problem(s): Anticoagulation management encounter - remains compliant on apixaban - denies any issues with bruising bleeding - recommend continued therapy for thromboprophylaxis RVISOR STERILE PROCESSING * Assessment & Plan Note - Mary Jo Yang NP - 02/29/2024 8:43 AM SUPERVISOR STERILE PROCESSING Associated Problem(s): Persistent atrial fibrillation (HCC) -status post radiofrequency catheter ablation with Dr. Case -remains compliant on metoprolol and apixaban - increase metoprolol to 125 mg daily -EKG today demonstrates sinus rhythm with a first-degree AV block -follow up in 6 months for 12 lead EKG and clinic visit RVISOR STERILE PROCESSING documented in this encounter Plan of Treatment Not on file documented as of this encounter Procedures Procedure Name Priority Date/Time Associated Diagnosis Comments ECG 12-LEAD Routine 02/25/2024 9:48 AM SUPERVISOR STERILE PROCESSING Persistent atrial fibrillation (HCC) documented in this encounter Results * ECG 12 lead (02/25/2024 9:48 AM SUPERVISOR STERILE PROCESSING) Mary Jo Yang NP ECG ORDERABLES Final [...] documented as of this encounter Care Teams Supervisor Soldering Relationship Specialty Start Date End Date Shan Loera DO [address] [id number] PCP - General Family Medicine 02/09/23 Aiden Case MD [address] [address] Consulting Physician Cardiology 11/16/23 documented as of this encounter
--- OUTSIDE RECORDS SUMMARY | 2024-04-26 19:54 | XMS_ITS | Encounter Summary ---
Author Organization [facility] Healthcare Address [address] [facility] [place] [address] Care Team Providers Care Net Mobile Developer Name Role Phone LonluciusShanh Primary Care Provider Aiden Case MD Unavailable [phone] Reason for Referral * Cardiology (Routine) - Closed Specialty Diagnoses / Procedures Referred By Contac t Referred To Contact Diagnoses Persistent atrial fibrillation (HCC) Procedures Extended/Senior Living Holter Patch (>48 hours up to 7 days) Mary Jo Yang NP [address] [address] Phone: tel: fax: [facility] Referral ID Status Reason Start Date Expiration Date Visits Re quested Visits Authorized [id number] Closed 11/16/2023 12/15/2024 1 1 Reason for Visit * Reason Comments Atrial Fibrillation Encounter Details Date Type Department Care Team (Late st Contact Info) Description 11/16/2023 9:30 AM CDT Office Visit Ar[facility]ia Center [address] [facility] [address] [place] [phone] Mary Jo Yang NP [address] [address] Persistent atrial fibrillation (HCC); Anticoagulation [...] CDT Gender Identity Male 06/20/2023 11:48 PM VMWARE ADMINISTRATOR Sexual Orientation Straight 06/20/2023 11 :48 PM VMWARE ADMINISTRATOR documented as of this encounter Last Filed [...] from the original note were not included. [facility] Medical [facility]ia Center [address], [place] [address] Office Visit Note Patient Name: Jonathan Quiles [...] first-degree AV block (76) with a normal OR, slight IVCD, and normal QT interval Past [...] visit Orders: - ECG 12 lead - Extended/Senior Living Holter Patch (>48 hours up to 7 [...] monitor, may discontinue Mary Jo Yang NP [facility] Arrhythmia Center documented in [...] (HCC) documented in this encounter Results * Extended/Senior Living Holter Patch (>48 hours up to 7 days) (11/16/2023 10:45 AM CDT) Anatomical Region Laterality Modality Electrocardiogra phy Narrative 01/26/2024 3:14 PM CDT [facility] CAM Report Summary ?? Patient ID; Jonathan Quiles is a 48 y.o. male Date of ; 1975 MRN; [id number] Recording Period; 11/16/2023 at 10:45 a.m. to 11/23/2023 at 11:19 a.m. Recording length; 7 days Indication; unspecified atrial fibrillation Button pressed; Count; 0 Correlates to; -- Critical status notes; None Predominant Rhythm: ??NSR Sinus heart rates; Average: ??83 bpm Min: ??51 bpm, on November 21 at 6:02 a.m. Max: ??121 bpm, on November 18 at 2:55 p.m. ECG intervals OR: ??0.25 s 1?? AV block QRS: ??0.25 s BBB QT: ??0.39 s QTc: ??0.46 s Supraventricular arrhythmias, AT; Episodes 15, Longest 7 beats at an average of 122 bpm (up to 135 bpm), Fastest 4 beats at an average of 135 bpm (up to 148 bpm) PAC; [place] < 0.1%, AVG 8 /day, Isolated 46, Pairs 3 Ventricular arrhythmias, PVC; [place] < 0.1% ??AVG 28 /day, Isolated 189, [...] fibrillation documented in this encounter Care Teams Net Mobile Developer Relationship Specialty Start Date End Date Shan Loera DO [address] [place] [address] PCP - General Family Medicine 02/09/23 Aiden Case MD [address] [address] Consulting Physician Cardiology 11/16/23 documented as of this encounter
--- OUTSIDE RECORDS SUMMARY | 2024-04-26 19:54 | XMS_ITS | Encounter Summary ---
Author Organization [facility] Address [address] [place] [address]. [place] [address] [place] [address] Care Team Providers Care Director Of Vocational Training Name Role Phone Unavailable Primary Care Provider Unavailabl e Encounter Details Date Type Department Care Team (Late st Contact Info) Description 04/11/1988 Abstract SJS CONVERSION [address] [place] [address] , Generic Conversion, Social History Tobacco Use Types Packs/Day Years Used Date Smoking Tobacco: Never Assessed Sex and Gender Information Value Date Recorded Sex Assigned at Not on file Legal Sex Male 8:56 PM OCCUPATIONAL SAFETY AND HEALTH MANAGER Gender Identity Not on file Sexual Orientation Not on file documented as of this encounter Plan of Treatment Not on file documented as of this encounter Visit Diagnoses Not on filedocumented in this encounter
--- OUTSIDE RECORDS SUMMARY | 2024-04-26 19:54 | XMS_ITS | Encounter Summary ---
Author Organization [facility] Address [address] [place] [address]. [place], [place] [address] [place] [address] Care Team Providers Care Fur Finisher Tailor Name Role Phone Unavailable Primary Care Provider Unavailabl e Encounter Details Date Type Department Care Team (Late st Contact Info) Description 07/02/1995 Abstract SFL CONVERSION [address] [place] [address] , Generic Conversion, Social History Tobacco Use Types Packs/Day Years Used Date Smoking Tobacco: Never Assessed Sex and Gender Information Value Date Recorded Sex Assigned at Not on file Legal Sex Male 8:56 PM ARTIFICIAL STONE APPLICATOR Gender Identity Not on file Sexual Orientation Not on file documented as of this encounter Plan of Treatment Not on file documented as of this encounter Visit Diagnoses Not on filedocumented in this encounter
--- OUTSIDE RECORDS SUMMARY | 2024-04-26 19:54 | XMS_ITS | Encounter Summary ---
Author Organization [facility] Address [address] [place] [address]. [place], [place] [address] [place] [address] Care Team Providers Care Insurance Sales Professional Name Role Phone Unavailable Primary Care Provider Unavailabl e Encounter Details Date Type Department Care Team (Late st Contact Info) Description 02/04/1997 Abstract SFL CONVERSION [address] [place] [address] , Generic Conversion, Social History Tobacco Use Types Packs/Day Years Used Date Smoking Tobacco: Never Assessed Sex and Gender Information Value Date Recorded Sex Assigned at Not on file Legal Sex Male 8:56 PM PATHOLOGY SPECIALIST Gender Identity Not on file Sexual Orientation Not on file documented as of this encounter Plan of Treatment Not on file documented as of this encounter Visit Diagnoses Not on filedocumented in this encounter
--- OUTSIDE RECORDS SUMMARY | 2024-04-26 19:54 | XMS_ITS | Encounter Summary ---
Author Organization [facility] Address [address] [place] [address]. [place], [place] [address] [place] [address] Care Team Providers Care Roundhouse Worker Name Role Phone Unavailable Primary Care Provider Unavailabl e Encounter Details Date Type Department Care Team (Late st Contact Info) Description 05/05/1998 Abstract SFL CONVERSION [address] [place] [address] , Generic Conversion, Social History Tobacco Use Types Packs/Day Years Used Date Smoking Tobacco: Never Assessed Sex and Gender Information Value Date Recorded Sex Assigned at Not on file Legal Sex Male 8:56 PM PUBLIC INFORMATION COORDINATOR Gender Identity Not on file Sexual Orientation Not on file documented as of this encounter Plan of Treatment Not on file documented as of this encounter Visit Diagnoses Not on filedocumented in this encounter
--- OUTSIDE RECORDS SUMMARY | 2024-04-26 19:54 | XMS_ITS | Encounter Summary ---
Author Organization [facility] Healthcare Address [address] [place] [address] Care Team Providers Care Binder Fixer Name Role Phone LonKayley kanjustin Johnsonh Primary Care Provider Reason for Visit * Reason Comments Atrial Fibrillation Encounter Details Date Type Department Care Team (Late st Contact Info) Description 09/13/2023 9:30 AM CDT Office Visit Arrhythmia Center [address] [facility] [address], [place] [address] Mary Jo Yang NP [address] [facility] [address], [place] [address] Persistent atrial fibrillation (HCC) (Primary [...] CDT Gender Identity Male 06/20/2023 11:48 PM NUCLEAR POWER PLANT ENGINEER Sexual Orientation Straight 06/20/2023 11 :48 PM NUCLEAR POWER PLANT ENGINEER documented as of this encounter Last Filed [...] from the original note were not included. [facility] Medical Group Arrhythmia Center [address] [place] [address], [facility] [address] [address] Office Visit Note Patient Name: Jonathan Quiles [...] his atrial arrhythmia Mary Jo Yang NP [facility] Medical [facility] Arrhythmia Center documented in [...] 08/28/2023 added in this encounter Care Teams Binder Fixer Relationship Specialty Start Date End Date Shan Loera DO [address] [place] [address] PCP - General Family Medicine 02/09/23 documented as of this encounter
--- OUTSIDE RECORDS SUMMARY | 2024-04-26 19:54 | XMS_ITS | Encounter Summary ---
Author Organization [facility] Healthcare Address [address] [place] [address] Care Team Providers Care Human Resources Team Member Name Role Phone LonluciusShanh Primary Care Provider Aiden Case MD Unavailable Reason for Visit * Cardiology (Routine) - Closed Specialty Diagnoses / Procedures Referred By Contac t Referred To Contact Diagnoses Persistent atrial fibrillation (HCC) Procedures Extended/Usp Holter Patch (>48 hours up to 7 days) Mary Jo Yang NP [address] [address] Phone: tel: fax: [facility] Medical Group Referral ID Status Reason Start Date Expiration Date Visits Re quested Visits Authorized [id number] Closed 11/16/2023 12/15/2024 1 1 Encounter Details Date Type Department Care Team (Latest Contact Info) Description 11/16/2023 10:30 AM CDT Ancillary Procedure Arrhythmia Center [address] [phone] Persistent atrial fibrillation (HCC) Social History Tobacco [...] CDT Gender Identity Male 06/20/2023 11:48 PM ODD JOB WORKER Sexual Orientation Straight 06/20/2023 11 :48 PM ODD JOB WORKER documented as of this encounter Plan of Treatment Not on file documented as of this encounter Procedures Procedure Name Priority Date/Time Associated Diagnosis Comments EXTENDED/RESIDENTIAL HOLTER PATCH (>48 HOURS UP TO 7 DAYS) Routine 11/16/2023 10:45 AM CDT Persistent atrial fibrillation (HCC) documented in this encounter Results * Extended/Usp Holter Patch (>48 hours up to 7 days) (11/16/2023 10:45 AM CDT) Anatomical Region Laterality Modality Electrocardiogra phy Narrative 01/26/2024 3:14 PM CDT [facility] CAM Report Summary ?? Patient ID; Jonathan Quiles is a 48 y.o. male Date of ; 1975 MRN; [id number] Recording Period; 11/16/2023 at 10:45 a.m. to 11/23/2023 at 11:19 a.m. Recording length; 7 days Indication; unspecified atrial fibrillation Button pressed; Count; 0 Correlates to; -- Critical status notes; None Predominant Rhythm: ??NSR Sinus heart rates; Average: ??83 bpm Min: ??51 bpm, on November 21 at 6:02 a.m. Max: ??121 bpm, on November 18 at 2:55 p.m. ECG intervals FL: ??0.25 s 1?? AV block QRS: ??0.25 s BBB QT: ??0.39 s QTc: ??0.46 s Supraventricular arrhythmias, AT; Episodes 15, Longest 7 beats at an average of 122 bpm (up to 135 bpm), Fastest 4 beats at an average of 135 bpm (up to 148 bpm) PAC; [place] < 0.1%, AVG 8 /day, Isolated 46, Pairs 3 Ventricular arrhythmias, PVC; [place] < 0.1% ??AVG 28 /day, Isolated 189, [...] 0.1% PVC < 0.1% Mary Jo Yang FITTING ROOM SUPERVISOR CV CARDIAC SERVICES PROCEDURE S Final Result documented in this encounter Visit Diagnoses Diagnosis Persistent atrial fibrillation (HCC) Atrial fibrillation documented in this encounter Care Teams Human Resources Team Member Relationship Specialty Start Date End Date Shan Loera DO [address] [place] [address] PCP - General Family Medicine 02/09/23 Aiden Case MD [address] [address] Consulting Physician Cardiology 11/16/23 documented as of this encounter
--- OUTSIDE RECORDS SUMMARY | 2024-04-26 19:54 | XMS_ITS | Encounter Summary ---
Author Organization [facility] Address [address] [place] [address]. [place], [place] [address] [place] [address] Care Team Providers Care Film Processing Supervisor Name Role Phone Unavailable Primary Care Provider Unavailabl e Encounter Details Date Type Department Care Team (Late st Contact Info) Description 10/03/1995 Abstract SFL CONVERSION [address] [place] [address] , Generic Conversion, Social History Tobacco Use Types Packs/Day Years Used Date Smoking Tobacco: Never Assessed Sex and Gender Information Value Date Recorded Sex Assigned at Not on file Legal Sex Male 8:56 PM CAISSON WORKER Gender Identity Not on file Sexual Orientation Not on file documented as of this encounter Plan of Treatment Not on file documented as of this encounter Visit Diagnoses Not on filedocumented in this encounter
--- OUTSIDE RECORDS SUMMARY | 2024-04-26 19:54 | XMS_ITS | Encounter Summary ---
Author Organization [facility] Address [address] [place] [address]. [place] [address] [place] [address] Care Team Providers Care Eyelet Cutter Name Role Phone Unavailable Primary Care Provider Unavailabl e Encounter Details Date Type Department Care Team (Late st Contact Info) Description 08/12/1985 Abstract SJS CONVERSION [address] [place] [address] , Generic Conversion, Social History Tobacco Use Types Packs/Day Years Used Date Smoking Tobacco: Never Assessed Sex and Gender Information Value Date Recorded Sex Assigned at Not on file Legal Sex Male 8:56 PM DIRECTOR OF CARDIAC CATH LAB Gender Identity Not on file Sexual Orientation Not on file documented as of this encounter Plan of Treatment Not on file documented as of this encounter Visit Diagnoses Not on filedocumented in this encounter
--- OUTSIDE RECORDS SUMMARY | 2024-04-26 19:54 | XMS_ITS | Clinical Summary ---
Author Organization [facility] [place] [address] Address [address] [place] [address] Care Team Providers Care Deep Fat Cook Fry Name Role Phone Luz Maria Shan Johnsonh Primary Care Provider Aiden Case MD Unavailable [phone] Allergies Active Allergy Reactions Criticality Noted Date [...] 09/13/2023 Assessment & Plan (02/29/2024 8:43 AM RAISER HELPER): - remains compliant on apixaban - denies [...] 06/21/2023 Assessment & Plan (02/29/2024 8:43 AM RAISER HELPER): -status post radiofrequency catheter ablation with Dr. [...] visit Assessment & Plan (06/21/2023 12:35 PM RAISER HELPER): The patient has symptomatic paroxysmal (recently persistent) [...] procedure is necessary. The patient has a [id number] score of 1. I have therefore recommended [...] with atrial fibrillation: a report of the [place] [employer]/[place] [employer] Task Force on Practice Guidelines [...] Type Department Care Team Description 03/28/2024 Telephone [facility] Medical Group Cardiology [address] [place] [phone] Karl Rae MD 02/25/2024 9:30 AM RAISER HELPER Office Visit Arrhythmia Center [address] [facility] [address] [address] Mar yJo Yang NP Persistent atrial fibrillation (HCC) (Primary Dx); Anticoagulation management encounter 02/18/2024 8:00 AM CDT Office Visit [facility] Medical Group Cardiology at [address] [place] [phone] Karl Rae MD Persistent atrial fibrillation (HCC) [...] CDT Gender Identity Male 06/20/2023 11:48 PM RAISER HELPER Sexual Orientation Straight 06/20/2023 11 :48 PM RAISER HELPER Obstetrics History Last Filed Vital Signs Vital Sign Reading Time Taken Comments Blood Pressure 138/86 02/25/2024 9:29 AM RAISER HELPER Pulse 73 02/25/2024 9:29 AM RAISER HELPER Temperature 36.2 ??C (97.1 ??F) 08/08/2023 10:23 AM C DT Respiratory Rate 18 02/18/2024 8:00 AM CDT Oxygen Saturation 93% 11/16/2023 9:29 AM CDT Inhaled Oxygen Concentration - - Weight 170.1 kg (375 lb) 02/25/2024 9:29 AM RAISER HELPER Height 185.4 cm (6' 1 ) 02/25/2024 9:29 AM RAISER HELPER Body Mass Index 49.48 02/25/2024 9:29 AM RAISER HELPER Plan of Treatment Health Maintenance Due Date [...] this topic Medical Devices Implanted Type Area Detailer [employer] Device Identifier Shelf Expiration Date Model / Serial / Lot [employer] Vascade Mvp 6-12fr Venous Closure [id number] - [id number] - [id number] Implanted:Qty: 1 on 08/08/2023 by Aiden Case MD at [facility] [employer] 05/01/2025 800-612C-[id number] [id number] / [id number] / [id number] [employer] Vascade Mvp 6-12fr Venous Closure [id number] - [id number] - [id number] Implanted:Qty: 1 on 08/08/2023 by Aiden Case MD at [facility] [employer] 05/01/2025 800-612C-1 [id number] / [id number] / [id number] [employer] Device Vascular Closure Femoral Artery Bioabsorbable Dual Method Vascade 6-7fr Collagen [id number] - [id number] - [id number] Implanted:Qty: 1 on 08/08/2023 by Aiden Case MD at [facility] [employer] 01/15/2025 [id number] / [id number] / [id number] [employer] Vascade Mvp 6-12fr Venous Closure [id number] - [id number] - [id number] Implanted:Qty: 1 on 08/08/2023 by Aiden Case MD at [facility] [employer] 03/23/2025 800-612C-1 [id number] / [id number] / [id number] Procedures Procedure Name Priority Date/Time Associated Diagnosis Comments ECG 12-LEAD Routine 02/25/2024 9:48 AM RAISER HELPER Persistent atrial fibrillation (HCC) ECG 12-LEAD Routine 02/18/2024 9:05 AM CDT Persistent atrial fibrillation (HCC) from Last 3 Months Results * ECG 12 lead (02/25/2024 9:48 AM RAISER HELPER) Mary Jo Yang NP ECG ORDERABLES Final Result * ECG 12 lead (02/18/2024 9:05 AM CDT) us Karl Rae MD ECG ORDERABLES Final Re sult from Last 3 Months [place] [address] [facility] Care Teams Deep Fat Cook Fry Relationship Specialty Start Date End Date Shan Loera DO [address] [place] [address] PCP - General Family Medicine 02/09/23 Aiden Case MD [address] [address] Consulting Physician Cardiology 11/16/23
--- OUTSIDE RECORDS SUMMARY | 2024-04-26 19:54 | XMS_ITS | Referral Summary ---
Author Organization [facility] [address] [place] [address] 162 [address] [place] [address] Care Team Providers Care Supervisor Diagnostic Name Role Phone Luz MariaKayleyjustin Johnsonh Primary Care Provider Aiden Case MD Unavailable [phone] Encounters Date Type Department Care Team Description 03/28/2024 Telephone [facility] Cardiology [address] [place] [address] Karl Rae MD 02/25/2024 9:30 AM AUTOMOTIVE WINDOW TINTER Office Visit [facility] [address] [facility] [address], [place] [address] Mary Jo Yang NP Persistent atrial fibrillation (HCC) (Primary Dx); Anticoagulation management encounter 02/18/2024 8:00 AM CDT Office Visit [facility] Cardiology at [address] [place] [address] Karl Rae MD Persistent atrial [...] 09/13/2023 Assessment & Plan (02/29/2024 8:43 AM AUTOMOTIVE WINDOW TINTER): - remains compliant on apixaban - denies [...] 06/21/2023 Assessment & Plan (02/29/2024 8:43 AM AUTOMOTIVE WINDOW TINTER): -status post radiofrequency catheter ablation with Dr. [...] visit Assessment & Plan (06/21/2023 12:35 PM AUTOMOTIVE WINDOW TINTER): The patient has symptomatic paroxysmal (recently persistent) [...] procedure is necessary. The patient has a [id number]-YCOd score of 1. I have therefore recommended [...] Liz HENDRICKS, ME, Edmund KT, Jamie RL, Robetr WG, Zahida PJ, Meagan CM, Meghan CW. 2014 AHA/ACC/HRS guideline for the management of patients with atrial fibrillation: a report of the [place] [employer]/[place] [employer] Association Task Force on Practice Guidelines [...] CDT Gender Identity Male 06/20/2023 11:48 PM AUTOMOTIVE WINDOW TINTER Sexual Orientation Straight 06/20/2023 11 :48 PM AUTOMOTIVE WINDOW TINTER Last Filed Vital Signs Vital Sign Reading Time Taken Comments Blood Pressure 138/86 02/25/2024 9:29 AM AUTOMOTIVE WINDOW TINTER Pulse 73 02/25/2024 9:29 AM AUTOMOTIVE WINDOW TINTER Temperature 36.2 ??C (97.1 ??F) 08/08/2023 10:23 AM C DT Respiratory Rate 18 02/18/2024 8:00 AM CDT Oxygen Saturation 93% 11/16/2023 9:29 AM CDT Inhaled Oxygen Concentration - - Weight 170.1 kg (375 lb) 02/25/2024 9:29 AM AUTOMOTIVE WINDOW TINTER Height 185.4 cm (6' 1 ) 02/25/2024 9:29 AM AUTOMOTIVE WINDOW TINTER Body Mass Index 49.48 02/25/2024 9:29 AM AUTOMOTIVE WINDOW TINTER Plan of Treatment Not on file Medical Devices Implanted Type Area Chain Pegger Device Identifier Shelf Expiration Date Model / Serial / Lot [employer] Vascade Mvp 6-12fr Venous Closure [id number] - [id number] - [id number] Implanted:Qty: 1 on 08/08/2023 by Aiden Case MD at [facility] [employer] 05/01/2025 [id number]-[id number] / [id number] / [id number] [employer] Vascade Mvp 6-12fr Venous Closure [id number] - [id number] - [id number] Implanted:Qty: 1 on 08/08/2023 by Aiden Case MD at [facility] [employer] 05/01/2025 800-612C-1 [id number] / [id number] / [id number] [employer] Device Vascular Closure Femoral Artery Bioabsorbable Dual Method Vascade 6-7fr Collagen [id number] - [id number] - [id number] Implanted:Qty: 1 on 08/08/2023 by Aiden Case MD at [facility] [employer] 01/15/2025 [id number] / [id number] / [id number] [employer] Vascade Mvp 6-12fr Venous Closure [id number] - [id number] - [id number] Implanted:Qty: 1 on 08/08/2023 by Aiden Case MD at [facility] [employer] 03/23/2025 [id number]-[id number] / [id number] / [id number] Procedures Procedure Name Priority Date/Time Associated Diagnosis Comments ECG 12-LEAD Routine 02/25/2024 9:48 AM AUTOMOTIVE WINDOW TINTER Persistent atrial fibrillation (HCC) ECG 12-LEAD Routine 02/18/2024 9:05 AM CDT Persistent atrial fibrillation (HCC) from Last 3 Months Results * ECG 12 lead (02/25/2024 9:48 AM AUTOMOTIVE WINDOW TINTER) Mary Jo Yang NP ECG ORDERABLES Final Result * ECG 12 lead (02/18/2024 9:05 AM CDT) Karl Rae MD ECG ORDERABLES Final Re sult from Last 3 Months Insurance [facility] Care Teams Supervisor Diagnostic Relationship Specialty Start Date End Date Shan Leora DO [address] [place] [address] PCP - General Family Medicine 02/09/23 Aiden Case MD [address] [address] Consulting Physician Cardiology 11/16/23
--- OUTSIDE RECORDS SUMMARY | 2024-04-26 19:54 | XMS_ITS | Encounter Summary ---
Author Organization [facility] Address [address] [place] [address]. [place], [place] [address] [place] [address] Care Team Providers Care Funeral Home Manager Name Role Phone Unavailable Primary Care Provider Unavailabl e Encounter Details Date Type Department Care Team (Late st Contact Info) Description 10/09/1998 Abstract [facility]FL CONVERSION [address] [place] [address] , Generic Conversion, Social History Tobacco Use Types Packs/Day Years Used Date Smoking Tobacco: Never Assessed Sex and Gender Information Value Date Recorded Sex Assigned at Not on file Legal Sex Male 8:56 PM LEARNING FACILITATOR Gender Identity Not on file Sexual Orientation Not on file documented as of this encounter Plan of Treatment Not on file documented as of this encounter Visit Diagnoses Not on filedocumented in this encounter
--- OUTSIDE RECORDS SUMMARY | 2024-04-26 19:54 | XMS_ITS | Encounter Summary ---
Author Organization [facility] Address [address] [place] [address]. [place], [place] [address] [address] Care Team Providers Care Shirt Folding Machine Operator Name Role Phone Unavailable Primary Care Provider Unavailabl e Encounter Details Date Type Department Care Team (Late st Contact Info) Description 11/26/1995 Abstract SFL CONVERSION [address] [place] [address] , Generic Conversion, Social History Tobacco Use Types Packs/Day Years Used Date Smoking Tobacco: Never Assessed Sex and Gender Information Value Date Recorded Sex Assigned at Not on file Legal Sex Male 8:56 PM FIELD ARTILLERY SENIOR SERGEANT Gender Identity Not on file Sexual Orientation Not on file documented as of this encounter Plan of Treatment Not on file documented as of this encounter Visit Diagnoses Not on filedocumented in this encounter
--- OUTSIDE RECORDS SUMMARY | 2024-04-26 19:54 | XMS_ITS | Encounter Summary ---
Author Organization [facility] Address [address] [place] [address]. [place], [place] [address] [place] [address] Care Team Providers Care Plaque Maker Name Role Phone Unavailable Primary Care Provider Unavailabl e Encounter Details Date Type Department Care Team (Late st Contact Info) Description 05/05/1996 Abstract SFL CONVERSION [address] [place] [address] , Generic Conversion, Social History Tobacco Use Types Packs/Day Years Used Date Smoking Tobacco: Never Assessed Sex and Gender Information Value Date Recorded Sex Assigned at Not on file Legal Sex Male 8:56 PM FICTION WRITER Gender Identity Not on file Sexual Orientation Not on file documented as of this encounter Plan of Treatment Not on file documented as of this encounter Visit Diagnoses Not on filedocumented in this encounter
--- OUTSIDE RECORDS SUMMARY | 2024-04-26 19:55 | XMS_ITS | Encounter Summary ---
Author Organization [facility] Healthcare Address [address] [place] [address] Care Team Providers Care Monomer Purification Operator Name Role Phone Shan Loera DO Primary Care Provider Reason for Visit * Consultation (Urgent) - Closed Specialty Diagnoses / Procedures Referred By Contac t Referred To Contact Cardiology Diagnoses Persistent atrial fibrillation (HCC) Chelsey Cisneros NP [address] [facility] [address] [address] Phone: tel: fax: Aiden Case MD [address] [address] Phone: tel: fax: Referral ID Status Reason Start Date Expiration Date V isits Requested Visits Authorized [id number] Closed Specialty Services Required 05/22/2023 06/20/2024 1 1 Encounter Details Date Type Department Care Team (Late st Contact Info) Description 06/21/2023 10:00 AM CRIMINOLOGY TEACHER Office Visit [facility] [address] [facility] [address] [place] [phone] Aiden Case MD [address] [address] Persistent atrial fibrillation (HCC) (Primary Dx) Social History Tobacco Use Types Packs/Day Years Used Date Smoking Tobacco: Former Cigarettes Q uit: 02/01/2009 Personal Safety Answer Date Recorded Getting School Help Needed Not on file 04/30 Sex and Gender Information Value Date Recorded Sex Assigned at Not on file Legal Sex Male 8:29 AM CDT Gender Identity Male 06/20/2023 11:48 PM CRIMINOLOGY TEACHER Sexual Orientation Straight 06/20/2023 11 :48 PM CRIMINOLOGY TEACHER documented as of this encounter Last Filed Vital Signs Vital Sign Reading Time Taken Comments Blood Pressure 132/76 06/21/2023 10:23 AM CRIMINOLOGY TEACHER Pulse 89 06/21/2023 10:23 AM CRIMINOLOGY TEACHER Temperature - - Respiratory Rate - - Oxygen Saturation 98% 06/21/2023 10:23 AM CRIMINOLOGY TEACHER Inhaled Oxygen Concentration - - Weight 182.3 kg (402 lb) 06/21/2023 10:23 AM CRIMINOLOGY TEACHER Height 185.4 cm (6' 0.99 ) 06/21/2023 10:[address] Body Mass Index 53.05 06/21/2023 10:23 AM CRIMINOLOGY TEACHER documented in this encounter Progress Notes * Aiden Case MD - 06/21/2023 10:00 AM CST Images from the original note were not included. [facility] [address] [place] [address], [place] [address] Patient Name: Jonathan Quiles Date of : 1975 Primary Physician: Shan Loera, This note was dictated with voice-recognition software, and civil celebrant errors may be present. Subjective/Objective Patient ID: Jonathan Quiles is a 48 y.o. male Chief Complaint No chief complaint on file. HPI Mr. Quiles presented to the [facility] on 06/21/2023 for consultation regarding [...] secondprocedure is necessary. The patient has a NRH7DR9-SWXi score of 1. I have therefore recommended [...] with atrial fibrillation: a report of the [place] [employer]/[place] Heart Association Task Force on Practice Guidelines [...] to Cardiac Electrophysiology Aiden Case MD 06/21/2023 INOLOGY TEACHER documented in this encounter Miscellaneous Notes * Assessment & Plan Note - Aiden Case MD - 06/21/2023 12:34 PM CRIMINOLOGY TEACHER Associated Problem(s): Persistent atrial fibrillation (HCC) The [...] secondprocedure is necessary. The patient has a KVA0HD6-OKMn score of 1. I have therefore recommended [...] with atrial fibrillation: a report of the [place] [employer] of [employer]iology/[place] Heart Association Task Force on Practice Guidelines [...] ablation therapy ([phone]). (Level of Evidence: B) INOLOGY TEACHER INOLOGY TEACHER documented in this encounter Plan of Treatment [...] 06/21/2023 documented in this encounter Care Teams Monomer Purification Operator Relationship Specialty Start Date End Date Shan Loera DO [address] [place] [address] PCP - General Family Medicine 02/09/23 documented as of this encounter
--- OUTSIDE RECORDS SUMMARY | 2024-04-26 19:55 | XMS_ITS | Encounter Summary ---
Author Organization [facility] Healthcare Address [address] [place] [address] Care Team Providers Care Clarifier Name Role Phone Lonlucius Shan Johnsonh Primary Care Provider Reason for Visit * Auth/Cert (Routine) Specialty Diagnoses / Procedures Referred By Contmarco antonio t Referred To Contact Diagnoses Persistent atrial fibrillation (HCC) Persistent atrial fibrillation (HCC) [I48.19] Procedures ABLATION ATRIAL FIBRILLATION (A-FIB) VIA PULMONARY VEIN ISOLATION [address] Referral ID Status Reason Start Date Expiration Date Visits Re quested Visits Authorized [id number] 1 1 Encounter Details Date Type Department Care Team (Late st Contact Info) Description 08/08/2023 7:43 AM CDT Anesthesia Event [facility] [address] [place] [phone] Donte Jean-Baptiste MD [address] [facility] [place] [address] Pippa Montes CRNA [address] [facility] [place] [address] Anesthesia Record Procedure Summary Procedure Name Responsible Anesthesiologist Anesthesia Start Time Anesthesia Stop Time ABLATION ATRIAL FIBRILLATION (A-FIB) VIA PULMONARY VEIN ISOLATION [address]0705 Donte Jean-Baptiste MD 08/08/23 0743 08/08/23 1031 [...] CDT Gender Identity Male 06/20/2023 11:48 PM PERSONAL HEALTH COACH Sexual Orientation Straight 06/20/2023 11 :48 PM PERSONAL HEALTH COACH documented as of this encounter OR Notes * Anesthesia Postprocedure Evaluation - Donte Jean-Baptiste MD - 08/08/2023 12:54 PM CDT Patient: Jonathan Quiles Procedure Summary Date: 08/08/23 Room / Location: [facility] CATH/EP LAB C / [facility] CARDIAC SENIOR LINUX ADMINISTRATOR; [facility] Anesthesia Start: 0743 Anesthesia Stop: 1031 Procedures: ABLATION ATRIAL FIBRILLATION (A-FIB) VIA PULMONARY VEIN ISOLATION 11166 ABLATION ATRIAL FIBRILLATION ADDITIONAL LINE OR FOCI (+) 90317 LEFT VENTRICLE PACING AND RECORDING 83353 ABLATE ADDTN'L ARRHYTHMIA, ATRIAL OR VENTRICULAR (+) 28969 TRANSESOPHAGEAL ECHO (NELL) W DOPPLER/CF Diagnosis: Persistent [...] MD Placed by: Anesthesiologist: Donte Jean-Baptiste MD MAINTENANCE ANALYST: Pippa Montes CRNA Emergent airway documentation: Risks [...] ATRIAL FIBRILLATION (A-FIB) VIA PULMONARY VEIN ISOLATION [address] Pre-Op Diagnosis Codes: * Persistent atrial fibrillation (HCC) [I48.19] HISTORY Past Medical History Information obtained from: patient and chart. Cardiovascular + Hypertension + Atrial fibrillation/flutter - Prior electrical cardioversion. Current Rhythm: atrial fibrillation. Respiratory + Asthma (childhood) + Sleep apnea (IHWOT) Prescribed device: CPAP. + O2 use outside [...] Medication protocol when under care of a MAINTENANCE ANALYST Planned anesthesia: General Team communication plan: oral ET tube Induction: Induction: intravenous. Postoperative Plan: Postoperative administration opioids intended. No postoperative mechanical ventilation intended. Patient's planned disposition post procedure is Floor. Informed Consent: Discussed plan with MAINTENANCE ANALYST. Anesthesia plan and risks discussed with patient. [...] Procedure Name Priority Date/Time Associated Diagnosis Comments NV AN PROCEDURE PLACEHOLDER Routine 08/08/2023 8:39 AM CDT NV AN ELECTIVE ENDOTRACHEAL AIRWAY Routine 08/08/2023 8:39 AM CDT documented in this encounter Results * NV AN ELECTIVE ENDOTRACHEAL AIRWAY, NV AN PROCEDURE PLACEHOLDER (08/08/2023 8:39 AM CDT) Narrative Pippa Montes CRNA - 08/08/2023 8:39 AM CDT Pippa Montes CRNA ? 08/08/2023 ??9:40 AM Airway Patient location: OR Urgency: elective Indications for airway management: anesthesia Difficult airway: no Staff: Supervising provider: Donte Jean-Baptiste MD Placed by: Anesthesiologist: Donte Jean-Baptiste MD MAINTENANCE ANALYST: Pippa Montes CRNA Emergent airway documentation: Risks [...] mg documented in this encounter Care Teams Clarifier Relationship Specialty Start Date End Date Shan Loera DO [address] [place] [address] PCP - General Family Medicine 02/09/23 documented as of this encounter
--- OUTSIDE RECORDS SUMMARY | 2024-04-26 19:55 | XMS_ITS | Encounter Summary ---
Author Organization [facility] Healthcare Address [address] [place] [address] Care Team Providers Care Supervisor Last Model Department Name Role Phone Shan Loerah Primary Care Provider Encounter Details Date Type Department Care Team (Late st Contact Info) Description 07/04/2023 Telephone Arrhythmia Center [address] [facility] [address] [place] [phone] Aiden Case MD [address] [address] Social History Tobacco Use Types Packs/Day Years Used Date Smoking Tobacco: Former Cigarettes Q uit: 02/01/2009 Personal Safety Answer Date Recorded Getting School Help Needed Not on file 04/30 Sex and Gender Information Value Date Recorded Sex Assigned at Not on file Legal Sex Male 8:29 AM CDT Gender Identity Male 06/20/2023 11:48 PM TRIM MECHANIC Sexual Orientation Straight 06/20/2023 11 :48 PM TRIM MECHANIC documented as of this encounter Miscellaneous Notes * Telephone Encounter - Teresa Barrientos RMA - 07/04/2023 4:14 PM CDT Pt is scheduled on 08/07 and needs NELL same day documented in this encounter Plan of Treatment Not on file documented as of this encounter Visit Diagnoses Not on filedocumented in this encounter Care Teams Supervisor Last Model Department Relationship Specialty Start Date End Date Shan Loera DO [address] [place] [address] PCP - General Family Medicine 02/09/23 documented as of this encounter
--- OUTSIDE RECORDS SUMMARY | 2024-04-26 19:55 | XMS_ITS | Encounter Summary ---
Author Organization [facility] Healthcare Address [address] [place] [address] Care Team Providers Care Firer Electric Locomotive Name Role Phone Shan Loera DO Primary Care Provider Reason for Referral * Consultation (Urgent) - Closed Specialty Diagnoses / Procedures Referred By Contac t Referred To Contact Cardiology Diagnoses Persistent atrial fibrillation (HCC) Chelsey Cisneros NP [address] [facility] [address] [place] [address] Phone: tel: fax: Vania Lehman MD [address] [facility] [address], [place] [address] Phone: tel: fax: Referral ID Status Reason Start Date Expiration Date V isits Requested Visits Authorized [id number] Closed Specialty Services Required 05/22/2023 06/20/2024 1 1 Question Answer Please select the performing region: [facility] Medical Group [[id number]] Please select the performing department: [facility] [[id number]] To provider: VANIA LEHMAN [[id number]] # of visits: 1 Comments New pt referral for failed cardioversion and symptomatic Afib. This is an urgent referral because he is symptomatic and unable to return to work. Please call pt for an appt please. Any physician in practice is fine. ICAL UNIT EDUCATOR * Consultation (Urgent) - Closed Specialty Diagnoses / Procedures Referred By Contac t Referred To Contact Cardiology Diagnoses Persistent atrial fibrillation (HCC) Chelsey Cisneros NP [address] [place] [address] Phone: tel: fax: Musa Tenorio MD [address] [address] Phone: tel: fax: Referral ID Status Reason Start Date Expiration Date V isits Requested Visits Authorized [id number] Closed Specialty Services Required 05/22/2023 06/20/2024 1 1 Question Answer Please select the performing region: [facility] (All Locations) [167] To provider: MUSA TENORIO [[id number]] # of visits: 1 Comments Urgent new pt referral for failed cardioversion and symptomatic Afib. This is an urgent referral because he is symptomatic and unable to return to work. Please call pt for an appt. Thank you! ICAL UNIT EDUCATOR Encounter Details Date Type Department Care Team (Late st Contact Info) Description 05/22/2023 Telephone [facility] Medical [facility] Cardiology [address] [place] [phone] Chelsey Cisneros NP [address] [id number] Social History Tobacco Use Types Packs/Day Years Used Date Smoking Tobacco: Former Cigarettes Q uit: 02/01/2009 Personal Safety Answer Date Recorded Getting School Help Needed Not on file 04/30 Sex and Gender Information Value Date Recorded Sex Assigned at Not on file Legal Sex Male 8:29 AM CDT Gender Identity Male 06/20/2023 11:48 PM CLINICAL UNIT EDUCATOR Sexual Orientation Straight 06/20/2023 11 :48 PM CLINICAL UNIT EDUCATOR documented as of this encounter Miscellaneous Notes * Addendum Note - Rebecca Mirza, RN - 05/22/2023 11:55 AM CSTAddended by: REBECCA MIRZA on: 05/22/2023 11:55 AM Modules accepted: Orders ICAL UNIT EDUCATOR * Telephone Encounter - Rebecca Mirza RN - 05/22/2023 11:51 AM CLINICAL UNIT EDUCATOR Placed a referral to Dr. Steel's office instead and called their office making them aware I was sending over an urgent referral. They will call pt for an appt. Spoke with pt and made him aware of the change and pt was ok with change and appreciated the assistance. ICAL UNIT EDUCATOR * Telephone Encounter - Ariana Cantu - 05/22/2023 11:38 AM CST Pema called from [facility] cardiology - Dr. Tenorio office states pt insurance is not contracted with [facility]. States she did call and inform pt already. Contact: ICAL UNIT EDUCATOR * Telephone Encounter - Rebecca Mirza RN - 05/22/2023 10:05 AM CLINICAL UNIT EDUCATOR Discussed with CT that urgent referral with [...] be expecting a phone call from them. ICAL UNIT EDUCATOR * Addendum Note - Rebecca Mirza RN - 05/22/2023 10:02 AM CSTAddended by: REBECCA MIRZA on: 05/22/2023 10:02 AM Modules accepted: Orders ICAL UNIT EDUCATOR * Telephone Encounter - Chelsey Cisneros NP - 05/22/2023 8:42 AM CLINICAL UNIT EDUCATOR I saw Mr. Quiles yesterday for failed [...] if she could help? Her number is [phone]. Also, Mr. Quiles is going to be dropping off some STD papers. Please let me know if you need help completing them. Thanks. ICAL UNIT EDUCATOR documented in this encounter Plan of Treatment [...] fibrillation documented in this encounter Care Teams Firer Electric Locomotive Relationship Specialty Start Date End Date Shan Loera DO [address] [place] [address] PCP - General Family Medicine 02/09/23 documented as of this encounter
--- OUTSIDE RECORDS SUMMARY | 2024-04-26 19:55 | XMS_ITS | Encounter Summary ---
Author Organization [facility] Healthcare Address [address] [place] [address] Care Team Providers Care Top And Seat Cover Fitter Name Role Phone Shan Loera DO Primary Care Provider Encounter Details Date Type Department Care Team (Late st Contact Info) Description 05/21/2023 11:30 AM PORTFOLIO SPECIALIST Office Visit [facility] Medical Group Cardiology [address] [place] [phone] Chelsey Cisneros NP [address] [place] [address] Shortness of breath (Primary Dx); [...] CDT Gender Identity Male 06/20/2023 11:48 PM PORTFOLIO SPECIALIST Sexual Orientation Straight 06/20/2023 11 :48 PM PORTFOLIO SPECIALIST documented as of this encounter Last Filed Vital Signs Vital Sign Reading Time Taken Comments Blood Pressure 104/64 05/21/2023 11:44 AM PORTFOLIO SPECIALIST Pulse 81 05/21/2023 11:44 AM PORTFOLIO SPECIALIST Temperature - - Respiratory Rate - - Oxygen Saturation 95% 05/21/2023 11:44 AM PORTFOLIO SPECIALIST Inhaled Oxygen Concentration - - Weight 183.7 kg (405 lb) 05/21/2023 11:44 AM PORTFOLIO SPECIALIST Height 185.4 cm (6' 1 ) 05/21/2023 11:44 AM PORTFOLIO SPECIALIST Body Mass Index 53.43 05/21/2023 11:44 AM PORTFOLIO SPECIALIST documented in this encounter Ordered Prescriptions Prescription [...] included. [facility] Medical Group Cardiology [address] [place] [address] Date of Visit: 05/21/2023 Patient ID: Jonathan [...] days on anticoagulation. 03/22/2023 Hospital follow-up with SUPERVISOR FISH BAIT PROCESSING - Jonathan Talita Quiles comes to the [...] bump himself frequently. 05/21/2023 office follow-up with SUPERVISOR FISH BAIT PROCESSING -cardioversion was attempted on 05/14/2023 but was [...] CBC: Hemoglobin 15.3, hematocrit 49.0, platelet 230 [id number]. of care lipid test: TC 176, HDL [...] x-ray which we will have done at [facility] today. Transition him from furosemide to [...] course. 05/21/2023 EUGENIA Sotelo- Nurse Practitioner with [facility] Cardiology This note is dictated and transcribed using [employer] Direct Software. Induction Heating Equipment Setter variancesmay occur. Despite proofreading, typographical errors may occur. FOLIO SPECIALIST documented in this encounter Plan of Treatment [...] documented as of this encounter Care Teams Top And Seat Cover Fitter Relationship Specialty Start Date End Date Shan Loera DO [address] [place] [address] PCP - General Family Medicine 02/09/23 documented as of this encounter
--- OUTSIDE RECORDS SUMMARY | 2024-04-26 19:55 | XMS_ITS | Encounter Summary ---
Author Organization [facility] Healthcare Address [address] [place] [address] Care Team Providers Care Quarter Inspector Name Role Phone Shan Loera DO Primary Care Provider Reason for Visit * Reason Comments Hospital Follow Up Encounter Details Date Type Department Care Team (Late st Contact Info) Description 03/22/2023 10:00 AM IRON INSTALLER Office Visit [facility] Medical Group Cardiology [address] [place] [address] Chelsey Cisneros NP [address] [place] [address] Persistent atrial fibrillation (HCC); HIWOT [...] CDT Gender Identity Male 06/20/2023 11:48 PM IRON INSTALLER Sexual Orientation Straight 06/20/2023 11 :48 PM IRON INSTALLER documented as of this encounter Last Filed Vital Signs Vital Sign Reading Time Taken Comments Blood Pressure 112/74 03/22/2023 10:02 AM IRON INSTALLER Pulse 99 03/22/2023 10:02 AM IRON INSTALLER Temperature - - Respiratory Rate - - Oxygen Saturation 88% 03/22/2023 10:02 AM IRON INSTALLER Inhaled Oxygen Concentration - - Weight 179.6 kg (396 lb) 03/22/2023 10:02 AM IRON INSTALLER Height 185.4 cm (6' 1 ) 03/22/2023 10:02 AM IRON INSTALLER Body Mass Index 52.25 03/22/2023 10:02 AM IRON INSTALLER documented in this encounter Ordered Prescriptions Prescription [...] from the original note were not included. [facility] Medical Group Cardiology [address] [place] [address] Date of Visit: 03/22/2023 Patient ID: Jonathan [...] CBC: Hemoglobin 15.3, hematocrit 49.0, platelet [phone]. of care lipid test: TC 176, HDL [...] anticoagulation. 03/22/2023 EUGENIA Sotelo- Nurse Practitioner with [facility] Cardiology This note is dictated and transcribed using [employer] Direct Software. Hair Boiler Operator variancesmay occur. Despite proofreading, typographical errors may occur. INSTALLER documented in this encounter Plan of Treatment Not on file documented as of this encounter Procedures Procedure Name Priority Date/Time Associated Diagnosis Comments POCT LIPID PANEL Routine 03/22/2023 10:0 8 AM IRON INSTALLER Lipid screening documented in this encounter Results * POCT lipid panel (03/22/2023 10:08 AM IRON INSTALLER) Cholesterol, POC 176 mg/dL HDL, POC 29 mg/dL Triglycerides, POC 190 mg/dL LDL Cholesterol POC 109 mg/dL Chol/HDL Ratio, POC 3.7 Non-HDL Cholesterol, POC 147 mg/dL Cholesterol Total, POC 176 mg/dL Capillary blood 03/22/2023 1 0:08 AM IRON INSTALLER Chelsey Cisneros NP POINT OF CARE TEST [...] 03/22/2023 added in this encounter Care Teams Quarter Inspector Relationship Specialty Start Date End Date Shan Loera DO [address] [place] [address] PCP - General Family Medicine 02/09/23 documented as of this encounter
--- OUTSIDE RECORDS SUMMARY | 2024-04-26 19:55 | XMS_ITS | Encounter Summary ---
Author Organization [facility] Healthcare Address [address] [place] [address] Care Team Providers Care Affirmative Action Specialist Name Role Phone Lonlucius Shanjustin Johnsonh Primary Care Provider Encounter Details Date Type Department Care Team (Late st Contact Info) Description 05/24/2023 Telephone [facility] Medical Group Cardiology [address] [place] [address] Karl Rae MD [address] [place] [address] Social History Tobacco Use Types Packs/Day Years Used Date Smoking Tobacco: Former Cigarettes Q uit: 02/01/2009 Personal Safety Answer Date Recorded Getting School Help Needed Not on file 04/30 Sex and Gender Information Value Date Recorded Sex Assigned at Not on file Legal Sex Male 8:29 AM CDT Gender Identity Male 06/20/2023 11:48 PM GAME WARDEN Sexual Orientation Straight 06/20/2023 11 :48 PM GAME WARDEN documented as of this encounter Miscellaneous Notes * Telephone Encounter - Zeina Yin RN - 05/24/2023 3:02 PM GAME WARDEN Spoke with pt, reviewed result note below from CT. Please let him know his chest xray was normal, good news. WARDEN * Telephone Encounter - Brandy Hicks RN - 05/24/2023 1:18 PM CST Forms faxed and pt notified WARDEN * Telephone Encounter - Brandy Hicks RN - 05/24/2023 9:29 AM CST Spoke with pt. Updated that we will work on forms. 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 Requesting an update on it. Contact: WARDEN documented in this encounter Plan of Treatment Not on file documented as of this encounter Visit Diagnoses Not on filedocumented in this encounter Care Teams Affirmative Action Specialist Relationship Specialty Start Date End Date Shan Loera DO [address] [place] [address] PCP - General Family Medicine 02/09/23 documented as of this encounter
--- OUTSIDE RECORDS SUMMARY | 2024-04-26 19:55 | XMS_ITS | Encounter Summary ---
Author Organization [facility] Healthcare Address [address] [place] [address] Care Team Providers Care Electrical Prospector Name Role Phone Kayley Loerajustin SandovalMuniz Primary Care Provider Reason for Visit * Reason Comments Follow-up 2 mo follow up on a- fib, HIWOT, HTN Encounter Details Date Type Department Care Team (Late st Contact Info) Description 07/11/2023 11:00 AM CDT Office Visit [facility] Medical Group Cardiology at [address] [place] [address] Karl Rae MD [address] [facility] [address] [place] [address] Persistent atrial fibrillation (HCC) (Primary [...] CDT Gender Identity Male 06/20/2023 11:48 PM SURGICAL NURSE Sexual Orientation Straight 06/20/2023 11 :48 PM SURGICAL NURSE documented as of this encounter Last Filed [...] Hewas referred to see Dr. [facility] at [facility] and saw him in consultation a short [...] 06/26/2023 added in this encounter Care Teams Electrical Prospector Relationship Specialty Start Date End Date Shan Loera DO [address] [place] [address] PCP - General Family Medicine 02/09/23 documented as of this encounter
--- OUTSIDE RECORDS SUMMARY | 2024-04-26 19:55 | XMS_ITS | Encounter Summary ---
Author Organization [facility] Healthcare Address [address] [place] [address] Care Team Providers Care Chlorobutadiene Scrubber Operator Name Role Phone ThomasShan tineo Primary Care Provider Encounter Details Date Type Department Care Team (Late st Contact Info) Description 02/15/2023 Orders Only [facility] Medical Group Cardiology [address] [place] [address] Karl Rae MD [address] [facility] [address] [place] [address] Social History Tobacco Use Types Packs/Day Years Used Date Smoking Tobacco: Never Assessed Sex and Gender Information Value Date Recorded Sex Assigned at Not on file Legal Sex Male 8:29 AM CDT Gender Identity Male 06/20/2023 11:48 PM RICE FARMWORKER Sexual Orientation Straight 06/20/2023 11 :48 PM RICE FARMWORKER documented as of this encounter Plan of [...] on filedocumented in this encounter Care Teams Chlorobutadiene Scrubber Operator Relationship Specialty Start Date End Date Shan Loera DO [address] [place] [address] PCP - General Family Medicine 02/09/23 documented as of this encounter
--- OUTSIDE RECORDS SUMMARY | 2024-04-26 19:55 | XMS_ITS | Encounter Summary ---
Author Organization [facility] Healthcare Address [address] [place] [address] Care Team Providers Care Drafting Layout Worker Name Role Phone Shan Loera DO Primary Care Provider Aiden Case MD Unavailable [phone] Encounter Details Date Type Department Care Team (Late st Contact Info) Description 07/05/2023 Orders Only [facility] Information Management [address] [place] [address] Scanning, Provider Social History Tobacco Use Types Packs/Day Years Used Date Smoking Tobacco: Former Cigarettes Q uit: 02/01/2009 Personal Safety Answer Date Recorded Getting School Help Needed Not on file 04/30 Sex and Gender Information Value Date Recorded Sex Assigned at Not on file Legal Sex Male 8:29 AM CDT Gender Identity Male 06/20/2023 11:48 PM RADAR REPAIRER Sexual Orientation Straight 06/20/2023 11 :48 PM RADAR REPAIRER documented as of this encounter Plan of Treatment Not on file documented as of this encounter Procedures Procedure Name Priority Date/Time Associated Diagnosis Comments SCAN - LABS 07/05/2023 documented in this encounter Results * SCAN - LABS (07/05/2023) us Provider Scanning Edited Result - Final documented in this encounter Visit Diagnoses Not on filedocumented in this encounter Care Teams Drafting Layout Worker Relationship Specialty Start Date End Date Shan Loera DO [address] [place] [address] PCP - General Family Medicine 02/09/23 Aiden Case MD [address] [address] Consulting Physician Cardiology 11/16/23 documented as of this encounter
--- OUTSIDE RECORDS SUMMARY | 2024-04-26 19:55 | XMS_ITS | Encounter Summary ---
Author Organization [facility] Healthcare Address [address] [place] [address] Care Team Providers Care Grinder Tender Name Role Phone LonluciusShanh Primary Care Provider Reason for Visit * Auth/Cert (Routine) Specialty Diagnoses / Procedures Referred By Mark t Referred To Contact Diagnoses Persistent atrial fibrillation (HCC) Persistent atrial fibrillation (HCC) [I48.19] Procedures ABLATION ATRIAL FIBRILLATION (A-FIB) VIA PULMONARY VEIN ISOLATION 05550 Referral ID Status Reason Start Date Expiration Date Visits Re quested Visits Authorized [id number] 1 1 Encounter Details Date Type Department Care Team (Late st Contact Info) Description 08/08/2023 7:30 AM CDT - 08/08/2023 9:40 AM CDT Surgery [facility] [address] [place] [id number] Aiden Case MD [address] [facility] [address] [address] ABLATION ATRIAL FIBRILLATION (A-FIB) VIA PULMONARY VEIN ISOLATION [address]200 Surgery Details Date/Time Status Location OR Service Patient Class Case Class Case Type Trauma Case? 08/08/2023 7:30 AM Posted [facility] CARDIAC SPAGHETTI PRESS HELPER CCL/ EP C Cardiovascular Outpatient Elective Panel 1 Procedure LRB Anes Op Region Wound Class Comments ABLATION ATRIAL FIBRILLATION (A-FIB) VIA PULMONARY VEIN ISOLATION [address]6620 N/A General ABLATION ATRIAL FIBRILLATION ADDITIONAL LINE OR FOCI (+) 01739 N/A LEFT VENTRICLE PACING AND RECORDING 21032 N/A ABLATE ADDTN'L ARRHYTHMIA, A TRIAL OR VENTRICULAR (+) 84564 N/A Surgeon Surgeon Role Service Panel Aiden [...] CDT Gender Identity Male 06/20/2023 11:48 PM WOUND SPECIALIST Sexual Orientation Straight 06/20/2023 11 :48 PM WOUND SPECIALIST documented as of this encounter Last [...] - 08/08/2023 1:33 PM CDT Cardiac Laboratory [facility] [place], [place] [address] [facility] Discharge Instructions---Angiogram MEDICATIONS [] Do [...] for any reason without discussing with your heading and priming tool setter first. - These medications may make you [...] home diet [] Special diet Instructed by Market Research Consultant ACTIVITY You have been given medications which [...] Case MD - 08/08/2023 3:48 PM CDT [facility] Medical Group Arrhythmia Center [address] [place] [address], [address] [address] Patient Name: Jonathan Quiles Date of : 1975 Primary Physician: Shan Loera DO Admission Date: 08/08/2023 This note was dictated with voice-recognition software, and lean manufacturing leader errors may be present. . . . [...] / benefits discussed Aiden Case M.D., M.P.H., [facility] Medical Group Arrhythmia Center 08/08/2023 7:39 AM [...] [Persistent] Atrial Fibrillation / Pulmonary Vein Isolation (80237) Linear/focal Left Atrial Ablation - Roof line (10659) - Posterior line (63786) Radiofrequency Catheter Ablation of Cavotricuspid Isthmus-dependent flutter (56613) Three-dimensional Electroanatomic Mapping and Navigation Transseptal left heart catheterization Intracardiac Echocardiography Electrophysiology Study, with RA, LA, CS, and LV Pacing[, negative for inducible arrhythmia] (07038) Study / pacing and recording after drug infusion (74119) Ultrasound-guided venous access Direct current cardioversion (16084) Patient History Mr. Quiles is a 48-year-old [...] single transseptal puncture was performed using the [place] RF needle inside a Vizigo deflectable long sheath. After entrance into the left atriumwas confirmed, the sheath was advanced into the center left atrium. A Smart Touch SF irrigated contact force-sensitive ablation catheter was advanced to the right atrium via an SL1 long sheath, and subsequently was manipulated across the transseptal puncture and positioned in the left atrium. A splined multipolar mapping catheter ([employer]) was positioned in the left atrium via [...] the left atrium and a duodecapolar catheter ([employer]) was advanced to the lateral and high [...] to the IVC in the 6:00 position (YI clock). The line was constructed during CS pacing, and bidirectional block was achieved. The ablation line was mapped to ensure widely spaced double potentials. [MURRY and YI views of the electroanatomic maps of the [...] in 4- 6 weeks Aiden Case MD [facility] Medical Group Arrhythmia Center [facility] [id number] documented in this encounter Plan of Treatment [...] CDT) 08/08/2023 12:5 1 PM CDT Narrative [facility] - 08/08/2023 9:01 PM CDT Vent Rate: 74 bpm RR Interval: 809 msec MO Interval: 224 msec QRS Duration: 128 msec QT Interval: 435 msec QTC Interval: 462 msec P-R-T [place]: 61 - 101 - 78 degrees IMPRESSION: SINUS RHYTHM WITH FIRST DEGREE AV BLOCK WITH OCCASIONAL VENTRICULAR PREMATURE COMPLEXES RIGHT AXIS DEVIATION MODERATE INTRAVENTRICULAR CONDUCTION DELAY PROLONGED QT INTERVAL ABNORMAL ECG Electronically Signed By: Chao Mcgee MD [facility] us Aiden Case MD ECG ORDERABLES Final R esult Performing Organization Address City/[facility]/ZIP Co de Phone Number [facility] * ELECTROPHYSIOLOGIC EVALUATION (EPS) / ATRIAL FIBRILLATION ABLATION VIA PULMONARY VEIN ISOLATION, ATRIAL FIBRILLATION ABLATION ADDITIONAL LINE OR FOCI, LEFT VENTRICLE PACING AND RECORDING, ABLATE ADDTL ARRHYTHMIA ATRIA OR VENT (08/08/2023 9:51 AM CDT) Anatomical Region Laterality Modality X-Ray Angiograph y us Aiden Case MD CV ELECTROPHYSIOLOGY [place] OCS Final Result * (ABNORMAL) POC Activated Clotting Time, High Range (08/08/2023 9:22 AM CDT) ACT 220(H) 87 - 138 sec Blood 08/08/2023 9:22 AM CDT 08/08/2023 9:22 AM CDT us Aiden Case MD LAB BLOOD ORDERABLES Fi nal Result Performing Organization Address [facility] Co de Phone Number [facility] [address] [place] [address] * (ABNORMAL) POC Activated Clotting Time, High Range (08/08/2023 9:07 AM CDT) ACT 192(H) 87 - 138 sec Blood 08/08/2023 9:07 AM CDT 08/08/2023 9:07 AM CDT us Aiden Case MD LAB BLOOD ORDERABLES Fi nal Result Performing Organization Address [facility] Co de Phone Number [facility] [address] [place] [address] * (ABNORMAL) POC Activated Clotting Time, High Range (08/08/2023 8:55 AM CDT) ACT 181(H) 87 - 138 sec Blood 08/08/2023 8:55 AM CDT 08/08/2023 8:55 AM CDT us Aiden Case MD LAB BLOOD ORDERABLES Fi nal Result Performing Organization Address [facility]/State/ZIP Co de Phone Number [facility] [address] Department of Laboratories [place], [place] [id number] * eGFR (08/08/2023 7:02 AM CDT) [facility] eGFR 73 >=60 mL/min/1. 73 m2 Comment: [...] MD LAB BLOOD ORDERABLES Fi nal Result [facility] [address] Department [place] [address] * Differential, auto (08/08/2023 7:02 AM CDT) Neutrophil abs 4.2 1.5 - 6.5 K/cumm Imm gran abs 0.0 0.0 - 0.1 K/cumm [facility] Lymphocyte abs 2.1 0.8 - 3.3 K/cumm [facility] Monocyte abs 0.8 0.2 - 0.8 K/cumm [facility] Eosinophil abs 0.2 0.0 - 0.5 K/cumm [facility] Basophil abs 0.1 0.0 - 0.1 K/cumm [facility] Neutrophil pct 57.1 % [facility] Comment: Interpretive Data Percent cell count reference ranges are not reported, since discordance with absolute values may lead to misinterpretation of CBC data. Current Interpretive Data was last revised on 2017. Imm gran pct 0.5 % [facility] Comment: Interpretive Data Percent cell count reference ranges are not reported, since discordance with absolute values may lead to misinterpretation of CBC data. Current Interpretive Data was last revised on 2017. Lymphocyte pct 28.7 % [facility] Comment: Interpretive Data Percent cell count reference ranges are not reported, since discordance with absolute values may lead to misinterpretation of CBC data. Current Interpretive Data was last revised on 2017. Monocyte pct 10.3 % [facility] Comment: Interpretive Data Percent cell count reference ranges are not reported, since discordance with absolute values may lead to misinterpretation of CBC data. Current Interpretive Data was last revised on 2017. Eosinophil pct 2.6 % [facility] Comment: Interpretive Data Percent cell count reference ranges are not reported, since discordance with absolute values may lead to misinterpretation of CBC data. Current Interpretive Data was last revised on 2017. Basophil pct 0.8 % [facility] Comment: Interpretive Data Percent cell count reference ranges are not reported, since discordance with absolute values may lead to misinterpretation of CBC data. Current Interpretive Data was last revised on 2017. Blood 08/08/2023 7:02 AM CDT 08/08/2023 7:22 AM CDT us Aiden Case MD LAB BLOOD ORDERABLES Fi nal Result [facility] [address] Department [place] [address] * Comprehensive metabolic panel (08/08/2023 7:02 AM CDT) Sodium 139 135 - 145 mmol/L Potassium, pl 4.0 3.3 - 4.9 mmol/L [facility] Chloride 98 97 - 110 mmol/L [facility] CO2 32 22 - 32 mmol/L [facility] Anion gap 9 2 - 15 mmol/L [facility] BUN 15 6 - 25 mg/dL [facility] Creatinine 1.22 0.80 - 1.30 mg/dL [facility] Glucose 146 70 - 199 mg/dL [facility] Comment: Interpretive Data Fasting glucose >/= 126 [...] 2022. Calcium 8.9 8.5 - 10.3 mg/dL [facility] Bilirubin, total 0.8 0.1 - 1.2 mg/dL [facility] Protein, pl 6.9 6.5 - 8.5 g/dL [facility] Albumin 4.0 3.5 - 5.0 g/dL [facility] Alk phos 53 40 - 130 Units/L [facility] ALT 32 7 - 55 Units/L [facility] AST 35 10 - 50 Units/L [facility] Comment:Slightly Hemolyzed S pecimen Blood 08/08/2023 7:02 AM CDT 08/08/2023 7:22 AM CDT Aiden Case MD LAB BLOOD ORDERABLES Fi nal Result Performing Organization Address [facility] Co de Phone Number [facility] [address] [employer] [place], [place] [id number] * (ABNORMAL) CBC with auto differential (08/08/2023 7:02 AM CDT) [facility] WBC 7.3 3.8 - 9.9 K/cumm Hgb 15.1 13.0 - 17.5 g/dL [facility] Hct 44.7 38.9 - 50.3 % [facility] Plt 233 150 - 400 K/cumm [facility] MPV 9.0(L) 9.1 - 12.3 fL [facility] RBC 4.60 4.30 - 5.80 M/cumm [facility] MCV 97.2(H) 81.3 - 96.4 fL [facility] MCH 32.8 27.1 - 33.3 pg [facility] MCHC 33.8 32.3 - 35.7 g/dL [facility] RDW CV 12.4 11.1 - 14.9 % [facility] RDW SD 44.3 35.7 - 48.1 fL [facility] NRBC abs 0.00 0.00 - 0.01 K/cumm [facility] Blood 08/08/2023 7:02 AM CDT 08/08/2023 7:22 AM CDT us Aiden Case MD LAB BLOOD ORDERABLES Fi nal Result Performing Organization Address [facility]/ZIP Co de Phone Number [facility] [address] [place] [address] * ECG 12 lead (08/08/2023 6:54 AM CDT) 08/08/2023 6:54 AM CDT Narrative [facility] - 08/08/2023 10:26 AM CDT Vent Rate: 79 bpm RR Interval: 754 msec MO Interval: 0 msec QRS Duration: 120 msec QT Interval: 395 msec QTC Interval: 430 msec P-R-T [place]: 0 - 89 - 69 degrees IMPRESSION: ATRIAL FIBRILLATION MODERATE INTRAVENTRICULAR CONDUCTION DELAY ??[110+ ms QRS DURATION] ABNORMAL ECG Electronically Signed By: Musa Espinoza MD [facility] us Aiden Case MD ECG ORDERABLES Final R esult [facility] documented in this encounter Visit Diagnoses [...] 08/08/2023 documented in this encounter Care Teams Grinder Tender Relationship Specialty Start Date End Date Shan Loera DO [address] [place] [address] PCP - General Family Medicine 02/09/23 documented as of this encounter
--- OUTSIDE RECORDS SUMMARY | 2024-04-26 19:55 | XMS_ITS | Encounter Summary ---
Author Organization [facility] Healthcare Address [address] [place] [address] Care Team Providers Care Warehouse Engineer Name Role Phone LonluciusShanh Primary Care Provider Reason for Visit * Auth/Cert (Routine) Specialty Diagnoses / Procedures Referred By Mark t Referred To Contact Diagnoses Persistent atrial fibrillation (HCC) Persistent atrial fibrillation (HCC) [I48.19] Procedures ABLATION ATRIAL FIBRILLATION (A-FIB) VIA PULMONARY VEIN ISOLATION 02156 Referral ID Status Reason Start Date Expiration Date Visits Re quested Visits Authorized [id number] 1 1 Encounter Details Date Type Department Care Team (Latest Contact Info) Description 08/08/2023 6:35 AM CDT - 08/08/2023 3:48 PM CDT Hospital Encounter [facility] [address] [place] [phone] Aiden Case MD [address] [facility] [address], [place] [address] Persistent atrial fibrillation (HCC) Discharge Disposition: Discharge [...] CDT Gender Identity Male 06/20/2023 11:48 PM SPLITTING MACHINE OPERATOR Sexual Orientation Straight 06/20/2023 11 :48 PM SPLITTING MACHINE OPERATOR documented as of this encounter [...] 08/08/2023 1:33 PM CDT Cardiac Laboratory [address] [place], [place] [address] [facility] Discharge Instructions---Angiogram MEDICATIONS [] Do [...] for any reason without discussing with your as400 developer first. - These medications may make you [...] home diet [] Special diet Instructed by President Sales And Marketing ACTIVITY You have been given medications which [...] Case MD - 08/08/2023 3:[address] [facility] [address] [place] [address], [address] [place], [place] [address] Patient Name: Jonathan Quiles Date of : 1975 Primary Physician: Shan Loera DO Admission Date: 08/08/2023 This note was dictated with voice-recognition software, and artist scientific errors may be present. . . . [...] / benefits discussed Aiden Case M.D., M.P.H., [facility] 08/08/2023 7:39 [...] [Persistent] Atrial Fibrillation / Pulmonary Vein Isolation (53966) Linear/focal Left Atrial Ablation - Roof line (83513) - Posterior line (07703) Radiofrequency Catheter Ablation of Cavotricuspid Isthmus-dependent flutter (81129) Three-dimensional Electroanatomic Mapping and Navigation Transseptal left heart catheterization Intracardiac Echocardiography Electrophysiology Study, with RA, LA, CS, and LV Pacing[, negative for inducible arrhythmia] (12257) Study / pacing and recording after drug infusion (13414) Ultrasound-guided venous access Direct current cardioversion (29574) Patient History Mr. Quiles is a 48-year-old [...] or equal to 350 seconds. An 8 Prydeinig deflectable phased-array ultrasound catheter was advanced to the center right atrium, and intracardiac echocardiography (ICE) was used to visualize the intraatrial septum and fossa ovalis in preparation for transseptal left heart catheterization. A single transseptal puncture was performed using the M9 Defense RF needle inside a Vizigo deflectable long sheath. After entrance into the left atriumwas confirmed, the sheath was advanced into the center left atrium. A Smart Touch SF irrigated contact force-sensitive ablation catheter was advanced to the right atrium via an SL1 long sheath, and subsequently was manipulated across the transseptal puncture and positioned in the left atrium. A splined multipolar mapping catheter ([employer]) was positioned in the left atrium via [...] the left atrium and a duodecapolar catheter ([employer]) was advanced to the lateral and high [...] to the IVC in the 6:00 position (WOLOF clock). The line was constructed during CS pacing, and bidirectional block was achieved. The ablation line was mapped to ensure widely spaced double potentials. [MURRY and WOLOF views of the electroanatomic maps of the [...] in 4- 6 weeks Aiden Case MD [facility] [id number] documented in this encounter Plan of Treatment [...] CDT) 08/08/2023 12:5 1 PM CDT Narrative [facility] - 08/08/2023 9:01 PM CDT Vent Rate: 74 bpm RR Interval: 809 msec RI Interval: 224 msec QRS Duration: 128 msec QT Interval: 435 msec QTC Interval: 462 msec P-R-T Celina: 61 - 101 - 78 degrees IMPRESSION: SINUS RHYTHM WITH FIRST DEGREE AV BLOCK WITH OCCASIONAL VENTRICULAR PREMATURE COMPLEXES RIGHT AXIS DEVIATION MODERATE INTRAVENTRICULAR CONDUCTION DELAY PROLONGED QT INTERVAL ABNORMAL ECG Electronically Signed By: Chao Mcgee MD [facility] us Aiden Case MD ECG ORDERABLES Final R esult [facility] * ELECTROPHYSIOLOGIC EVALUATION (EPS) / ATRIAL FIBRILLATION ABLATION VIA PULMONARY VEIN ISOLATION, ATRIAL FIBRILLATION ABLATION ADDITIONAL LINE OR FOCI, LEFT VENTRICLE PACING AND RECORDING, ABLATE ADDTL ARRHYTHMIA ATRIA OR VENT (08/08/2023 9:51 AM CDT) Anatomical Region Laterality Modality X-Ray Angiograph y Aiden Case MD CV ELECTROPHYSIOLOGY RI OCS Final Result * (ABNORMAL) POC Activated Clotting Time, High Range (08/08/2023 9:22 AM CDT) ACT 220(H) 87 - 138 sec Blood 08/08/2023 9:22 AM CDT 08/08/2023 9:22 AM CDT Aiden Case MD LAB BLOOD ORDERABLES Fi nal Result Performing Organization Address City/[facility] Co de Phone Number [facility] [address] [facility] [place] [address] * (ABNORMAL) POC Activated Clotting Time, High Range (08/08/2023 9:07 AM CDT) ACT 192(H) 87 - 138 sec Blood 08/08/2023 9:07 AM CDT 08/08/2023 9:07 AM CDT Aiden Case MD LAB BLOOD ORDERABLES Fi nal Result Performing Organization Address [facility] Co de Phone Number [facility] [address] [facility] [place], [place] [id number] * (ABNORMAL) POC Activated Clotting Time, High Range (08/08/2023 8:55 AM CDT) ACT 181(H) 87 - 138 sec Blood 08/08/2023 8:55 AM CDT 08/08/2023 8:55 AM CDT Aiden Case MD LAB BLOOD ORDERABLES Fi nal Result [facility] [address] [facility] [place] [address] * eGFR (08/08/2023 7:02 AM CDT) eGFR [...] LAB BLOOD ORDERABLES Fi nal Result SEKOU [facility] [address] Department [place] [address] * Differential, auto (08/08/2023 7:02 AM CDT) Pathologist [facility] Neutrophil abs 4.2 1.5 - 6.5 K/cumm Imm gran abs 0.0 0.0 - 0.1 K/cumm [facility] Lymphocyte abs 2.1 0.8 - 3.3 K/cumm [facility] Monocyte abs 0.8 0.2 - 0.8 K/cumm [facility] Eosinophil abs 0.2 0.0 - 0.5 K/cumm [facility] Basophil abs 0.1 0.0 - 0.1 K/cumm [facility] Neutrophil pct 57.1 % [facility] Comment: Interpretive Data Percent cell count reference ranges are not reported, since discordance with absolute values may lead to misinterpretation of CBC data. Current Interpretive Data was last revised on 2017. Imm gran pct 0.5 % [facility] Comment: Interpretive Data Percent cell count reference ranges are not reported, since discordance with absolute values may lead to misinterpretation of CBC data. Current Interpretive Data was last revised on 2017. Lymphocyte pct 28.7 % [facility] Comment: Interpretive Data Percent cell count reference ranges are not reported, since discordance with absolute values may lead to misinterpretation of CBC data. Current Interpretive Data was last revised on 2017. Monocyte pct 10.3 % [facility] Comment: Interpretive Data Percent cell count reference ranges are not reported, since discordance with absolute values may lead to misinterpretation of CBC data. Current Interpretive Data was last revised on 2017. Eosinophil pct 2.6 % [facility] Comment: Interpretive Data Percent cell count reference ranges are not reported, since discordance with absolute values may lead to misinterpretation of CBC data. Current Interpretive Data was last revised on 2017. Basophil pct 0.8 % [facility] Comment: Interpretive Data Percent cell count reference ranges are not reported, since discordance with absolute values may lead to misinterpretation of CBC data. Current Interpretive Data was last revised on 2017. Blood 08/08/2023 7:02 AM CDT 08/08/2023 7:22 AM CDT us Aiden Case MD LAB BLOOD ORDERABLES Fi nal Result [facility] [address] Department [place] [address] * Comprehensive metabolic panel (08/08/2023 7:02 AM CDT) Sodium 139 135 - 145 mmol/L Potassium, pl 4.0 3.3 - 4.9 mmol/L [facility] Chloride 98 97 - 110 mmol/L [facility] CO2 32 22 - 32 mmol/L [facility] Anion gap 9 2 - 15 mmol/L [facility] BUN 15 6 - 25 mg/dL [facility] Creatinine 1.22 0.80 - 1.30 mg/dL [facility] Glucose 146 70 - 199 mg/dL [facility] Comment: Interpretive Data Fasting glucose [...] 2022. Calcium 8.9 8.5 - 10.3 mg/dL [facility] Bilirubin, total 0.8 0.1 - 1.2 mg/dL [facility] Protein, pl 6.9 6.5 - 8.5 g/dL [facility] Albumin 4.0 3.5 - 5.0 g/dL [facility] Alk phos 53 40 - 130 Units/L [facility] ALT 32 7 - 55 Units/L [facility] AST 35 10 - 50 Units/L [facility] Comment:Slightly Hemolyzed S pecimen Blood 08/08/2023 7:02 AM CDT 08/08/2023 7:22 AM CDT us Aiden Case MD LAB BLOOD ORDERABLES Fi nal Result [facility] [address] Department of Laboratories [place], [place] [id number] * (ABNORMAL) CBC with auto differential (08/08/2023 7:02 AM CDT) WBC 7.3 3.8 - 9.9 K/cumm Hgb 15.1 13.0 - 17.5 g/dL [facility] Hct 44.7 38.9 - 50.3 % [facility] Plt 233 150 - 400 K/cumm [facility] MPV 9.0(L) 9.1 - 12.3 fL [facility] RBC 4.60 4.30 - 5.80 M/cumm [facility] MCV 97.2(H) 81.3 - 96.4 fL [facility] MCH 32.8 27.1 - 33.3 pg [facility] MCHC 33.8 32.3 - 35.7 g/dL [facility] RDW CV 12.4 11.1 - 14.9 % [facility] RDW SD 44.3 35.7 - 48.1 fL [facility] NRBC abs 0.00 0.00 - 0.01 K/cumm [facility] Blood 08/08/2023 7:02 AM CDT 08/08/2023 7:22 AM CDT us Aiden Case MD LAB BLOOD ORDERABLES Fi nal Result Performing Organization Address City/State/[facility] Co de Phone Number [facility] [address] Department [place] [address] * ECG 12 lead (08/08/2023 6:54 AM CDT) 08/08/2023 6:54 AM CDT Narrative [facility] - 08/08/2023 10:26 AM CDT Vent Rate: 79 bpm RR Interval: 754 msec RI Interval: 0 msec QRS Duration: 120 msec QT Interval: 395 msec QTC Interval: 430 msec P-R-T Celina: 0 - 89 - 69 degrees IMPRESSION: ATRIAL FIBRILLATION MODERATE INTRAVENTRICULAR CONDUCTION DELAY ??[110+ ms QRS DURATION] ABNORMAL ECG Electronically Signed By: Musa Espinoza MD [facility] us Aiden Case MD ECG ORDERABLES Final R esult [facility] documented in this encounter Visit Diagnoses [...] 08/08/2023 documented in this encounter Care Teams Warehouse Engineer Relationship Specialty Start Date End Date Shan Loera DO [address] [place] [address] PCP - General Family Medicine 02/09/23 documented as of this encounter
--- OUTSIDE RECORDS SUMMARY | 2024-04-26 19:55 | XMS_ITS | Encounter Summary ---
Author Organization [facility] Healthcare Address [address] [place] [address] Care Team Providers Care French Teacher Name Role Phone Shan Loerah Primary Care Provider Encounter Details Date Type Department Care Team (Late st Contact Info) Description 03/22/2023 Telephone [facility] Medical Group Cardiology [address] [place] [phone] Chelsey Cisneros NP [address] [place] [address] Social History Tobacco Use Types Packs/Day Years Used Date Smoking Tobacco: Former Cigarettes Q uit: 02/01/2009 Personal Safety Answer Date Recorded Getting School Help Needed Not on file 04/30 Sex and Gender Information Value Date Recorded Sex Assigned at Not on file Legal Sex Male 8:29 AM CDT Gender Identity Male 06/20/2023 11:48 PM PROMOTION WRITER Sexual Orientation Straight 06/20/2023 11 :48 PM PROMOTION WRITER documented as of this encounter Miscellaneous Notes * Telephone Encounter - Jaimie Mirza RN - 05/10/2023 8:25 AM PROMOTION WRITER Spoke with pt, informed him he will only need to be off work for the day of the procedure. Pt started talking about needing a letter stating he hasn't been able to work since September. Advised pt to talkto his employer and ask them to provide [facility] paperwork for us to complete. Pt was going to talk to his employer/unemployment today. OTION WRITER * Telephone Encounter - Kiah Bradford - 05/10/2023 8:04 AM CST Pt requesting a call back in regard to further discussing how long he will be out of work. As well as having a letter made for work. Contact:[phone] OTION WRITER * Telephone Encounter - Jaimie Mirza RN - 05/01/2023 10:37 AM PROMOTION WRITER Spoke with pt, reviewed instructions for procedure and mailed pt copy, he confirmed date and time were ok for him, answered all of his questions. OTION WRITER * Telephone Encounter - Jaimie Mirza RN - 05/01/2023 9:59 AM PROMOTION WRITER LM on reviewing date and time of procedure 05/14 at 0845 CV with anesthesia. Requested callback to confirm pt received my message and to make sure he didn't have any further questions. OTION WRITER * Telephone Encounter - Jaimie Mirza RN - 04/30/2023 12:02 PM PROMOTION WRITER LM on reviewing date and time of procedure 05/14 at 0845 CV with anesthesia. Requested callback to confirm pt received my message and to make sure he didn't have any further questions. OTION WRITER * Telephone Encounter - Jaimie Mirza RN - 03/22/2023 2:12 [address]ION WRITER Per CT scheduling pt for CV with anesthesia at with [facility] on 05/14 so pt has time to obtain his newcpap machine. Called [facility] to request a time on 05/14. Anesthesia asked for us to callback closer to date of procedure for time-will callback in a few weeks. Discussed with pt and reviewed instructions-he verbalized understanding. OTION WRITER documented in this encounter Plan of Treatment Not on file documented as of this encounter Visit Diagnoses Diagnosis Persistent atrial fibrillation (HCC)- Primary Atrial fibrillation documented in this encounter Care Teams French Teacher Relationship Specialty Start Date End Date Shan Loera DO [address] [place] [address] PCP - General Family Medicine 02/09/23 documented as of this encounter
--- OUTSIDE RECORDS SUMMARY | 2024-04-26 19:55 | XMS_ITS | Encounter Summary ---
Author Organization [facility] Healthcare Address [address] [place] [address] Care Team Providers Care Clinic Office Coordinator Name Role Phone LonKayley kanjustin Johnsonh Primary Care Provider Encounter Details Date Type Department Care Team (Late st Contact Info) Description 05/16/[address] [facility] Medical Group Cardiology [address] [facility] [address] [place] [address] Karl Rae MD [address] [facility] [address] [place] [address] Social History Tobacco Use Types Packs/Day Years Used Date Smoking Tobacco: Former Cigarettes Q uit: 02/01/2009 Personal Safety Answer Date Recorded Getting School Help Needed Not on file 04/30 Sex and Gender Information Value Date Recorded Sex Assigned at Not on file Legal Sex Male 8:29 AM CDT Gender Identity Male 06/20/2023 11:48 PM IDENTIFICATION CLERK Sexual Orientation Straight 06/20/2023 11 :48 PM IDENTIFICATION CLERK documented as of this encounter Plan of Treatment Not on file documented as of this encounter Procedures Procedure Name Priority Date/Time Associated Diagnosis Comments CARDIOLOGY DOCUMENT SCAN Routine 05/14/2023 1:51 PM IDENTIFICATION CLERK CARDIOLOGY DOCUMENT SCAN Routine 05/14/2023 1:49 PM IDENTIFICATION CLERK documented in this encounter Results * Cardiology Document Scan (05/14/2023 1:51 PM IDENTIFICATION CLERK) Anatomical Region Laterality Modality Other us Karl Rae MD CV CARDIAC SERVICES PROC EDURES Final Result * Cardiology Document Scan (05/14/2023 1:49 PM IDENTIFICATION CLERK) Anatomical Region Laterality Modality Other us Karl Rae MD CV CARDIAC SERVICES PROC EDURES Final Result documented in this encounter Visit Diagnoses Not on filedocumented in this encounter Care Teams Clinic Office Coordinator Relationship Specialty Start Date End Date Shan Loera DO [address] [place] [address] PCP - General Family Medicine 02/09/23 documented as of this encounter
--- OUTSIDE RECORDS SUMMARY | 2024-04-26 19:55 | XMS_ITS | Encounter Summary ---
Author Organization [facility] Address [address] [place] [address] Care Team Providers Care Informatics Application Analyst Name Role Phone Shan Loera DO Primary [...] TRANSESOPHAGEAL ECHO (NELL) WO DOPPLER/CF W CONTRAST [facility] [address] [place] [phone] Phone: tel: fax: [address] [phone] Referral ID Status Reason Start Date Expiration Date Visits Re quested Visits Authorized [id number] Closed 07/04/2023 08/02/2024 1 1 * Cardiology [...] TRANSESOPHAGEAL ECHO (NELL) WO DOPPLER/CF W CONTRAST [facility] [address] [place] [phone] Phone: tel: fax: [address] [phone] Referral ID Status Reason Start Date Expiration Date Visits Re quested Visits Authorized [id number] Closed 07/04/2023 08/02/2024 1 1 Reason for Visit * Auth/Cert (Routine) Specialty Diagnoses / Procedures Referred By Mark reynoso Referred To Contact Diagnoses Persistent atrial fibrillation (HCC) Persistent atrial fibrillation (HCC) [I48.19] Procedures ABLATION ATRIAL FIBRILLATION (A-FIB) VIA PULMONARY VEIN ISOLATION [id number] Referral ID Status Reason Start Date Expiration Date Visits Re quested Visits Authorized [id number] 1 1 Encounter Details Date Type Department Care Team (Latest Contact Info) Description 08/08/2023 6:36 AM CDT - 08/08/2023 11:59 PM CDT Hospital Encounter [facility] [address] [place] [phone] Janna EdgeConcrete Placement Equipment OperatorMD [address] [place], [place] [id number] Discharge Disposition: Discharge to home or self [...] Gender Identity Male 06/20/2023 11:48 PM HOSPITAL RECEPTIONIST Sexual Orientation Straight 06/20/2023 11 :48 PM HOSPITAL RECEPTIONIST documented as of this encounter Medications at [...] AM CDT Narrative 08/08/2023 7:11 PM CDT [facility] [address] [place] [address] TRANSESOPHAGEAL ECHOCARDIOGRAM Patient Name: JONATHAN QUILES W [...] TRINH thrombus seen. Electronically Signed By: Breezy Segnudo [facility] Card 2023-08-08 19:10:55 CDT Procedure Note Breezy Segundo MD - 08/08/2023 [facility] [address] [place] [address] TRANSESOPHAGEAL ECHOCARDIOGRAM Patient Name: JONATHAN QUILES W [...] Signed By: Breezy Segundo [facility] Card 2023-08-08 19:10:55 CDT us Concrete Placement Equipment Operator Kely HENDRICKS CV ECHO PROCEDURE S Final Result documented in this encounter Visit Diagnoses Not on filedocumented in this encounter Care Teams Informatics Application Analyst Relationship Specialty Start Date End Date Shan Loera DO [address] [place] [address] PCP - General Family Medicine 02/09/23 documented as of this encounter
== END 2024-04-19 14:20 | disposition home or self-care (01) ==
PROVIDERS: Emergency Provider Emergency Medicine; PCP Family Medicine
DX: J10.1 Influenza due to other identified influenza virus with other respiratory manifestations (principal); I48.91 Unspecified atrial fibrillation; E11.9 Type 2 diabetes mellitus without complications; E29.1 Testicular hypofunction; J45.909 Unspecified asthma, uncomplicated; I11.0 Hypertensive heart disease with heart failure; I50.9 Heart failure, unspecified; G47.33 Obstructive sleep apnea (adult) (pediatric); E66.01 Morbid (severe) obesity due to excess calories; Z68.42 Body mass index [BMI] 45.0-49.9, adult; F12.90 Cannabis use, unspecified, uncomplicated; Z87.891 Personal history of nicotine dependence; Z20.822 Contact with and (suspected) exposure to COVID-19; Z79.01 Long term (current) use of anticoagulants; Z79.51 Long term (current) use of inhaled steroids; Z79.85 Long-term (current) use of injectable non-insulin antidiabetic drugs; Z79.890 Hormone replacement therapy
CPT/HCPCS: 36415; 71045; 71250; 80053; 83605; 83880; 84484; 85025; 85610; 85730; 87040; 87637; 93005; 99284

== ENCOUNTER 2024-06-19 17:00 | Emergency (ER) | payer OTHER, SELFPAY ==
[2024-06-19 17:00] VITALS: BP 147/91; PULSE 102; RESP 22; TEMP 36.9; O2SAT 22
[2024-06-19 17:44] LABS: SARS-CoV-2 RNA PCR Negative (Negative)
[2024-06-19 17:45] LABS: Influenza A QL RT-PCR Negative (Negative); Influenza B QL RT-PCR Negative (Negative); RSV RNA, RT-PCR Negative (Negative)
--- NOTE | 2024-06-19 17:55 | ED.URI ---
HPI - URI/Sore Throat General Chief Complaint: Upper Respiratory Infection Stated Complaint: vomiting and diarrhea Time Seen by Provider: 06/19/24 17:42 Source: patient Mode of arrival: ambulatory Limitations: no limitations History of Present Illness HPI Narrative: Patient with some cough congestion diarrhea nausea vomiting for the last 3 to 4 days with currently no fever chills no shortness of breath abdominal pain. MD elicited complaint: cough, rhinorrhea and nasal congestion Consistency: constant Severity: moderate Related Data Home Medications ?Medication ?Instructions ?Recorded ?Confirmed ?Last Taken ?Type albuterol 90 mcg-budesonide 80 2 inh inhalation ONCE 05/02/24 Unknown History mcg/actuation HFA aerosol inhaler (Airsupra) metoprolol succinate 100 mg mg PO 05/02/24 05/02/24 Unknown History tablet,extended release 24 hr Allergies Allergy/AdvReac Type Severity Reaction Status Date / Time Penicillins Allergy Mild unknown Verified 05/13/24 08:46 latex AdvReac Severe Swelling Verified 05/13/24 08:46 of the Eye Review of Systems Review of Systems: All systems reviewed & are unremarkable except as noted in HPI and below PMFSH Past Medical History Medical History New onset of congestive heart failure A-fib Tobacco use HTN (hypertension) Asthma HIWOT (obstructive sleep apnea) Morbid obesity Surgical History Surgical History History of appendectomy S/p bilateral myringotomy with tube placement History of tonsillectomy and adenoidectomy H/O Achilles tendon repair H/O inguinal hernia repair Family History Family History Father Mother No problems noted. Sibling Blood clot in leg Diabetes mellitus Other Cancer Hypertension Social History Social History Smoking status: Former smoker Tobacco type: cigarettes Smokeless tobacco user: chewing tobacco Second hand tobacco smoke exposure: No Smoking end date: 04/23/08 Additional smoking assessment comments: Marijuana smoker Alcohol intake: never Alcohol use details: rarely Substance use: never Substance use type: does not use Other substance usage details: smokes daily Last use: 01/26/2023 Lack of Transportation: No Lack of Food: Never True Current Housing: I Have Housing Concerned About Future Housing: Decline to Answer Difficulty Paying Gas/Electric Bills: Decline to Answer Difficulty Paying for Meds: Decline to Answer Currently Unemployed: Decline to Answer Education: Decline to Answer Difficulty w/ Childcare or Family Care: Decline to Answer Living arrangements: alone Occupation/Education: occupation 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 Gender identity (if verbalized by the patient): Male Spiritual care concerns: No Exam Const: General: healthy appearing Nutritional Appearance: well nourished Orientation/consciousness: patient oriented x3 Limitations: no limitations HENMT: Head: normal to inspection Eyes: Conjunctivae: conjunctivae normal Neck: Neck: normal visual inspection and no lymphadenopathy Chest: Chest palpation & inspection: normal inspection of the chest Resp: Effort & Inspection: normal respiratory effort Auscultation: clear to auscultation bilaterally Cardio: Rate: regular rate Rhythm: regular rhythm GI: GI Palp: Yes Soft to palpation : General: Yes bladder normal to palpation Urinary Catheter: Urinary Catheter: patent and draining Back/Spine/Pelvis: Back: no CVA tenderness Skin: General skin exam: normal color Rashes: no rashes Course Course Emergency Course: Patient had negative COVID negative influenza negative RSV, patient after being told he does not have influenza said he has been sick for over a month with cough and nasal congestion and told the patient that during this visit he does not have influenza A and became irate and belligerent. And left prior to completed treatment and prescriptions being given are sent. Vital Signs Vital signs: Vital Signs Temperature 36.9 C 06/19/24 17:00 Pulse Rate 102 H 06/19/24 17:00 Respiratory Rate 22 H 06/19/24 17:00 Blood Pressure 147/91 H 06/19/24 17:00 Pulse Oximetry 22 L 06/19/24 17:00 Oxygen Delivery Room Air 06/19/24 17:00 Temperature 36.9 C 06/19/24 17:00 Pulse Rate 102 H 06/19/24 17:00 Respiratory Rate 22 H 06/19/24 17:00 Blood Pressure 147/91 H 06/19/24 17:00 Pulse Oximetry 22 L 06/19/24 17:00 Oxygen Delivery Room Air 06/19/24 17:00 MDM - URI/Sore Throat Lab Data Labs: Lab Results 06/19/24 Range/Units 17:00 Influenza A (RT-PCR) Negative (Negative) Influenza B (RT-PCR) Negative (Negative) RSV (RT-PCR) Negative (Negative) SARS-CoV-2 RNA (RT-PCR) Negative (Negative) Critical Care Time Critical Care Time Critical Care Time: No Discharge Plan Discharge Clinical Impression: Gastroenteritis Sinusitis Qualifiers: Sinusitis location: frontal Chronicity: chronic Qualified Code(s): J32.1 - Chronic frontal sinusitis Patient Disposition: Elopement After Seen by Prov Condition: Stable Patient Language: Lithuanian Prescriptions: No Action testosterone cypionate 200 mg/mL oil 140 mg IM .every 2 weeks Qty: 6 1RF Rx Instructions: 140 mg once every 2 weeks (DME) syringe with needle 3 mL 22 gauge x 1 syringe See Rx Instructions .ROUTE .MEDSUPPLY Qty: 100 12RF Rx Instructions: every 2 weeks cholecalciferol (vitamin D3) 1,250 mcg (50,000 unit) capsule 1,250 mcg PO WEEKLY Qty: 8 0RF metoprolol succinate 100 mg tablet extended release 24 hr PO lisinopril 20 mg tablet 20 mg PO DAILY Qty: 90 0RF albuterol-budesonide 90-80 mcg/actuation HFA aerosol inhaler 2 inh inhalation ONCE Qty: 10.7 0RF Rx Instructions: as a single dose; may repeat up to 6 doses per day (12 inhalations) Airsupra 90-80 mcg/actuation HFA aerosol inhaler 2 inh inhalation ONCE Rx Instructions: SAMPLE 1 [address] INHALATIONS [facility]: [id number] 10/2004 Eliquis 5 mg tablet 5 mg PO BID Qty: 60 3RF furosemide 80 mg tablet See Rx Instructions .ROUTE .COMPLEX Qty: 180 0RF Dose Instruction: TAKE ONE TABLET BY MOUTH TWICE A DAY Rx Instructions: TAKE ONE TABLET BY MOUTH TWICE A DAY tadalafil 10 mg tablet See Rx Instructions .ROUTE .COMPLEX Qty: 30 0RF Dose Instruction: 10 MG ORALLY DAILY NEEDED FOR SEXUAL ACTIVITY; ADMINISTER APPROXIMATELY 30 MINUTES BEFORE SEXUAL ACTIVITY; DO NOT USE MORE Rx Instructions: 10 MG ORALLY DAILY NEEDED FOR SEXUAL ACTIVITY; ADMINISTER APPROXIMATELY 30 MINUTES BEFORE SEXUAL ACTIVITY; DO NOT USE MORE diclofenac potassium 50 mg tablet 50 mg PO DAILY Qty: 60 0RF Trulicity 1.5 mg/0.5 mL pen injector 1.5 mg subcut WEEKLY Qty: 2 0RF Follow-up/Referrals: Shan Loera DO [Primary Care Provider] - Time of Disposition: 18:01
--- NOTE | 2024-06-19 17:59 | PC.NURSE ---
175 dr combs in room to discuss finding from lab results. explained negative covid, influenza, rsv. pt started yelling at dr combs, im tired of being sick, tell me what is wrong with me, i have been to my doctor and i have been here twice. RN went to room after pt kicked metal table and pulled off blood pressure cuff. attempted to explain to pt test results and that the doctor was going to prescribe an antibiotic. pt continues yelling. RN returned to nurses station, pt came to nurses station. asked pt to return to room, pt states ill be waiting out in my car. explained if you leave the er , you will not get any paperwork for discharge . 1802 pt departed ER.
== END 2024-06-19 18:03 | disposition left against medical advice (07) ==
LOC: CHSED 18:15
PROVIDERS: Emergency Provider Emergency Medicine; PCP Family Medicine
DX: K52.9 Noninfective gastroenteritis and colitis, unspecified (principal); J32.1 Chronic frontal sinusitis; I48.91 Unspecified atrial fibrillation; I10 Essential (primary) hypertension; Z87.891 Personal history of nicotine dependence; Z20.822 Contact with and (suspected) exposure to COVID-19
CPT/HCPCS: 87637; 99283

== ENCOUNTER 2024-06-20 03:11 | Emergency (ER) | payer OTHER, SELFPAY ==
[2024-06-20 03:15] VITALS: BP 126/76; PULSE 78; RESP 20; TEMP 36.7
== END 2024-06-20 04:00 | disposition left against medical advice (07) ==
LOC: ANHED 04:07
PROVIDERS: PCP Family Medicine
DX: R11.2 Nausea with vomiting, unspecified (principal)
CPT/HCPCS: 99199

== ENCOUNTER 2024-11-04 12:46 | Outpatient (CLI) | payer OTHER, SELFPAY ==
--- OUTSIDE RECORDS SUMMARY | 2024-11-04 12:54 | XMS_ITS | Referral Summary ---
Author Organization [facility] [place] [address] Address [address] [place] [address] Care Team Providers Care Piano Assembler Name Role Phone ThomasShan tineo Primary Care Provider Aiden Case MD Unavailable [phone] Encounters Date Type Department Care Team Description 11/04/2024 Telephone Arrhythmia Center [address] [facility] [address] [address] Teresa Garcia NP Atrial Fibrillation 09/24/2024 10:20 AM CDT Office Visit [facility] Urology [address] [place] [address] Advanced Medicine 11th [place] [address] Jeremi Houser MD Erectile dysfunction, unspecified erectile dysfunction type (Primary Dx); Follow-up exam 08/27/2024 3:15 PM CDT Office Visit [facility] [address] [facility] [address], [place] [address] Teresa Garcia NP Persistent atrial fibrillation (HCC) (Primary Dx); Anticoagulation management encounter 08/25/2024 8:00 AM CDT Office Visit [facility] Cardiology at [address] [place] [address] Karl Rae MD Persistent atrial fibrillation (HCC) (Primary Dx) from Last 3 Months Allergies Active Allergy Reactions Criticality Noted Date Comments Latex Swelling,Rash Medium 02/25/2024 Penicillins Rash Medium 08/30/2020 Reaction as a child. Dulaglutide Diarrhea,Vomiting Low 08/25/2024 Medications albuterol HFA (PROVENTIL HFA,VENTOLIN HFA,PROAIR HFA) 90 [...] by mouth daily 4 Active testosterone cypionate (DEPO-TESTOTERO NE) 200 mg/mL injection Inject 1 mL (200 mg total) into the muscle as instructed every 14 (fourteen) days 4 Active lisinopriL (PRINIVIL,ZESTR IL) 20 mg tablet Take 1 tablet (20 mg total) by mouth daily 5 Active metoprolol XL (TOPROL-XL) 100 mg 24 hr tablet Take 0.5 tablets (50 mg total) by mouth daily Active cholecalciferol (VITAMIN D-3) 2000 unit tablet Active Active Problems Problem Noted Date Diagnosed Date Anticoagulation management encounter 09/13/2023 Assessment & Plan (02/29/2024 8:43 AM MICROFILM PROCESSOR): - remains compliant on apixaban - denies [...] 06/21/2023 Assessment & Plan (02/29/2024 8:43 AM MICROFILM PROCESSOR): -status post radiofrequency catheter ablation with Dr. [...] visit Assessment & Plan (06/21/2023 12:35 PM MICROFILM PROCESSOR): The patient has symptomatic paroxysmal (recently persistent) [...] procedure is necessary. The patient has a [id number] score of 1. I have therefore recommended [...] with atrial fibrillation: a report of the [place] [employer]/[place] [employer] Task Force on Practice Guidelines [...] CDT Gender Identity Male 06/20/2023 11:48 PM MICROFILM PROCESSOR Sexual Orientation Straight 06/20/2023 11 :48 PM MICROFILM PROCESSOR Last Filed Vital Signs Vital Sign Reading Time Taken Comments Blood Pressure 130/80 08/27/2024 2:55 PM CDT Pulse 64 08/27/2024 2:55 PM CDT Temperature 36.2 C (97.1 F) 08/08/2023 10:23 AM CDT Respiratory Rate 18 02/18/2024 8:00 AM CDT Oxygen Saturation 90% 08/25/2024 8:09 AM CDT Inhaled Oxygen Concentration - - Weight 160.6 kg (354 lb) 08/27/2024 2:55 PM CDT Height 185.4 cm (6' 1) 08/27/2024 2:55 PM CDT Body Mass Index 46.7 08/27/2024 2:55 PM CDT Plan of Treatment Not on file Medical Devices Implanted Type Area Band Shover Device Identifier Shelf Expiration Date Model / Serial / Lot [employer] Vascade Mvp 6-12fr Venous Closure [id number] - [id number] - [id number] Implanted:Qty: 1 on 08/08/2023 by Aiden Case MD at [facility] Collagen [employer] 05/01/2025 800-612C-1 [id number] / [id number] / [id number] [employer] Vascade Mvp 6-12fr Venous Closure [id number] - [id number] - [id number] Implanted:Qty: 1 on 08/08/2023 by Aiden Case MD at [facility] Collagen [employer] 05/01/2025 800-612C-1 0U / [id number] / [id number] [employer] Device Vascular Closure Femoral Artery Bioabsorbable Dual Method Vascade 6-7fr Collagen [id number] - [id number] - [id number] Implanted:Qty: 1 on 08/08/2023 by Aiden Case MD at [facility] Collagen [employer] 01/15/2025 [id number]-0 [id number] / [id number] / [id number] [employer] Vascade Mvp 6-12fr Venous Closure [id number] - [id number] - [id number] Implanted:Qty: 1 on 08/08/2023 by Aiden Case MD at [facility] [employer] 03/23/2025 800-612C-1 0U / [id number] / [id number] Procedures Procedure Name Priority Date/Time Associated Diagnosis Comments ECG 12-LEAD Routine 08/27/2024 3:06 PM CDT Persistent atrial fibrillation (HCC) POCT LIPID PANEL Routine 08/25/2024 8:04 AM CDT Persistent atrial fibrillation (HCC) from Last 3 Months Results * ECG 12 lead (08/27/2024 3:06 PM CDT) Teresa Garcia NP ECG ORDERABLES Betzy l Result * (ABNORMAL) POCT lipid panel (08/25/2024 8:04 AM CDT) Cholesterol, POC 171 <200 MG/DL HDL, POC 36(A) >=40 mg/dL Triglycerides, POC 113 <=149 mg/dL LDL Cholesterol POC 112 <=129 mg/dL Chol/HDL Ratio, POC 4.7 NONE Non-HDL Cholesterol, POC 135 NONE mg/dL Cholesterol Total, POC 171 30 - 199 mg/dL Capillary blood 08/25/2024 8 :04 AM CDT Karl Rae MD POINT OF CARE TEST ORDER EHSAN Final Result from Last 3 Months Insurance [facility] Care Teams Piano Assembler Relationship Specialty Start Date End Date Shan Loera DO [address] [place] [address] PCP - General Family Medicine 02/09/23 Aiden Case MD [address] [address] Consulting Physician Cardiology 11/16/23
--- OUTSIDE RECORDS SUMMARY | 2024-11-04 12:54 | XMS_ITS | Clinical Summary ---
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 Not on file Not on file Not on file Last Filed Vital Signs Vital Sign Reading Time Taken Comments Blood Pressure 118/76 09/01/2020 11:00 AM CDT Pulse 94 09/01/2020 11:00 AM CDT Temperature 36.8 C (98.3 F) 09/01/2020 11:00 AM CDT Respiratory Rate 17 09/01/2020 11:00 AM CDT Oxygen Saturation 95% 08/30/2020 1:59 PM CDT Inhaled Oxygen Concentration - - Weight 183.4 kg (404 lb 4 oz) 09/01/2020 11:00 A M CDT Height 185.4 cm (6' 1) 09/01/2020 11:00 AM CDT Body Mass Index [...] Vaccine (1 - 2023-2 5 season) 2023 Pneumococcal Vaccine: 50+ Ye ars (1 of 1 - PCV) 2024 Zoster Vaccines (1 of 2) 2024 Meningococcal B Vaccine Aged Out No l onger eligible based on patient's age to complete this topic Meningococcal Vaccine Aged Out No konrad elke eligible based on patient's age to complete this topic RSV Immunizations Under 20 Months Aged Out No longer eligible based on patient's age to complete this topic Insurance [employer] COMP on file Care Teams Foreign Correspondent Relationship Specialty Start Date End Date Romel Saxena MD PCP - General FAMILY PRACTICE 08/26/20
--- OUTSIDE RECORDS SUMMARY | 2024-11-04 12:54 | XMS_ITS | Encounter Summary ---
Author Organization [facility] Address [address] [place] [address] Care Team Providers Care District Home Economics Agent Name Role Phone Romel Saxena MD Primary Care Provider [phone] Claus Higgins MD Unavailable Unavailab le Encounter Details Date Type Department Care Team (Late st Contact Info) Description 09/28/2018 Abstract SFL CONVERSION [address] [place] [address] , Generic Conversion, Social History Tobacco Use Types Packs/Day Years Used Date Smoking Tobacco: Never Assessed Sex and Gender Information Value Date Recorded Sex Assigned at Not on file Legal Sex Male 8:56 PM JEWEL BEARING TURNER Gender Identity Not on file Sexual Orientation Not on file documented as of this encounter Plan of Treatment Not on file documented as of this encounter Visit Diagnoses Not on filedocumented in this encounter Care Teams District Home Economics Agent Relationship Specialty Start Date End Date Romel Saxena MD PCP - General FAMILY PRACTICE 08/26/20 Claus Higgins MD SURGERY 08/31/20 08/31/20 documented as of this encounter
--- OUTSIDE RECORDS SUMMARY | 2024-11-04 12:54 | XMS_ITS | Clinical Summary ---
Author Organization [facility] [place] [address] Address [address] [place] [address] Care Team Providers Care Stack Matcher Name Role Phone Shan Loera DO Primary Care Provider Aiden Case MD Unavailable [phone] Allergies Active Allergy Reactions Criticality Noted Date [...] tablet (20 mg total) by mouth daily Active metoprolol XL (TOPROL-XL) 100 mg 24 hr tablet Take 0.5 tablets (50 mg total) by mouth daily Active cholecalciferol (VITAMIN D-3) 2000 unit tablet Active Active Problems Problem Noted Date Diagnosed Date Anticoagulation management encounter 09/13/2023 Assessment & Plan (02/29/2024 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 [...] visit Assessment & Plan (06/21/2023 12:35 PM VETERINARY SURGEON): The patient has symptomatic paroxysmal (recently persistent) [...] procedure is necessary. The patient has a BAU3YN0-BOTm score of 1. I have therefore recommended [...] with atrial fibrillation: a report of the [place] [employer]iology/[place] [employer] Task Force on Practice Guidelines [...] Description 11/04/2024 Telephone Arrhythmia Center [address] [facility] [address], [place] [address] Teresa Garcia NP Atrial Fibrillation 09/24/2024 10:20 AM CDT Office Visit [facility]) - [facility] Urology [address] [facility] 11th [place] [address] [place] [address] Jeremi Houser MD Erectile dysfunction, unspecified erectile dysfunction type (Primary Dx); Follow-up exam 08/27/2024 3:15 PM CDT Office Visit [facility] [address] [facility] [address], [place] [address] Teresa Garcia NP Persistent atrial fibrillation (HCC) (Primary Dx); Anticoagulation management encounter 08/25/2024 8:00 AM CDT Office Visit [facility] Cardiology at [address] [place] [phone] Karl Rae MD Persistent atrial fibrillation (HCC) [...] CDT Gender Identity Male 06/20/2023 11:48 PM VETERINARY SURGEON Sexual Orientation Straight 06/20/2023 11 :48 PM VETERINARY SURGEON Obstetrics History Last Filed Vital Signs Vital [...] 08/27/2024 2:55 PM CDT Plan of Treatment Health Maintenance Due Date Last Done Comments Colon Cancer Screening-Colonoscopy 1974 Depression Screening 1974 Hepatitis C Screening 1974 Prostate Cancer Screening-PSA 1974 Hepatitis B Screening 1992 Regular Well Visit/Exam 18-64 1992 Zoster Vaccine (1 of 2) 2024 Influenza Vaccine (#1) 2024 DTaP/Tdap/Td Vaccine (3 - Td or Tdap) 02/21/2029 02/21/2019, 06/17/2012 Pneumococcal vaccine <65 Aged Out No longer eligible based on patient's age to complete this topic Medical Devices Implanted Type Area Lead Slot Technician Device Identifier Shelf Expiration Date Model / Serial / Lot [employer] Vascade Mvp 6-12fr Venous Closure [id number] - [id number] - [id number] Implanted:Qty: 1 on 08/08/2023 by Aiden Case MD at [facility] Collagen [employer] 05/01/2025 800-612C-1 0U / [id number] / [id number] [employer] Vascade Mvp 6-12fr Venous Closure [id number] - [id number] - [id number] Implanted:Qty: 1 on 08/08/2023 by Aiden Case MD at [facility] Collagen [employer] 05/01/2025 800-612C-1 0U / [id number] / [id number] [employer] Device Vascular Closure Femoral Artery Bioabsorbable Dual Method Vascade 6-7fr Collagen [id number] - [id number] - [id number] Implanted:Qty: 1 on 08/08/2023 by Aiden Case MD at [facility] Coll[employer] 01/15/2025 700-580I-0 5U / [id number] / [id number] [employer] Vascade Mvp 6-12fr Venous Closure [id number] - [id number] - [id number] Implanted:Qty: 1 on 08/08/2023 by Aiden Case MD at [facility] [employer] 03/23/2025 800-612C-1 0U / [id number] / [id number] Procedures Procedure Name Priority Date/Time Associated Diagnosis Comments ECG 12-LEAD Routine 08/27/2024 3:06 PM CDT Persistent atrial fibrillation (HCC) POCT LIPID PANEL Routine 08/25/2024 8:04 AM CDT Persistent atrial fibrillation (HCC) from Last 3 Months Results * ECG 12 lead (08/27/2024 3:06 PM CDT) Teresa Garcia MECHANIC FOREMAN ECG ORDERABLES Betzy l Result * (ABNORMAL) [...] Final Result from Last 3 Months Insurance [facility] Care Teams Stack Matcher Relationship Specialty Start Date End Date Shan Loera DO [address] [place] [address] PCP - General Family Medicine 02/09/23 Aiden Case MD [address] [address] Consulting Physician Cardiology 11/16/23
--- OUTSIDE RECORDS SUMMARY | 2024-11-04 12:54 | XMS_ITS | Clinical Summary ---
Author Organization [facility] Address [address] [place] [address] Care Team Providers Care Room Maid Name Role Phone Unavailable Primary Care Provider Unavailabl e Source Comments [facility],non-owned Affiliates and Associated Physician Practices is amultiple site organization consisting of ambulatory clinics and hospital sitesin [place], [place], [place] and [place]. This disclosure is being madepursuant to the Care Everywhere program and may not contain all information available regarding this patient. Last updated 18.[facility] Allergies Active Allergy Reactions Criticality Noted Date Comments Penicillins Rash Medium 08/30/2020 Reaction as a child. Medications * Be aware that medications may not be up to date on this document. Alwaysverify current medications with the patient. 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 Gender Identity Not on file Sexual Orientation Not on file Last Filed Vital Signs Vital Sign Reading Time Taken Comments Blood Pressure 167/92 10/12/2020 10:16 AM CDT Pulse 81 10/12/2020 10:16 AM CDT Temperature 36.6 C (97.8 F) 10/12/2020 10:16 AM CDT Respiratory Rate - - Oxygen [...] 3-dose series) 1993 SCREENING FOR DIABETES 09/28/2020 COVID-19 VACCINE (1 - 2023-2 5 season) 2023 PNEUMOCOCCAL VACCINE 50+ (1 of 1 - PCV) 2024 ZOSTER VACCINE (1 of 2) 2024 DEPRESSION SCREENING 04/23/2024 INFLUENZA VACCINE (#1) 2024 HIB VACCINE Aged Out No longer eligi ble based on patient's age to complete this topic HPV VACCINE Aged Out No longer eligi ble based on patient's age to complete this topic MENINGOCOCCAL (Group B) VACC INE SHARED DECISION-MAKING Aged Out No longer eligibl e based on patient's age to complete this topic MENINGOCOCCAL GROUPS A/C/Y/W VACCINE Aged Out No longer eligible b ased on patient's age to complete this topic Insurance [employer]IC
--- OUTSIDE RECORDS SUMMARY | 2024-11-04 12:54 | XMS_ITS | Encounter Summary ---
Author Organization [facility] Healthcare Address [address] [place] [address] Care Team Providers Care Knot Tier Name Role Phone LonKayley kanjustin Johnsonh Primary Care Provider Aiden Case MD Unavailable [phone] Reason for Visit * Reason Onset Date Comments Atrial Fibrillation 11/04/2024 Encounter Details Date Type Department Care Team (Late st Contact Info) Description 11/04/2024 Telephone Arrhythmia Center [address], [place] [address] Teresa Garcia, DIOR [address], [place] [address] Atrial Fibrillation Social History Tobacco Use Types Packs/Day Years [...] CDT Gender Identity Male 06/20/2023 11:48 PM [employer] Sexual Orientation Straight 06/20/2023 11 :48 PM [employer] documented as of this encounter Miscellaneous Notes * Telephone Encounter - Teresa Garcia NP - 11/04/2024 12:49 PM CDT I called and spoke with the patient. He states he is at [facility] in [facility] being worked up for his symptoms. He was encouraged to call us if he needs sooner follow-up based on the workup. He verbalized understanding and denies questions or concerns. * Telephone Encounter - Mercedes Lopez MA - 11/04/2024 10:43 AM CDT Pt reports that he is SOB, extremely fatigued, HR is 79, BP is 160/90 for the past three days. Getsvery SOB with activity. Pulse-Ox measures O2 84-90. He is taking 100 mg of Metoprolol XL a day instead of 50 mg a day. All other medications taking as prescribed. Please advise. documented in this encounter Plan of Treatment Not on file documented as of this encounter Visit Diagnoses Not on filedocumented in this encounter Care Teams Knot Tier Relationship Specialty Start Date End Date Shan Loera DO [address] [place] [address] PCP - General Family Medicine 02/09/23 Aiden Case MD [address] [address], [place] [address] Consulting Physician Cardiology 11/16/23 documented as of this encounter
--- OUTSIDE RECORDS SUMMARY | 2024-11-04 12:54 | XMS_ITS ---
Author Organization Unknown Plan of Treatment Description Planned Activity Planned Timing [facility] is a provider organization who partners directly with [employer] and provides integrated primary care, behavioral health, and pediatric social worker for an attributed population Letter encounter to patientTelephone encounter Oct 16, 2024Jul 2024 Patient Care team information Name Category Status Period Participants - - Proposed period not known -
--- NOTE | 2024-11-04 12:59 | ECG_ITS ---
Test Date: 2024-11-04 13:08:03 Measurements Intervals [place] Rate: 66 P: 9 SD: 213 QRS: 97 QRSD: 115 T: 57 QT: 399 QTc: 420 Interpretive Statements SINUS RHYTHM WITH FIRST DEGREE AV BLOCK BORDERLINE RIGHT AXIS DEVIATION [QRS AXIS > 90] MODERATE INTRAVENTRICULAR CONDUCTION DELAY [110+ ms QRS DURATION] Compared to ECG 04/19/2024 13:04:14 Sinus tachycardia no longer present Electronically Signed On 11-05-2024 12:31:03 CDT by Ricardo Campos M.D.
[2024-11-04 13:02] LABS: Hematocrit 51.3 % (40.0-54.0); Hemoglobin 16.0 g/dL (14.0-18.0); Immature Granulocyte Percent A 0.8 % (0.0-0.0); Lymphocytes Absolute Auto 1.66 K/mm3 (1.10-4.50); Mean Corpuscular HGB Conc 31.2 g/dL (32-36); Mean Corpuscular Hemoglobin 32.7 pg (27.0-31.0); Mean Corpuscular Volume 104.7 fL (78.0-102.0); Nucleated Red Blood Cells Absolute Auto 0.00 K/mm3 (0.00-0.00); Nucleated Red Blood Cells Perc 0.0 % (0-0.0); Platelet Count Result 194 K/mm3 (150-420); Red Blood Count 4.90 M/mm3 (4.70-6.10); White Blood Count 7.8 K/mm3 (4.8-10.8)
[2024-11-04 13:33] LABS: Alanine Aminotransferase 23 U/L (6-50); Albumin Level 3.9 g/dL (3.5-5.1); Alkaline Phosphatase 42 U/L (38-126); Anion Gap 2 mmol/L (4-12); Aspartate Amino Transferase 27 U/L (17-59); Bilirubin,Total 0.8 mg/dL (0.2-1.3); Blood Urea Nitrogen 13 mg/dL (9-20); Calcium 8.6 mg/dL (8.4-10.2); Carbon Dioxide 37 mmol/L (22-30); Chloride 99 mmol/L (98-107); Estimated Glomerular Filt Rate > 60; Glucose 91 mg/dL (65-110); Osmolality Calculated 286 mOsm/kg (285-295); Potassium 4.6 mmol/L (3.4-5.0); Sodium 138 mmol/L (137-145); Total Protein 6.6 g/dL (6.3-8.2)
[2024-11-04 13:35] LABS: Hemoglobin A1C 6.1 % (<5.7)
[2024-11-04 13:58] LABS: Influenza A QL RT-PCR Negative (Negative); Influenza B QL RT-PCR Negative (Negative); RSV RNA, RT-PCR Negative (Negative); SARS-CoV-2 RNA PCR Negative (Negative)
[2024-11-04 14:04] LABS: Thyroid Stimulating Hormone Reflex 2.820 uIU/mL (0.465-4.68)
[2024-11-04 14:39] LABS: Vitamin B12 373.0 pg/mL (239-931)
== END 2024-11-04 12:47 | disposition home or self-care (01) ==
LOC: CHSLAB 12:47
PROVIDERS: PCP Family Medicine; Visit Provider Family Medicine
DX: R53.83 Other fatigue (principal); E53.8 Deficiency of other specified B group vitamins; E03.9 Hypothyroidism, unspecified; E11.9 Type 2 diabetes mellitus without complications; I44.0 Atrioventricular block, first degree
CPT/HCPCS: 36415; 80053; 82607; 82746; 83036; 84443; 85025; 87637; 93005